=== PATIENT | female | born 1945 | race African-American/Black ===

== ENCOUNTER 2017-10-03 04:46 | Inpatient (IN) | payer MEDICARE, OTHER ==
[2017-10-03] VITALS (32 sets, daily range): BP systolic 51–126; BP diastolic 19–89
[~2017-10-03] VITALS: Ht 165.1 cm; Wt 64.0 kg
[2017-10-03] MEDS ORDERED: Dextrose 10%/0.9% SOD CHL 1,000 ML IV SCH (05:00)
--- NOTE | 2017-10-03 05:02 | Emergency Room Report ---
History of Present Illness General Chief Complaint: Abnormal Labs Source: Medical Record Present Illness HPI 72-year-old female brought in by EMS for low blood sugar and hypertension History of present illness otherwise limited because patient is altered from hypoglycemia Was giving glucagon and d10 by EMS without improvement and low blood sugar Chest x-ray from September 28 shows cardiomegaly, a diffuse pulmonary edema, possible left lower lung and foot trait versus pleural effusion Patient only on insulin, I do not see any other long-acting diabetes medications or sulfonylureas list of medication from shelter Allergies: Coded Allergies: ASPIRIN (Unverified Allergy, Unknown, 10/03/17) PENICILLINS (Unverified Allergy, Unknown, 10/03/17) Patient History Past Medical History: DM, HTN, renal disease, dialysis, other - anemia, hyperparathyroidism Past Surgical History: unable to obtain Pertinent Family History: unable to obtain Social History: Denies: smoking, alcohol use, drug use Now: No Immunizations: UTD Reviewed Nursing Documentation: PMH: Agreed, PSxH: Agreed Nursing Documentation-PMH Past Medical History: No History, Except For Hx Cardiac Problems: Yes - Cardiogenic shock, Anemia, Hyperparathyroidism Hx Hypertension: Yes - Nonrheumatic Mitral valve insufficiency Hx Asthma: No - Acute pulmanory edema Hx Diabetes: Yes - Type 2 Hx Gastrointestinal Problems: No - Generalized muscle weakness Hx Dialysis: Yes - ESRD Review of Systems All Other Systems: limited - AMS Physical Exam Vital Signs Date Time Temp Pulse Resp B/P (MAP) Pulse Ox O2 Delivery O2 Flow Rate FiO2 10/03/17 04:41 97.5 90 16 106/70 50 Room Air Sp02 EP Interpretation: reviewed, abnormal General Appearance: normal inspection, well appearing, no apparent distress, alert, lethargic Head: atraumatic Eyes: bilateral eye PERRL, bilateral eye EOMI ENT: normal ENT inspection, hearing grossly normal, normal voice Neck: normal inspection, full range of motion, supple, no bony tend Respiratory: normal inspection, no respiratory distress, no retraction, no accessory muscle use, no wheezing, rales, other - Palpable midsternal mass Cardiovascular #1: regular rate, rhythm, no edema Gastrointestinal: normal inspection, normal bowel sounds, non tender, soft, no guarding, no hernia Genitourinary: no CVA tenderness Musculoskeletal: normal inspection, back normal, normal range of motion, Arnol' s Sign negative Neurologic: normal inspection, alert, responsive, finish repairer III-XII nml as tested, speech normal Psychiatric: normal inspection, judgement/insight normal, mood/affect normal Skin: normal inspection, normal color, no rash Procedures Critical Care Time Critical Care Time CC time 35min Critical care time endorsed for this patient for sepsis, hypoglycemia, hypothermia Critical care time includes review of laboratory tests, imaging, review of EMR, review of paperwork from SNF (if available), discussion with patient and family (if available), review of code status/POLS (if available). Critical care time also likely includes assessment of fluid status, stabilization of vital signs, selection and dosing of appropriate antibiotics, selection and dosing of Aspirin/Plavix/Heparin/Lovenox, discussion with PMD/ attending hospitalist/postal transportation clerk. Critical care time does not include any procedures which are documented elsewhere in this EMR. Medical Decision Making Diagnostic Impression: Primary Impression: Hypoglycemia Additional Impressions: Altered mental status Qualified Codes: R41.82 - Altered mental status, unspecified Hypothermia Qualified Codes: T68.XXXA - Hypothermia, initial encounter Sepsis Qualified Codes: A41.9 - Sepsis, unspecified organism CHF (congestive heart failure) Qualified Codes: I50.9 - Heart failure, unspecified Hypokalemia CKD (chronic kidney disease) requiring chronic dialysis ER Course 72-year-old female initially for her hypoglycemia Is only on insulin - glucose improved with D50 amps Continue low pulse oximetry reading likely due to hypothermia, rectal temperature 94F Started on bear hugger Her portable RT pulse oximetry, reading was 94% X-ray shows combination of bilateral pulmonary congestion and possible right- sided pneumonia Cultures pending Is given empiric antibiotics, Lasix for acute on chronic CHF labs also significant for hypokalemia, which was repleted intravenously Patient likely with sepsis given hypothermia, hypotension, and right-sided pneumonia Will not give sepsis fluid bolus given pulmonary edema Endorse to Dr. Campa for ICU admission at 6 AM As PMD EKG Diagnostic Results Rate: normal Rhythm: NSR ST Segments: other - ST downsloping in V1-4 Other Impression Prolonged Qtc 550 ASA given to the pt in ED: No Rhythm Strip Diag. Results EP Interpretation: yes Rate: 88 Rhythm: other - +PVCs Chest X-Ray Diagnostic Results Chest X-Ray Diagnostic Results : Chest X-Ray Ordered: Yes Indication: Shortness of Breath EP Interpretation: Yes Interpretation: other - Cardiomegaly, bilateral pulm congestion, ?right sided PNA Electronically Signed by: Dr Fatmata Julian MD Last Vital Signs Date Time Temp Pulse Resp B/P (MAP) Pulse Ox O2 Delivery O2 Flow Rate FiO2 10/03/17 04:41 97.5 90 16 106/70 50 Room Air Status: improved Disposition: ADMITTED INPATIENT Condition: Critical FATMATA JULIAN M.D. Oct 03, 2017 05:02
[2017-10-03 05:12] LABS: MEAN CORPUSCULAR HEMOGLOBIN 30.3 PG (27.0-31.0); MEAN CORPUSCULAR HGB CONC 31.6 G/DL (32.0-36.0); MEAN CORPUSCULAR VOLUME 96 FL (80-99); MEAN PLATELET VOLUME 9.2 FL (6.5-10.1); PLATELET COUNT 214 K/UL (150-450); RED BLOOD COUNT 3.44 M/UL (4.20-5.40); RED CELL DISTRIBUTION WIDTH 16.1 % (11.6-14.8); WHITE BLOOD COUNT 12.7 K/UL (4.8-10.8)
[2017-10-03] MEDS ORDERED: Dextrose 10% 1,000 ML IV SCH (05:15)
[2017-10-03 05:22] LABS: ANION GAP 11 mmol/L (5-15); CARBON DIOXIDE 29 MMOL/L (21-32); CHLORIDE 97 MMOL/L (98-107); CREATININE 2.6 MG/DL (0.55-1.30); POTASSIUM 3.1 MMOL/L (3.5-5.1); SODIUM 137 MMOL/L (136-145)
[2017-10-03 05:27] LABS: ALANINE AMINOTRANSFERASE 23 U/L (12-78); ALBUMIN/GLOBULIN RATIO 0.6 (1.0-2.7); ASPARTATE AMINO TRANSFERASE 37 U/L (15-37); MAGNESIUM 1.8 MG/DL (1.8-2.4); TOTAL PROTEIN 6.8 G/DL (6.4-8.2)
[2017-10-03 05:43] LABS: BAND NEUTROPHILS % (MANUAL) 0 % (0-8); BASOPHILS % (MANUAL) 0 % (0-2); EOSINOPHILS % (MANUAL) 0 % (0-3); LYMPHOCYTES % (MANUAL) 4 % (20-45); NEUTROPHILS % (MANUAL) 91 % (45-75); PLATELET ESTIMATE ADEQUATE; PLATELET MORPHOLOGY NORMAL; TOTAL CELLS COUNTED 100
[2017-10-03] MEDS ORDERED: NS 250 ML IVPB ONE (07:15)
[2017-10-03] MEDS ORDERED: Lidocaine 1% Plain 30 ml INJ ONE (07:45)
--- NOTE | 2017-10-03 08:21 | Emergency Room Report ---
Physical Exam Patient signed out to me. Sepsis, hypothermia, ESRD on dialysis. Hypotensive in ED. NS 250 bolus given. Last 24 Hour Vital Signs Date Time Temp Pulse Resp B/P (MAP) Pulse Ox O2 Delivery O2 Flow Rate FiO2 10/03/17 07:42 96.9 87 16 91/55 100 Bi-pap 10/03/17 07:18 96.9 89 20 88/55 100 Bi-pap 10/03/17 07:04 82 14 100 Facial 50 10/03/17 06:41 50 10/03/17 05:43 91 21 Bi-pap 50 10/03/17 05:42 91 21 94 Facial 50 10/03/17 05:00 94.3 88 21 99/58 75 Simple Mask 6.0 10/03/17 04:41 96.4 90 16 106/70 92 Simple Mask Sp02 EP Interpretation: reviewed, normal - but previously abnormal General Appearance: well appearing, no apparent distress, GCS 15 Head: normocephalic, atraumatic Eyes: bilateral eye normal inspection, bilateral eye PERRL ENT: moist mucus membranes Neck: supple Respiratory: no respiratory distress, crackles Cardiovascular #1: regular rate, rhythm Cardiovascular #2: 2+ radial (R), 2+ femoral (R), 3+ femoral (L) - fistula Gastrointestinal: normal inspection, normal bowel sounds, non tender, no mass, non-distended, decreased bowel sounds, scaphoid Genitourinary: normal inspection Musculoskeletal: back normal, normal range of motion Neurologic: alert, other - eyes closed, vocalizes, moving all 4 Psychiatric: depressed affect Skin: normal inspection, warm/dry Central Line Central Line : Consent: Emergent Central Line Lumen: triple Maximal Sterile Barrier Tech: yes cap, yes mask, yes sterile gown, yes sterile gloves, yes large sterile sheet, yes hand hygiene, yes chlorhexidine prep Central Line Postion: femoral (R) Anesthesia: Lidocaine cc's of anesthesia: 4 Complications: u/s required to locate vein as on lateral side of artery Attempts: Other - 2 Patient Tolerated: Well Complications: None Progress EBL - 4 ml blood. Vein not medial to artery. Located with u/s and cannulated with ease. Medical Decision Making Diagnostic Impression: Primary Impression: Hypoglycemia Additional Impressions: CHF (congestive heart failure) Qualified Codes: I50.9 - Heart failure, unspecified Hypothermia Qualified Codes: T68.XXXA - Hypothermia, initial encounter Sepsis Qualified Codes: A41.9 - Sepsis, unspecified organism Altered mental status Qualified Codes: R41.82 - Altered mental status, unspecified CKD (chronic kidney disease) requiring chronic dialysis Hypokalemia Septic shock ER Course Please see full note from Dr. Arias. Patient with ESRD, sepsis, hypotension and pulm edema on CXR. Need for CVP and possible pressors. Small fluid bolus given and CVP started. U/S needed as vein in atypical place. BP better after bolus - pressors not needed at this time. Dialysis indicated. Patient critical. Sepsis Re-examination Time: 7:42 VS: see last VS documented below - improved CVS: RRR Respiratory: Lungs crackles bilaterally Peripheral pulses: 1+ radial, femoral Capillary refill: <2 seconds Skin exam: minimally cool - on Mary hugger, dry, no rash, not mottled Laboratory Tests Test 10/03/17 04:50 10/03/17 05:50 10/03/17 14:55 White Blood Count 12.7 K/UL (4.8-10.8) H Red Blood Count 3.44 M/UL (4.20-5.40) L Hemoglobin 10.4 G/DL (12.0-16.0) L Hematocrit 33.0 % (37.0-47.0) L Mean Corpuscular Volume 96 FL (80-99) Mean Corpuscular Hemoglobin 30.3 PG (27.0-31.0) Mean Corpuscular Hemoglobin Concent 31.6 G/DL (32.0-36.0) L Red Cell Distribution Width 16.1 % (11.6-14.8) H Platelet Count 214 K/UL (150-450) Mean Platelet Volume 9.2 FL (6.5-10.1) Neutrophils (%) (Auto) % (45.0-75.0) Lymphocytes (%) (Auto) % (20.0-45.0) Monocytes (%) (Auto) % (1.0-10.0) Eosinophils (%) (Auto) % (0.0-3.0) Basophils (%) (Auto) % (0.0-2.0) Differential Total Cells Counted 100 Neutrophils % (Manual) 91 % (45-75) H Lymphocytes % (Manual) 4 % (20-45) L Monocytes % (Manual) 5 % (1-10) Eosinophils % (Manual) 0 % (0-3) Basophils % (Manual) 0 % (0-2) Band Neutrophils 0 % (0-8) Platelet Estimate Adequate Platelet Morphology Normal Sodium Level 137 MMOL/L (136-145) 139 MMOL/L (136-145) Potassium Level 3.1 MMOL/L (3.5-5.1) L 3.4 MMOL/L (3.5-5.1) L Chloride Level 97 MMOL/L (98-107) L 98 MMOL/L (98-107) Carbon Dioxide Level 29 MMOL/L (21-32) 30 MMOL/L (21-32) Anion Gap 11 mmol/L (5-15) 11 mmol/L (5-15) Blood Urea Nitrogen 18 mg/dL (7-18) 21 mg/dL (7-18) H Creatinine 2.6 MG/DL (0.55-1.30) H 2.8 MG/DL (0.55-1.30) H Estimate Glomerular Filtration Rate mL/min (>60) mL/min (>60) Glucose Level 266 MG/DL (74-106) H 146 MG/DL (74-106) #H Calcium Level 7.0 MG/DL (8.5-10.1) L 7.2 MG/DL (8.5-10.1) L Magnesium Level 1.8 MG/DL (1.8-2.4) Total Bilirubin 1.0 MG/DL (0.2-1.0) Aspartate Amino Transferase (AST) 37 U/L (15-37) Alanine Aminotransferase (ALT) 23 U/L (12-78) Alkaline Phosphatase 148 U/L (46-116) H Total Protein 6.8 G/DL (6.4-8.2) Albumin 2.6 G/DL (3.4-5.0) L Globulin 4.2 g/dL Albumin/Globulin Ratio 0.6 (1.0-2.7) L Troponin I 0.017 ng/mL (0.000-0.056) Rhythm Strip Diag. Results EP Interpretation: yes Rhythm: NSR, no PVC's, no ectopy Chest X-Ray Diagnostic Results Chest X-Ray Diagnostic Results : Chest X-Ray Ordered: Yes # of Views/Limited/Complete: 1 View Indication: Other EP Interpretation: Yes Interpretation: no pneumothorax, other - inc cor, bilat infiltrates/chf, effusions Last Vital Signs Date Time Temp Pulse Resp B/P (MAP) Pulse Ox O2 Delivery O2 Flow Rate FiO2 10/03/17 07:42 96.9 87 16 91/55 100 Bi-pap 10/03/17 07:04 50 10/03/17 05:00 6.0 Status: unchanged Disposition: ADMITTED INPATIENT Condition: Critical Referrals: ELAINE CHAKRABORTY (PCP) Steve Gerardo M.D. Oct 03, 2017 08:20
--- NOTE | 2017-10-03 09:18 | Diagnostic Imaging Report ---
Indication: Shortness of breath Technique: XRAY CHEST 1 V Comparison: None Findings: Cardiac silhouette is prominent. Interstitial opacities are seen. Small bilateral pleural effusions are suggested. There is prominence of the bilateral pulmonary arteries. Degenerative changes of the spine are noted. Impression: Cardiomegaly with interstitial edema versus infiltrates. Small bilateral pleural effusions. Prominence of the pulmonary arteries. Clinical correlation recommended.
[2017-10-03] MEDS ORDERED: ZOFRAN4 M3 ORAL (10:59)
[2017-10-03] MEDS ORDERED: PRO-STAT LIQUID30 ML ORAL (10:59)
[2017-10-03] MEDS ORDERED: PRO-AMATINE5 M1 GT (10:59)
[2017-10-03] MEDS ORDERED: PLAVIX75 MG ORAL (10:59)
[2017-10-03] MEDS ORDERED: SENSIPAR30 MG ORAL (10:59)
[2017-10-03] MEDS: Heparin 5000 units/ml inj SUBQ SCH ×2 (11:42→20:36)
--- NOTE | 2017-10-03 13:39 | Infectious Diseases Prog Note ---
Assessment/Plan Problems: (1) HCAP (healthcare-associated pneumonia) Assessment & Plan: will start vancomycin and levaquin empiric coverage pending culture (2) Sepsis Assessment & Plan: due to the above, will send blood culture, start vancomycin and levaquin empirically (3) Hypoglycemia Assessment & Plan: continue blood glucose monitor , avoid insulin (4) Altered mental status Assessment & Plan: due to the above, continue neuro check , check ammonia (5) CHF (congestive heart failure) Assessment & Plan: on HD, renal is following Subjective Allergies: Coded Allergies: ASPIRIN (Unverified Allergy, Unknown, 10/03/17) PENICILLINS (Unverified Allergy, Unknown, 10/03/17) Objective Vital Signs Last 24 Hour Vital Signs Date Time Temp Pulse Resp B/P (MAP) Pulse Ox O2 Delivery O2 Flow Rate FiO2 10/03/17 12:00 88 18 86/49 100 Nasal Cannula 3.0 10/03/17 11:52 89 10/03/17 11:00 89 20 87/47 96 Nasal Cannula 3.0 10/03/17 10:00 88 18 92/51 92 Nasal Cannula 3.0 10/03/17 09:52 88 10/03/17 09:05 97.7 99 24 94/55 91 Non-Rebreather 100.0 10/03/17 09:05 3.0 10/03/17 08:57 96.9 89 18 97/56 100 Bi-pap 6.0 50 10/03/17 08:45 86 14 100 Facial 50 10/03/17 08:39 89 18 97/56 100 Bi-pap 10/03/17 07:42 96.9 87 16 91/55 100 Bi-pap 10/03/17 07:18 96.9 89 20 88/55 100 Bi-pap 10/03/17 07:04 82 14 100 Facial 50 10/03/17 06:41 50 10/03/17 05:43 91 21 Bi-pap 50 10/03/17 05:42 91 21 94 Facial 50 10/03/17 05:00 94.3 88 21 99/58 75 Simple Mask 6.0 10/03/17 04:41 96.4 90 16 106/70 92 Simple Mask Height (Feet): 5 Height (Inches): 5.00 Weight (Pounds): 1185 Laboratory Tests Test 10/03/17 04:50 10/03/17 05:50 White Blood Count 12.7 K/UL (4.8-10.8) H Red Blood Count 3.44 M/UL (4.20-5.40) L Hemoglobin 10.4 G/DL (12.0-16.0) L Hematocrit 33.0 % (37.0-47.0) L Mean Corpuscular Volume 96 FL (80-99) Mean Corpuscular Hemoglobin 30.3 PG (27.0-31.0) Mean Corpuscular Hemoglobin Concent 31.6 G/DL (32.0-36.0) L Red Cell Distribution Width 16.1 % (11.6-14.8) H Platelet Count 214 K/UL (150-450) Mean Platelet Volume 9.2 FL (6.5-10.1) Neutrophils (%) (Auto) % (45.0-75.0) Lymphocytes (%) (Auto) % (20.0-45.0) Monocytes (%) (Auto) % (1.0-10.0) Eosinophils (%) (Auto) % (0.0-3.0) Basophils (%) (Auto) % (0.0-2.0) Differential Total Cells Counted 100 Neutrophils % (Manual) 91 % (45-75) H Lymphocytes % (Manual) 4 % (20-45) L Monocytes % (Manual) 5 % (1-10) Eosinophils % (Manual) 0 % (0-3) Basophils % (Manual) 0 % (0-2) Band Neutrophils 0 % (0-8) Platelet Estimate Adequate Platelet Morphology Normal Sodium Level 137 MMOL/L (136-145) Potassium Level 3.1 MMOL/L (3.5-5.1) L Chloride Level 97 MMOL/L (98-107) L Carbon Dioxide Level 29 MMOL/L (21-32) Anion Gap 11 mmol/L (5-15) Blood Urea Nitrogen 18 mg/dL (7-18) Creatinine 2.6 MG/DL (0.55-1.30) H Estimat Glomerular Filtration Rate mL/min (>60) Glucose Level 266 MG/DL (74-106) H Calcium Level 7.0 MG/DL (8.5-10.1) L Magnesium Level 1.8 MG/DL (1.8-2.4) Total Bilirubin 1.0 MG/DL (0.2-1.0) Aspartate Amino Transf (AST/SGOT) 37 U/L (15-37) Alanine Aminotransferase (ALT/SGPT) 23 U/L (12-78) Alkaline Phosphatase 148 U/L (46-116) H Total Protein 6.8 G/DL (6.4-8.2) Albumin 2.6 G/DL (3.4-5.0) L Globulin 4.2 g/dL Albumin/Globulin Ratio 0.6 (1.0-2.7) L Troponin I 0.017 ng/mL (0.000-0.056) Current Medications Medications (Trade) Dose Ordered Sig/Tamanna Route PRN Reason Start Time Stop Time Status Last Admin Dose Admin Heparin Sodium (Porcine) (Heparin 5000 units/ml) 5,000 units EVERY 12 HOURS SUBQ 10/03/17 09:00 11/02/17 08:59 10/03/17 11:42 Dina Bazan M.D. Oct 03, 2017 13:39
[2017-10-03] MEDS ORDERED: Vancomycin 1gm/D5W 275ml IVPB ONE ×2 (14:30)
[2017-10-03] MEDS ORDERED: Midodrine 10mg tab ORAL SCH ×2 (15:30→18:00)
[2017-10-03 15:37] LABS: ANION GAP 11 mmol/L (5-15); CALCIUM 7.2 MG/DL (8.5-10.1); CARBON DIOXIDE 30 MMOL/L (21-32); CHLORIDE 98 MMOL/L (98-107); CREATININE 2.8 MG/DL (0.55-1.30); POTASSIUM 3.4 MMOL/L (3.5-5.1); SODIUM 139 MMOL/L (136-145)
--- NOTE | 2017-10-03 16:21 | Cardiac Electrophysiology PN ---
Subjective Subjective Cardiology consult [id number] Objective Last 24 Hour Vital Signs Date Time Temp Pulse Resp B/P (MAP) Pulse Ox O2 Delivery O2 Flow Rate FiO2 10/03/17 16:00 3.0 10/03/17 15:00 90 19 90/53 100 Nasal Cannula 3.0 10/03/17 14:00 89 22 85/48 100 Nasal Cannula 3.0 10/03/17 13:00 89 19 84/49 100 Nasal Cannula 3.0 10/03/17 12:00 3.0 10/03/17 12:00 88 18 86/49 100 Nasal Cannula 3.0 10/03/17 11:52 89 10/03/17 11:00 89 20 87/47 96 Nasal Cannula 3.0 10/03/17 10:00 88 18 92/51 92 Nasal Cannula 3.0 10/03/17 09:52 88 10/03/17 09:05 97.7 99 24 94/55 91 Non-Rebreather 100.0 10/03/17 09:05 3.0 10/03/17 08:57 96.9 89 18 97/56 100 Bi-pap 6.0 50 10/03/17 08:45 86 14 100 Facial 50 10/03/17 08:39 89 18 97/56 100 Bi-pap 10/03/17 07:42 96.9 87 16 91/55 100 Bi-pap 10/03/17 07:18 96.9 89 20 88/55 100 Bi-pap 10/03/17 07:04 82 14 100 Facial 50 10/03/17 06:41 50 10/03/17 05:43 91 21 Bi-pap 50 10/03/17 05:42 91 21 94 Facial 50 10/03/17 05:00 94.3 88 21 99/58 75 Simple Mask 6.0 10/03/17 04:41 96.4 90 16 106/70 92 Simple Mask Intake and Output 10/03/17 10/04/17 19:00 07:00 Intake Total 253.708 ml Output Total 0 ml Balance 253.708 ml IV Total 243.708 ml Other 10 ml Output Urine Total 0 ml Laboratory Tests Test 10/03/17 04:50 10/03/17 05:50 10/03/17 14:55 White Blood Count 12.7 K/UL (4.8-10.8) H Red Blood Count 3.44 M/UL (4.20-5.40) L Hemoglobin 10.4 G/DL (12.0-16.0) L Hematocrit 33.0 % (37.0-47.0) L Mean Corpuscular Volume 96 FL (80-99) Mean Corpuscular Hemoglobin 30.3 PG (27.0-31.0) Mean Corpuscular Hemoglobin Concent 31.6 G/DL (32.0-36.0) L Red Cell Distribution Width 16.1 % (11.6-14.8) H Platelet Count 214 K/UL (150-450) Mean Platelet Volume 9.2 FL (6.5-10.1) Neutrophils (%) (Auto) % (45.0-75.0) Lymphocytes (%) (Auto) % (20.0-45.0) Monocytes (%) (Auto) % (1.0-10.0) Eosinophils (%) (Auto) % (0.0-3.0) Basophils (%) (Auto) % (0.0-2.0) Differential Total Cells Counted 100 Neutrophils % (Manual) 91 % (45-75) H Lymphocytes % (Manual) 4 % (20-45) L Monocytes % (Manual) 5 % (1-10) Eosinophils % (Manual) 0 % (0-3) Basophils % (Manual) 0 % (0-2) Band Neutrophils 0 % (0-8) Platelet Estimate Adequate Platelet Morphology Normal Sodium Level 137 MMOL/L (136-145) 139 MMOL/L (136-145) Potassium Level 3.1 MMOL/L (3.5-5.1) L 3.4 MMOL/L (3.5-5.1) L Chloride Level 97 MMOL/L (98-107) L 98 MMOL/L (98-107) Carbon Dioxide Level 29 MMOL/L (21-32) 30 MMOL/L (21-32) Anion Gap 11 mmol/L (5-15) 11 mmol/L (5-15) Blood Urea Nitrogen 18 mg/dL (7-18) 21 mg/dL (7-18) H Creatinine 2.6 MG/DL (0.55-1.30) H 2.8 MG/DL (0.55-1.30) H Estimat Glomerular Filtration Rate mL/min (>60) mL/min (>60) Glucose Level 266 MG/DL (74-106) H 146 MG/DL (74-106) #H Calcium Level 7.0 MG/DL (8.5-10.1) L 7.2 MG/DL (8.5-10.1) L Magnesium Level 1.8 MG/DL (1.8-2.4) Total Bilirubin 1.0 MG/DL (0.2-1.0) Aspartate Amino Transf (AST/SGOT) 37 U/L (15-37) Alanine Aminotransferase (ALT/SGPT) 23 U/L (12-78) Alkaline Phosphatase 148 U/L (46-116) H Total Protein 6.8 G/DL (6.4-8.2) Albumin 2.6 G/DL (3.4-5.0) L Globulin 4.2 g/dL Albumin/Globulin Ratio 0.6 (1.0-2.7) L Troponin I 0.017 ng/mL (0.000-0.056) MATIAS SORIA Oct 03, 2017 16:21
[2017-10-03] MEDS: NovoLOG Insulin Flexpen SUBQ SCH ×2 (17:34→20:36)
[2017-10-03] MEDS: Midodrine 10mg tab ORAL SCH (17:35)
[2017-10-03] MEDS: Dyna-Hex 2% Top Sol 2oz TOPIC SCH (20:34)
--- NOTE | 2017-10-03 22:15 | Consultation ---
DATE OF CONSULTATION: 10/03/2017 CARDIOLOGY CONSULTATION CONSULTING PHYSICIAN: Heriberto Pederson M.D. REFERRING PHYSICIAN: David Fay M.D. REASON FOR CONSULTATION: Hypotension. HISTORY OF PRESENT ILLNESS: The patient is a 72-year-old lady with history of hypertension and end-stage renal disease, on hemodialysis, was brought to the emergency room for hypotension and low blood sugar. The patient received glucagon and D10 by EMS without improvement. The patient was then admitted and was brought to the intensive care unit. Cardiology consultation was obtained for further evaluation. PAST MEDICAL HISTORY: 1. Hypertension. 2. End-stage renal disease, on hemodialysis. 3. Diabetes. 4. Anemia. 5. Hyperparathyroidism. SOCIAL HISTORY: Denies smoking or drinking alcohol. FAMILY HISTORY: Noncontributory. REVIEW OF SYSTEMS: Performed and was negative other than what was mentioned in the history of present illness. PHYSICAL EXAMINATION: VITAL SIGNS: Blood pressure is as low as 84/49, currently 90/53; pulse 89; respirations 18; and she is afebrile. HEAD AND NECK: No JVD. LUNGS: Decreased breath sounds. CARDIOVASCULAR: Regular S1 and S2 with no gallop or murmur. ABDOMEN: Soft. EXTREMITIES: No pitting edema. Her dialysis shunt is in the right arm. LABORATORY AND DIAGNOSTIC DATA: Her EKG shows sinus rhythm with low-voltage QRS, and ST-T wave abnormalities suggestive of anterior ischemia. Labs, white count 12.7, hemoglobin of 10.5, hematocrit of 33, and platelet count of 214,000. Sodium 139, potassium 3.4, BUN of 21, creatinine of 2.8, and glucose of 146. Troponin is 0.17. ASSESSMENT AND PLAN: 1. Hypotension, could be due to septic shock. The patient will be on broad-spectrum IV antibiotics. I will start the patient on midodrine 10 mg three times daily. The patient already has ordered for Levophed in case midodrine did not work. We will get an echocardiogram to evaluate for ejection fraction and wall motion abnormality. 2. Anterior ischemia on 12-lead EKG. The patient denies any chest pain. I will get an echocardiogram for further evaluation and management. 3. End-stage renal disease, on hemodialysis. 4. Anemia. 5. Hyperparathyroidism. Thank you very much, Dr. Fay for allowing me to participate in the care of this patient. Please do not hesitate to contact me if you have any questions regarding my evaluation. Heriberto Pederson M.D. DR: Isael JOB#: [id number] CC:
--- NOTE | 2017-10-03 23:59 | History and Physical ---
History of Present Illness General Date patient seen: Oct 03, 2017 Reason for Hospitalization: Abnormal Labs Present Illness Allergies: Coded Allergies: ASPIRIN (Unverified Allergy, Unknown, 10/03/17) PENICILLINS (Unverified Allergy, Unknown, 10/03/17) Medication History Scheduled Amino Acids/Protein Hydrolys (Pro-Stat Liquid), 30 ML ORAL TWICE A DAY, ( Reported) Cinacalcet* (Sensipar*), 30 MG ORAL DAILY, (Reported) Clopidogrel Bisulfate* (Plavix*), 75 MG ORAL DAILY, (Reported) Scheduled PRN Ondansetron* (Zofran*), 4 MG ORAL Q4HR PRN for Nausea & Vomiting, (Reported) Miscellaneous Medications Midodrine (Midodrine HCl), 5 MG GT, (Reported) Patient History Healthcare decision maker Andrea/ Daughter Resuscitation status Full Code Advanced Directive on File No Physical Exam Last 24 Hour Vital Signs Date Time Temp Pulse Resp B/P (MAP) Pulse Ox O2 Delivery O2 Flow Rate FiO2 10/03/17 23:29 Nasal Cannula 3.0 32 10/03/17 21:21 70/40 10/03/17 20:15 93 22 86/50 98 Nasal Cannula 3.0 10/03/17 20:00 97.8 95 20 77/37 98 Nasal Cannula 3.0 10/03/17 20:00 94 10/03/17 19:45 94 19 79/46 98 Nasal Cannula 3.0 10/03/17 19:00 93 18 88/52 100 Nasal Cannula 3.0 10/03/17 18:00 91 20 91/49 100 Nasal Cannula 3.0 10/03/17 17:00 90 20 90/53 100 Nasal Cannula 3.0 10/03/17 16:00 98.7 90 20 87/47 100 Nasal Cannula 3.0 10/03/17 16:00 3.0 10/03/17 16:00 91/49 10/03/17 15:55 90 10/03/17 15:00 90 19 90/53 100 Nasal Cannula 3.0 10/03/17 14:00 89 22 85/48 100 Nasal Cannula 3.0 10/03/17 13:00 89 19 84/49 100 Nasal Cannula 3.0 10/03/17 12:00 3.0 10/03/17 12:00 88 18 86/49 100 Nasal Cannula 3.0 10/03/17 11:52 89 10/03/17 11:00 89 20 87/47 96 Nasal Cannula 3.0 10/03/17 10:00 88 18 92/51 92 Nasal Cannula 3.0 10/03/17 09:52 88 10/03/17 09:05 97.7 99 24 94/55 91 Non-Rebreather 100.0 10/03/17 09:05 3.0 10/03/17 08:57 96.9 89 18 97/56 100 Bi-pap 6.0 50 10/03/17 08:45 86 14 100 Facial 50 10/03/17 08:39 89 18 97/56 100 Bi-pap 10/03/17 07:42 96.9 87 16 91/55 100 Bi-pap 10/03/17 07:18 96.9 89 20 88/55 100 Bi-pap 10/03/17 07:04 82 14 100 Facial 50 10/03/17 06:41 50 10/03/17 05:43 91 21 Bi-pap 50 10/03/17 05:42 91 21 94 Facial 50 10/03/17 05:00 94.3 88 21 99/58 75 Simple Mask 6.0 10/03/17 04:41 96.4 90 16 106/70 92 Simple Mask Intake and Output 10/03/17 10/04/17 19:00 07:00 Intake Total 465.000 ml Output Total 0 ml 0 ml Balance 465.000 ml 0 ml IV Total 455.000 ml Other 10 ml Output Urine Total 0 ml 0 ml Laboratory Tests Test 10/03/17 04:50 10/03/17 05:50 10/03/17 14:55 White Blood Count 12.7 K/UL (4.8-10.8) H Red Blood Count 3.44 M/UL (4.20-5.40) L Hemoglobin 10.4 G/DL (12.0-16.0) L Hematocrit 33.0 % (37.0-47.0) L Mean Corpuscular Volume 96 FL (80-99) Mean Corpuscular Hemoglobin 30.3 PG (27.0-31.0) Mean Corpuscular Hemoglobin Concent 31.6 G/DL (32.0-36.0) L Red Cell Distribution Width 16.1 % (11.6-14.8) H Platelet Count 214 K/UL (150-450) Mean Platelet Volume 9.2 FL (6.5-10.1) Neutrophils (%) (Auto) % (45.0-75.0) Lymphocytes (%) (Auto) % (20.0-45.0) Monocytes (%) (Auto) % (1.0-10.0) Eosinophils (%) (Auto) % (0.0-3.0) Basophils (%) (Auto) % (0.0-2.0) Differential Total Cells Counted 100 Neutrophils % (Manual) 91 % (45-75) H Lymphocytes % (Manual) 4 % (20-45) L Monocytes % (Manual) 5 % (1-10) Eosinophils % (Manual) 0 % (0-3) Basophils % (Manual) 0 % (0-2) Band Neutrophils 0 % (0-8) Platelet Estimate Adequate Platelet Morphology Normal Sodium Level 137 MMOL/L (136-145) 139 MMOL/L (136-145) Potassium Level 3.1 MMOL/L (3.5-5.1) L 3.4 MMOL/L (3.5-5.1) L Chloride Level 97 MMOL/L (98-107) L 98 MMOL/L (98-107) Carbon Dioxide Level 29 MMOL/L (21-32) 30 MMOL/L (21-32) Anion Gap 11 mmol/L (5-15) 11 mmol/L (5-15) Blood Urea Nitrogen 18 mg/dL (7-18) 21 mg/dL (7-18) H Creatinine 2.6 MG/DL (0.55-1.30) H 2.8 MG/DL (0.55-1.30) H Estimat Glomerular Filtration Rate mL/min (>60) mL/min (>60) Glucose Level 266 MG/DL (74-106) H 146 MG/DL (74-106) #H Calcium Level 7.0 MG/DL (8.5-10.1) L 7.2 MG/DL (8.5-10.1) L Magnesium Level 1.8 MG/DL (1.8-2.4) Total Bilirubin 1.0 MG/DL (0.2-1.0) Aspartate Amino Transf (AST/SGOT) 37 U/L (15-37) Alanine Aminotransferase (ALT/SGPT) 23 U/L (12-78) Alkaline Phosphatase 148 U/L (46-116) H Total Protein 6.8 G/DL (6.4-8.2) Albumin 2.6 G/DL (3.4-5.0) L Globulin 4.2 g/dL Albumin/Globulin Ratio 0.6 (1.0-2.7) L Troponin I 0.017 ng/mL (0.000-0.056) Height (Feet): 5 Height (Inches): 5.00 Weight (Pounds): 119 Medications Current Medications Medications (Trade) Dose Ordered Sig/Tamanna Route PRN Reason Start Time Stop Time Status Last Admin Dose Admin Chlorhexidine Gluconate (Rhianna-Hex 2%) 1 applic Q24H TOPIC 10/03/17 20:00 11/02/17 19:59 10/03/17 20:34 Dextrose (Dextrose 50%) STAT PRN IV Hypoglycemia 10/03/17 13:45 11/02/17 13:44 Heparin Sodium (Porcine) (Heparin 5000 units/ml) 5,000 units EVERY 12 HOURS SUBQ 10/03/17 09:00 11/02/17 08:59 10/03/17 20:36 Insulin Aspart (NovoLOG) Q4HR SUBQ 10/03/17 17:00 11/02/17 16:59 10/03/17 17:34 Levofloxacin 100 ml @ 100 mls/hr Q48H IVPB 10/05/17 06:00 10/12/17 05:59 Midodrine (Pro-Amatine) 10 mg THREE TIMES A DAY ORAL 10/03/17 18:00 11/02/17 17:59 10/03/17 17:35 Norepinephrine Bitartrate 4 mg/ Dextrose 250 ml @ 0 mls/hr Q24H IV 10/03/17 16:00 11/02/17 15:59 10/03/17 21:21 Sodium Chloride 1,000 ml @ 60 mls/hr [id number] IV 10/03/17 14:30 11/02/17 14:29 10/03/17 15:08 Vancomycin HCl (Vanco rx to dose) 1 ea DAILY PRN MISC Per rx protocol 10/03/17 13:45 11/02/17 13:44 ASHISH ARTEAGA 9, 2017 23:59
[2017-10-04] VITALS (94 sets, daily range): BP systolic 80–114; BP diastolic 28–77
[2017-10-04] MEDS: NovoLOG Insulin Flexpen SUBQ SCH ×6 (01:04→20:31)
--- NOTE | 2017-10-04 02:00 | Consultation ---
DATE OF CONSULTATION: 10/03/2017 INFECTIOUS DISEASE CONSULTATION CONSULTING PHYSICIAN: Dina Bazan M.D. REQUESTING PHYSICIAN: David Fay M.D. REASON FOR CONSULTATION: Healthcare acquired pneumonia and sepsis, recommendation for antibiotics treatment and the patient was allergic to penicillin. HISTORY OF PRESENT ILLNESS: The patient is a 72-year-old female with past medical history of diabetes, hypertension, end-stage renal disease, on hemodialysis, anemia was brought into [facility] via paramedics for low blood sugar and altered mental status. The patient received D10 by the paramedics before arrival with no significant improvement in her blood pressure, so she was brought into the hospital for further evaluation. Chest x-ray showed diffuse pulmonary infiltration suspicious for pneumonia. The patient's white count was found to be elevated, so infectious disease consultation was requested for antibiotics treatment and further management for pneumonia and sepsis since she is allergic to penicillin. As of note, the patient is poor historian, could not provide good history. History was mainly obtained from the medical record and nursing staff. REVIEW OF SYSTEMS: Unable to obtain, the patient is a poor historian. PAST MEDICAL HISTORY: Significant for diabetes, hypertension, end-stage renal disease, on hemodialysis, anemia, and hyperparathyroidism. PAST SURGICAL HISTORY: Negative. MEDICATIONS: The patient received levofloxacin in the emergency room. For the rest of her medications, please refer to [facility]. ALLERGIES: She is allergic to aspirin and penicillin, unknown reaction. SOCIAL HISTORY: Unable to obtain. FAMILY HISTORY: Unable to obtain. Family history not on record. LABORATORY DATA: Labs showed white count of 4047, hemoglobin of 10.4, platelet count of 214,000. BUN of 18, creatinine of 2.6. IMAGING: Chest x-ray showed cardiomegaly with interstitial edema versus infiltrate, small bilateral pleural effusion. PHYSICAL EXAMINATION: VITAL SIGNS: Temperature 96.9, pulse 89, respirations 18, blood pressure 97/56, saturation 100% on BiPAP with FiO2 of 50%. GENERAL: Elderly female, lying in bed, on BiPAP machine, barely responsive, not in distress. HEENT: Normocephalic, atraumatic. Pupils are reactive to light. Unable to assess oral mucosa. The patient on BiPAP. NECK: Supple. No lymphadenopathy. CARDIOVASCULAR: Tachycardic. S1 and S2 normal, no murmur. LUNGS: She had diminished breathing sounds at the bases with crackles. ABDOMEN: Soft, nontender, nondistended. Positive bowel sounds. No hepatosplenomegaly. No ascites. EXTREMITIES: No edema or cyanosis. SKIN: No rash or hives. ASSESSMENT AND RECOMMENDATION: 1. Healthcare-acquired pneumonia. We will start vancomycin and Levaquin empiric coverage pending blood culture and sputum culture. 2. Sepsis, due to the above. We will send blood culture. Start vancomycin and Levaquin empiric coverage, pending culture. 3. Acute respiratory failure due to the above on BiPAP. Monitor oxygen ABG, titrate as needed. 4. Hypoglycemia. Continue blood glucose monitor in the intensive care unit as needed. Avoid insulin for now. 5. Altered mental status due to the above. Continue neuro check. Check ammonia. Dina Bazan M.D. DR: GEOFFREY JOB#: [id number] CC:
[2017-10-04] MEDS: Midodrine 10mg tab ORAL SCH ×3 (09:58→17:21)
[2017-10-04] MEDS: Heparin 5000 units/ml inj SUBQ SCH ×2 (09:59→20:33)
[2017-10-04 12:44] LABS: MEAN CORPUSCULAR HEMOGLOBIN 30.4 PG (27.0-31.0); MEAN CORPUSCULAR HGB CONC 31.7 G/DL (32.0-36.0); MEAN CORPUSCULAR VOLUME 96 FL (80-99); MEAN PLATELET VOLUME 9.7 FL (6.5-10.1); PLATELET COUNT 195 K/UL (150-450); RED BLOOD COUNT 3.45 M/UL (4.20-5.40); RED CELL DISTRIBUTION WIDTH 15.9 % (11.6-14.8); WHITE BLOOD COUNT 9.8 K/UL (4.8-10.8)
[2017-10-04 12:47] LABS: ANION GAP 13 mmol/L (5-15); CALCIUM 6.8 MG/DL (8.5-10.1); CARBON DIOXIDE 27 MMOL/L (21-32); CHLORIDE 101 MMOL/L (98-107); CREATININE 3.3 MG/DL (0.55-1.30); POTASSIUM 3.6 MMOL/L (3.5-5.1); SODIUM 140 MMOL/L (136-145)
[2017-10-04 13:15] LABS: BAND NEUTROPHILS % (MANUAL) 0 % (0-8); BASOPHILS % (MANUAL) 0 % (0-2); EOSINOPHILS % (MANUAL) 0 % (0-3); HYPOCHROMASIA 1+; LYMPHOCYTES % (MANUAL) 3 % (20-45); NEUTROPHILS % (MANUAL) 92 % (45-75); PLATELET ESTIMATE ADEQUATE; TOTAL CELLS COUNTED 100
[2017-10-04 13:16] LABS: ANISOCYTOSIS 1+; PLATELET MORPHOLOGY NORMAL
--- NOTE | 2017-10-04 13:56 | Infectious Diseases Prog Note ---
Assessment/Plan Problems: (1) HCAP (healthcare-associated pneumonia) Assessment & Plan: continue vancomycin and levaquin empiric coverage pending sputum culture (2) Sepsis Assessment & Plan: due to the above, await blood culture, continue vancomycin and levaquin empirically (3) Hypoglycemia Assessment & Plan: improved, continue blood glucose monitor , avoid insulin for now since her blood sugar is still low (4) Altered mental status Assessment & Plan: improved , due to the above, continue neuro check , monitor in ICU (5) CHF (congestive heart failure) Assessment & Plan: on HD, renal is following Subjective Constitutional: Reports: no symptoms HEENT: Reports: no symptoms Respiratory: Reports: productive cough Breasts: Reports: no symptoms Cardiovascular: Reports: no symptoms Gastrointestinal/Abdominal: Reports: nausea, bloating Genitourinary: Reports: no symptoms Neurologic: Reports: no symptoms Psychiatric: Reports: no symptoms Skin: Reports: no symptoms Endocrine: Reports: no symptoms Hematologic: Reports: no symptoms Musculoskeletal: Reports: no symptoms Allergies: Coded Allergies: ASPIRIN (Unverified Allergy, Unknown, 10/03/17) PENICILLINS (Unverified Allergy, Unknown, 10/03/17) Subjective she was more awake and alert, complained of abdominal discomfort, still on pressor Objective Vital Signs Last 24 Hour Vital Signs Date Time Temp Pulse Resp B/P (MAP) Pulse Ox O2 Delivery O2 Flow Rate FiO2 10/04/17 13:30 88 20 85/49 97 Nasal Cannula 3.0 10/04/17 13:15 89 18 83/41 97 Nasal Cannula 3.0 10/04/17 13:00 88 24 83/41 95 Nasal Cannula 3.0 10/04/17 13:00 83/41 10/04/17 12:45 89 22 109/72 97 Nasal Cannula 3.0 10/04/17 12:30 90 23 92/49 98 Nasal Cannula 3.0 10/04/17 12:15 89 15 86/47 99 Nasal Cannula 3.0 10/04/17 12:00 86/47 10/04/17 12:00 97.8 88 17 90/49 96 Nasal Cannula 3.0 10/04/17 12:00 87 10/04/17 11:45 90 21 90/48 96 Nasal Cannula 3.0 10/04/17 11:30 90 17 84/45 97 Nasal Cannula 3.0 10/04/17 11:15 90 17 90/46 97 Nasal Cannula 3.0 10/04/17 11:00 90/46 10/04/17 11:00 90 17 88/47 97 Nasal Cannula 3.0 10/04/17 10:45 90 17 84/44 96 Nasal Cannula 3.0 10/04/17 10:30 90 15 90/49 97 Nasal Cannula 3.0 10/04/17 10:15 91 16 92/47 97 Nasal Cannula 3.0 10/04/17 10:00 89 21 86/47 98 Nasal Cannula 3.0 10/04/17 10:00 92/47 10/04/17 09:45 88 21 86/47 96 Nasal Cannula 3.0 10/04/17 09:30 88 16 89/49 96 Nasal Cannula 3.0 10/04/17 09:15 89 19 83/53 97 Nasal Cannula 3.0 10/04/17 09:00 83/53 10/04/17 09:00 89 18 89/50 97 Nasal Cannula 3.0 10/04/17 08:45 90 19 93/50 100 Nasal Cannula 3.0 10/04/17 08:30 91 17 93/52 100 Nasal Cannula 3.0 10/04/17 08:15 90 18 88/49 100 Nasal Cannula 3.0 10/04/17 08:00 97.6 89 19 90/51 100 Nasal Cannula 3.0 10/04/17 08:00 88/49 10/04/17 08:00 88 10/04/17 07:45 90 19 89/51 100 Nasal Cannula 3.0 10/04/17 07:30 90 18 90/48 100 Nasal Cannula 3.0 10/04/17 07:15 90 13 83/45 100 Nasal Cannula 3.0 10/04/17 07:00 90 17 83/46 96 Nasal Cannula 3.0 10/04/17 07:00 83/46 10/04/17 07:00 Nasal Cannula 3.0 32 10/04/17 06:45 91 16 84/45 96 Nasal Cannula 3.0 10/04/17 06:30 95 15 80/61 100 Nasal Cannula 3.0 10/04/17 06:15 95 16 89/49 100 Nasal Cannula 3.0 10/04/17 06:00 97 17 108/59 100 Nasal Cannula 3.0 10/04/17 05:45 106 13 108/59 100 Nasal Cannula 3.0 10/04/17 05:30 94 20 86/53 100 Nasal Cannula 3.0 10/04/17 05:15 95 22 92/51 95 Nasal Cannula 3.0 10/04/17 05:00 100 20 92/51 96 Nasal Cannula 3.0 10/04/17 05:00 92/51 10/04/17 04:45 97 21 114/62 97 Nasal Cannula 3.0 10/04/17 04:30 98 23 94/55 99 Nasal Cannula 3.0 10/04/17 04:15 97 23 89/53 99 Nasal Cannula 3.0 10/04/17 04:00 97.1 98 20 94/55 99 Nasal Cannula 3.0 10/04/17 04:00 98 10/04/17 04:00 94/55 10/04/17 03:45 98 19 100/57 99 Nasal Cannula 3.0 10/04/17 03:30 99 19 98/56 99 Nasal Cannula 3.0 10/04/17 03:15 99 19 102/58 99 Nasal Cannula 3.0 10/04/17 03:00 98 18 100/57 100 Nasal Cannula 3.0 10/04/17 03:00 100/57 10/04/17 02:57 101/57 10/04/17 02:45 99 22 98/57 100 Nasal Cannula 3.0 10/04/17 02:30 100 22 102/49 99 Nasal Cannula 3.0 10/04/17 02:15 101 20 102/49 99 Nasal Cannula 3.0 10/04/17 02:00 102 20 101/59 99 Nasal Cannula 3.0 10/04/17 02:00 101/59 10/04/17 01:45 102 21 102/55 100 Nasal Cannula 3.0 10/04/17 01:30 103 20 96/74 100 Nasal Cannula 3.0 10/04/17 01:15 103 21 107/62 100 Nasal Cannula 3.0 10/04/17 01:00 103 21 105/60 100 Nasal Cannula 3.0 10/04/17 01:00 105/60 10/04/17 00:45 104 21 104/61 98 Nasal Cannula 3.0 10/04/17 00:30 105 20 107/62 98 Nasal Cannula 3.0 10/04/17 00:15 105 20 100/59 98 Nasal Cannula 3.0 10/04/17 00:00 89/70 10/04/17 00:00 95 10/04/17 00:00 97.4 105 20 89/70 98 Nasal Cannula 3.0 10/03/17 23:45 105 21 89/70 99 Nasal Cannula 3.0 10/03/17 23:30 101 23 67/36 96 Nasal Cannula 3.0 10/03/17 23:29 Nasal Cannula 3.0 32 10/03/17 23:15 106 22 76/19 95 Nasal Cannula 3.0 10/03/17 23:00 106 20 79/54 94 Nasal Cannula 3.0 10/03/17 23:00 79/54 10/03/17 22:45 105 20 54/40 97 Nasal Cannula 3.0 10/03/17 22:30 104 20 126/89 97 Nasal Cannula 3.0 10/03/17 22:15 104 20 126/89 97 Nasal Cannula 3.0 10/03/17 22:00 102 21 84/64 97 Nasal Cannula 3.0 10/03/17 22:00 84/64 10/03/17 21:45 101 21 93/31 100 Nasal Cannula 3.0 10/03/17 21:30 99 21 51/38 100 Nasal Cannula 3.0 10/03/17 21:21 70/40 10/03/17 21:15 91 21 52/43 100 Nasal Cannula 3.0 10/03/17 21:00 91 21 53/45 100 Nasal Cannula 3.0 10/03/17 20:45 91 22 70/49 98 Nasal Cannula 3.0 10/03/17 20:30 92 22 86/50 98 Nasal Cannula 3.0 10/03/17 20:15 93 22 86/50 98 Nasal Cannula 3.0 10/03/17 20:00 97.8 95 20 77/37 98 Nasal Cannula 3.0 10/03/17 20:00 94 10/03/17 19:45 94 19 79/46 98 Nasal Cannula 3.0 10/03/17 19:00 93 18 88/52 100 Nasal Cannula 3.0 10/03/17 18:00 91 20 91/49 100 Nasal Cannula 3.0 10/03/17 17:00 90 20 90/53 100 Nasal Cannula 3.0 10/03/17 16:00 98.7 90 20 87/47 100 Nasal Cannula 3.0 10/03/17 16:00 3.0 10/03/17 16:00 91/49 10/03/17 15:55 90 10/03/17 15:00 90 19 90/53 100 Nasal Cannula 3.0 10/03/17 14:00 89 22 85/48 100 Nasal Cannula 3.0 Height (Feet): 5 Height (Inches): 5.00 Weight (Pounds): 113 General Appearance: WD/WN, no acute distress HEENT: normocephalic, atraumatic, anicteric, mucous membranes moist, PERRL, EOMI, pharynx normal, supple Respiratory/Chest: chest wall non-tender, no respiratory distress, no accessory muscle use, decreased breath sounds, crackles/rales Cardiovascular: normal peripheral pulses, normal rate, regular rhythm, no gallop/murmur, no JVD Abdomen: normal bowel sounds, soft, non tender, no organomegaly, non distended , no mass Extremities: no cyanosis, no clubbing Skin: no rash, no lesions Neurologic/Psychiatric: alert, oriented x 3, responsive Lymphatic: no neck adenopathy, no groin adenopathy Laboratory Tests Test 10/03/17 14:55 10/04/17 05:15 10/04/17 05:50 10/04/17 11:45 Sodium Level 139 MMOL/L (136-145) 140 MMOL/L (136-145) Potassium Level 3.4 MMOL/L (3.5-5.1) L 3.6 MMOL/L (3.5-5.1) Chloride Level 98 MMOL/L (98-107) 101 MMOL/L (98-107) Carbon Dioxide Level 30 MMOL/L (21-32) 27 MMOL/L (21-32) Anion Gap 11 mmol/L (5-15) 13 mmol/L (5-15) Blood Urea Nitrogen 21 mg/dL (7-18) H 24 mg/dL (7-18) H Creatinine 2.8 MG/DL (0.55-1.30) H 3.3 MG/DL (0.55-1.30) H Estimat Glomerular Filtration Rate mL/min (>60) mL/min (>60) Glucose Level 146 MG/DL (74-106) #H 61 MG/DL (74-106) L Calcium Level 7.2 MG/DL (8.5-10.1) L 6.8 MG/DL (8.5-10.1) L Troponin I 0.039 ng/mL (0.000-0.056) White Blood Count 9.8 K/UL (4.8-10.8) Red Blood Count 3.45 M/UL (4.20-5.40) L Hemoglobin 10.5 G/DL (12.0-16.0) L Hematocrit 33.1 % (37.0-47.0) L Mean Corpuscular Volume 96 FL (80-99) Mean Corpuscular Hemoglobin 30.4 PG (27.0-31.0) Mean Corpuscular Hemoglobin Concent 31.7 G/DL (32.0-36.0) L Red Cell Distribution Width 15.9 % (11.6-14.8) H Platelet Count 195 K/UL (150-450) Mean Platelet Volume 9.7 FL (6.5-10.1) Neutrophils (%) (Auto) % (45.0-75.0) Lymphocytes (%) (Auto) % (20.0-45.0) Monocytes (%) (Auto) % (1.0-10.0) Eosinophils (%) (Auto) % (0.0-3.0) Basophils (%) (Auto) % (0.0-2.0) Differential Total Cells Counted 100 Neutrophils % (Manual) 92 % (45-75) H Lymphocytes % (Manual) 3 % (20-45) L Monocytes % (Manual) 5 % (1-10) Eosinophils % (Manual) 0 % (0-3) Basophils % (Manual) 0 % (0-2) Band Neutrophils 0 % (0-8) Platelet Estimate Adequate Platelet Morphology Normal Hypochromasia 1+ Anisocytosis 1+ Current Medications Medications (Trade) Dose Ordered Sig/Tamanna Route PRN Reason Start Time Stop Time Status Last Admin Dose Admin Chlorhexidine Gluconate (Rhianna-Hex 2%) 1 applic Q24H TOPIC 10/03/17 20:00 11/02/17 19:59 10/03/17 20:34 Dextrose (Dextrose 50%) STAT PRN IV Hypoglycemia 10/03/17 13:45 11/02/17 13:44 Heparin Sodium (Porcine) (Heparin 5000 units/ml) 5,000 units EVERY 12 HOURS SUBQ 10/03/17 09:00 11/02/17 08:59 10/04/17 09:59 Insulin Aspart (NovoLOG) Q4HR SUBQ 10/03/17 17:00 11/02/17 16:59 10/04/17 01:04 Levofloxacin 100 ml @ 100 mls/hr Q48H IVPB 10/05/17 06:00 10/12/17 05:59 Midodrine (Pro-Amatine) 10 mg THREE TIMES A DAY ORAL 10/03/17 18:00 11/02/17 17:59 10/04/17 09:58 Norepinephrine Bitartrate 4 mg/ Dextrose 250 ml @ 0 mls/hr Q24H IV 10/03/17 16:00 11/02/17 15:59 10/04/17 02:57 Sodium Chloride 1,000 ml @ 60 mls/hr [id number] IV 10/03/17 14:30 11/02/17 14:29 10/04/17 07:55 Vancomycin HCl (Vanco rx to dose) 1 ea DAILY PRN MISC Per rx protocol 10/03/17 13:45 11/02/17 13:44 Dina Bazan M.D. Oct 04, 2017 13:56
[2017-10-04] MEDS ORDERED: D5NS 1000ml IV ONE (16:26)
[2017-10-04] MEDS ORDERED: Midazolam/D5W 100ml 100 ML IVPB PRN (18:15)
[2017-10-04] MEDS: Dyna-Hex 2% Top Sol 2oz TOPIC SCH (19:59)
[2017-10-04] MEDS ORDERED: Vancomycin 750mg/NS 250ml IVPB ONE (20:00)
[2017-10-05] VITALS (87 sets, daily range): BP systolic 78–110; BP diastolic 35–72
[2017-10-05] MEDS: NovoLOG Insulin Flexpen SUBQ SCH ×6 (00:46→20:42)
[2017-10-05] MEDS: Midodrine 10mg tab ORAL SCH ×3 (10:05→17:38)
[2017-10-05] MEDS: Heparin 5000 units/ml inj SUBQ SCH ×2 (10:07→20:43)
--- NOTE | 2017-10-05 10:12 | Cardiology Report ---
APPROVED REPORT EXAM: Two-dimensional and M-mode echocardiogram with Doppler and color Doppler. INDICATION Other M-Mode DIMENSIONS IVSd1.4 (0.7-1.1cm)Left Atrium (MM)5.9 (1.6-4.0cm) LVDd6.0 (3.5-5.6cm)Aortic Root2.4 (2.0-3.7cm) PWd0.7 (0.7-1.1cm)Aortic Cusp Exc.0.9 (1.5-2.0cm) LVDs4.4 (2.5-4.0cm) PWs1.1 cm Mild left ventricular enlargement. Global left ventricular hypokinesis. Left ventricular ejection fraction estimated to be 20-25 %. Mild left ventricular hypertrophy. Large pleural effusion. Mild left atrial enlargement. Mild right ventricular enlargement. Right atrial chamber size is within normal limits. Aortic valve calcification with decreased cusp excursion c/w aortic stenosis. Heavy thickened mitral valve leaflets with minimal excursion. Moderate mitral annulus and aortic root calcification. Normal pulmonic valve structure. Normal tricuspid valve structure. IVC dilated at 2.0 cm without physiologic collapse, estimated RAP is 15 mmHg. A color flow and spectral Doppler study was performed and revealed: Mild aortic regurgitation. Peak aortic valve gradient of 26 mmHg and a mean of 10 mmHg. Aortic valve area 1.1 cm2 calculated by continuity equation. Severe mitral regurgitation. Mitral P1/2 time of 10 cm/s is compatible with a mitral valve area of 1.2 cm2 Peak mitral valve diastolic gradient of 19mmHg and a mean gradient of 5mmHg Mitral inflow indicates restrictive pattern, implying severely elevated left atrial pressure (Grade III ). Moderate tricuspid regurgitation. Tricuspid systolic velocities suggests peak right ventricular systolic pressure of 136 mmHg, consistent with severe pulmonary hypertension. Mild pulmonic regurgitation present.
--- NOTE | 2017-10-05 11:37 | Cardiac Electrophysiology PN ---
Assessment/Plan Status Narrative Mild left ventricular enlargement. Global left ventricular hypokinesis. Left ventricular ejection fraction estimated to be 20-25 %. Mild left ventricular hypertrophy. Large pleural effusion. Mild left atrial enlargement. Mild right ventricular enlargement. Right atrial chamber size is within normal limits. Aortic valve calcification with decreased cusp excursion c/w aortic stenosis. Heavy thickened mitral valve leaflets with minimal excursion. Moderate mitral annulus and aortic root calcification. Normal pulmonic valve structure. Normal tricuspid valve structure. IVC dilated at 2.0 cm without physiologic collapse, estimated RAP is 15 mmHg. Assessment/Plan 1. Septic shock. On broad-spectrum IV antibiotics, Levophed and midodrine 10 mg three times daily. 2. Anterior ischemia on 12-lead EKG. The patient denies any chest pain.EF 20-25 % 3. Severe cardiomyopathy with EF 20-25%. Off ACEI and Coreg for hypotension. On HD. Ischemia eval when stable. 4. End-stage renal disease, on hemodialysis. 5. Anemia. 6. Hyperparathyroidism. DW RN Subjective Subjective In ICU still on Levophed. Alert and comfortable. RN at bedside.Scheduled for HD today. Objective Last 24 Hour Vital Signs Date Time Temp Pulse Resp B/P (MAP) Pulse Ox O2 Delivery O2 Flow Rate FiO2 10/05/17 11:00 84 22 95/62 100 Room Air 10/05/17 10:30 86 22 96/46 96 Room Air 10/05/17 10:00 85 22 100/53 97 Room Air 10/05/17 09:30 88 22 94/44 99 Room Air 10/05/17 09:00 86 22 93/42 95 Room Air 10/05/17 08:30 86 20 90/48 86 Room Air 10/05/17 08:00 96 10/05/17 08:00 97.6 96 22 92/52 98 Room Air 10/05/17 07:30 95 22 97/54 100 Room Air 10/05/17 07:06 83/45 10/05/17 07:00 87 22 83/45 96 Room Air 10/05/17 06:45 100 Room Air 21 10/05/17 06:45 Room Air 10/05/17 06:15 91 22 94/48 100 Room Air 10/05/17 06:00 86 21 93/49 100 Room Air 10/05/17 06:00 93/49 10/05/17 05:45 87 21 95/48 100 Room Air 10/05/17 05:30 87 20 93/56 100 Room Air 10/05/17 05:15 87 19 89/63 96 Room Air 10/05/17 05:00 89/63 10/05/17 05:00 93 22 96/57 99 Room Air 10/05/17 04:45 87 20 96/57 99 Room Air 10/05/17 04:30 86 21 101/48 99 Room Air 10/05/17 04:15 84 22 95/50 99 Room Air 10/05/17 04:00 97.9 88 24 87/46 98 Room Air 10/05/17 04:00 87/46 10/05/17 04:00 88 10/05/17 03:45 88 22 83/56 99 Room Air 10/05/17 03:30 87 20 80/35 99 Room Air 10/05/17 03:15 87 20 91/53 99 Room Air 10/05/17 03:00 88/51 10/05/17 03:00 86 25 88/51 98 Room Air 10/05/17 02:45 86 21 85/57 99 Room Air 10/05/17 02:30 89 20 95/45 95 Room Air 10/05/17 02:15 89 20 95/45 95 Room Air 10/05/17 02:00 94 22 99/42 99 Room Air 10/05/17 02:00 99/42 10/05/17 01:45 95 20 92/53 94 Room Air 10/05/17 01:30 95 20 92/53 94 Room Air 10/05/17 01:15 94 21 93/50 98 Room Air 10/05/17 01:00 96 21 85/52 100 Room Air 10/05/17 01:00 88/48 10/05/17 00:45 96 23 85/52 100 Room Air 10/05/17 00:45 82/65 10/05/17 00:30 94 23 82/65 100 Room Air 10/05/17 00:15 94 19 90/50 100 Room Air 10/05/17 00:00 95 10/05/17 00:00 90/50 10/05/17 00:00 97.8 94 21 90/50 100 Room Air 10/04/17 23:45 95 19 90/47 98 Room Air 10/04/17 23:30 95 19 90/47 98 Room Air 10/04/17 23:15 96 16 90/51 100 Room Air 10/04/17 23:00 92/45 10/04/17 23:00 95 21 92/45 96 Room Air 10/04/17 22:45 96 19 93/51 98 Room Air 10/04/17 22:30 96 12 93/51 100 Room Air 10/04/17 22:15 96 18 93/51 100 Room Air 10/04/17 22:00 96 22 93/51 99 Room Air 10/04/17 22:00 93/51 10/04/17 21:51 83 18 100 21 10/04/17 21:45 96 20 93/51 99 Room Air 10/04/17 21:30 96 14 93/53 99 Room Air 10/04/17 21:15 96 21 87/55 99 Room Air 10/04/17 21:00 91/50 10/04/17 21:00 97 18 91/50 94 Room Air 10/04/17 20:45 96 20 94/50 98 Room Air 10/04/17 20:30 95 19 84/57 98 Room Air 10/04/17 20:15 94 20 92/50 99 Room Air 10/04/17 20:00 94 10/04/17 20:00 92/50 10/04/17 20:00 93 20 84/46 99 Room Air 10/04/17 19:30 93 22 85/48 99 Room Air 10/04/17 19:21 100 Room Air 10/04/17 19:21 Room Air 10/04/17 19:15 94 20 93/52 99 Room Air 10/04/17 19:00 93 20 88/47 99 Nasal Cannula 3.0 10/04/17 19:00 90/50 10/04/17 18:45 94 19 89/46 99 Nasal Cannula 3.0 10/04/17 18:30 93 22 94/51 99 Nasal Cannula 3.0 10/04/17 18:27 87/52 10/04/17 18:15 91 19 88/56 99 Nasal Cannula 3.0 10/04/17 18:00 87/45 10/04/17 18:00 90 18 87/45 99 Nasal Cannula 3.0 10/04/17 17:45 91 14 90/49 99 Nasal Cannula 3.0 10/04/17 17:30 88 16 90/48 98 Nasal Cannula 3.0 10/04/17 17:15 88 11 83/47 97 Nasal Cannula 3.0 10/04/17 17:00 88/46 10/04/17 17:00 88 14 82/45 97 Nasal Cannula 3.0 10/04/17 16:45 88 21 82/45 98 Nasal Cannula 3.0 10/04/17 16:30 88 21 84/47 98 Nasal Cannula 3.0 10/04/17 16:15 88 22 85/43 98 Nasal Cannula 3.0 10/04/17 16:00 97.9 89 16 107/77 99 Nasal Cannula 3.0 10/04/17 16:00 85 10/04/17 16:00 86/46 10/04/17 15:45 86 18 87/45 99 Nasal Cannula 3.0 10/04/17 15:30 86 14 80/28 99 Nasal Cannula 3.0 10/04/17 15:15 87 16 84/45 99 Nasal Cannula 3.0 10/04/17 15:00 84/45 10/04/17 15:00 85 18 95/45 98 Nasal Cannula 3.0 10/04/17 14:45 85 19 86/42 99 Nasal Cannula 3.0 10/04/17 14:30 85 18 87/42 98 Nasal Cannula 3.0 10/04/17 14:15 85 19 89/45 98 Nasal Cannula 3.0 10/04/17 14:00 89/45 10/04/17 14:00 87 20 80/43 98 Nasal Cannula 3.0 10/04/17 13:30 88 20 85/49 97 Nasal Cannula 3.0 10/04/17 13:15 89 18 83/41 97 Nasal Cannula 3.0 10/04/17 13:00 88 24 83/41 95 Nasal Cannula 3.0 10/04/17 13:00 83/41 10/04/17 12:45 89 22 109/72 97 Nasal Cannula 3.0 10/04/17 12:30 90 23 92/49 98 Nasal Cannula 3.0 10/04/17 12:15 89 15 86/47 99 Nasal Cannula 3.0 10/04/17 12:00 86/47 10/04/17 12:00 97.8 88 17 90/49 96 Nasal Cannula 3.0 10/04/17 12:00 87 10/04/17 11:45 90 21 90/48 96 Nasal Cannula 3.0 Intake and Output 10/05/17 10/06/17 19:00 07:00 Intake Total 500 ml Output Total 0 ml Balance 500 ml Intake Oral 50 ml IV Total 420 ml Other 30 ml Output Urine Total 0 ml Laboratory Tests Test 10/04/17 11:45 10/04/17 16:00 White Blood Count 9.8 K/UL (4.8-10.8) Red Blood Count 3.45 M/UL (4.20-5.40) L Hemoglobin 10.5 G/DL (12.0-16.0) L Hematocrit 33.1 % (37.0-47.0) L Mean Corpuscular Volume 96 FL (80-99) Mean Corpuscular Hemoglobin 30.4 PG (27.0-31.0) Mean Corpuscular Hemoglobin Concent 31.7 G/DL (32.0-36.0) L Red Cell Distribution Width 15.9 % (11.6-14.8) H Platelet Count 195 K/UL (150-450) Mean Platelet Volume 9.7 FL (6.5-10.1) Neutrophils (%) (Auto) % (45.0-75.0) Lymphocytes (%) (Auto) % (20.0-45.0) Monocytes (%) (Auto) % (1.0-10.0) Eosinophils (%) (Auto) % (0.0-3.0) Basophils (%) (Auto) % (0.0-2.0) Differential Total Cells Counted 100 Neutrophils % (Manual) 92 % (45-75) H Lymphocytes % (Manual) 3 % (20-45) L Monocytes % (Manual) 5 % (1-10) Eosinophils % (Manual) 0 % (0-3) Basophils % (Manual) 0 % (0-2) Band Neutrophils 0 % (0-8) Platelet Estimate Adequate Platelet Morphology Normal Hypochromasia 1+ Anisocytosis 1+ Random Vancomycin Level 11.6 ug/mL Microbiology Date/Time Source Procedure Growth Status 10/03/17 04:55 Blood Blood Culture - Preliminary NO GROWTH AFTER 24 HOURS Resulted 10/03/17 04:50 Blood Blood Culture - Preliminary NO GROWTH AFTER 24 HOURS Resulted 10/03/17 06:00 Rectum VRE Culture - Final NO VANCOMYCIN RESISTANT ENTEROCOCCUS ... Complete Objective HEAD AND NECK: No JVD. LUNGS: Coarse rhonchi CARDIOVASCULAR: Regular S1 and S2 with no gallop or murmur. ABDOMEN: Soft. EXTREMITIES: No pitting edema. Her old dialysis shunt in the right arm and left arm not functioning. Active dialysis access is Left femoral. MATIAS SORIA Oct 05, 2017 11:37
--- NOTE | 2017-10-05 12:21 | Nephrology Progress Note ---
Assessment/Plan Problem List: (1) HCAP (healthcare-associated pneumonia) (2) Septic shock (3) CHF (congestive heart failure) (4) Altered mental status (5) CKD (chronic kidney disease) requiring chronic dialysis Plan Continue HD per scheduled Monitor lytes, correct with HD Monitor BP, cardio following Monitor BS Monitor neuro status Abx per ID Continue current IVF AM labs Subjective Constitutional: Denies: no symptoms, chills, diaphoresis, fever, malaise, weakness, other HEENT: Denies: no symptoms, eye pain, blurred vision, tearing, double vision, ear pain, ear discharge, nose pain, nose congestion, throat pain, throat swelling, mouth pain, mouth swelling, other Genitourinary: Denies: no symptoms, burning, discharge, frequency, flank pain, hematuria, incontinence, pain, urgency, other Neurologic/Psychiatric: Denies: no symptoms, anxiety, depressed, emotional problems, headache, numbness, paresthesia, pre-existing deficit, seizure, tingling, tremors, weakness, other Subjective In bed, in the ICU, in no apparent distress, denies discomfort at this time. Objective Objective Last 24 Hour Vital Signs Date Time Temp Pulse Resp B/P (MAP) Pulse Ox O2 Delivery O2 Flow Rate FiO2 10/05/17 11:00 84 22 95/62 100 Room Air 10/05/17 10:30 86 22 96/46 96 Room Air 10/05/17 10:00 85 22 100/53 97 Room Air 10/05/17 09:30 88 22 94/44 99 Room Air 10/05/17 09:00 86 22 93/42 95 Room Air 10/05/17 08:30 86 20 90/48 86 Room Air 10/05/17 08:00 96 10/05/17 08:00 97.6 96 22 92/52 98 Room Air 10/05/17 07:30 95 22 97/54 100 Room Air 10/05/17 07:06 83/45 10/05/17 07:00 87 22 83/45 96 Room Air 10/05/17 06:45 100 Room Air 10/05/17 06:45 Room Air 10/05/17 06:15 91 22 94/48 100 Room Air 10/05/17 06:00 86 21 93/49 100 Room Air 10/05/17 06:00 93/49 10/05/17 05:45 87 21 95/48 100 Room Air 10/05/17 05:30 87 20 93/56 100 Room Air 10/05/17 05:15 87 19 89/63 96 Room Air 10/05/17 05:00 89/63 10/05/17 05:00 93 22 96/57 99 Room Air 10/05/17 04:45 87 20 96/57 99 Room Air 10/05/17 04:30 86 21 101/48 99 Room Air 10/05/17 04:15 84 22 95/50 99 Room Air 10/05/17 04:00 97.9 88 24 87/46 98 Room Air 10/05/17 04:00 87/46 10/05/17 04:00 88 10/05/17 03:45 88 22 83/56 99 Room Air 10/05/17 03:30 87 20 80/35 99 Room Air 10/05/17 03:15 87 20 91/53 99 Room Air 10/05/17 03:00 88/51 10/05/17 03:00 86 25 88/51 98 Room Air 10/05/17 02:45 86 21 85/57 99 Room Air 10/05/17 02:30 89 20 95/45 95 Room Air 10/05/17 02:15 89 20 95/45 95 Room Air 10/05/17 02:00 94 22 99/42 99 Room Air 10/05/17 02:00 99/42 10/05/17 01:45 95 20 92/53 94 Room Air 10/05/17 01:30 95 20 92/53 94 Room Air 10/05/17 01:15 94 21 93/50 98 Room Air 10/05/17 01:00 96 21 85/52 100 Room Air 10/05/17 01:00 88/48 10/05/17 00:45 96 23 85/52 100 Room Air 10/05/17 00:45 82/65 10/05/17 00:30 94 23 82/65 100 Room Air 10/05/17 00:15 94 19 90/50 100 Room Air 10/05/17 00:00 95 10/05/17 00:00 90/50 10/05/17 00:00 97.8 94 21 90/50 100 Room Air 10/04/17 23:45 95 19 90/47 98 Room Air 10/04/17 23:30 95 19 90/47 98 Room Air 10/04/17 23:15 96 16 90/51 100 Room Air 10/04/17 23:00 92/45 10/04/17 23:00 95 21 92/45 96 Room Air 10/04/17 22:45 96 19 93/51 98 Room Air 10/04/17 22:30 96 12 93/51 100 Room Air 10/04/17 22:15 96 18 93/51 100 Room Air 10/04/17 22:00 96 22 93/51 99 Room Air 10/04/17 22:00 93/51 10/04/17 21:51 83 18 100 21 10/04/17 21:45 96 20 93/51 99 Room Air 10/04/17 21:30 96 14 93/53 99 Room Air 10/04/17 21:15 96 21 87/55 99 Room Air 10/04/17 21:00 91/50 10/04/17 21:00 97 18 91/50 94 Room Air 10/04/17 20:45 96 20 94/50 98 Room Air 10/04/17 20:30 95 19 84/57 98 Room Air 10/04/17 20:15 94 20 92/50 99 Room Air 10/04/17 20:00 94 10/04/17 20:00 92/50 10/04/17 20:00 93 20 84/46 99 Room Air 10/04/17 19:30 93 22 85/48 99 Room Air 10/04/17 19:21 100 Room Air 10/04/17 19:21 Room Air 10/04/17 19:15 94 20 93/52 99 Room Air 10/04/17 19:00 93 20 88/47 99 Nasal Cannula 3.0 10/04/17 19:00 90/50 10/04/17 18:45 94 19 89/46 99 Nasal Cannula 3.0 10/04/17 18:30 93 22 94/51 99 Nasal Cannula 3.0 10/04/17 18:27 87/52 10/04/17 18:15 91 19 88/56 99 Nasal Cannula 3.0 10/04/17 18:00 87/45 10/04/17 18:00 90 18 87/45 99 Nasal Cannula 3.0 10/04/17 17:45 91 14 90/49 99 Nasal Cannula 3.0 10/04/17 17:30 88 16 90/48 98 Nasal Cannula 3.0 10/04/17 17:15 88 11 83/47 97 Nasal Cannula 3.0 10/04/17 17:00 88/46 10/04/17 17:00 88 14 82/45 97 Nasal Cannula 3.0 10/04/17 16:45 88 21 82/45 98 Nasal Cannula 3.0 10/04/17 16:30 88 21 84/47 98 Nasal Cannula 3.0 10/04/17 16:15 88 22 85/43 98 Nasal Cannula 3.0 10/04/17 16:00 97.9 89 16 107/77 99 Nasal Cannula 3.0 10/04/17 16:00 85 10/04/17 16:00 86/46 10/04/17 15:45 86 18 87/45 99 Nasal Cannula 3.0 10/04/17 15:30 86 14 80/28 99 Nasal Cannula 3.0 10/04/17 15:15 87 16 84/45 99 Nasal Cannula 3.0 10/04/17 15:00 84/45 10/04/17 15:00 85 18 95/45 98 Nasal Cannula 3.0 10/04/17 14:45 85 19 86/42 99 Nasal Cannula 3.0 10/04/17 14:30 85 18 87/42 98 Nasal Cannula 3.0 10/04/17 14:15 85 19 89/45 98 Nasal Cannula 3.0 10/04/17 14:00 89/45 10/04/17 14:00 87 20 80/43 98 Nasal Cannula 3.0 10/04/17 13:30 88 20 85/49 97 Nasal Cannula 3.0 10/04/17 13:15 89 18 83/41 97 Nasal Cannula 3.0 10/04/17 13:00 88 24 83/41 95 Nasal Cannula 3.0 10/04/17 13:00 83/41 10/04/17 12:45 89 22 109/72 97 Nasal Cannula 3.0 10/04/17 12:30 90 23 92/49 98 Nasal Cannula 3.0 Intake and Output 10/05/17 10/06/17 19:00 07:00 Intake Total 500 ml Output Total 0 ml Balance 500 ml Intake Oral 50 ml IV Total 420 ml Other 30 ml Output Urine Total 0 ml Laboratory Tests 10/04/17 16:00: Random Vancomycin Level 11.6 Height (Feet): 5 Height (Inches): 5.00 Weight (Pounds): 118 General Appearance: no apparent distress, alert EENT: normal ENT inspection Neck: non-tender, normal alignment, supple Cardiovascular: normal rate, regular rhythm Respiratory/Chest: normal breath sounds Abdomen: non tender, soft, no organomegaly Extremities: non-tender, normal inspection Neurologic: alert, oriented x 3, responsive, normal mood/affect Celine Conley N.P. Oct 05, 2017 12:21
--- NOTE | 2017-10-05 13:48 | Infectious Diseases Prog Note ---
Assessment/Plan Problems: (1) HCAP (healthcare-associated pneumonia) Assessment & Plan: continue vancomycin and levaquin empiric coverage pending sputum culture (2) Sepsis Assessment & Plan: due to the above, blood culture so far is negative , continue vancomycin and levaquin empirically (3) Hypoglycemia Assessment & Plan: improved, continue blood glucose monitor , avoid insulin for now since her blood sugar is still low (4) Altered mental status Assessment & Plan: improved , due to the above, continue neuro check , monitor in ICU (5) CHF (congestive heart failure) Assessment & Plan: with exacerbation , on HD, renal is following , monitor CXR (6) Abdominal pain Assessment & Plan: she is getting US of the abdomen , primary team is following Subjective Constitutional: Reports: no symptoms HEENT: Reports: no symptoms Respiratory: Reports: productive cough Breasts: Reports: no symptoms Cardiovascular: Reports: no symptoms Gastrointestinal/Abdominal: Reports: other - abdominal pain Genitourinary: Reports: no symptoms Neurologic: Reports: no symptoms Psychiatric: Reports: no symptoms Skin: Reports: no symptoms Endocrine: Reports: no symptoms Hematologic: Reports: no symptoms Allergies: Coded Allergies: ASPIRIN (Unverified Allergy, Unknown, 10/03/17) PENICILLINS (Unverified Allergy, Unknown, 10/03/17) Subjective she was more awake and alert, complained of abdominal discomfort, still on pressor Objective Vital Signs Last 24 Hour Vital Signs Date Time Temp Pulse Resp B/P (MAP) Pulse Ox O2 Delivery O2 Flow Rate FiO2 10/05/17 12:00 83 10/05/17 12:00 97.9 86 21 97/50 97 Room Air 10/05/17 11:00 84 22 95/62 100 Room Air 10/05/17 10:30 86 22 96/46 96 Room Air 10/05/17 10:00 85 22 100/53 97 Room Air 10/05/17 09:30 88 22 94/44 99 Room Air 10/05/17 09:00 86 22 93/42 95 Room Air 10/05/17 08:30 86 20 90/48 86 Room Air 10/05/17 08:00 96 10/05/17 08:00 97.6 96 22 92/52 98 Room Air 10/05/17 07:30 95 22 97/54 100 Room Air 10/05/17 07:06 83/45 10/05/17 07:00 87 22 83/45 96 Room Air 10/05/17 06:45 100 Room Air 21 10/05/17 06:45 Room Air 21 10/05/17 06:15 91 22 94/48 100 Room Air 10/05/17 06:00 86 21 93/49 100 Room Air 10/05/17 06:00 93/49 10/05/17 05:45 87 21 95/48 100 Room Air 10/05/17 05:30 87 20 93/56 100 Room Air 10/05/17 05:15 87 19 89/63 96 Room Air 10/05/17 05:00 89/63 10/05/17 05:00 93 22 96/57 99 Room Air 10/05/17 04:45 87 20 96/57 99 Room Air 10/05/17 04:30 86 21 101/48 99 Room Air 10/05/17 04:15 84 22 95/50 99 Room Air 10/05/17 04:00 97.9 88 24 87/46 98 Room Air 10/05/17 04:00 87/46 10/05/17 04:00 88 10/05/17 03:45 88 22 83/56 99 Room Air 10/05/17 03:30 87 20 80/35 99 Room Air 10/05/17 03:15 87 20 91/53 99 Room Air 10/05/17 03:00 88/51 10/05/17 03:00 86 25 88/51 98 Room Air 10/05/17 02:45 86 21 85/57 99 Room Air 10/05/17 02:30 89 20 95/45 95 Room Air 10/05/17 02:15 89 20 95/45 95 Room Air 10/05/17 02:00 94 22 99/42 99 Room Air 10/05/17 02:00 99/42 10/05/17 01:45 95 20 92/53 94 Room Air 10/05/17 01:30 95 20 92/53 94 Room Air 10/05/17 01:15 94 21 93/50 98 Room Air 10/05/17 01:00 96 21 85/52 100 Room Air 10/05/17 01:00 88/48 10/05/17 00:45 96 23 85/52 100 Room Air 10/05/17 00:45 82/65 10/05/17 00:30 94 23 82/65 100 Room Air 10/05/17 00:15 94 19 90/50 100 Room Air 10/05/17 00:00 95 10/05/17 00:00 90/50 10/05/17 00:00 97.8 94 21 90/50 100 Room Air 10/04/17 23:45 95 19 90/47 98 Room Air 10/04/17 23:30 95 19 90/47 98 Room Air 10/04/17 23:15 96 16 90/51 100 Room Air 10/04/17 23:00 92/45 10/04/17 23:00 95 21 92/45 96 Room Air 10/04/17 22:45 96 19 93/51 98 Room Air 10/04/17 22:30 96 12 93/51 100 Room Air 10/04/17 22:15 96 18 93/51 100 Room Air 10/04/17 22:00 96 22 93/51 99 Room Air 10/04/17 22:00 93/51 10/04/17 21:51 83 18 100 21 10/04/17 21:45 96 20 93/51 99 Room Air 10/04/17 21:30 96 14 93/53 99 Room Air 10/04/17 21:15 96 21 87/55 99 Room Air 10/04/17 21:00 91/50 10/04/17 21:00 97 18 91/50 94 Room Air 10/04/17 20:45 96 20 94/50 98 Room Air 10/04/17 20:30 95 19 84/57 98 Room Air 10/04/17 20:15 94 20 92/50 99 Room Air 10/04/17 20:00 94 10/04/17 20:00 92/50 10/04/17 20:00 93 20 84/46 99 Room Air 10/04/17 19:30 93 22 85/48 99 Room Air 10/04/17 19:21 100 Room Air 10/04/17 19:21 Room Air 10/04/17 19:15 94 20 93/52 99 Room Air 10/04/17 19:00 93 20 88/47 99 Nasal Cannula 3.0 10/04/17 19:00 90/50 10/04/17 18:45 94 19 89/46 99 Nasal Cannula 3.0 10/04/17 18:30 93 22 94/51 99 Nasal Cannula 3.0 10/04/17 18:27 87/52 10/04/17 18:15 91 19 88/56 99 Nasal Cannula 3.0 10/04/17 18:00 87/45 10/04/17 18:00 90 18 87/45 99 Nasal Cannula 3.0 10/04/17 17:45 91 14 90/49 99 Nasal Cannula 3.0 10/04/17 17:30 88 16 90/48 98 Nasal Cannula 3.0 10/04/17 17:15 88 11 83/47 97 Nasal Cannula 3.0 10/04/17 17:00 88/46 10/04/17 17:00 88 14 82/45 97 Nasal Cannula 3.0 10/04/17 16:45 88 21 82/45 98 Nasal Cannula 3.0 10/04/17 16:30 88 21 84/47 98 Nasal Cannula 3.0 10/04/17 16:15 88 22 85/43 98 Nasal Cannula 3.0 10/04/17 16:00 97.9 89 16 107/77 99 Nasal Cannula 3.0 10/04/17 16:00 85 10/04/17 16:00 86/46 10/04/17 15:45 86 18 87/45 99 Nasal Cannula 3.0 10/04/17 15:30 86 14 80/28 99 Nasal Cannula 3.0 10/04/17 15:15 87 16 84/45 99 Nasal Cannula 3.0 10/04/17 15:00 84/45 10/04/17 15:00 85 18 95/45 98 Nasal Cannula 3.0 10/04/17 14:45 85 19 86/42 99 Nasal Cannula 3.0 10/04/17 14:30 85 18 87/42 98 Nasal Cannula 3.0 10/04/17 14:15 85 19 89/45 98 Nasal Cannula 3.0 10/04/17 14:00 89/45 10/04/17 14:00 87 20 80/43 98 Nasal Cannula 3.0 Height (Feet): 5 Height (Inches): 5.00 Weight (Pounds): 118 General Appearance: WD/WN, no acute distress HEENT: normocephalic, atraumatic, anicteric, mucous membranes moist, PERRL, EOMI, pharynx normal, supple Respiratory/Chest: chest wall non-tender, no respiratory distress, no accessory muscle use, decreased breath sounds, crackles/rales Cardiovascular: normal peripheral pulses, normal rate, regular rhythm, no gallop/murmur, no JVD Abdomen: normal bowel sounds, soft, non tender, no organomegaly, non distended , no mass, no scars Extremities: no cyanosis, no clubbing Skin: no rash, no lesions Neurologic/Psychiatric: alert, responsive Lymphatic: no neck adenopathy, no groin adenopathy Microbiology Date/Time Source Procedure Growth Status 10/03/17 04:55 Blood Blood Culture - Preliminary NO GROWTH AFTER 24 HOURS Resulted 10/03/17 04:50 Blood Blood Culture - Preliminary NO GROWTH AFTER 24 HOURS Resulted 10/04/17 21:20 Sputum Expectorated Gram Stain - Final Resulted 10/04/17 21:20 Sputum Expectorated Sputum Culture Pending Resulted 10/03/17 06:00 Rectum VRE Culture - Final NO VANCOMYCIN RESISTANT ENTEROCOCCUS ... Complete Laboratory Tests Test 10/04/17 16:00 Random Vancomycin Level 11.6 ug/mL Current Medications Medications (Trade) Dose Ordered Sig/Tamanna Route PRN Reason Start Time Stop Time Status Last Admin Dose Admin Chlorhexidine Gluconate (Rhinana-Hex 2%) 1 applic Q24H TOPIC 10/03/17 20:00 11/02/17 19:59 10/04/17 19:59 Dextrose (Dextrose 50%) STAT PRN IV Hypoglycemia 10/03/17 13:45 11/02/17 13:44 Heparin Sodium (Porcine) (Heparin 5000 units/ml) 5,000 units EVERY 12 HOURS SUBQ 10/03/17 09:00 11/02/17 08:59 10/05/17 10:07 Insulin Aspart (NovoLOG) Q4HR SUBQ 10/03/17 17:00 11/02/17 16:59 10/05/17 00:46 Levofloxacin 100 ml @ 100 mls/hr Q48H IVPB 10/05/17 06:00 10/12/17 05:59 10/05/17 05:54 Midodrine (Pro-Amatine) 10 mg THREE TIMES A DAY ORAL 10/03/17 18:00 11/02/17 17:59 10/05/17 12:57 Norepinephrine Bitartrate 4 mg/ Dextrose 250 ml @ 0 mls/hr Q24H IV 10/03/17 16:00 11/02/17 15:59 10/05/17 07:06 Pantoprazole (Protonix) 40 mg DAILY IVP 10/06/17 09:00 11/05/17 08:59 Sodium Chloride 1,000 ml @ 60 mls/hr [id number] IV 10/03/17 14:30 11/02/17 14:29 10/05/17 00:45 Vancomycin HCl (Vanco rx to dose) 1 ea DAILY PRN MISC Per rx protocol 10/03/17 13:45 11/02/17 13:44 Dina Bazan M.D. Oct 05, 2017 13:48
--- NOTE | 2017-10-05 15:46 | Diagnostic Imaging Report ---
Indication: Abdominal tenderness, abnormal renal function test Technique: Gonzalez-scale and duplex images of the upper abdomen were obtained Comparison: None Findings: Gallbladder demonstrates gallstones. Gallbladder wall is borderline thickened, measuring 3 mm in thickness. The Common bile duct measures 5 mm in diameter. No intrahepatic biliary ductal dilatation. Liver demonstrates normal echogenicity, no focal abnormality. Portal vein and hepatic veins are patent. Pancreas is unremarkable. Spleen is unremarkable. Left kidney measures 9.1 cm in length. Right kidney measures 7.1 cm length. Both kidneys demonstrate increased echogenicity. There is no hydronephrosis. Both kidneys demonstrate cysts and calyceal calcifications . Abdominal aorta is partially obscured by bowel gas, visualized portions are non-aneurysmal . There are bilateral pleural effusions. There is trace ascites Impression: Bilateral pleural effusions Trace ascites Negative for gallstones. Borderline gallbladder wall thickening, likely edema related to abnormalities causing the ascites and pleural fluid. Negative for dilated ducts Bilateral echogenic kidneys, consistent with medical renal disease. The right kidney is atrophic Bilateral nonobstructive intrarenal calculi. Bilateral small renal cysts Incomplete visualization of the abdominal aorta
[2017-10-05] MEDS: Dyna-Hex 2% Top Sol 2oz TOPIC SCH (21:38)
[2017-10-06] VITALS (82 sets, daily range): BP systolic 55–112; BP diastolic 11–77
[2017-10-06] MEDS: NovoLOG Insulin Flexpen SUBQ SCH ×6 (01:08→20:33)
[2017-10-06] MEDS: Pantoprazole Inj IVP SCH (09:23)
[2017-10-06] MEDS: Midodrine 10mg tab ORAL SCH ×3 (09:23→17:37)
[2017-10-06] MEDS: Heparin 5000 units/ml inj SUBQ SCH ×2 (09:29→20:34)
[2017-10-06 11:00] LABS: MEAN CORPUSCULAR HEMOGLOBIN 31.6 PG (27.0-31.0); MEAN CORPUSCULAR HGB CONC 33.3 G/DL (32.0-36.0); MEAN CORPUSCULAR VOLUME 95 FL (80-99); MEAN PLATELET VOLUME 9.3 FL (6.5-10.1); PLATELET COUNT 146 K/UL (150-450); RED CELL DISTRIBUTION WIDTH 15.8 % (11.6-14.8); WHITE BLOOD COUNT 10.2 K/UL (4.8-10.8)
[2017-10-06 11:02] LABS: ANION GAP 19 mmol/L (5-15); CARBON DIOXIDE 23 MMOL/L (21-32); CHLORIDE 101 MMOL/L (98-107); CREATININE 3.5 MG/DL (0.55-1.30); POTASSIUM 4.1 MMOL/L (3.5-5.1); SODIUM 143 MMOL/L (136-145)
[2017-10-06 11:29] LABS: ANISOCYTOSIS 1+; BAND NEUTROPHILS % (MANUAL) 0 % (0-8); BASOPHILS % (MANUAL) 0 % (0-2); EOSINOPHILS % (MANUAL) 0 % (0-3); HYPOCHROMASIA 1+; LYMPHOCYTES % (MANUAL) 4 % (20-45); NEUTROPHILS % (MANUAL) 92 % (45-75); NUCLEATED RED BLOOD CELLS 3 /100 WBC; PLATELET ESTIMATE DECREASED; PLATELET MORPHOLOGY NORMAL; TOTAL CELLS COUNTED 100
[2017-10-06] MEDS ORDERED: Vancomycin 750mg/NS 250ml IVPB ONE (13:00)
--- NOTE | 2017-10-06 14:16 | Infectious Diseases Prog Note ---
Assessment/Plan Problems: (1) HCAP (healthcare-associated pneumonia) Assessment & Plan: continue vancomycin and levaquin empiric coverage pending sputum culture (2) Sepsis Assessment & Plan: due to the above, blood culture so far is negative , continue vancomycin and levaquin empirically (3) Hypoglycemia Assessment & Plan: improved, continue blood glucose monitor , avoid insulin for now since her blood sugar is still low (4) Altered mental status Assessment & Plan: improved , due to the above, continue neuro check , monitor in ICU (5) CHF (congestive heart failure) Assessment & Plan: with exacerbation , on HD, renal is following , monitor CXR (6) Abdominal pain Assessment & Plan: US of the abdomen didn't show any acute pathology but nonobstructing stones , primary team is following Subjective Constitutional: Reports: no symptoms HEENT: Reports: no symptoms Respiratory: Reports: no symptoms Breasts: Reports: no symptoms Cardiovascular: Reports: no symptoms Gastrointestinal/Abdominal: Reports: no symptoms Genitourinary: Reports: no symptoms Neurologic: Reports: no symptoms Psychiatric: Reports: no symptoms Skin: Reports: no symptoms Endocrine: Reports: no symptoms Hematologic: Reports: no symptoms Musculoskeletal: Reports: no symptoms Allergies: Coded Allergies: ASPIRIN (Unverified Allergy, Unknown, 10/03/17) PENICILLINS (Unverified Allergy, Unknown, 10/03/17) Subjective she was more awake and alert, complained of abdominal discomfort, still on pressor Objective Vital Signs Last 24 Hour Vital Signs Date Time Temp Pulse Resp B/P (MAP) Pulse Ox O2 Delivery O2 Flow Rate FiO2 10/06/17 12:00 92 10/06/17 12:00 88/47 10/06/17 12:00 97.7 91 18 88/47 96 Room Air 10/06/17 11:30 93 18 96/55 98 Room Air 10/06/17 11:00 92 19 94/57 96 Room Air 10/06/17 11:00 94/57 10/06/17 10:30 91 19 92/52 98 Room Air 10/06/17 10:00 90 19 93/54 100 Room Air 10/06/17 10:00 93/54 10/06/17 09:30 92 20 93/56 99 Room Air 10/06/17 09:00 94/57 10/06/17 09:00 93 18 94/57 97 Room Air 10/06/17 08:30 93 18 95/57 100 Room Air 10/06/17 08:00 97.8 92 18 98/59 97 Room Air 10/06/17 08:00 98/59 10/06/17 08:00 93 10/06/17 07:37 Room Air 21 10/06/17 07:36 98 Room Air 21 10/06/17 07:30 94 20 96/57 100 Room Air 10/06/17 07:00 90 19 98/51 93 Room Air 10/06/17 07:00 94/51 10/06/17 06:45 92 20 94/51 97 Room Air 10/06/17 06:30 91 18 90/50 96 Room Air 10/06/17 06:15 91 19 98/51 93 Room Air 10/06/17 06:00 90 19 98/51 93 Room Air 10/06/17 05:45 89 20 94/50 96 Room Air 10/06/17 05:30 88 21 94/50 95 Room Air 10/06/17 05:15 86 21 83/49 97 Room Air 10/06/17 05:00 86 22 91/49 97 Room Air 10/06/17 04:45 87 22 89/51 97 Room Air 10/06/17 04:30 90 22 87/51 98 Room Air 10/06/17 04:15 87 21 79/50 97 Room Air 10/06/17 04:00 97.9 88 19 68/55 98 Room Air 10/06/17 04:00 88 10/06/17 03:45 88 19 87/50 98 Room Air 10/06/17 03:30 89 20 84/48 97 Room Air 10/06/17 03:15 90 19 85/52 98 Room Air 10/06/17 03:00 90 19 85/51 98 Room Air 10/06/17 02:45 90 19 91/53 97 Room Air 10/06/17 02:30 91 18 92/52 99 Room Air 10/06/17 02:15 91 20 96/51 97 Room Air 10/06/17 02:00 91 19 95/56 97 Room Air 10/06/17 01:45 91 20 90/53 97 Room Air 10/06/17 01:30 90 21 89/54 96 Room Air 10/06/17 01:15 89 21 89/54 95 Room Air 10/06/17 01:00 88 20 111/74 97 Room Air 10/06/17 01:00 111/74 10/06/17 00:45 88 19 95/55 98 Room Air 10/06/17 00:30 89 20 91/53 97 Room Air 10/06/17 00:15 90 21 88/48 96 Room Air 10/06/17 00:00 97.8 90 19 88/52 95 Room Air 10/06/17 00:00 88/52 10/06/17 00:00 91 10/05/17 23:45 91 19 95/53 96 Room Air 10/05/17 23:30 92 19 97/53 95 Room Air 10/05/17 23:15 92 19 97/56 95 Room Air 10/05/17 23:00 94 20 90/53 95 Room Air 10/05/17 23:00 95/53 10/05/17 23:00 89 16 97 21 10/05/17 22:59 95/51 10/05/17 22:45 94 20 94/54 95 Room Air 10/05/17 22:30 94 20 95/51 95 Room Air 10/05/17 22:15 96 20 95/51 97 Room Air 10/05/17 22:00 96 20 78/43 98 Room Air 10/05/17 22:00 78/43 10/05/17 21:45 96 22 87/53 97 Room Air 10/05/17 21:30 95 22 89/48 97 Room Air 10/05/17 21:15 95 21 85/47 94 Room Air 10/05/17 21:00 87 21 90/48 93 Room Air 10/05/17 21:00 90/48 10/05/17 20:45 87 22 91/47 93 Room Air 10/05/17 20:30 89 24 85/44 90 Room Air 10/05/17 20:15 89 21 96/72 97 Room Air 10/05/17 20:00 89 10/05/17 20:00 91/49 10/05/17 20:00 97.7 88 21 91/49 97 Room Air 10/05/17 19:45 87 21 88/47 95 Room Air 10/05/17 19:30 98 Room Air 21 10/05/17 19:30 Room Air 21 10/05/17 19:30 87 20 89/50 99 Room Air 10/05/17 19:02 86 22 97/51 96 Room Air 10/05/17 19:00 97/52 10/05/17 18:45 86 21 96/55 98 Room Air 10/05/17 18:30 87 23 102/63 92 Room Air 10/05/17 18:30 Room Air 10/05/17 18:30 97.8 86 24 102/63 Room Air 10/05/17 18:15 80 17 101/63 96 Room Air 10/05/17 18:00 85/51 10/05/17 18:00 86 23 85/51 95 Room Air 10/05/17 17:45 88 21 90/51 94 Room Air 10/05/17 17:30 87 21 81/48 93 Room Air 10/05/17 17:15 90 21 87/47 95 Room Air 10/05/17 17:00 90 21 88/49 97 Room Air 10/05/17 17:00 88/49 10/05/17 16:45 85 19 89/47 95 Room Air 10/05/17 16:30 84 22 88/50 95 Room Air 10/05/17 16:15 86 20 95/57 94 Room Air 10/05/17 16:09 90 10/05/17 16:00 85/51 10/05/17 16:00 97.4 91 22 95/57 94 Room Air 10/05/17 15:45 90 21 94/69 94 Room Air 10/05/17 15:30 90 20 93/57 99 Room Air 10/05/17 15:15 91 21 96/57 95 Room Air 10/05/17 15:00 83 21 98/51 100 Room Air 10/05/17 15:00 97/54 10/05/17 14:45 90 22 110/57 97 Room Air 10/05/17 14:37 85/41 10/05/17 14:30 90 22 83/47 97 Room Air 10/05/17 14:15 83 22 98/55 97 Room Air Height (Feet): 5 Height (Inches): 5.00 Weight (Pounds): 119 General Appearance: WD/WN, no acute distress HEENT: normocephalic, atraumatic, anicteric, mucous membranes moist Respiratory/Chest: chest wall non-tender, normal breath sounds, no respiratory distress, no accessory muscle use, decreased breath sounds, crackles/rales Cardiovascular: normal peripheral pulses, normal rate, regular rhythm, no gallop/murmur, no JVD Abdomen: normal bowel sounds, soft, non tender, no organomegaly, non distended , no mass Extremities: no cyanosis, no clubbing Skin: no rash, no lesions, no ulcers Neurologic/Psychiatric: alert, oriented x 3, responsive Lymphatic: no neck adenopathy, no groin adenopathy Musculoskeletal: normal muscle bulk, no effusion Microbiology Date/Time Source Procedure Growth Status 10/04/17 21:20 Sputum Expectorated Gram Stain - Final Resulted 10/04/17 21:20 Sputum Expectorated Sputum Culture Pending Resulted Laboratory Tests Test 10/06/17 05:15 White Blood Count 10.2 K/UL (4.8-10.8) Red Blood Count 3.30 M/UL (4.20-5.40) L Hemoglobin 10.4 G/DL (12.0-16.0) L Hematocrit 31.3 % (37.0-47.0) L Mean Corpuscular Volume 95 FL (80-99) Mean Corpuscular Hemoglobin 31.6 PG (27.0-31.0) H Mean Corpuscular Hemoglobin Concent 33.3 G/DL (32.0-36.0) Red Cell Distribution Width 15.8 % (11.6-14.8) H Platelet Count 146 K/UL (150-450) L Mean Platelet Volume 9.3 FL (6.5-10.1) Neutrophils (%) (Auto) % (45.0-75.0) Lymphocytes (%) (Auto) % (20.0-45.0) Monocytes (%) (Auto) % (1.0-10.0) Eosinophils (%) (Auto) % (0.0-3.0) Basophils (%) (Auto) % (0.0-2.0) Differential Total Cells Counted 100 Neutrophils % (Manual) 92 % (45-75) H Lymphocytes % (Manual) 4 % (20-45) L Monocytes % (Manual) 4 % (1-10) Eosinophils % (Manual) 0 % (0-3) Basophils % (Manual) 0 % (0-2) Band Neutrophils 0 % (0-8) Nucleated Red Blood Cells 3 /100 WBC Platelet Estimate Decreased L Platelet Morphology Normal Hypochromasia 1+ Anisocytosis 1+ Spherocytes Sodium Level 143 MMOL/L (136-145) Potassium Level 4.1 MMOL/L (3.5-5.1) Chloride Level 101 MMOL/L (98-107) Carbon Dioxide Level 23 MMOL/L (21-32) Anion Gap 19 mmol/L (5-15) H Blood Urea Nitrogen 34 mg/dL (7-18) H Creatinine 3.5 MG/DL (0.55-1.30) H Estimat Glomerular Filtration Rate mL/min (>60) Glucose Level 141 MG/DL (74-106) H Calcium Level 7.0 MG/DL (8.5-10.1) L Random Vancomycin Level 15.7 ug/mL Current Medications Medications (Trade) Dose Ordered Sig/Tamanna Route PRN Reason Start Time Stop Time Status Last Admin Dose Admin Chlorhexidine Gluconate (Rhianna-Hex 2%) 1 applic Q24H TOPIC 10/03/17 20:00 11/02/17 19:59 10/05/17 21:38 Dextrose (Dextrose 50%) STAT PRN IV Hypoglycemia 10/03/17 13:45 11/02/17 13:44 Heparin Sodium (Porcine) (Heparin 5000 units/ml) 5,000 units EVERY 12 HOURS SUBQ 10/03/17 09:00 11/02/17 08:59 10/06/17 09:29 Insulin Aspart (NovoLOG) Q4HR SUBQ 10/03/17 17:00 11/02/17 16:59 10/06/17 05:21 Levofloxacin 100 ml @ 100 mls/hr Q48H IVPB 10/05/17 06:00 10/12/17 05:59 10/05/17 05:54 Midodrine (Pro-Amatine) 10 mg THREE TIMES A DAY ORAL 10/03/17 18:00 11/02/17 17:59 10/06/17 13:29 Norepinephrine Bitartrate 4 mg/ Dextrose 250 ml @ 0 mls/hr Q24H IV 10/03/17 16:00 11/02/17 15:59 10/06/17 10:41 Pantoprazole (Protonix) 40 mg DAILY IVP 10/06/17 09:00 11/05/17 08:59 10/06/17 09:23 Sodium Chloride 1,000 ml @ 60 mls/hr [id number] IV 10/03/17 14:30 11/02/17 14:29 10/06/17 09:31 Vancomycin HCl (Vanco rx to dose) 1 ea DAILY PRN MISC Per rx protocol 10/03/17 13:45 11/02/17 13:44 Vancomycin/Sodium Chloride 250 ml @ 166.667 mls/hr ONCE ONCE IVPB 10/06/17 13:00 10/06/17 14:29 10/06/17 13:29 Dina Bazan M.D. Oct 06, 2017 14:16
--- NOTE | 2017-10-06 16:12 | Cardiac Electrophysiology PN ---
Assessment/Plan Status Narrative Mild left ventricular enlargement. Global left ventricular hypokinesis. Left ventricular ejection fraction estimated to be 20-25 %. Mild left ventricular hypertrophy. Large pleural effusion. Mild left atrial enlargement. Mild right ventricular enlargement. Right atrial chamber size is within normal limits. Aortic valve calcification with decreased cusp excursion c/w aortic stenosis. Heavy thickened mitral valve leaflets with minimal excursion. Moderate mitral annulus and aortic root calcification. Normal pulmonic valve structure. Normal tricuspid valve structure. IVC dilated at 2.0 cm without physiologic collapse, estimated RAP is 15 mmHg. Assessment/Plan 1. Septic shock. On broad-spectrum IV antibiotics, Levophed and midodrine 10 mg three times daily. 2. Anterior ischemia on 12-lead EKG. The patient denies any chest pain.EF 20-25 % 3. Severe cardiomyopathy with EF 20-25%. Off ACEI and Coreg for hypotension. On HD. Ischemia eval when off pressors. 4. End-stage renal disease, on hemodialysis. 5. Anemia. 6. Hyperparathyroidism. STEPHANIE RN Subjective Subjective In ICU still on Levophed 18 mcg. Alert. RN at bedside. Had HD yesterday 2 liter out. No Arrhythmias. Objective Last 24 Hour Vital Signs Date Time Temp Pulse Resp B/P (MAP) Pulse Ox O2 Delivery O2 Flow Rate FiO2 10/06/17 15:15 85 21 82/49 94 Room Air 10/06/17 15:00 85 19 71/60 93 Room Air 10/06/17 15:00 83/49 10/06/17 14:45 87 20 76/48 93 Room Air 10/06/17 14:30 89 19 80/44 98 Room Air 10/06/17 14:15 90 18 88/50 98 Room Air 10/06/17 14:00 90 18 88/44 99 Room Air 10/06/17 14:00 88/44 10/06/17 13:45 90 21 85/49 99 Room Air 10/06/17 13:30 91 20 93/52 97 Room Air 10/06/17 13:15 91 21 59/11 97 Room Air 10/06/17 13:00 93/51 10/06/17 13:00 90 21 78/48 98 Room Air 10/06/17 12:30 91 19 91/39 98 Room Air 10/06/17 12:00 92 10/06/17 12:00 88/47 10/06/17 12:00 97.7 91 18 88/47 96 Room Air 10/06/17 11:30 93 18 96/55 98 Room Air 10/06/17 11:00 92 19 94/57 96 Room Air 10/06/17 11:00 94/57 10/06/17 10:30 91 19 92/52 98 Room Air 10/06/17 10:00 90 19 93/54 100 Room Air 10/06/17 10:00 93/54 10/06/17 09:30 92 20 93/56 99 Room Air 10/06/17 09:00 94/57 10/06/17 09:00 93 18 94/57 97 Room Air 10/06/17 08:30 93 18 95/57 100 Room Air 10/06/17 08:00 97.8 92 18 98/59 97 Room Air 10/06/17 08:00 98/59 10/06/17 08:00 93 10/06/17 07:37 Room Air 10/06/17 07:36 98 Room Air 21 10/06/17 07:30 94 20 96/57 100 Room Air 10/06/17 07:00 90 19 98/51 93 Room Air 10/06/17 07:00 94/51 10/06/17 06:45 92 20 94/51 97 Room Air 10/06/17 06:30 91 18 90/50 96 Room Air 10/06/17 06:15 91 19 98/51 93 Room Air 10/06/17 06:00 90 19 98/51 93 Room Air 10/06/17 05:45 89 20 94/50 96 Room Air 10/06/17 05:30 88 21 94/50 95 Room Air 10/06/17 05:15 86 21 83/49 97 Room Air 10/06/17 05:00 86 22 91/49 97 Room Air 10/06/17 04:45 87 22 89/51 97 Room Air 10/06/17 04:30 90 22 87/51 98 Room Air 10/06/17 04:15 87 21 79/50 97 Room Air 10/06/17 04:00 97.9 88 19 68/55 98 Room Air 10/06/17 04:00 88 10/06/17 03:45 88 19 87/50 98 Room Air 10/06/17 03:30 89 20 84/48 97 Room Air 10/06/17 03:15 90 19 85/52 98 Room Air 10/06/17 03:00 90 19 85/51 98 Room Air 10/06/17 02:45 90 19 91/53 97 Room Air 10/06/17 02:30 91 18 92/52 99 Room Air 10/06/17 02:15 91 20 96/51 97 Room Air 10/06/17 02:00 91 19 95/56 97 Room Air 10/06/17 01:45 91 20 90/53 97 Room Air 10/06/17 01:30 90 21 89/54 96 Room Air 10/06/17 01:15 89 21 89/54 95 Room Air 10/06/17 01:00 88 20 111/74 97 Room Air 10/06/17 01:00 111/74 10/06/17 00:45 88 19 95/55 98 Room Air 10/06/17 00:30 89 20 91/53 97 Room Air 10/06/17 00:15 90 21 88/48 96 Room Air 10/06/17 00:00 97.8 90 19 88/52 95 Room Air 10/06/17 00:00 88/52 10/06/17 00:00 91 10/05/17 23:45 91 19 95/53 96 Room Air 10/05/17 23:30 92 19 97/53 95 Room Air 10/05/17 23:15 92 19 97/56 95 Room Air 10/05/17 23:00 94 20 90/53 95 Room Air 10/05/17 23:00 95/53 10/05/17 23:00 89 16 97 21 10/05/17 22:59 95/51 10/05/17 22:45 94 20 94/54 95 Room Air 10/05/17 22:30 94 20 95/51 95 Room Air 10/05/17 22:15 96 20 95/51 97 Room Air 10/05/17 22:00 96 20 78/43 98 Room Air 10/05/17 22:00 78/43 10/05/17 21:45 96 22 87/53 97 Room Air 10/05/17 21:30 95 22 89/48 97 Room Air 10/05/17 21:15 95 21 85/47 94 Room Air 10/05/17 21:00 87 21 90/48 93 Room Air 10/05/17 21:00 90/48 10/05/17 20:45 87 22 91/47 93 Room Air 10/05/17 20:30 89 24 85/44 90 Room Air 10/05/17 20:15 89 21 96/72 97 Room Air 10/05/17 20:00 89 10/05/17 20:00 91/49 10/05/17 20:00 97.7 88 21 91/49 97 Room Air 10/05/17 19:45 87 21 88/47 95 Room Air 10/05/17 19:30 98 Room Air 21 10/05/17 19:30 Room Air 21 10/05/17 19:30 87 20 89/50 99 Room Air 10/05/17 19:02 86 22 97/51 96 Room Air 10/05/17 19:00 97/52 10/05/17 18:45 86 21 96/55 98 Room Air 10/05/17 18:30 87 23 102/63 92 Room Air 10/05/17 18:30 Room Air 10/05/17 18:30 97.8 86 24 102/63 Room Air 10/05/17 18:15 80 17 101/63 96 Room Air 10/05/17 18:00 85/51 10/05/17 18:00 86 23 85/51 95 Room Air 10/05/17 17:45 88 21 90/51 94 Room Air 10/05/17 17:30 87 21 81/48 93 Room Air 10/05/17 17:15 90 21 87/47 95 Room Air 10/05/17 17:00 90 21 88/49 97 Room Air 10/05/17 17:00 88/49 10/05/17 16:45 85 19 89/47 95 Room Air 10/05/17 16:30 84 22 88/50 95 Room Air 10/05/17 16:15 86 20 95/57 94 Room Air Intake and Output 10/06/17 10/07/17 19:00 07:00 Intake Total 1042.167 ml Output Total 0 ml Balance 1042.167 ml Intake Oral 50 ml IV Total 962.167 ml Other 30 ml Output Urine Total 0 ml Laboratory Tests Test 10/06/17 05:15 White Blood Count 10.2 K/UL (4.8-10.8) Red Blood Count 3.30 M/UL (4.20-5.40) L Hemoglobin 10.4 G/DL (12.0-16.0) L Hematocrit 31.3 % (37.0-47.0) L Mean Corpuscular Volume 95 FL (80-99) Mean Corpuscular Hemoglobin 31.6 PG (27.0-31.0) H Mean Corpuscular Hemoglobin Concent 33.3 G/DL (32.0-36.0) Red Cell Distribution Width 15.8 % (11.6-14.8) H Platelet Count 146 K/UL (150-450) L Mean Platelet Volume 9.3 FL (6.5-10.1) Neutrophils (%) (Auto) % (45.0-75.0) Lymphocytes (%) (Auto) % (20.0-45.0) Monocytes (%) (Auto) % (1.0-10.0) Eosinophils (%) (Auto) % (0.0-3.0) Basophils (%) (Auto) % (0.0-2.0) Differential Total Cells Counted 100 Neutrophils % (Manual) 92 % (45-75) H Lymphocytes % (Manual) 4 % (20-45) L Monocytes % (Manual) 4 % (1-10) Eosinophils % (Manual) 0 % (0-3) Basophils % (Manual) 0 % (0-2) Band Neutrophils 0 % (0-8) Nucleated Red Blood Cells 3 /100 WBC Platelet Estimate Decreased L Platelet Morphology Normal Hypochromasia 1+ Anisocytosis 1+ Spherocytes Sodium Level 143 MMOL/L (136-145) Potassium Level 4.1 MMOL/L (3.5-5.1) Chloride Level 101 MMOL/L (98-107) Carbon Dioxide Level 23 MMOL/L (21-32) Anion Gap 19 mmol/L (5-15) H Blood Urea Nitrogen 34 mg/dL (7-18) H Creatinine 3.5 MG/DL (0.55-1.30) H Estimat Glomerular Filtration Rate mL/min (>60) Glucose Level 141 MG/DL (74-106) H Calcium Level 7.0 MG/DL (8.5-10.1) L Random Vancomycin Level 15.7 ug/mL Microbiology Date/Time Source Procedure Growth Status 10/04/17 21:20 Sputum Expectorated Gram Stain - Final Resulted 10/04/17 21:20 Sputum Expectorated Sputum Culture Pending Resulted Objective HEAD AND NECK: No JVD. LUNGS: Coarse rhonchi CARDIOVASCULAR: Regular S1 and S2 with no gallop or murmur. ABDOMEN: Soft. EXTREMITIES: No pitting edema. Her old dialysis shunt in the right arm and left arm not functioning. Active dialysis access is Left femoral. MATIAS SORIA Oct 06, 2017 16:12
[2017-10-06] MEDS ORDERED: 1/2 NS 1000ml IV ONE (16:38)
[2017-10-06] MEDS: Dyna-Hex 2% Top Sol 2oz TOPIC SCH (19:59)
[2017-10-07] VITALS (50 sets, daily range): BP systolic 84–106; BP diastolic 47–83
[2017-10-07] MEDS: NovoLOG Insulin Flexpen SUBQ SCH ×6 (00:54→21:00)
[2017-10-07 05:32] LABS: MEAN CORPUSCULAR HEMOGLOBIN 30.5 PG (27.0-31.0); MEAN CORPUSCULAR HGB CONC 31.6 G/DL (32.0-36.0); MEAN CORPUSCULAR VOLUME 96 FL (80-99); MEAN PLATELET VOLUME 9.5 FL (6.5-10.1); PLATELET COUNT 115 K/UL (150-450); RED BLOOD COUNT 3.82 M/UL (4.20-5.40); RED CELL DISTRIBUTION WIDTH 17.3 % (11.6-14.8); WHITE BLOOD COUNT 10.3 K/UL (4.8-10.8)
[2017-10-07 06:21] LABS: ALANINE AMINOTRANSFERASE 19 U/L (12-78); ALBUMIN/GLOBULIN RATIO 0.7 (1.0-2.7); ANION GAP 15 mmol/L (5-15); ASPARTATE AMINO TRANSFERASE 32 U/L (15-37); CALCIUM 7.4 MG/DL (8.5-10.1); CARBON DIOXIDE 23 MMOL/L (21-32); CHLORIDE 101 MMOL/L (98-107); CREATININE 3.9 MG/DL (0.55-1.30); SODIUM 139 MMOL/L (136-145); TOTAL PROTEIN 5.7 G/DL (6.4-8.2)
[2017-10-07 07:30] LABS: BILIRUBIN,DIRECT 0.7 MG/DL (0.0-0.3)
[2017-10-07] MEDS: Midodrine 10mg tab ORAL SCH ×3 (08:15→17:18)
[2017-10-07] MEDS: Pantoprazole Inj IVP SCH (08:15)
[2017-10-07] MEDS: Heparin 5000 units/ml inj SUBQ SCH ×2 (08:22→21:03)
--- NOTE | 2017-10-07 11:46 | Cardiac Electrophysiology PN ---
Assessment/Plan Status Narrative Mild left ventricular enlargement. Global left ventricular hypokinesis. Left ventricular ejection fraction estimated to be 20-25 %. Mild left ventricular hypertrophy. Large pleural effusion. Mild left atrial enlargement. Mild right ventricular enlargement. Right atrial chamber size is within normal limits. Aortic valve calcification with decreased cusp excursion c/w aortic stenosis. Heavy thickened mitral valve leaflets with minimal excursion. Moderate mitral annulus and aortic root calcification. Normal pulmonic valve structure. Normal tricuspid valve structure. IVC dilated at 2.0 cm without physiologic collapse, estimated RAP is 15 mmHg. Assessment/Plan 1. Septic shock. On broad-spectrum IV antibiotics, Levophed and midodrine 10 mg three times daily. 2. Anterior ischemia on 12-lead EKG. The patient denies any chest pain.EF 20-25 % 3. Severe cardiomyopathy with EF 20-25%. Off ACEI and Coreg for hypotension. On HD. Ischemia eval when off pressors. 4. End-stage renal disease, on hemodialysis. 5. Anemia. 6. Hyperparathyroidism. 7. Not eating. No appetite? DW RN Subjective Subjective In ICU still on Levophed 2 mcg. Alert. RN at bedside. Getting ready for HD. Not eating much.No Arrhythmias. Objective Last 24 Hour Vital Signs Date Time Temp Pulse Resp B/P (MAP) Pulse Ox O2 Delivery O2 Flow Rate FiO2 10/07/17 11:00 93/52 10/07/17 11:00 90 21 93/52 96 Room Air 10/07/17 10:00 91/54 10/07/17 10:00 90 20 93/54 98 Room Air 10/07/17 09:00 96/56 10/07/17 09:00 89 20 94/55 100 Room Air 10/07/17 08:00 91 10/07/17 08:00 100/56 10/07/17 08:00 97.5 89 22 98/56 100 Nasal Cannula 2.0 10/07/17 07:22 Room Air 10/07/17 07:21 97 Room Air 10/07/17 07:00 91 19 96/54 98 Room Air 10/07/17 07:00 96/54 10/07/17 06:00 90 19 89/56 96 Room Air 10/07/17 06:00 89/56 10/07/17 05:45 89 19 98/59 96 Room Air 10/07/17 05:44 96/54 10/07/17 05:30 89 19 97/59 95 Room Air 10/07/17 05:15 89 21 96/54 97 Room Air 10/07/17 05:00 89 23 92/55 97 Room Air 10/07/17 05:00 92/55 10/07/17 04:45 87 20 91/78 97 Room Air 10/07/17 04:30 86 19 93/50 96 Room Air 10/07/17 04:15 87 20 91/50 97 Room Air 10/07/17 04:00 97.5 87 18 84/70 96 Room Air 10/07/17 04:00 87/40 10/07/17 04:00 87 10/07/17 03:45 88 18 95/49 96 Room Air 10/07/17 03:30 88 18 95/51 96 Room Air 10/07/17 03:15 87 17 98/47 97 Room Air 10/07/17 03:00 87 17 97/49 96 Room Air 10/07/17 03:00 97/49 10/07/17 02:45 88 21 94/53 95 Room Air 10/07/17 02:30 89 19 87/49 96 Room Air 10/07/17 02:15 89 19 96/48 95 Room Air 10/07/17 02:00 90 19 96/50 96 Room Air 10/07/17 02:00 96/50 10/07/17 01:45 90 18 94/49 95 Nasal Cannula 3.0 10/07/17 01:30 91 18 92/53 100 Nasal Cannula 3.0 10/07/17 01:15 90 18 103/59 100 Nasal Cannula 3.0 10/07/17 01:00 92 18 101/57 100 Nasal Cannula 3.0 10/07/17 01:00 106/83 10/07/17 00:45 91 18 106/83 100 Nasal Cannula 3.0 10/07/17 00:30 91 20 102/56 100 Nasal Cannula 3.0 10/07/17 00:15 92 22 97/54 95 Nasal Cannula 3.0 10/07/17 00:00 92 10/07/17 00:00 97/60 10/07/17 00:00 97.3 92 20 96/61 100 Nasal Cannula 3.0 10/06/17 23:45 92 21 97/60 100 Nasal Cannula 3.0 10/06/17 23:30 92 21 98/64 97 Nasal Cannula 3.0 10/06/17 23:15 91 21 100/55 97 Nasal Cannula 3.0 10/06/17 23:00 98/55 10/06/17 23:00 91 23 98/55 96 Nasal Cannula 3.0 10/06/17 22:45 92 21 100/62 96 Nasal Cannula 3.0 10/06/17 22:30 92 21 112/61 96 Nasal Cannula 3.0 10/06/17 22:15 93 23 99/61 96 Nasal Cannula 3.0 10/06/17 22:00 93 23 103/58 98 Nasal Cannula 3.0 10/06/17 22:00 103/58 10/06/17 21:45 92 21 101/77 99 Nasal Cannula 3.0 10/06/17 21:30 92 19 101/59 100 Nasal Cannula 3.0 10/06/17 21:15 92 19 101/56 100 Nasal Cannula 3.0 10/06/17 21:00 91 18 101/62 97 Nasal Cannula 3.0 10/06/17 21:00 101/62 10/06/17 20:45 91 19 92/50 98 Nasal Cannula 3.0 10/06/17 20:30 90 20 99/55 100 Nasal Cannula 3.0 10/06/17 20:17 100/57 10/06/17 20:15 89 22 78/49 100 Nasal Cannula 3.0 10/06/17 20:00 91 10/06/17 20:00 98/60 10/06/17 20:00 97.7 90 20 103/60 100 Nasal Cannula 3.0 10/06/17 19:40 81 16 98 21 10/06/17 19:15 93 17 103/60 100 Room Air 10/06/17 19:05 93 21 100 Facial 50 10/06/17 19:04 100 Bi-pap 50 10/06/17 19:04 Bi-pap 50 10/06/17 19:00 93 18 98/62 100 Room Air 10/06/17 19:00 98/62 10/06/17 18:45 92 19 96/55 94 Room Air 10/06/17 18:30 92 20 99/57 100 Room Air 10/06/17 18:15 93 19 96/55 99 Room Air 10/06/17 18:00 96 21 103/55 100 Room Air 10/06/17 18:00 103/55 10/06/17 17:45 94 22 93/56 98 Room Air 10/06/17 17:30 89/73 10/06/17 17:30 94 20 89/73 98 Room Air 10/06/17 17:15 95 18 112/63 100 Room Air 10/06/17 17:15 112/63 10/06/17 17:00 112/63 10/06/17 17:00 95 18 112/63 98 Room Air 10/06/17 16:45 108/72 10/06/17 16:45 95 18 108/72 94 Room Air 10/06/17 16:30 108/67 10/06/17 16:30 93 17 108/67 94 Room Air 10/06/17 16:15 111/64 10/06/17 16:15 90 21 111/64 95 Room Air 10/06/17 16:00 97.6 86 21 84/57 96 Room Air 10/06/17 16:00 84/57 10/06/17 16:00 85 10/06/17 15:45 85 21 84/50 97 Room Air 10/06/17 15:30 85 21 79/50 96 Room Air 10/06/17 15:15 85 21 82/49 94 Room Air 10/06/17 15:00 85 19 71/60 93 Room Air 10/06/17 15:00 83/49 10/06/17 14:45 87 20 76/48 93 Room Air 10/06/17 14:30 89 19 80/44 98 Room Air 10/06/17 14:15 90 18 88/50 98 Room Air 10/06/17 14:00 90 18 88/44 99 Room Air 10/06/17 14:00 88/44 10/06/17 13:45 90 21 85/49 99 Room Air 10/06/17 13:30 91 20 93/52 97 Room Air 10/06/17 13:15 91 21 59/11 97 Room Air 10/06/17 13:00 93/51 10/06/17 13:00 90 21 78/48 98 Room Air 10/06/17 12:30 91 19 91/39 98 Room Air 10/06/17 12:00 92 10/06/17 12:00 88/47 10/06/17 12:00 97.7 91 18 88/47 96 Room Air Intake and Output 10/07/17 10/08/17 19:00 07:00 Intake Total 270.0 ml Output Total 0 ml Balance 270.0 ml IV Total 270.0 ml Output Urine Total 0 ml Laboratory Tests Test 10/07/17 04:25 White Blood Count 10.3 K/UL (4.8-10.8) Red Blood Count 3.82 M/UL (4.20-5.40) L Hemoglobin 11.7 G/DL (12.0-16.0) L Hematocrit 36.9 % (37.0-47.0) L Mean Corpuscular Volume 96 FL (80-99) Mean Corpuscular Hemoglobin 30.5 PG (27.0-31.0) Mean Corpuscular Hemoglobin Concent 31.6 G/DL (32.0-36.0) L Red Cell Distribution Width 17.3 % (11.6-14.8) H Platelet Count 115 K/UL (150-450) L Mean Platelet Volume 9.5 FL (6.5-10.1) Neutrophils (%) (Auto) % (45.0-75.0) Lymphocytes (%) (Auto) % (20.0-45.0) Monocytes (%) (Auto) % (1.0-10.0) Eosinophils (%) (Auto) % (0.0-3.0) Basophils (%) (Auto) % (0.0-2.0) Sodium Level 139 MMOL/L (136-145) Potassium Level 4.0 MMOL/L (3.5-5.1) Chloride Level 101 MMOL/L (98-107) Carbon Dioxide Level 23 MMOL/L (21-32) Anion Gap 15 mmol/L (5-15) Blood Urea Nitrogen 41 mg/dL (7-18) H Creatinine 3.9 MG/DL (0.55-1.30) H Estimat Glomerular Filtration Rate mL/min (>60) Glucose Level 148 MG/DL (74-106) H Calcium Level 7.4 MG/DL (8.5-10.1) L Total Bilirubin 1.7 MG/DL (0.2-1.0) H Direct Bilirubin 0.7 MG/DL (0.0-0.3) H Aspartate Amino Transf (AST/SGOT) 32 U/L (15-37) Alanine Aminotransferase (ALT/SGPT) 19 U/L (12-78) Alkaline Phosphatase 116 U/L (46-116) Total Protein 5.7 G/DL (6.4-8.2) L Albumin 2.4 G/DL (3.4-5.0) L Globulin 3.3 g/dL Albumin/Globulin Ratio 0.7 (1.0-2.7) L Microbiology Date/Time Source Procedure Growth Status 10/04/17 21:20 Sputum Expectorated Gram Stain - Final Complete 10/04/17 21:20 Sputum Culture - Final Maya Albicans Usual Upper Respiratory Isabela Complete Objective HEAD AND NECK: No JVD. LUNGS: Coarse rhonchi CARDIOVASCULAR: Regular S1 and S2 with no gallop or murmur. ABDOMEN: Soft. EXTREMITIES: No pitting edema. Her old dialysis shunt in the right arm and left arm not functioning. Active dialysis access is Left femoral. MATIAS SORIA Oct 07, 2017 11:46
--- NOTE | 2017-10-07 14:43 | Infectious Diseases Prog Note ---
Assessment/Plan Problems: (1) HCAP (healthcare-associated pneumonia) Assessment & Plan: continue vancomycin and levaquin empiric coverage for 7-10 days , sputum culture grew tejas albicans which is most likely colonization and not real infection. (2) Sepsis Assessment & Plan: due to the above, blood culture so far is negative , continue vancomycin and levaquin empirically (3) Hypoglycemia Assessment & Plan: improved, continue blood glucose monitor , avoid insulin for now since her blood sugar is still low (4) Altered mental status Assessment & Plan: improved , due to the above, continue neuro check , monitor in ICU (5) CHF (congestive heart failure) Assessment & Plan: with exacerbation , on HD, renal is following , monitor CXR (6) Abdominal pain Assessment & Plan: no clear etiology , US of the abdomen didn't show any acute pathology but nonobstructing stones, continue pain management as per primary team . (7) Hypotension Assessment & Plan: not responding to pressors , rule out adrenal insufficiency , will order serum cortisol level , cardiology is following Subjective Constitutional: Reports: no symptoms HEENT: Reports: no symptoms Respiratory: Reports: no symptoms Breasts: Reports: no symptoms Cardiovascular: Reports: no symptoms Gastrointestinal/Abdominal: Reports: no symptoms Genitourinary: Reports: no symptoms Neurologic: Reports: no symptoms Psychiatric: Reports: no symptoms Skin: Reports: no symptoms Endocrine: Reports: no symptoms Hematologic: Reports: no symptoms Musculoskeletal: Reports: no symptoms Allergies: Coded Allergies: ASPIRIN (Unverified Allergy, Unknown, 10/03/17) PENICILLINS (Unverified Allergy, Unknown, 10/03/17) Subjective she was more awake and alert, complained of abdominal discomfort, still on pressor Objective Vital Signs Last 24 Hour Vital Signs Date Time Temp Pulse Resp B/P (MAP) Pulse Ox O2 Delivery O2 Flow Rate FiO2 10/07/17 14:00 90 17 95/52 99 Room Air 10/07/17 14:00 99/50 10/07/17 13:00 86/47 10/07/17 13:00 90 19 90/52 94 Room Air 10/07/17 12:00 97.5 92 21 86/51 100 Room Air 10/07/17 12:00 90 10/07/17 12:00 86/51 10/07/17 11:00 93/52 10/07/17 11:00 90 21 93/52 96 Room Air 10/07/17 10:00 91/54 10/07/17 10:00 90 20 93/54 98 Room Air 10/07/17 09:00 96/56 10/07/17 09:00 89 20 94/55 100 Room Air 10/07/17 08:00 91 10/07/17 08:00 100/56 10/07/17 08:00 97.5 89 22 98/56 100 Nasal Cannula 2.0 10/07/17 07:22 Room Air 21 10/07/17 07:21 97 Room Air 21 10/07/17 07:00 91 19 96/54 98 Room Air 10/07/17 07:00 96/54 10/07/17 06:00 90 19 89/56 96 Room Air 10/07/17 06:00 89/56 10/07/17 05:45 89 19 98/59 96 Room Air 10/07/17 05:44 96/54 10/07/17 05:30 89 19 97/59 95 Room Air 10/07/17 05:15 89 21 96/54 97 Room Air 10/07/17 05:00 89 23 92/55 97 Room Air 10/07/17 05:00 92/55 10/07/17 04:45 87 20 91/78 97 Room Air 10/07/17 04:30 86 19 93/50 96 Room Air 10/07/17 04:15 87 20 91/50 97 Room Air 10/07/17 04:00 97.5 87 18 84/70 96 Room Air 10/07/17 04:00 87/40 10/07/17 04:00 87 10/07/17 03:45 88 18 95/49 96 Room Air 10/07/17 03:30 88 18 95/51 96 Room Air 10/07/17 03:15 87 17 98/47 97 Room Air 10/07/17 03:00 87 17 97/49 96 Room Air 10/07/17 03:00 97/49 10/07/17 02:45 88 21 94/53 95 Room Air 10/07/17 02:30 89 19 87/49 96 Room Air 10/07/17 02:15 89 19 96/48 95 Room Air 10/07/17 02:00 90 19 96/50 96 Room Air 10/07/17 02:00 96/50 10/07/17 01:45 90 18 94/49 95 Nasal Cannula 3.0 10/07/17 01:30 91 18 92/53 100 Nasal Cannula 3.0 10/07/17 01:15 90 18 103/59 100 Nasal Cannula 3.0 10/07/17 01:00 92 18 101/57 100 Nasal Cannula 3.0 10/07/17 01:00 106/83 10/07/17 00:45 91 18 106/83 100 Nasal Cannula 3.0 10/07/17 00:30 91 20 102/56 100 Nasal Cannula 3.0 10/07/17 00:15 92 22 97/54 95 Nasal Cannula 3.0 10/07/17 00:00 92 10/07/17 00:00 97/60 10/07/17 00:00 97.3 92 20 96/61 100 Nasal Cannula 3.0 10/06/17 23:45 92 21 97/60 100 Nasal Cannula 3.0 10/06/17 23:30 92 21 98/64 97 Nasal Cannula 3.0 10/06/17 23:15 91 21 100/55 97 Nasal Cannula 3.0 10/06/17 23:00 98/55 10/06/17 23:00 91 23 98/55 96 Nasal Cannula 3.0 10/06/17 22:45 92 21 100/62 96 Nasal Cannula 3.0 10/06/17 22:30 92 21 112/61 96 Nasal Cannula 3.0 10/06/17 22:15 93 23 99/61 96 Nasal Cannula 3.0 10/06/17 22:00 93 23 103/58 98 Nasal Cannula 3.0 10/06/17 22:00 103/58 10/06/17 21:45 92 21 101/77 99 Nasal Cannula 3.0 10/06/17 21:30 92 19 101/59 100 Nasal Cannula 3.0 10/06/17 21:15 92 19 101/56 100 Nasal Cannula 3.0 10/06/17 21:00 91 18 101/62 97 Nasal Cannula 3.0 10/06/17 21:00 101/62 10/06/17 20:45 91 19 92/50 98 Nasal Cannula 3.0 10/06/17 20:30 90 20 99/55 100 Nasal Cannula 3.0 10/06/17 20:17 100/57 10/06/17 20:15 89 22 78/49 100 Nasal Cannula 3.0 10/06/17 20:00 91 10/06/17 20:00 98/60 10/06/17 20:00 97.7 90 20 103/60 100 Nasal Cannula 3.0 10/06/17 19:40 81 16 98 21 10/06/17 19:15 93 17 103/60 100 Room Air 10/06/17 19:05 93 21 100 Facial 50 10/06/17 19:04 100 Bi-pap 50 10/06/17 19:04 Bi-pap 50 10/06/17 19:00 93 18 98/62 100 Room Air 10/06/17 19:00 98/62 10/06/17 18:45 92 19 96/55 94 Room Air 10/06/17 18:30 92 20 99/57 100 Room Air 10/06/17 18:15 93 19 96/55 99 Room Air 10/06/17 18:00 96 21 103/55 100 Room Air 10/06/17 18:00 103/55 10/06/17 17:45 94 22 93/56 98 Room Air 10/06/17 17:30 89/73 10/06/17 17:30 94 20 89/73 98 Room Air 10/06/17 17:15 95 18 112/63 100 Room Air 10/06/17 17:15 112/63 10/06/17 17:00 112/63 10/06/17 17:00 95 18 112/63 98 Room Air 10/06/17 16:45 108/72 10/06/17 16:45 95 18 108/72 94 Room Air 10/06/17 16:30 108/67 10/06/17 16:30 93 17 108/67 94 Room Air 10/06/17 16:15 111/64 10/06/17 16:15 90 21 111/64 95 Room Air 10/06/17 16:00 97.6 86 21 84/57 96 Room Air 10/06/17 16:00 84/57 10/06/17 16:00 85 10/06/17 15:45 85 21 84/50 97 Room Air 10/06/17 15:30 85 21 79/50 96 Room Air 10/06/17 15:15 85 21 82/49 94 Room Air 10/06/17 15:00 85 19 71/60 93 Room Air 10/06/17 15:00 83/49 10/06/17 14:45 87 20 76/48 93 Room Air Height (Feet): 5 Height (Inches): 5.00 Weight (Pounds): 121 General Appearance: WD/WN, no acute distress HEENT: normocephalic, atraumatic, anicteric, mucous membranes moist, PERRL, EOMI, pharynx normal, supple, no JVD Respiratory/Chest: chest wall non-tender, lungs clear, normal breath sounds, no respiratory distress, no accessory muscle use Cardiovascular: normal peripheral pulses, normal rate, regular rhythm, no gallop/murmur, no JVD Abdomen: normal bowel sounds, soft, non tender, no organomegaly, non distended , no mass, no scars Extremities: no cyanosis, no clubbing Skin: no rash, no lesions, no ulcers Neurologic/Psychiatric: alert, responsive Lymphatic: no neck adenopathy, no groin adenopathy Musculoskeletal: normal muscle bulk, no effusion Microbiology Date/Time Source Procedure Growth Status 10/04/17 21:20 Sputum Expectorated Gram Stain - Final Complete 10/04/17 21:20 Sputum Culture - Final Tejas Albicans Usual Upper Respiratory Isabela Complete Laboratory Tests Test 10/07/17 04:25 White Blood Count 10.3 K/UL (4.8-10.8) Red Blood Count 3.82 M/UL (4.20-5.40) L Hemoglobin 11.7 G/DL (12.0-16.0) L Hematocrit 36.9 % (37.0-47.0) L Mean Corpuscular Volume 96 FL (80-99) Mean Corpuscular Hemoglobin 30.5 PG (27.0-31.0) Mean Corpuscular Hemoglobin Concent 31.6 G/DL (32.0-36.0) L Red Cell Distribution Width 17.3 % (11.6-14.8) H Platelet Count 115 K/UL (150-450) L Mean Platelet Volume 9.5 FL (6.5-10.1) Neutrophils (%) (Auto) % (45.0-75.0) Lymphocytes (%) (Auto) % (20.0-45.0) Monocytes (%) (Auto) % (1.0-10.0) Eosinophils (%) (Auto) % (0.0-3.0) Basophils (%) (Auto) % (0.0-2.0) Sodium Level 139 MMOL/L (136-145) Potassium Level 4.0 MMOL/L (3.5-5.1) Chloride Level 101 MMOL/L (98-107) Carbon Dioxide Level 23 MMOL/L (21-32) Anion Gap 15 mmol/L (5-15) Blood Urea Nitrogen 41 mg/dL (7-18) H Creatinine 3.9 MG/DL (0.55-1.30) H Estimat Glomerular Filtration Rate mL/min (>60) Glucose Level 148 MG/DL (74-106) H Calcium Level 7.4 MG/DL (8.5-10.1) L Total Bilirubin 1.7 MG/DL (0.2-1.0) H Direct Bilirubin 0.7 MG/DL (0.0-0.3) H Aspartate Amino Transf (AST/SGOT) 32 U/L (15-37) Alanine Aminotransferase (ALT/SGPT) 19 U/L (12-78) Alkaline Phosphatase 116 U/L (46-116) Total Protein 5.7 G/DL (6.4-8.2) L Albumin 2.4 G/DL (3.4-5.0) L Globulin 3.3 g/dL Albumin/Globulin Ratio 0.7 (1.0-2.7) L Current Medications Medications (Trade) Dose Ordered Sig/Tamanna Route PRN Reason Start Time Stop Time Status Last Admin Dose Admin Chlorhexidine Gluconate (Rhianna-Hex 2%) 1 applic Q24H TOPIC 10/03/17 20:00 11/02/17 19:59 10/06/17 19:59 Dextrose (Dextrose 50%) STAT PRN IV Hypoglycemia 10/03/17 13:45 11/02/17 13:44 Heparin Sodium (Porcine) (Heparin 5000 units/ml) 5,000 units EVERY 12 HOURS SUBQ 10/03/17 09:00 11/02/17 08:59 10/07/17 08:22 Insulin Aspart (NovoLOG) Q4HR SUBQ 10/03/17 17:00 11/02/17 16:59 10/07/17 12:11 Levofloxacin 100 ml @ 100 mls/hr Q48H IVPB 10/05/17 06:00 10/12/17 05:59 10/07/17 05:44 Midodrine (Pro-Amatine) 10 mg THREE TIMES A DAY ORAL 10/03/17 18:00 11/02/17 17:59 10/07/17 12:09 Norepinephrine Bitartrate 4 mg/ Dextrose 250 ml @ 0 mls/hr Q24H IV 10/03/17 16:00 11/02/17 15:59 10/07/17 05:44 Pantoprazole (Protonix) 40 mg DAILY IVP 10/06/17 09:00 11/05/17 08:59 10/07/17 08:15 Sodium Chloride 1,000 ml @ 60 mls/hr [id number] IV 10/03/17 14:30 11/02/17 14:29 10/06/17 23:12 Vancomycin HCl (Vanco rx to dose) 1 ea DAILY PRN MISC Per rx protocol 10/03/17 13:45 11/02/17 13:44 Dina Bazan M.D. Oct 07, 2017 14:43
[2017-10-07] MEDS: Dyna-Hex 2% Top Sol 2oz TOPIC SCH (19:46)
--- NOTE | 2017-10-07 21:16 | Nephrology Progress Note ---
Objective Objective Last 24 Hour Vital Signs Date Time Temp Pulse Resp B/P (MAP) Pulse Ox O2 Delivery O2 Flow Rate FiO2 10/07/17 20:30 92 19 99/51 100 Nasal Cannula 2.0 10/07/17 20:00 97.6 90 17 94/51 97 Nasal Cannula 2.0 10/07/17 19:30 88 19 89/50 97 Nasal Cannula 2.0 10/07/17 19:00 88 16 94/50 100 Room Air 10/07/17 19:00 94/50 10/07/17 18:00 89 15 97/52 100 Room Air 10/07/17 18:00 97/52 10/07/17 17:00 89 17 92/47 97 Room Air 2.0 10/07/17 17:00 92/47 10/07/17 16:00 97.6 90 20 90/49 Nasal Cannula 3.0 10/07/17 16:00 93 10/07/17 16:00 97.3 90 19 94/53 100 Nasal Cannula 2.0 10/07/17 16:00 94/53 10/07/17 16:00 Nasal Cannula 3.0 10/07/17 15:06 97.5 90 17 99/50 99 Room Air 3.0 10/07/17 15:05 97.5 90 17 99/50 99 Room Air 3.0 10/07/17 15:00 86/50 10/07/17 15:00 92 16 86/50 97 Room Air 10/07/17 14:00 90 17 95/52 99 Room Air 10/07/17 14:00 99/50 10/07/17 13:00 86/47 10/07/17 13:00 90 19 90/52 94 Room Air 10/07/17 12:00 97.5 92 21 86/51 100 Room Air 10/07/17 12:00 90 10/07/17 12:00 86/51 10/07/17 11:45 97.4 90 20 89/53 Nasal Cannula 3.0 10/07/17 11:45 Nasal Cannula 3.0 10/07/17 11:00 93/52 10/07/17 11:00 90 21 93/52 96 Room Air 10/07/17 10:00 91/54 10/07/17 10:00 90 20 93/54 98 Room Air 10/07/17 09:00 96/56 10/07/17 09:00 89 20 94/55 100 Room Air 10/07/17 08:00 91 10/07/17 08:00 100/56 10/07/17 08:00 97.5 89 22 98/56 100 Nasal Cannula 2.0 10/07/17 07:22 Room Air 21 10/07/17 07:21 97 Room Air 21 10/07/17 07:00 91 19 96/54 98 Room Air 10/07/17 07:00 96/54 10/07/17 06:00 90 19 89/56 96 Room Air 10/07/17 06:00 89/56 10/07/17 05:45 89 19 98/59 96 Room Air 10/07/17 05:44 96/54 10/07/17 05:30 89 19 97/59 95 Room Air 10/07/17 05:15 89 21 96/54 97 Room Air 10/07/17 05:00 89 23 92/55 97 Room Air 10/07/17 05:00 92/55 10/07/17 04:45 87 20 91/78 97 Room Air 10/07/17 04:30 86 19 93/50 96 Room Air 10/07/17 04:15 87 20 91/50 97 Room Air 10/07/17 04:00 97.5 87 18 84/70 96 Room Air 10/07/17 04:00 87/40 10/07/17 04:00 87 10/07/17 03:45 88 18 95/49 96 Room Air 10/07/17 03:30 88 18 95/51 96 Room Air 10/07/17 03:15 87 17 98/47 97 Room Air 10/07/17 03:00 87 17 97/49 96 Room Air 10/07/17 03:00 97/49 10/07/17 02:45 88 21 94/53 95 Room Air 10/07/17 02:30 89 19 87/49 96 Room Air 10/07/17 02:15 89 19 96/48 95 Room Air 10/07/17 02:00 90 19 96/50 96 Room Air 10/07/17 02:00 96/50 10/07/17 01:45 90 18 94/49 95 Nasal Cannula 3.0 10/07/17 01:30 91 18 92/53 100 Nasal Cannula 3.0 10/07/17 01:15 90 18 103/59 100 Nasal Cannula 3.0 10/07/17 01:00 92 18 101/57 100 Nasal Cannula 3.0 10/07/17 01:00 106/83 10/07/17 00:45 91 18 106/83 100 Nasal Cannula 3.0 10/07/17 00:30 91 20 102/56 100 Nasal Cannula 3.0 10/07/17 00:15 92 22 97/54 95 Nasal Cannula 3.0 10/07/17 00:00 92 10/07/17 00:00 97/60 10/07/17 00:00 97.3 92 20 96/61 100 Nasal Cannula 3.0 10/06/17 23:45 92 21 97/60 100 Nasal Cannula 3.0 10/06/17 23:30 92 21 98/64 97 Nasal Cannula 3.0 10/06/17 23:15 91 21 100/55 97 Nasal Cannula 3.0 10/06/17 23:00 98/55 10/06/17 23:00 91 23 98/55 96 Nasal Cannula 3.0 10/06/17 22:45 92 21 100/62 96 Nasal Cannula 3.0 10/06/17 22:30 92 21 112/61 96 Nasal Cannula 3.0 10/06/17 22:15 93 23 99/61 96 Nasal Cannula 3.0 10/06/17 22:00 93 23 103/58 98 Nasal Cannula 3.0 10/06/17 22:00 103/58 10/06/17 21:45 92 21 101/77 99 Nasal Cannula 3.0 10/06/17 21:30 92 19 101/59 100 Nasal Cannula 3.0 Intake and Output 10/07/17 10/08/17 19:00 07:00 Intake Total 830.0 ml 30 ml Output Total 2050 ml 0 ml Balance -1220.0 ml 30 ml Intake Oral 20 ml 30 ml IV Total 810.0 ml Output Urine Total 0 ml 0 ml Hemodialysis UF 2050 ml Laboratory Tests 10/07/17 04:25: White Blood Count 10.3, Red Blood Count 3.82L, Hemoglobin 11.7L, Hematocrit 36.9L, Mean Corpuscular Volume 96, Mean Corpuscular Hemoglobin 30.5, Mean Corpuscular Hemoglobin Concent 31.6L, Red Cell Distribution Width 17.3H, Platelet Count 115L, Mean Platelet Volume 9.5, Neutrophils (%) (Auto) , Lymphocytes (%) (Auto) , Monocytes (%) (Auto) , Eosinophils (%) (Auto) , Basophils (%) (Auto) , Sodium Level 139, Potassium Level 4.0, Chloride Level 101 , Carbon Dioxide Level 23, Anion Gap 15, Blood Urea Nitrogen 41H, Creatinine 3.9H, Estimat Glomerular Filtration Rate , Glucose Level 148H, Calcium Level 7.4L, Total Bilirubin 1.7H, Direct Bilirubin 0.7H, Aspartate Amino Transf (AST/ SGOT) 32, Alanine Aminotransferase (ALT/SGPT) 19, Alkaline Phosphatase 116, Total Protein 5.7L, Albumin 2.4L, Globulin 3.3, Albumin/Globulin Ratio 0.7L Height (Feet): 5 Height (Inches): 5.00 Weight (Pounds): 121 ASHISH ARTEAGA Oct 07, 2017 21:16
[2017-10-08] VITALS (36 sets, daily range): BP systolic 72–99; BP diastolic 35–52
[2017-10-08] MEDS: NovoLOG Insulin Flexpen SUBQ SCH ×6 (00:31→21:00)
[2017-10-08] MEDS: Midodrine 10mg tab ORAL SCH ×3 (09:20→17:17)
[2017-10-08] MEDS: Pantoprazole Inj IVP SCH (09:20)
[2017-10-08] MEDS: Heparin 5000 units/ml inj SUBQ SCH ×2 (09:24→21:00)
--- NOTE | 2017-10-08 10:54 | Cardiac Electrophysiology PN ---
Assessment/Plan Status Narrative Mild left ventricular enlargement. Global left ventricular hypokinesis. Left ventricular ejection fraction estimated to be 20-25 %. Mild left ventricular hypertrophy. Large pleural effusion. Mild left atrial enlargement. Mild right ventricular enlargement. Right atrial chamber size is within normal limits. Aortic valve calcification with decreased cusp excursion c/w aortic stenosis. Heavy thickened mitral valve leaflets with minimal excursion. Moderate mitral annulus and aortic root calcification. Normal pulmonic valve structure. Normal tricuspid valve structure. IVC dilated at 2.0 cm without physiologic collapse, estimated RAP is 15 mmHg. Assessment/Plan 1. Septic shock. On broad-spectrum IV antibiotics. Levophed resumed. Continue midodrine 10 mg three times daily. 2. Anterior ischemia on 12-lead EKG. The patient denies any chest pain.EF 20-25 % 3. Severe cardiomyopathy with EF 20-25%. Off ACEI and Coreg for hypotension. On HD. Ischemia eval when off pressors. 4. End-stage renal disease, on hemodialysis. 5. Anemia. 6. Hyperparathyroidism. 7. Not eating. STEPHANIE RN Subjective Subjective In ICU still on Levophed 2 mcg. Was tapered off but BP dropped to 70s again last night. Alert. RN at bedside. Not eating much.No Arrhythmias. Objective Last 24 Hour Vital Signs Date Time Temp Pulse Resp B/P (MAP) Pulse Ox O2 Delivery O2 Flow Rate FiO2 10/08/17 10:00 79 18 80/44 100 Nasal Cannula 2.0 10/08/17 10:00 80/44 10/08/17 09:20 78/44 10/08/17 09:00 79 18 78/44 100 Nasal Cannula 2.0 10/08/17 08:00 97.8 79 15 73/38 99 Nasal Cannula 2.0 10/08/17 08:00 81 10/08/17 07:00 79 16 76/40 97 Nasal Cannula 2.0 10/08/17 06:54 Nasal Cannula 2.0 28 10/08/17 06:53 99 Nasal Cannula 28 10/08/17 06:00 81 12 80/37 99 Nasal Cannula 2.0 10/08/17 05:00 82 15 80/38 100 Nasal Cannula 2.0 10/08/17 04:00 97.6 88 18 97/50 99 Nasal Cannula 2.0 10/08/17 04:00 88 10/08/17 03:30 91 17 99/51 99 Nasal Cannula 2.0 10/08/17 03:00 90 19 92/52 100 Nasal Cannula 2.0 10/08/17 02:30 88 17 92/48 98 Nasal Cannula 2.0 10/08/17 02:00 87 20 88/48 96 Nasal Cannula 2.0 10/08/17 01:30 88 18 91/44 97 Nasal Cannula 2.0 10/08/17 01:00 89 17 84/51 97 Nasal Cannula 2.0 10/08/17 00:30 88 16 91/47 97 Nasal Cannula 2.0 10/08/17 00:00 97.8 88 16 95/48 99 Nasal Cannula 2.0 10/08/17 00:00 88 10/07/17 23:30 90 16 88/47 100 Nasal Cannula 2.0 10/07/17 23:28 100 17 10/07/17 23:27 88 17 Room Air 21 10/07/17 23:00 92 17 95/50 99 Nasal Cannula 2.0 10/07/17 22:30 91 18 97/51 100 Nasal Cannula 2.0 10/07/17 22:00 91 19 88/53 97 Nasal Cannula 2.0 10/07/17 21:30 92 17 95/61 100 Nasal Cannula 2.0 10/07/17 21:25 Room Air 10/07/17 21:25 95 Room Air 21 10/07/17 21:00 91 17 100/55 96 Nasal Cannula 2.0 10/07/17 20:30 92 19 99/51 100 Nasal Cannula 2.0 10/07/17 20:00 97.6 90 17 94/51 97 Nasal Cannula 2.0 10/07/17 20:00 90 10/07/17 19:30 88 19 89/50 97 Nasal Cannula 2.0 10/07/17 19:00 88 16 94/50 100 Room Air 10/07/17 19:00 94/50 10/07/17 18:00 89 15 97/52 100 Room Air 10/07/17 18:00 97/52 10/07/17 17:00 89 17 92/47 97 Room Air 2.0 10/07/17 17:00 92/47 10/07/17 16:00 97.6 90 20 90/49 Nasal Cannula 3.0 12/13/17 16:00 93 10/07/17 16:00 97.3 90 19 94/53 100 Nasal Cannula 2.0 10/07/17 16:00 94/53 10/07/17 16:00 Nasal Cannula 3.0 10/07/17 15:06 97.5 90 17 99/50 99 Room Air 3.0 21 10/07/17 15:05 97.5 90 17 99/50 99 Room Air 3.0 21 10/07/17 15:00 86/50 10/07/17 15:00 92 16 86/50 97 Room Air 10/07/17 14:00 90 17 95/52 99 Room Air 10/07/17 14:00 99/50 10/07/17 13:00 86/47 10/07/17 13:00 90 19 90/52 94 Room Air 10/07/17 12:00 97.5 92 21 86/51 100 Room Air 10/07/17 12:00 90 10/07/17 12:00 86/51 10/07/17 11:45 97.4 90 20 89/53 Nasal Cannula 3.0 10/07/17 11:45 Nasal Cannula 3.0 10/07/17 11:00 93/52 10/07/17 11:00 90 21 93/52 96 Room Air Intake and Output 10/08/17 10/09/17 19:00 07:00 Intake Total 185 ml Output Total 0 ml Balance 185 ml Intake Oral 0 ml IV Total 185 ml Output Urine Total 0 ml Laboratory Tests Test 10/08/17 05:00 Random Vancomycin Level 19.1 ug/mL Objective HEAD AND NECK: No JVD. LUNGS: Coarse rhonchi CARDIOVASCULAR: Regular S1 and S2 with no gallop or murmur. ABDOMEN: Soft. EXTREMITIES: No pitting edema. Old dialysis shunt in the right arm and left arm not functioning. Active dialysis access is Left femoral. MATIAS SORIA Oct 08, 2017 10:54
--- NOTE | 2017-10-08 11:04 | Cardiology Report ---
APPROVED REPORT EKG Measurement Heart [id number] AR [id number] Normal sinus rhythm Low voltage QRS Septal infarct, age undetermined Prolonged QT Abnormal ECG
--- NOTE | 2017-10-08 12:20 | GI Initial Consult Note ---
Lucia Thomas NHebertPHebert 10/08/17 1220: History of Present Illness General Date patient seen: Oct 08, 2017 Time patient seen: 12:18 Reason for Hospitalization: Abnormal Labs Referring physician: ASHISH GRANADOS Reason for Consultation: POOR PO INTAKE Present Illness HPI 72-year-old female brought in by EMS for low blood sugar and hypertension History of present illness otherwise limited because patient is altered from hypoglycemia Was giving glucagon and d10 by EMS without improvement and low blood sugar Chest x-ray from September 28 shows cardiomegaly, a diffuse pulmonary edema, possible left lower lung and foot trait versus pleural effusion Patient only on insulin, I do not see any other long-acting diabetes medications or sulfonylureas [facility] of medication [facility]. GI consulted for poor PO intake. HPI as noted above. Patient seen in ICU, awake A&Ox3 NAD with no active s/sx of N/V/D. Does not want to eat. States she is not hungry. Per RN report, patient has had poor PO intake x 2 days. No swallowing deficit noted. She presents today with mild anemia and hyperbilirubinemia. Abdominal US shows bilateral pleural effusions and trace ascites. Unknown history of endoscopies or colonoscopies. Home Meds Reported Medications Ondansetron* (ZOFRAN*) 4 Mg Tablet, 4 MG ORAL Q4HR Y for Nausea & Vomiting, TAB 10/03/17 Cinacalcet* (SENSIPAR*) 30 Mg Tablet, 30 MG ORAL DAILY, TAB 10/03/17 Amino Acids/Protein Hydrolys (PRO-STAT LIQUID) 30 Ml Liquid.pkt, 30 ML ORAL TWICE A DAY, ML 10/03/17 Clopidogrel Bisulfate* (PLAVIX*) 75 Mg Tablet, 75 MG ORAL DAILY, TAB 10/03/17 Midodrine (Midodrine HCl) 5 Mg Tablet, 5 MG GT, TAB 10/03/17 Med list reviewed/reconciled: Yes Allergies: Coded Allergies: ASPIRIN (Unverified Allergy, Unknown, 10/03/17) PENICILLINS (Unverified Allergy, Unknown, 10/03/17) Patient History History Provided By: Patient, Medical Record PMH Narrative Past Medical History: DM, HTN, renal disease, dialysis, other - anemia, hyperparathyroidism Past Surgical History: unable to obtain Pertinent Family History: unable to obtain Social History: Denies: smoking, alcohol use, drug use Now: No Immunizations: UTD Reviewed Nursing Documentation: PMH: Agreed, PSxH: Agreed Nursing Documentation-PMH Past Medical History: No History, Except For Hx Cardiac Problems: Yes - Cardiogenic shock, Anemia, Hyperparathyroidism Hx Hypertension: Yes - Nonrheumatic Mitral valve insufficiency Hx Asthma: No - Acute pulmanory edema Hx Diabetes: Yes - Type 2 Hx Gastrointestinal Problems: No - Generalized muscle weakness Hx Dialysis: Yes - ESRD Review of Systems All Other Systems: negative except mentioned in HPI Physical Exam Vital Signs Date Time Temp Pulse Resp B/P (MAP) Pulse Ox O2 Delivery O2 Flow Rate FiO2 10/04/17 07:00 Nasal Cannula 3.0 32 10/04/17 07:00 83/46 10/04/17 07:00 90 17 96 10/04/17 08:00 97.6 Sp02 EP Interpretation: reviewed, normal Labs Laboratory Tests Test 10/08/17 05:00 Random Vancomycin Level 19.1 ug/mL General Appearance: well appearing, no apparent distress, alert Head: normocephalic EENT: PERRL/EOMI, normal ENT inspection Neck: supple Respiratory: normal breath sounds, no respiratory distress Cardiovascular: normal rate Gastrointestinal: normal inspection, non tender, soft, normal bowel sounds, non -distended Rectal: deferred Genitourinary: no CVA tenderness Musculoskeletal: normal inspection, back normal Neurologic: normal inspection, alert, oriented x3, responsive Psychiatric: normal inspection, judgement/insight normal, memory normal Skin: normal inspection, normal color, no rash, warm/dry, palpation normal, well hydrated Lymphatic: normal inspection, no adenopathy Current Medications Current Medications Medications (Trade) Dose Ordered Sig/Tamanna Route PRN Reason Start Time Stop Time Status Last Admin Dose Admin Chlorhexidine Gluconate (Rhianna-Hex 2%) 1 applic Q24H TOPIC 10/03/17 20:00 11/02/17 19:59 10/07/17 19:46 Dextrose (Dextrose 50%) STAT PRN IV Hypoglycemia 10/03/17 13:45 11/02/17 13:44 Heparin Sodium (Porcine) (Heparin 5000 units/ml) 5,000 units EVERY 12 HOURS SUBQ 10/03/17 09:00 11/02/17 08:59 10/08/17 09:24 Insulin Aspart (NovoLOG) Q4HR SUBQ 10/03/17 17:00 11/02/17 16:59 10/07/17 12:11 Levofloxacin 100 ml @ 100 mls/hr Q48H IVPB 10/05/17 06:00 10/12/17 05:59 10/07/17 05:44 Midodrine (Pro-Amatine) 10 mg THREE TIMES A DAY ORAL 10/03/17 18:00 11/02/17 17:59 10/08/17 09:20 Norepinephrine Bitartrate 4 mg/ Dextrose 250 ml @ 0 mls/hr Q24H IV 10/03/17 16:00 11/02/17 15:59 10/08/17 09:20 Pantoprazole (Protonix) 40 mg DAILY IVP 10/06/17 09:00 11/05/17 08:59 10/08/17 09:20 Sodium Chloride 1,000 ml @ 60 mls/hr [id number] IV 10/03/17 14:30 11/02/17 14:29 10/08/17 04:52 Vancomycin HCl (Vanco rx to dose) 1 ea DAILY PRN MISC Per rx protocol 10/03/17 13:45 11/02/17 13:44 GI: Plan Problems: (1) Poor appetite (2) Abdominal pain (3) Altered mental status (4) CKD (chronic kidney disease) requiring chronic dialysis Plan abdominal US noted. will consider NGT if patient continues not to eat renal diet >> push PO anemia work up OB stool r/o GI bleed monitor H&H, prn transfusions bowel regime ppi DM mgmt fu labs Discussed with Dr. Albright. Thank you for this patient referral, we will follow. @1500 Report from [facility] [facility] regarding recent KUB with dilated SB loops suspicious for possible SBO. bowel decompression >> place NGT to LIS ordered CT AP PO contrast only. AMANDA ALBRIGHT 10/09/17 0858: History of Present Illness General Reason for Hospitalization: Abnormal Labs Present Illness Home Meds Reported Medications Ondansetron* (ZOFRAN*) 4 Mg Tablet, 4 MG ORAL Q4HR Y for Nausea & Vomiting, TAB 10/03/17 Cinacalcet* (SENSIPAR*) 30 Mg Tablet, 30 MG ORAL DAILY, TAB 10/03/17 Amino Acids/Protein Hydrolys (PRO-STAT LIQUID) 30 Ml Liquid.pkt, 30 ML ORAL TWICE A DAY, ML 10/03/17 Clopidogrel Bisulfate* (PLAVIX*) 75 Mg Tablet, 75 MG ORAL DAILY, TAB 10/03/17 Midodrine (Midodrine HCl) 5 Mg Tablet, 5 MG GT, TAB 10/03/17 Allergies: Coded Allergies: ASPIRIN (Unverified Allergy, Unknown, 10/03/17) PENICILLINS (Unverified Allergy, Unknown, 10/03/17) GI: Plan Plan The patient was seen and examined at bedside and all new and available data was reviewed in the patients chart. I agree with the above findings, impression and plan. (Patient seen earlier today. Signature stamp does not reflect patient encounter time.). - MD Martha Romano Anh Aj Caba Oct 08, 2017 12:20 AMANDA ALBRIGHT Oct 09, 2017 08:58
--- NOTE | 2017-10-08 13:49 | Infectious Diseases Prog Note ---
Assessment/Plan Problems: (1) HCAP (healthcare-associated pneumonia) Assessment & Plan: continue vancomycin and levaquin empiric coverage for 7-10 days , sputum culture grew tejas albicans which is most likely colonization and not real infection. (2) Sepsis Assessment & Plan: due to the above, blood culture so far is negative , continue vancomycin and levaquin empirically for now to cover for pneumonia (3) Hypoglycemia Assessment & Plan: improved, continue blood glucose monitor , avoid insulin for now since her blood sugar is still low (4) Altered mental status Assessment & Plan: improved , due to the above, continue neuro check , monitor in ICU (5) CHF (congestive heart failure) Assessment & Plan: with exacerbation , on HD, renal is following , monitor CXR (6) Abdominal pain Assessment & Plan: no clear etiology , possible constipation , US of the abdomen didn't show any acute pathology but nonobstructing stones, recommend KUB to rule out ileus (7) Hypotension Assessment & Plan: not responding to pressors , rule out adrenal insufficiency , will order serum cortisol level , cardiology is following Subjective Constitutional: Reports: no symptoms HEENT: Reports: no symptoms Respiratory: Reports: no symptoms Breasts: Reports: no symptoms Cardiovascular: Reports: no symptoms Gastrointestinal/Abdominal: Reports: no symptoms Genitourinary: Reports: no symptoms Neurologic: Reports: no symptoms Psychiatric: Reports: no symptoms Skin: Reports: no symptoms Endocrine: Reports: no symptoms Hematologic: Reports: no symptoms Musculoskeletal: Reports: no symptoms Allergies: Coded Allergies: ASPIRIN (Unverified Allergy, Unknown, 10/03/17) PENICILLINS (Unverified Allergy, Unknown, 10/03/17) Subjective she was more awake and alert, complained of abdominal discomfort, still on pressor Objective Vital Signs Last 24 Hour Vital Signs Date Time Temp Pulse Resp B/P (MAP) Pulse Ox O2 Delivery O2 Flow Rate FiO2 10/08/17 13:00 83 17 94/48 98 Nasal Cannula 2.0 10/08/17 13:00 94/48 10/08/17 12:00 80/49 10/08/17 12:00 98.0 82 18 72/35 99 Nasal Cannula 2.0 10/08/17 12:00 79 10/08/17 11:00 82 15 91/50 100 Nasal Cannula 2.0 10/08/17 11:00 91/50 10/08/17 10:00 79 18 80/44 100 Nasal Cannula 2.0 10/08/17 10:00 80/44 10/08/17 09:20 78/44 10/08/17 09:00 79 18 78/44 100 Nasal Cannula 2.0 10/08/17 08:00 97.8 79 15 73/38 99 Nasal Cannula 2.0 10/08/17 08:00 81 10/08/17 07:00 79 16 76/40 97 Nasal Cannula 2.0 10/08/17 06:54 Nasal Cannula 2.0 28 10/08/17 06:53 99 Nasal Cannula 28 10/08/17 06:00 81 12 80/37 99 Nasal Cannula 2.0 10/08/17 05:00 82 15 80/38 100 Nasal Cannula 2.0 10/08/17 04:00 97.6 88 18 97/50 99 Nasal Cannula 2.0 10/08/17 04:00 88 10/08/17 03:30 91 17 99/51 99 Nasal Cannula 2.0 10/08/17 03:00 90 19 92/52 100 Nasal Cannula 2.0 10/08/17 02:30 88 17 92/48 98 Nasal Cannula 2.0 10/08/17 02:00 87 20 88/48 96 Nasal Cannula 2.0 10/08/17 01:30 88 18 91/44 97 Nasal Cannula 2.0 10/08/17 01:00 89 17 84/51 97 Nasal Cannula 2.0 10/08/17 00:30 88 16 91/47 97 Nasal Cannula 2.0 10/08/17 00:00 97.8 88 16 95/48 99 Nasal Cannula 2.0 10/08/17 00:00 88 10/07/17 23:30 90 16 88/47 100 Nasal Cannula 2.0 10/07/17 23:28 100 17 10/07/17 23:27 88 17 Room Air 21 10/07/17 23:00 92 17 95/50 99 Nasal Cannula 2.0 10/07/17 22:30 91 18 97/51 100 Nasal Cannula 2.0 10/07/17 22:00 91 19 88/53 97 Nasal Cannula 2.0 10/07/17 21:30 92 17 95/61 100 Nasal Cannula 2.0 10/07/17 21:25 Room Air 12/13/17 21:25 95 Room Air 21 10/07/17 21:00 91 17 100/55 96 Nasal Cannula 2.0 10/07/17 20:30 92 19 99/51 100 Nasal Cannula 2.0 10/07/17 20:00 97.6 90 17 94/51 97 Nasal Cannula 2.0 10/07/17 20:00 90 10/07/17 19:30 88 19 89/50 97 Nasal Cannula 2.0 10/07/17 19:00 88 16 94/50 100 Room Air 10/07/17 19:00 94/50 10/07/17 18:00 89 15 97/52 100 Room Air 10/07/17 18:00 97/52 10/07/17 17:00 89 17 92/47 97 Room Air 2.0 10/07/17 17:00 92/47 10/07/17 16:00 97.6 90 20 90/49 Nasal Cannula 3.0 10/07/17 16:00 93 10/07/17 16:00 97.3 90 19 94/53 100 Nasal Cannula 2.0 10/07/17 16:00 94/53 10/07/17 16:00 Nasal Cannula 3.0 10/07/17 15:06 97.5 90 17 99/50 99 Room Air 3.0 21 10/07/17 15:05 97.5 90 17 99/50 99 Room Air 3.0 21 10/07/17 15:00 86/50 10/07/17 15:00 92 16 86/50 97 Room Air 10/07/17 14:00 90 17 95/52 99 Room Air 10/07/17 14:00 99/50 Height (Feet): 5 Height (Inches): 5.00 Weight (Pounds): 117 General Appearance: WD/WN, no acute distress HEENT: normocephalic, atraumatic, anicteric, mucous membranes moist, PERRL, EOMI, pharynx normal, supple Respiratory/Chest: chest wall non-tender, lungs clear, normal breath sounds, no respiratory distress, no accessory muscle use Cardiovascular: normal peripheral pulses, normal rate, regular rhythm, no gallop/murmur, no JVD Abdomen: normal bowel sounds, soft, non tender, no organomegaly, non distended , no mass, no scars Extremities: no cyanosis, no clubbing Skin: no rash, no lesions Neurologic/Psychiatric: alert, oriented x 3, responsive Laboratory Tests Test 10/08/17 05:00 Random Vancomycin Level 19.1 ug/mL Current Medications Medications (Trade) Dose Ordered Sig/Tamanna Route PRN Reason Start Time Stop Time Status Last Admin Dose Admin Chlorhexidine Gluconate (Rhianna-Hex 2%) 1 applic Q24H TOPIC 10/03/17 20:00 11/02/17 19:59 10/07/17 19:46 Dextrose (Dextrose 50%) STAT PRN IV Hypoglycemia 10/03/17 13:45 11/02/17 13:44 Heparin Sodium (Porcine) (Heparin 5000 units/ml) 5,000 units EVERY 12 HOURS SUBQ 10/03/17 09:00 11/02/17 08:59 10/08/17 09:24 Insulin Aspart (NovoLOG) Q4HR SUBQ 10/03/17 17:00 11/02/17 16:59 10/07/17 12:11 Levofloxacin 100 ml @ 100 mls/hr Q48H IVPB 10/05/17 06:00 10/12/17 05:59 10/07/17 05:44 Midodrine (Pro-Amatine) 10 mg THREE TIMES A DAY ORAL 10/03/17 18:00 11/02/17 17:59 10/08/17 13:36 Norepinephrine Bitartrate 4 mg/ Dextrose 250 ml @ 0 mls/hr Q24H IV 10/03/17 16:00 11/02/17 15:59 10/08/17 09:20 Pantoprazole (Protonix) 40 mg DAILY IVP 10/06/17 09:00 11/05/17 08:59 10/08/17 09:20 Sodium Chloride 1,000 ml @ 60 mls/hr [id number] IV 10/03/17 14:30 11/02/17 14:29 10/08/17 04:52 Vancomycin HCl (Vanco rx to dose) 1 ea DAILY PRN MISC Per rx protocol 10/03/17 13:45 11/02/17 13:44 Dina Bazan M.D. Oct 08, 2017 13:49
--- NOTE | 2017-10-08 14:57 | Diagnostic Imaging Report ---
Indication: Constipation Technique: XRAY Abdomen 1v Comparison: None Findings: There is abnormal dilatation of multiple small bowel loops in the central abdomen with loops measuring up to 5.4 cm in diameter. These findings are concerning for small bowel obstruction. There is no evidence to suggest free intraperitoneal air however evaluation is limited given lack of direct review. Multiple surgical clips noted in the lower abdomen and pelvis. A right femoral vein central line is noted. Atherosclerotic vascular calcifications seen. No acute osseous abnormality appreciated. There is opacification of the left lung base consistent with pleural effusion seen on prior chest x-ray Impression: Abnormal distention of multiple small bowel loops concerning for small bowel obstruction. CT of the abdomen and pelvis with oral and intravenous contrast is recommended for further evaluation. Findings were discussed with treating ICU nurse at approximately 2:55 PM on 10/08/2017
--- NOTE | 2017-10-08 17:37 | Diagnostic Imaging Report ---
Indication: Constipation Technique: XRAY Abdomen 1v Comparison: Earlier the same day Findings: Interval placement of NG tube. Tip coiled within the stomach. Again noted is abnormal dilatation of multiple small bowel loops in the central abdomen concerning for small bowel obstruction. There is no evidence to suggest free intraperitoneal air however evaluation is limited given lack of erect review. Multiple surgical clips noted in the lower abdomen and pelvis. Atherosclerotic vascular calcifications seen. No acute osseous abnormality appreciated. There is opacification of the left lung base consistent with pleural effusion seen on prior chest x-ray Impression: Interval placement of NG tube, tip coiled in the stomach. Persistent abnormal dilatation of multiple small bowel loops concerning for small bowel obstruction.
[2017-10-08] MEDS ORDERED: NS 500ML ONE (17:39)
[2017-10-08] MEDS ORDERED: Tubing IV Secondary IV ONE (17:39)
[2017-10-08] MEDS: Dyna-Hex 2% Top Sol 2oz TOPIC SCH (20:30)
--- NOTE | 2017-10-08 23:16 | Nephrology Progress Note ---
Assessment/Plan Problem List: (1) HCAP (healthcare-associated pneumonia) (2) Septic shock (3) CKD (chronic kidney disease) requiring chronic dialysis (4) Altered mental status (5) Sepsis (6) Abdominal pain (7) Hypotension (8) Hypoglycemia (9) Poor appetite Plan abx per ID. cardio following. cont pressor prn. monitor closely. Subjective Subjective remains in ICU. on pressors. Objective Objective Last 24 Hour Vital Signs Date Time Temp Pulse Resp B/P (MAP) Pulse Ox O2 Delivery O2 Flow Rate FiO2 10/08/17 22:30 89 18 81/44 100 Nasal Cannula 2.0 10/08/17 22:00 89 19 81/46 100 Nasal Cannula 2.0 10/08/17 21:30 89 19 85/46 100 Nasal Cannula 2.0 10/08/17 21:01 89 15 100 Facial 28 10/08/17 21:00 88 21 78/43 100 Nasal Cannula 2.0 10/08/17 20:30 88 19 80/43 100 Nasal Cannula 2.0 10/08/17 20:00 97.8 88 18 83/45 100 Nasal Cannula 2.0 10/08/17 19:30 87 23 88/46 100 Nasal Cannula 2.0 10/08/17 19:04 Nasal Cannula 2.0 28 10/08/17 19:04 100 Nasal Cannula 2.0 28 10/08/17 19:04 84 18 Nasal Cannula 2.0 28 10/08/17 19:00 87/50 10/08/17 19:00 87 23 87/50 100 Nasal Cannula 2.0 10/08/17 18:00 90/47 10/08/17 18:00 84 21 90/47 100 Nasal Cannula 2.0 10/08/17 17:00 83/43 10/08/17 17:00 84 20 83/43 99 Nasal Cannula 2.0 10/08/17 16:00 85 10/08/17 16:00 97.8 83 19 76/40 99 Nasal Cannula 2.0 10/08/17 16:00 76/40 10/08/17 15:00 84/50 10/08/17 15:00 86 17 84/50 100 Nasal Cannula 2.0 10/08/17 14:00 87/47 10/08/17 14:00 84 15 87/47 100 Nasal Cannula 2.0 10/08/17 13:00 83 17 94/48 98 Nasal Cannula 2.0 10/08/17 13:00 94/48 10/08/17 12:00 80/49 10/08/17 12:00 98.0 82 18 72/35 99 Nasal Cannula 2.0 10/08/17 12:00 79 10/08/17 11:00 82 15 91/50 100 Nasal Cannula 2.0 10/08/17 11:00 91/50 10/08/17 10:00 79 18 80/44 100 Nasal Cannula 2.0 10/08/17 10:00 80/44 10/08/17 09:20 78/44 10/08/17 09:00 79 18 78/44 100 Nasal Cannula 2.0 10/08/17 08:00 97.8 79 15 73/38 99 Nasal Cannula 2.0 10/08/17 08:00 81 10/08/17 07:00 79 16 76/40 97 Nasal Cannula 2.0 10/08/17 06:54 Nasal Cannula 2.0 28 10/08/17 06:53 99 Nasal Cannula 28 10/08/17 06:00 81 12 80/37 99 Nasal Cannula 2.0 10/08/17 05:00 82 15 80/38 100 Nasal Cannula 2.0 10/08/17 04:00 97.6 88 18 97/50 99 Nasal Cannula 2.0 10/08/17 04:00 88 10/08/17 03:30 91 17 99/51 99 Nasal Cannula 2.0 10/08/17 03:00 90 19 92/52 100 Nasal Cannula 2.0 10/08/17 02:30 88 17 92/48 98 Nasal Cannula 2.0 10/08/17 02:00 87 20 88/48 96 Nasal Cannula 2.0 10/08/17 01:30 88 18 91/44 97 Nasal Cannula 2.0 10/08/17 01:00 89 17 84/51 97 Nasal Cannula 2.0 10/08/17 00:30 88 16 91/47 97 Nasal Cannula 2.0 10/08/17 00:00 97.8 88 16 95/48 99 Nasal Cannula 2.0 10/08/17 00:00 88 10/07/17 23:30 90 16 88/47 100 Nasal Cannula 2.0 10/07/17 23:28 100 17 10/07/17 23:27 88 17 Room Air 21 Intake and Output 10/08/17 10/09/17 19:00 07:00 Intake Total 1242.5 ml 0 ml Output Total 0 ml 0 ml Balance 1242.5 ml 0 ml Intake Oral 0 ml 0 ml IV Total 792.5 ml Other 450 ml Output Urine Total 0 ml 0 ml Laboratory Tests 10/08/17 05:00: Random Vancomycin Level 19.1 Height (Feet): 5 Height (Inches): 5.00 Weight (Pounds): 117 General Appearance: no apparent distress Cardiovascular: normal rate, regular rhythm Respiratory/Chest: rhonchi - bilaterally Abdomen: non tender, soft ASHISH ARTEAGA Oct 08, 2017 23:16
[2017-10-09] VITALS (69 sets, daily range): BP systolic 77–104; BP diastolic 39–66
[2017-10-09] MEDS: NovoLOG Insulin Flexpen SUBQ SCH ×6 (01:06→21:00)
[2017-10-09 06:18] LABS: MEAN CORPUSCULAR HEMOGLOBIN 31.4 PG (27.0-31.0); MEAN CORPUSCULAR HGB CONC 32.1 G/DL (32.0-36.0); MEAN CORPUSCULAR VOLUME 98 FL (80-99); MEAN PLATELET VOLUME 13.9 FL (6.5-10.1); PLATELET COUNT 69 K/UL (150-450); RED BLOOD COUNT 3.35 M/UL (4.20-5.40); RED CELL DISTRIBUTION WIDTH 19.1 % (11.6-14.8); WHITE BLOOD COUNT 8.8 K/UL (4.8-10.8)
[2017-10-09 06:23] LABS: INR 1.3 (0.9-1.1); PROTHROMBIN TIME 14.1 SEC (9.30-11.50)
[2017-10-09 07:03] LABS: ALANINE AMINOTRANSFERASE 24 U/L (12-78); ALBUMIN/GLOBULIN RATIO 0.7 (1.0-2.7); ANION GAP 12 mmol/L (5-15); ASPARTATE AMINO TRANSFERASE 22 U/L (15-37); CALCIUM 7.5 MG/DL (8.5-10.1); CARBON DIOXIDE 27 MMOL/L (21-32); CHLORIDE 103 MMOL/L (98-107); CREATININE 3.8 MG/DL (0.55-1.30); FERRITIN 519 NG/ML (8-388); POTASSIUM 3.8 MMOL/L (3.5-5.1); SODIUM 142 MMOL/L (136-145); THYROID STIMULATING HORMONE 10.416 uiU/mL (0.358-3.740); TOTAL PROTEIN 5.5 G/DL (6.4-8.2)
[2017-10-09 07:07] LABS: BILIRUBIN,DIRECT 0.9 MG/DL (0.0-0.3)
[2017-10-09 07:30] LABS: FOLIC ACID 23.5 NG/ML (8.6-58.9); IRON 39 ug/dL (50-175); TOTAL IRON BINDING CAPACITY 85 ug/dL (250-450)
[2017-10-09 07:33] LABS: ANISOCYTOSIS 2+; BAND NEUTROPHILS % (MANUAL) 0 % (0-8); BASOPHILS % (MANUAL) 0 % (0-2); EOSINOPHILS % (MANUAL) 0 % (0-3); HYPOCHROMASIA 1+; LYMPHOCYTES % (MANUAL) 11 % (20-45); NEUTROPHILS % (MANUAL) 87 % (45-75); NUCLEATED RED BLOOD CELLS 1 /100 WBC; PLATELET MORPHOLOGY NORMAL; TOTAL CELLS COUNTED 100
[2017-10-09 07:34] LABS: PLATELET ESTIMATE DECREASED
[2017-10-09 08:29] LABS: RETICULOCYTE COUNT 2.7 % (0.0-2.0)
[2017-10-09] MEDS: Pantoprazole Inj IVP SCH (08:58)
[2017-10-09] MEDS: Midodrine 10mg tab ORAL SCH ×3 (08:58→17:04)
[2017-10-09] MEDS: Heparin 5000 units/ml inj SUBQ SCH (09:00)
--- NOTE | 2017-10-09 10:08 | Diagnostic Imaging Report ---
Indication: Abdominal distention, abdominal pain Technique: Spiral acquisitions obtained through the abdomen and pelvis. Agent given enteric contrast. No IV contrast utilized, reason not stated. Multiplanar reconstructions were generated. Total dose length product 803.29 mGycm. CTDIvol(s) 16.14 mGy. Dose reduction achieved using automated exposure control Comparison: None Findings: Exam is limited. Soft tissue contrast is poor due to lack of IV contrast and generalized anasarca. The appendix is not definitely visualized, but there are no findings to suggest acute appendicitis. There is colonic diverticulosis. There is a nasogastric tube in place. The stomach and proximal small bowel are distended. Transition to collapsed distal small bowel is seen in the right lower quadrant anteriorly, axial images 85 through 90. There is a moderate amount of free intraperitoneal fluid. No free intraperitoneal air. The distal esophagus contains contrast, which may been refluxed from the stomach. Lack of IV contrast limits assessment of the solid organs. The liver, gallbladder, bile ducts, pancreas, spleen, are grossly unremarkable. The adrenals are not well-visualized. The kidneys are atrophic, with several cysts. No definite retroperitoneal or mesenteric mass or adenopathy, although edema limits visualization of such. No pelvic mass or adenopathy. The uterus is not definitely visualized, presumed surgically absent As mentioned previously, there is anasarca, with diffuse severe edema of the subcutaneous fat, mesenteric and retroperitoneal fat. There are also moderate to large bilateral pleural effusions. There is resultant compressive atelectasis of much of both lower lobes. The heart is enlarged. There are coronary artery calcifications and mitral annular calcifications. The bones demonstrate severe degenerative spondylosis changes and mild scoliotic deformity. Impression: Very limited exam, as described Findings consistent with small bowel obstruction, with dilated proximal small bowel, collapsed distal small bowel, and transition point in the anterior right lower quadrant Anasarca, with diffuse soft tissue edema, bilateral pleural effusions, ascites Cardiomegaly Diverticulosis. No evidence of diverticulitis Nasogastric tube Atrophic kidneys, consistent with medical renal disease. 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 The CT scanner at [facility] is accredited by the [employer] and the scans are performed using protocols designed to limit radiation exposure to as low as reasonably achievable to attain images of sufficient resolution adequate for diagnostic evaluation.
--- NOTE | 2017-10-09 11:23 | GI Progress Note ---
Assessment/Plan Problems: (1) Small bowel obstruction ICD Codes: K56.609 - Unspecified intestinal obstruction, unspecified as to partial versus complete obstruction SNOMED: 307674350 (2) Abdominal pain ICD Codes: R10.9 - Unspecified abdominal pain SNOMED: 09657689 (3) Poor appetite ICD Codes: R63.0 - Anorexia SNOMED: 37223160 (4) Altered mental status ICD Codes: R41.82 - Altered mental status, unspecified SNOMED: 476447179 Qualifiers: Qualified Codes: R41.82 - Altered mental status, unspecified Status: unchanged Status Narrative Discussed with Dr. Renteria. Assessment/Plan CT AP reviewed >> Findings consistent with small bowel obstruction, with dilated proximal small bowel,collapsed distal small bowel, and transition point in the anterior right lower quad anterior. abdominal US noted. anemia work up reviewed >> low FT4, high TSH suggestive of hypothyroidism, refer to PCP for tx recommend for surgical consultation strict NPO + IVFs, okay for meds bowel decompression >> NGT to LIS OB stool r/o GI bleed monitor H&H, prn transfusions bowel regime ppi DM mgmt fu labs The patient was seen and examined at bedside and all new and available data was reviewed in the patients chart. I agree with the above findings, impression and plan. (Patient seen earlier today. Signature stamp does not reflect patient encounter time.). - Nakul Renteria MD Subjective Subjective limited Objective Last 24 Hour Vital Signs Date Time Temp Pulse Resp B/P (MAP) Pulse Ox O2 Delivery O2 Flow Rate FiO2 10/09/17 10:30 89 18 85/42 95 Nasal Cannula 2.0 10/09/17 10:14 85/44 10/09/17 10:00 85/44 10/09/17 10:00 85 17 85/44 94 Nasal Cannula 2.0 10/09/17 09:30 89 17 92/49 100 Nasal Cannula 2.0 10/09/17 09:00 90 18 97/52 100 Nasal Cannula 2.0 10/09/17 09:00 97/52 10/09/17 08:30 90 21 81/46 100 Nasal Cannula 2.0 10/09/17 08:00 97.8 89 18 81/44 98 Nasal Cannula 2.0 10/09/17 08:00 81/44 10/09/17 08:00 90 12/15/17 07:30 89 18 84/47 100 Nasal Cannula 2.0 10/09/17 07:00 89 17 89/52 100 Nasal Cannula 2.0 10/09/17 06:30 91 17 93/48 100 Nasal Cannula 2.0 10/09/17 06:15 91 18 93/50 100 Nasal Cannula 2.0 10/09/17 06:00 91 18 92/51 100 Nasal Cannula 2.0 10/09/17 05:45 90 17 88/46 100 Nasal Cannula 2.0 10/09/17 05:30 91 17 92/50 100 Nasal Cannula 2.0 10/09/17 05:15 91 17 93/50 100 Nasal Cannula 2.0 10/09/17 05:00 90 17 93/51 100 Nasal Cannula 2.0 10/09/17 04:45 89 17 90/52 100 Nasal Cannula 2.0 10/09/17 04:30 91 17 88/46 100 Nasal Cannula 2.0 10/09/17 04:15 92 17 79/63 100 Nasal Cannula 2.0 10/09/17 04:00 97.9 92 17 80/41 100 Nasal Cannula 2.0 10/09/17 04:00 92 10/09/17 03:45 92 17 80/41 100 Nasal Cannula 2.0 10/09/17 03:30 91 17 77/56 100 Nasal Cannula 2.0 10/09/17 03:15 91 17 83/44 100 Nasal Cannula 2.0 10/09/17 03:00 90 17 77/39 100 Nasal Cannula 2.0 10/09/17 02:45 89 18 81/47 100 Nasal Cannula 2.0 10/09/17 02:30 89 18 82/47 100 Nasal Cannula 2.0 10/09/17 02:15 89 18 82/47 100 Nasal Cannula 2.0 10/09/17 02:00 88 18 84/45 100 Nasal Cannula 2.0 10/09/17 01:45 89 18 84/45 100 Nasal Cannula 2.0 10/09/17 01:30 88 18 86/46 100 Nasal Cannula 2.0 10/09/17 01:15 87 18 83/43 100 Nasal Cannula 2.0 10/09/17 01:00 78 18 79/39 100 Nasal Cannula 2.0 10/09/17 00:45 87 18 88/43 100 Nasal Cannula 2.0 10/09/17 00:30 87 18 84/43 100 Nasal Cannula 2.0 10/09/17 00:15 87 18 84/48 100 Nasal Cannula 2.0 10/09/17 00:00 90 10/09/17 00:00 97.7 88 18 83/45 100 Nasal Cannula 2.0 10/08/17 23:45 88 18 84/45 100 Nasal Cannula 2.0 10/08/17 23:30 88 18 92/45 100 Nasal Cannula 2.0 10/08/17 23:15 89 18 88/46 100 Nasal Cannula 2.0 10/08/17 23:00 89 18 85/44 100 Nasal Cannula 2.0 10/08/17 22:45 90 18 88/46 100 Nasal Cannula 2.0 10/08/17 22:30 89 18 81/44 100 Nasal Cannula 2.0 10/08/17 22:00 89 19 81/46 100 Nasal Cannula 2.0 10/08/17 21:30 89 19 85/46 100 Nasal Cannula 2.0 10/08/17 21:01 89 15 100 Facial 28 10/08/17 21:00 88 21 78/43 100 Nasal Cannula 2.0 10/08/17 20:30 88 19 80/43 100 Nasal Cannula 2.0 10/08/17 20:00 97.8 88 18 83/45 100 Nasal Cannula 2.0 10/08/17 20:00 86 10/08/17 19:30 87 23 88/46 100 Nasal Cannula 2.0 10/08/17 19:04 Nasal Cannula 2.0 28 10/08/17 19:04 100 Nasal Cannula 2.0 28 10/08/17 19:04 84 18 Nasal Cannula 2.0 28 10/08/17 19:00 87/50 10/08/17 19:00 87 23 87/50 100 Nasal Cannula 2.0 10/08/17 18:00 90/47 10/08/17 18:00 84 21 90/47 100 Nasal Cannula 2.0 10/08/17 17:00 83/43 10/08/17 17:00 84 20 83/43 99 Nasal Cannula 2.0 10/08/17 16:00 85 10/08/17 16:00 97.8 83 19 76/40 99 Nasal Cannula 2.0 10/08/17 16:00 76/40 10/08/17 15:00 84/50 10/08/17 15:00 86 17 84/50 100 Nasal Cannula 2.0 10/08/17 14:00 87/47 10/08/17 14:00 84 15 87/47 100 Nasal Cannula 2.0 10/08/17 13:00 83 17 94/48 98 Nasal Cannula 2.0 10/08/17 13:00 94/48 10/08/17 12:00 80/49 10/08/17 12:00 98.0 82 18 72/35 99 Nasal Cannula 2.0 10/08/17 12:00 79 Intake and Output 10/09/17 10/10/17 19:00 07:00 Intake Total 247.5 ml Output Total 0 ml Balance 247.5 ml Intake Oral 0 ml IV Total 247.5 ml Output Urine Total 0 ml Laboratory Tests Test 10/09/17 04:45 White Blood Count 8.8 K/UL (4.8-10.8) Red Blood Count 3.35 M/UL (4.20-5.40) L Hemoglobin 10.5 G/DL (12.0-16.0) L Hematocrit 32.8 % (37.0-47.0) L Mean Corpuscular Volume 98 FL (80-99) Mean Corpuscular Hemoglobin 31.4 PG (27.0-31.0) H Mean Corpuscular Hemoglobin Concent 32.1 G/DL (32.0-36.0) Red Cell Distribution Width 19.1 % (11.6-14.8) H Platelet Count 69 K/UL (150-450) L Mean Platelet Volume 13.9 FL (6.5-10.1) H Neutrophils (%) (Auto) % (45.0-75.0) Lymphocytes (%) (Auto) % (20.0-45.0) Monocytes (%) (Auto) % (1.0-10.0) Eosinophils (%) (Auto) % (0.0-3.0) Basophils (%) (Auto) % (0.0-2.0) Differential Total Cells Counted 100 Neutrophils % (Manual) 87 % (45-75) H Lymphocytes % (Manual) 11 % (20-45) L Monocytes % (Manual) 2 % (1-10) Eosinophils % (Manual) 0 % (0-3) Basophils % (Manual) 0 % (0-2) Band Neutrophils 0 % (0-8) Nucleated Red Blood Cells 1 /100 WBC Platelet Estimate Decreased L Platelet Morphology Normal Hypochromasia 1+ Anisocytosis 2+ Reticulocyte Count 2.7 % (0.0-2.0) H Prothrombin Time 14.1 SEC (9.30-11.50) H Prothromb Time International Ratio 1.3 (0.9-1.1) H Activated Partial Thromboplast Time 35 SEC (23-33) H Sodium Level 142 MMOL/L (136-145) Potassium Level 3.8 MMOL/L (3.5-5.1) Chloride Level 103 MMOL/L (98-107) Carbon Dioxide Level 27 MMOL/L (21-32) Anion Gap 12 mmol/L (5-15) Blood Urea Nitrogen 34 mg/dL (7-18) H Creatinine 3.8 MG/DL (0.55-1.30) H Estimat Glomerular Filtration Rate mL/min (>60) Glucose Level 140 MG/DL (74-106) H Calcium Level 7.5 MG/DL (8.5-10.1) L Iron Level 39 ug/dL (50-175) L Total Iron Binding Capacity 85 ug/dL (250-450) L Percent Iron Saturation 46 % (15-50) Unsaturated Iron Binding 46 ug/dL (112-346) L Ferritin 519 NG/ML (8-388) H Total Bilirubin 1.9 MG/DL (0.2-1.0) H Direct Bilirubin 0.9 MG/DL (0.0-0.3) H Aspartate Amino Transf (AST/SGOT) 22 U/L (15-37) Alanine Aminotransferase (ALT/SGPT) 24 U/L (12-78) Alkaline Phosphatase 97 U/L (46-116) Total Protein 5.5 G/DL (6.4-8.2) L Albumin 2.3 G/DL (3.4-5.0) L Globulin 3.2 g/dL Albumin/Globulin Ratio 0.7 (1.0-2.7) L Vitamin B12 Level 1846 PG/ML (193-986) H Folate 23.5 NG/ML (8.6-58.9) Thyroid Stimulating Hormone (TSH) 10.416 uiU/mL (0.358-3.740) Free Thyroxine 0.61 NG/DL (0.76-1.46) L Height (Feet): 5 Height (Inches): 5.00 Weight (Pounds): 131 General Appearance: no apparent distress, alert Cardiovascular: normal rate Respiratory/Chest: no respiratory distress Abdominal Exam: soft Lucia Thomas N.P. Oct 09, 2017 11:23 AMANDA RENTERIA Oct 12, 2017 08:55
[2017-10-09] MEDS ORDERED: Vancomycin 1gm/D5W 275ml IVPB ONE ×2 (12:00)
--- NOTE | 2017-10-09 12:43 | Cardiac Electrophysiology PN ---
Assessment/Plan Status Narrative Mild left ventricular enlargement. Global left ventricular hypokinesis. Left ventricular ejection fraction estimated to be 20-25 %. Mild left ventricular hypertrophy. Large pleural effusion. Mild left atrial enlargement. Mild right ventricular enlargement. Right atrial chamber size is within normal limits. Aortic valve calcification with decreased cusp excursion c/w aortic stenosis. Heavy thickened mitral valve leaflets with minimal excursion. Moderate mitral annulus and aortic root calcification. Normal pulmonic valve structure. Normal tricuspid valve structure. IVC dilated at 2.0 cm without physiologic collapse, estimated RAP is 15 mmHg. Assessment/Plan 1. Septic shock. On broad-spectrum IV antibiotics and Levophed. Continue midodrine 10 mg three times daily. 2. Anterior ischemia on 12-lead EKG. The patient denies any chest pain.EF 20-25 % 3. Severe cardiomyopathy with EF 20-25%. Off ACEI and Coreg for hypotension. On HD. Ischemia eval when off pressors. 4. End-stage renal disease, on hemodialysis. 5. Anemia. 6. Hyperparathyroidism. 7. Not eating. STEPHANIE RN Subjective Subjective In ICU still on Levophed 8 mcg. Alert. RN at bedside. Not eating much.No Arrhythmias. Objective Last 24 Hour Vital Signs Date Time Temp Pulse Resp B/P (MAP) Pulse Ox O2 Delivery O2 Flow Rate FiO2 10/09/17 12:00 106 10/09/17 12:00 86/44 10/09/17 11:00 84/43 10/09/17 10:30 89 18 85/42 95 Nasal Cannula 2.0 10/09/17 10:14 85/44 10/09/17 10:00 85/44 10/09/17 10:00 85 17 85/44 94 Nasal Cannula 2.0 10/09/17 09:30 89 17 92/49 100 Nasal Cannula 2.0 10/09/17 09:00 90 18 97/52 100 Nasal Cannula 2.0 10/09/17 09:00 97/52 10/09/17 08:30 90 21 81/46 100 Nasal Cannula 2.0 10/09/17 08:00 97.8 89 18 81/44 98 Nasal Cannula 2.0 10/09/17 08:00 81/44 10/09/17 08:00 90 10/09/17 07:30 89 18 84/47 100 Nasal Cannula 2.0 10/09/17 07:00 89 17 89/52 100 Nasal Cannula 2.0 10/09/17 06:30 91 17 93/48 100 Nasal Cannula 2.0 10/09/17 06:15 91 18 93/50 100 Nasal Cannula 2.0 10/09/17 06:00 91 18 92/51 100 Nasal Cannula 2.0 10/09/17 05:45 90 17 88/46 100 Nasal Cannula 2.0 10/09/17 05:30 91 17 92/50 100 Nasal Cannula 2.0 10/09/17 05:15 91 17 93/50 100 Nasal Cannula 2.0 10/09/17 05:00 90 17 93/51 100 Nasal Cannula 2.0 10/09/17 04:45 89 17 90/52 100 Nasal Cannula 2.0 10/09/17 04:30 91 17 88/46 100 Nasal Cannula 2.0 10/09/17 04:15 92 17 79/63 100 Nasal Cannula 2.0 10/09/17 04:00 97.9 92 17 80/41 100 Nasal Cannula 2.0 10/09/17 04:00 92 10/09/17 03:45 92 17 80/41 100 Nasal Cannula 2.0 10/09/17 03:30 91 17 77/56 100 Nasal Cannula 2.0 10/09/17 03:15 91 17 83/44 100 Nasal Cannula 2.0 10/09/17 03:00 90 17 77/39 100 Nasal Cannula 2.0 10/09/17 02:45 89 18 81/47 100 Nasal Cannula 2.0 10/09/17 02:30 89 18 82/47 100 Nasal Cannula 2.0 10/09/17 02:15 89 18 82/47 100 Nasal Cannula 2.0 10/09/17 02:00 88 18 84/45 100 Nasal Cannula 2.0 10/09/17 01:45 89 18 84/45 100 Nasal Cannula 2.0 10/09/17 01:30 88 18 86/46 100 Nasal Cannula 2.0 10/09/17 01:15 87 18 83/43 100 Nasal Cannula 2.0 10/09/17 01:00 78 18 79/39 100 Nasal Cannula 2.0 10/09/17 00:45 87 18 88/43 100 Nasal Cannula 2.0 10/09/17 00:30 87 18 84/43 100 Nasal Cannula 2.0 10/09/17 00:15 87 18 84/48 100 Nasal Cannula 2.0 10/09/17 00:00 90 10/09/17 00:00 97.7 88 18 83/45 100 Nasal Cannula 2.0 10/08/17 23:45 88 18 84/45 100 Nasal Cannula 2.0 10/08/17 23:30 88 18 92/45 100 Nasal Cannula 2.0 10/08/17 23:15 89 18 88/46 100 Nasal Cannula 2.0 10/08/17 23:00 89 18 85/44 100 Nasal Cannula 2.0 10/08/17 22:45 90 18 88/46 100 Nasal Cannula 2.0 10/08/17 22:30 89 18 81/44 100 Nasal Cannula 2.0 10/08/17 22:00 89 19 81/46 100 Nasal Cannula 2.0 10/08/17 21:30 89 19 85/46 100 Nasal Cannula 2.0 10/08/17 21:01 89 15 100 Facial 28 10/08/17 21:00 88 21 78/43 100 Nasal Cannula 2.0 10/08/17 20:30 88 19 80/43 100 Nasal Cannula 2.0 10/08/17 20:00 97.8 88 18 83/45 100 Nasal Cannula 2.0 10/08/17 20:00 86 10/08/17 19:30 87 23 88/46 100 Nasal Cannula 2.0 10/08/17 19:04 Nasal Cannula 2.0 28 10/08/17 19:04 100 Nasal Cannula 2.0 28 10/08/17 19:04 84 18 Nasal Cannula 2.0 28 10/08/17 19:00 87/50 10/08/17 19:00 87 23 87/50 100 Nasal Cannula 2.0 10/08/17 18:00 90/47 10/08/17 18:00 84 21 90/47 100 Nasal Cannula 2.0 10/08/17 17:00 83/43 10/08/17 17:00 84 20 83/43 99 Nasal Cannula 2.0 10/08/17 16:00 85 10/08/17 16:00 97.8 83 19 76/40 99 Nasal Cannula 2.0 10/08/17 16:00 76/40 10/08/17 15:00 84/50 12/14/17 15:00 86 17 84/50 100 Nasal Cannula 2.0 10/08/17 14:00 87/47 10/08/17 14:00 84 15 87/47 100 Nasal Cannula 2.0 10/08/17 13:00 83 17 94/48 98 Nasal Cannula 2.0 10/08/17 13:00 94/48 Intake and Output 10/09/17 10/10/17 19:00 07:00 Intake Total 520.0 ml Output Total 0 ml Balance 520.0 ml Intake Oral 0 ml IV Total 520.0 ml Output Urine Total 0 ml Laboratory Tests Test 10/09/17 04:45 White Blood Count 8.8 K/UL (4.8-10.8) Red Blood Count 3.35 M/UL (4.20-5.40) L Hemoglobin 10.5 G/DL (12.0-16.0) L Hematocrit 32.8 % (37.0-47.0) L Mean Corpuscular Volume 98 FL (80-99) Mean Corpuscular Hemoglobin 31.4 PG (27.0-31.0) H Mean Corpuscular Hemoglobin Concent 32.1 G/DL (32.0-36.0) Red Cell Distribution Width 19.1 % (11.6-14.8) H Platelet Count 69 K/UL (150-450) L Mean Platelet Volume 13.9 FL (6.5-10.1) H Neutrophils (%) (Auto) % (45.0-75.0) Lymphocytes (%) (Auto) % (20.0-45.0) Monocytes (%) (Auto) % (1.0-10.0) Eosinophils (%) (Auto) % (0.0-3.0) Basophils (%) (Auto) % (0.0-2.0) Differential Total Cells Counted 100 Neutrophils % (Manual) 87 % (45-75) H Lymphocytes % (Manual) 11 % (20-45) L Monocytes % (Manual) 2 % (1-10) Eosinophils % (Manual) 0 % (0-3) Basophils % (Manual) 0 % (0-2) Band Neutrophils 0 % (0-8) Nucleated Red Blood Cells 1 /100 WBC Platelet Estimate Decreased L Platelet Morphology Normal Hypochromasia 1+ Anisocytosis 2+ Reticulocyte Count 2.7 % (0.0-2.0) H Prothrombin Time 14.1 SEC (9.30-11.50) H Prothromb Time International Ratio 1.3 (0.9-1.1) H Activated Partial Thromboplast Time 35 SEC (23-33) H Sodium Level 142 MMOL/L (136-145) Potassium Level 3.8 MMOL/L (3.5-5.1) Chloride Level 103 MMOL/L (98-107) Carbon Dioxide Level 27 MMOL/L (21-32) Anion Gap 12 mmol/L (5-15) Blood Urea Nitrogen 34 mg/dL (7-18) H Creatinine 3.8 MG/DL (0.55-1.30) H Estimat Glomerular Filtration Rate mL/min (>60) Glucose Level 140 MG/DL (74-106) H Calcium Level 7.5 MG/DL (8.5-10.1) L Iron Level 39 ug/dL (50-175) L Total Iron Binding Capacity 85 ug/dL (250-450) L Percent Iron Saturation 46 % (15-50) Unsaturated Iron Binding 46 ug/dL (112-346) L Ferritin 519 NG/ML (8-388) H Total Bilirubin 1.9 MG/DL (0.2-1.0) H Direct Bilirubin 0.9 MG/DL (0.0-0.3) H Aspartate Amino Transf (AST/SGOT) 22 U/L (15-37) Alanine Aminotransferase (ALT/SGPT) 24 U/L (12-78) Alkaline Phosphatase 97 U/L (46-116) Total Protein 5.5 G/DL (6.4-8.2) L Albumin 2.3 G/DL (3.4-5.0) L Globulin 3.2 g/dL Albumin/Globulin Ratio 0.7 (1.0-2.7) L Vitamin B12 Level 1846 PG/ML (193-986) H Folate 23.5 NG/ML (8.6-58.9) Thyroid Stimulating Hormone (TSH) 10.416 uiU/mL (0.358-3.740) Free Thyroxine 0.61 NG/DL (0.76-1.46) L Objective HEAD AND NECK: No JVD. LUNGS: Coarse rhonchi CARDIOVASCULAR: Regular S1 and S2 with no gallop or murmur. ABDOMEN: Soft. EXTREMITIES: No pitting edema. Old dialysis shunt in the right arm and left arm not functioning. Active dialysis access is Left femoral. MATIAS SORIA Oct 09, 2017 12:43
--- NOTE | 2017-10-09 14:34 | Infectious Diseases Prog Note ---
Assessment/Plan Problems: (1) HCAP (healthcare-associated pneumonia) Assessment & Plan: will continue vancomycin and levaquin empiric coverage for 7 -10 days , sputum culture grew tejas albicans which is most likely colonization and not real infection. (2) Sepsis Assessment & Plan: less likely , blood culture so far is negative, continue vancomycin and levaquin empirically for now to cover for pneumonia for 7-10 days (3) Altered mental status Assessment & Plan: improved , due to the above, continue neuro check , monitor in ICU (4) CHF (congestive heart failure) Assessment & Plan: with exacerbation , on HD, renal is following , monitor CXR (5) Abdominal pain Assessment & Plan: due to bowel obstruction , had NGT by GI , US of the abdomen didn't show any acute pathology but nonobstructing stones, may need surgical eval (6) Hypotension Assessment & Plan: not responding to pressors , rule out adrenal insufficiency , will order serum cortisol level , cardiology is following Subjective Constitutional: Reports: no symptoms HEENT: Reports: no symptoms Breasts: Reports: no symptoms Cardiovascular: Reports: no symptoms Gastrointestinal/Abdominal: Reports: nausea, bloating, other - abdominal pain Genitourinary: Reports: no symptoms Neurologic: Reports: no symptoms Psychiatric: Reports: no symptoms Skin: Reports: no symptoms Endocrine: Reports: no symptoms Hematologic: Reports: no symptoms Musculoskeletal: Reports: no symptoms Allergies: Coded Allergies: ASPIRIN (Unverified Allergy, Unknown, 10/03/17) PENICILLINS (Unverified Allergy, Unknown, 10/03/17) Subjective she was more awake and alert, complained of abdominal discomfort, still on pressor Objective Vital Signs Last 24 Hour Vital Signs Date Time Temp Pulse Resp B/P (MAP) Pulse Ox O2 Delivery O2 Flow Rate FiO2 10/09/17 14:00 88 18 88/40 95 Nasal Cannula 2.0 10/09/17 13:30 87 18 86/44 95 Nasal Cannula 2.0 10/09/17 13:00 87 18 88/43 95 Nasal Cannula 2.0 10/09/17 12:30 87 18 94/44 95 Nasal Cannula 2.0 10/09/17 12:00 106 10/09/17 12:00 86/44 10/09/17 12:00 97.8 84 18 94/44 95 Nasal Cannula 2.0 10/09/17 11:30 84 18 86/44 95 Nasal Cannula 2.0 10/09/17 11:00 84/43 10/09/17 11:00 84 18 83/45 95 Nasal Cannula 2.0 10/09/17 10:30 89 18 85/42 95 Nasal Cannula 2.0 10/09/17 10:14 85/44 10/09/17 10:00 85/44 10/09/17 10:00 85 17 85/44 94 Nasal Cannula 2.0 10/09/17 09:30 89 17 92/49 100 Nasal Cannula 2.0 10/09/17 09:00 90 18 97/52 100 Nasal Cannula 2.0 10/09/17 09:00 97/52 10/09/17 08:30 90 21 81/46 100 Nasal Cannula 2.0 10/09/17 08:00 97.8 89 18 81/44 98 Nasal Cannula 2.0 10/09/17 08:00 81/44 10/09/17 08:00 90 10/09/17 07:30 89 18 84/47 100 Nasal Cannula 2.0 10/09/17 07:00 89 17 89/52 100 Nasal Cannula 2.0 10/09/17 06:30 91 17 93/48 100 Nasal Cannula 2.0 10/09/17 06:15 91 18 93/50 100 Nasal Cannula 2.0 10/09/17 06:00 91 18 92/51 100 Nasal Cannula 2.0 10/09/17 05:45 90 17 88/46 100 Nasal Cannula 2.0 10/09/17 05:30 91 17 92/50 100 Nasal Cannula 2.0 10/09/17 05:15 91 17 93/50 100 Nasal Cannula 2.0 10/09/17 05:00 90 17 93/51 100 Nasal Cannula 2.0 10/09/17 04:45 89 17 90/52 100 Nasal Cannula 2.0 10/09/17 04:30 91 17 88/46 100 Nasal Cannula 2.0 10/09/17 04:15 92 17 79/63 100 Nasal Cannula 2.0 10/09/17 04:00 97.9 92 17 80/41 100 Nasal Cannula 2.0 10/09/17 04:00 92 10/09/17 03:45 92 17 80/41 100 Nasal Cannula 2.0 10/09/17 03:30 91 17 77/56 100 Nasal Cannula 2.0 10/09/17 03:15 91 17 83/44 100 Nasal Cannula 2.0 10/09/17 03:00 90 17 77/39 100 Nasal Cannula 2.0 10/09/17 02:45 89 18 81/47 100 Nasal Cannula 2.0 10/09/17 02:30 89 18 82/47 100 Nasal Cannula 2.0 10/09/17 02:15 89 18 82/47 100 Nasal Cannula 2.0 10/09/17 02:00 88 18 84/45 100 Nasal Cannula 2.0 10/09/17 01:45 89 18 84/45 100 Nasal Cannula 2.0 10/09/17 01:30 88 18 86/46 100 Nasal Cannula 2.0 10/09/17 01:15 87 18 83/43 100 Nasal Cannula 2.0 10/09/17 01:00 78 18 79/39 100 Nasal Cannula 2.0 10/09/17 00:45 87 18 88/43 100 Nasal Cannula 2.0 10/09/17 00:30 87 18 84/43 100 Nasal Cannula 2.0 10/09/17 00:15 87 18 84/48 100 Nasal Cannula 2.0 10/09/17 00:00 90 10/09/17 00:00 97.7 88 18 83/45 100 Nasal Cannula 2.0 10/08/17 23:45 88 18 84/45 100 Nasal Cannula 2.0 10/08/17 23:30 88 18 92/45 100 Nasal Cannula 2.0 10/08/17 23:15 89 18 88/46 100 Nasal Cannula 2.0 10/08/17 23:00 89 18 85/44 100 Nasal Cannula 2.0 10/08/17 22:45 90 18 88/46 100 Nasal Cannula 2.0 10/08/17 22:30 89 18 81/44 100 Nasal Cannula 2.0 10/08/17 22:00 89 19 81/46 100 Nasal Cannula 2.0 10/08/17 21:30 89 19 85/46 100 Nasal Cannula 2.0 10/08/17 21:01 89 15 100 Facial 28 10/08/17 21:00 88 21 78/43 100 Nasal Cannula 2.0 10/08/17 20:30 88 19 80/43 100 Nasal Cannula 2.0 10/08/17 20:00 97.8 88 18 83/45 100 Nasal Cannula 2.0 10/08/17 20:00 86 10/08/17 19:30 87 23 88/46 100 Nasal Cannula 2.0 10/08/17 19:04 Nasal Cannula 2.0 28 10/08/17 19:04 100 Nasal Cannula 2.0 28 10/08/17 19:04 84 18 Nasal Cannula 2.0 28 10/08/17 19:00 87/50 10/08/17 19:00 87 23 87/50 100 Nasal Cannula 2.0 10/08/17 18:00 90/47 10/08/17 18:00 84 21 /47 100 Nasal Cannula 2.0 10/08/17 17:00 83/43 10/08/17 17:00 84 20 83/43 99 Nasal Cannula 2.0 10/08/17 16:00 85 10/08/17 16:00 97.8 83 19 76/40 99 Nasal Cannula 2.0 10/08/17 16:00 76/40 10/08/17 15:00 84/50 10/08/17 15:00 86 17 84/50 100 Nasal Cannula 2.0 Height (Feet): 5 Height (Inches): 5.00 Weight (Pounds): 131 General Appearance: WD/WN, no acute distress HEENT: normocephalic, atraumatic, anicteric, mucous membranes moist, PERRL, EOMI, pharynx normal, supple, no JVD Respiratory/Chest: chest wall non-tender, lungs clear, normal breath sounds, no respiratory distress, no accessory muscle use Cardiovascular: normal peripheral pulses, normal rate, regular rhythm, no gallop/murmur, no JVD Abdomen: normal bowel sounds, soft, non tender, no organomegaly, non distended , no mass, no scars Extremities: no cyanosis, no clubbing Skin: no rash, no lesions, no ulcers Neurologic/Psychiatric: alert, oriented x 3, responsive Lymphatic: no neck adenopathy, no groin adenopathy Laboratory Tests Test 10/09/17 04:45 White Blood Count 8.8 K/UL (4.8-10.8) Red Blood Count 3.35 M/UL (4.20-5.40) L Hemoglobin 10.5 G/DL (12.0-16.0) L Hematocrit 32.8 % (37.0-47.0) L Mean Corpuscular Volume 98 FL (80-99) Mean Corpuscular Hemoglobin 31.4 PG (27.0-31.0) H Mean Corpuscular Hemoglobin Concent 32.1 G/DL (32.0-36.0) Red Cell Distribution Width 19.1 % (11.6-14.8) H Platelet Count 69 K/UL (150-450) L Mean Platelet Volume 13.9 FL (6.5-10.1) H Neutrophils (%) (Auto) % (45.0-75.0) Lymphocytes (%) (Auto) % (20.0-45.0) Monocytes (%) (Auto) % (1.0-10.0) Eosinophils (%) (Auto) % (0.0-3.0) Basophils (%) (Auto) % (0.0-2.0) Differential Total Cells Counted 100 Neutrophils % (Manual) 87 % (45-75) H Lymphocytes % (Manual) 11 % (20-45) L Monocytes % (Manual) 2 % (1-10) Eosinophils % (Manual) 0 % (0-3) Basophils % (Manual) 0 % (0-2) Band Neutrophils 0 % (0-8) Nucleated Red Blood Cells 1 /100 WBC Platelet Estimate Decreased L Platelet Morphology Normal Hypochromasia 1+ Anisocytosis 2+ Reticulocyte Count 2.7 % (0.0-2.0) H Prothrombin Time 14.1 SEC (9.30-11.50) H Prothromb Time International Ratio 1.3 (0.9-1.1) H Activated Partial Thromboplast Time 35 SEC (23-33) H Sodium Level 142 MMOL/L (136-145) Potassium Level 3.8 MMOL/L (3.5-5.1) Chloride Level 103 MMOL/L (98-107) Carbon Dioxide Level 27 MMOL/L (21-32) Anion Gap 12 mmol/L (5-15) Blood Urea Nitrogen 34 mg/dL (7-18) H Creatinine 3.8 MG/DL (0.55-1.30) H Estimat Glomerular Filtration Rate mL/min (>60) Glucose Level 140 MG/DL (74-106) H Calcium Level 7.5 MG/DL (8.5-10.1) L Iron Level 39 ug/dL (50-175) L Total Iron Binding Capacity 85 ug/dL (250-450) L Percent Iron Saturation 46 % (15-50) Unsaturated Iron Binding 46 ug/dL (112-346) L Ferritin 519 NG/ML (8-388) H Total Bilirubin 1.9 MG/DL (0.2-1.0) H Direct Bilirubin 0.9 MG/DL (0.0-0.3) H Aspartate Amino Transf (AST/SGOT) 22 U/L (15-37) Alanine Aminotransferase (ALT/SGPT) 24 U/L (12-78) Alkaline Phosphatase 97 U/L (46-116) Total Protein 5.5 G/DL (6.4-8.2) L Albumin 2.3 G/DL (3.4-5.0) L Globulin 3.2 g/dL Albumin/Globulin Ratio 0.7 (1.0-2.7) L Vitamin B12 Level 1846 PG/ML (193-986) H Folate 23.5 NG/ML (8.6-58.9) Thyroid Stimulating Hormone (TSH) 10.416 uiU/mL (0.358-3.740) Free Thyroxine 0.61 NG/DL (0.76-1.46) L Current Medications Medications (Trade) Dose Ordered Sig/Tamanna Route PRN Reason Start Time Stop Time Status Last Admin Dose Admin Chlorhexidine Gluconate (Rhianna-Hex 2%) 1 applic Q24H TOPIC 10/03/17 20:00 11/02/17 19:59 10/08/17 20:30 Dextrose (Dextrose 50%) STAT PRN IV Hypoglycemia 10/03/17 13:45 11/02/17 13:44 Heparin Sodium (Porcine) (Heparin 5000 units/ml) 5,000 units EVERY 12 HOURS SUBQ 10/03/17 09:00 11/02/17 08:59 10/08/17 09:24 Insulin Aspart (NovoLOG) Q4HR SUBQ 10/03/17 17:00 11/02/17 16:59 10/09/17 04:48 Levofloxacin 100 ml @ 100 mls/hr Q48H IVPB 10/05/17 06:00 10/12/17 05:59 10/09/17 06:17 Midodrine (Pro-Amatine) 10 mg THREE TIMES A DAY ORAL 10/03/17 18:00 11/02/17 17:59 10/09/17 13:05 Norepinephrine Bitartrate 4 mg/ Dextrose 250 ml @ 0 mls/hr Q24H IV 10/03/17 16:00 11/02/17 15:59 10/09/17 10:14 Pantoprazole (Protonix) 40 mg DAILY IVP 10/06/17 09:00 11/05/17 08:59 10/09/17 08:58 Sodium Chloride 1,000 ml @ 60 mls/hr [id number] IV 10/03/17 14:30 11/02/17 14:29 10/08/17 21:54 Vancomycin HCl (Vanco rx to dose) 1 ea DAILY PRN MISC Per rx protocol 10/03/17 13:45 11/02/17 13:44 Dina Bazan M.D. Oct 09, 2017 14:34
[2017-10-09] MEDS ORDERED: HYDROmorphone 1mg/ml Carpuject IVP PRN (15:30)
--- NOTE | 2017-10-09 15:58 | Consultation ---
History of Present Illness General Date patient seen: Oct 09, 2017 Chief Complaint: Abnormal Labs Referring physician: ASHISH GRANADOS Reason for Consultation: SBO Present Illness HPI 72 year old female with multiple medical comorbidities presented to [facility] [place] with hypertension and altered mental status. Currently in ICU under medical care and management. During hospitalization noted to have abdominal pain and distention. KUB demonstrated dilated bowel consistent with possible SBO. CT ordered and noted SBO with transition point in the right mid abdomen. surgery called to evaluate. when seen at bedside patient states she feels okay but has mild abdominal discomfort. no nausea or emesis. NG tube in place. Denies prior surgery but poor historian. spoke with family for remainder of history and they were not sure about full history but were able to give some insight. patient cannot remember last time she has BM or flatus. Allergies: Coded Allergies: ASPIRIN (Unverified Allergy, Unknown, 10/03/17) PENICILLINS (Unverified Allergy, Unknown, 10/03/17) Medication History Scheduled Amino Acids/Protein Hydrolys (Pro-Stat Liquid), 30 ML ORAL TWICE A DAY, ( Reported) Cinacalcet* (Sensipar*), 30 MG ORAL DAILY, (Reported) Clopidogrel Bisulfate* (Plavix*), 75 MG ORAL DAILY, (Reported) Scheduled PRN Ondansetron* (Zofran*), 4 MG ORAL Q4HR PRN for Nausea & Vomiting, (Reported) Miscellaneous Medications Midodrine (Midodrine HCl), 5 MG GT, (Reported) Patient History Limited by: medical condition History Provided By: Patient, Medical Record Healthcare decision maker Andrea/ Daughter Resuscitation status Full Code Advanced Directive on File No Past Medical/Surgical History Past Medical/Surgical History: (1) HCAP (healthcare-associated pneumonia) (2) Septic shock (3) Hypokalemia (4) CHF (congestive heart failure) (5) Hypoglycemia (6) Hypothermia (7) Sepsis (8) Altered mental status (9) CKD (chronic kidney disease) requiring chronic dialysis (10) Abdominal pain (11) Hypotension (12) Poor appetite (13) Small bowel obstruction Review of Systems Constitutional: Denies: no symptoms, see HPI, chills, sweats, fever, malaise, weakness, other Eye: Denies: no symptoms, see HPI, eye pain, blurred vision, tearing, double vision, nose pain, nose congestion, acuity changes, discharge, other ENT: Denies: no symptoms, see HPI, ear pain, ear discharge, nose pain, nose congestion, throat pain, throat swelling, mouth pain, hearing loss, nasal discharge, other Respiratory: Denies: no symptoms, see HPI, cough, orthopnea, shortness of breath, stridor, wheezing, VALDEZ, sputum, other Cardiovascular: Denies: no symptoms, see HPI, chest pain, edema, palpitations, syncope, PND, other Gastrointestinal: Reports: abdominal pain, constipation Genitourinary: Denies: no symptoms, see HPI, discharge, dysuria, frequency, hematuria, pain, retention, incontinence, urgency, vag bleed/dc, other Musculoskeletal: Denies: no symptoms, see HPI, back pain, gout, joint pain, joint swelling, muscle pain, muscle stiffness, other Skin: Denies: no symptoms, see HPI, rash, change in color, change in hair/nails , dryness, lesions, other Psychiatric: Denies: no symptoms, see HPI, prior hx, anxiety, depressed feelings, emotional problems, SI, HI, hallucinations, other Neurological: Denies: no symptoms, see HPI, headache, numbness, paresthesia, seizure, tingling, tremors, focal weakness, syncope, dizziness, other Endocrine: Denies: no symptoms, see HPI, excessive sweating, flushing, intolerance to temperature, increased thirst, increased urine, unexplained weight loss, other Hematologic/Lymphatic: Denies: no symptoms, see HPI, anemia, blood clots, easy bleeding, easy bruising, swollen glands, diathesis, other Physical Exam General Appearance: no apparent distress, alert HEENT: atraumatic, mucous membranes moist Neck: limited range of motion Respiratory/Chest: normal breath sounds, no respiratory distress, no accessory muscle use Cardiovascular/Chest: normal peripheral pulses, normal rate Abdomen: soft, distended, guarding, tender, other - soft, distended, tympanic, voluntary guarding, tender on deep palpation, no peritonitis or acute abdomen Extremities: no calf tenderness Skin Exam: normal pigmentation Neurologic: alert, responsive Last 24 Hour Vital Signs Date Time Temp Pulse Resp B/P (MAP) Pulse Ox O2 Delivery O2 Flow Rate FiO2 10/09/17 15:00 99 21 94/46 95 Nasal Cannula 2.0 10/09/17 14:30 89 19 94/48 95 Nasal Cannula 2.0 10/09/17 14:00 88 18 88/40 95 Nasal Cannula 2.0 10/09/17 13:30 87 18 86/44 95 Nasal Cannula 2.0 10/09/17 13:00 87 18 88/43 95 Nasal Cannula 2.0 10/09/17 12:30 87 18 94/44 95 Nasal Cannula 2.0 10/09/17 12:00 106 10/09/17 12:00 86/44 10/09/17 12:00 97.8 84 18 94/44 95 Nasal Cannula 2.0 10/09/17 11:30 84 18 86/44 95 Nasal Cannula 2.0 10/09/17 11:00 84/43 10/09/17 11:00 84 18 83/45 95 Nasal Cannula 2.0 10/09/17 10:30 89 18 85/42 95 Nasal Cannula 2.0 10/09/17 10:14 85/44 10/09/17 10:00 85/44 10/09/17 10:00 85 17 85/44 94 Nasal Cannula 2.0 10/09/17 09:30 89 17 92/49 100 Nasal Cannula 2.0 10/09/17 09:00 90 18 97/52 100 Nasal Cannula 2.0 10/09/17 09:00 97/52 10/09/17 08:30 90 21 81/46 100 Nasal Cannula 2.0 10/09/17 08:00 97.8 89 18 81/44 98 Nasal Cannula 2.0 10/09/17 08:00 81/44 10/09/17 08:00 90 10/09/17 07:30 89 18 84/47 100 Nasal Cannula 2.0 10/09/17 07:00 89 17 89/52 100 Nasal Cannula 2.0 10/09/17 06:30 91 17 93/48 100 Nasal Cannula 2.0 10/09/17 06:15 91 18 93/50 100 Nasal Cannula 2.0 10/09/17 06:00 91 18 92/51 100 Nasal Cannula 2.0 10/09/17 05:45 90 17 88/46 100 Nasal Cannula 2.0 10/09/17 05:30 91 17 92/50 100 Nasal Cannula 2.0 10/09/17 05:15 91 17 93/50 100 Nasal Cannula 2.0 10/09/17 05:00 90 17 93/51 100 Nasal Cannula 2.0 10/09/17 04:45 89 17 90/52 100 Nasal Cannula 2.0 10/09/17 04:30 91 17 88/46 100 Nasal Cannula 2.0 10/09/17 04:15 92 17 79/63 100 Nasal Cannula 2.0 10/09/17 04:00 97.9 92 17 80/41 100 Nasal Cannula 2.0 10/09/17 04:00 92 10/09/17 03:45 92 17 80/41 100 Nasal Cannula 2.0 10/09/17 03:30 91 17 77/56 100 Nasal Cannula 2.0 10/09/17 03:15 91 17 83/44 100 Nasal Cannula 2.0 10/09/17 03:00 90 17 77/39 100 Nasal Cannula 2.0 10/09/17 02:45 89 18 81/47 100 Nasal Cannula 2.0 10/09/17 02:30 89 18 82/47 100 Nasal Cannula 2.0 10/09/17 02:15 89 18 82/47 100 Nasal Cannula 2.0 10/09/17 02:00 88 18 84/45 100 Nasal Cannula 2.0 10/09/17 01:45 89 18 84/45 100 Nasal Cannula 2.0 10/09/17 01:30 88 18 86/46 100 Nasal Cannula 2.0 10/09/17 01:15 87 18 83/43 100 Nasal Cannula 2.0 10/09/17 01:00 78 18 79/39 100 Nasal Cannula 2.0 10/09/17 00:45 87 18 88/43 100 Nasal Cannula 2.0 10/09/17 00:30 87 18 84/43 100 Nasal Cannula 2.0 10/09/17 00:15 87 18 84/48 100 Nasal Cannula 2.0 10/09/17 00:00 90 10/09/17 00:00 97.7 88 18 83/45 100 Nasal Cannula 2.0 10/08/17 23:45 88 18 84/45 100 Nasal Cannula 2.0 10/08/17 23:30 88 18 92/45 100 Nasal Cannula 2.0 10/08/17 23:15 89 18 88/46 100 Nasal Cannula 2.0 10/08/17 23:00 89 18 85/44 100 Nasal Cannula 2.0 10/08/17 22:45 90 18 88/46 100 Nasal Cannula 2.0 10/08/17 22:30 89 18 81/44 100 Nasal Cannula 2.0 10/08/17 22:00 89 19 81/46 100 Nasal Cannula 2.0 10/08/17 21:30 89 19 85/46 100 Nasal Cannula 2.0 10/08/17 21:01 89 15 100 Facial 28 10/08/17 21:00 88 21 78/43 100 Nasal Cannula 2.0 10/08/17 20:30 88 19 80/43 100 Nasal Cannula 2.0 10/08/17 20:00 97.8 88 18 83/45 100 Nasal Cannula 2.0 10/08/17 20:00 86 10/08/17 19:30 87 23 88/46 100 Nasal Cannula 2.0 10/08/17 19:04 Nasal Cannula 2.0 28 10/08/17 19:04 100 Nasal Cannula 2.0 28 10/08/17 19:04 84 18 Nasal Cannula 2.0 10/08/17 19:00 87/50 10/08/17 19:00 87 23 87/50 100 Nasal Cannula 2.0 10/08/17 18:00 90/47 10/08/17 18:00 84 21 90/47 100 Nasal Cannula 2.0 10/08/17 17:00 83/43 10/08/17 17:00 84 20 83/43 99 Nasal Cannula 2.0 10/08/17 16:00 85 10/08/17 16:00 97.8 83 19 76/40 99 Nasal Cannula 2.0 10/08/17 16:00 76/40 Intake and Output 10/09/17 10/10/17 19:00 07:00 Intake Total 520.0 ml Output Total 0 ml Balance 520.0 ml Intake Oral 0 ml IV Total 520.0 ml Output Urine Total 0 ml Laboratory Tests Test 10/09/17 04:45 White Blood Count 8.8 K/UL (4.8-10.8) Red Blood Count 3.35 M/UL (4.20-5.40) L Hemoglobin 10.5 G/DL (12.0-16.0) L Hematocrit 32.8 % (37.0-47.0) L Mean Corpuscular Volume 98 FL (80-99) Mean Corpuscular Hemoglobin 31.4 PG (27.0-31.0) H Mean Corpuscular Hemoglobin Concent 32.1 G/DL (32.0-36.0) Red Cell Distribution Width 19.1 % (11.6-14.8) H Platelet Count 69 K/UL (150-450) L Mean Platelet Volume 13.9 FL (6.5-10.1) H Neutrophils (%) (Auto) % (45.0-75.0) Lymphocytes (%) (Auto) % (20.0-45.0) Monocytes (%) (Auto) % (1.0-10.0) Eosinophils (%) (Auto) % (0.0-3.0) Basophils (%) (Auto) % (0.0-2.0) Differential Total Cells Counted 100 Neutrophils % (Manual) 87 % (45-75) H Lymphocytes % (Manual) 11 % (20-45) L Monocytes % (Manual) 2 % (1-10) Eosinophils % (Manual) 0 % (0-3) Basophils % (Manual) 0 % (0-2) Band Neutrophils 0 % (0-8) Nucleated Red Blood Cells 1 /100 WBC Platelet Estimate Decreased L Platelet Morphology Normal Hypochromasia 1+ Anisocytosis 2+ Reticulocyte Count 2.7 % (0.0-2.0) H Prothrombin Time 14.1 SEC (9.30-11.50) H Prothromb Time International Ratio 1.3 (0.9-1.1) H Activated Partial Thromboplast Time 35 SEC (23-33) H Sodium Level 142 MMOL/L (136-145) Potassium Level 3.8 MMOL/L (3.5-5.1) Chloride Level 103 MMOL/L (98-107) Carbon Dioxide Level 27 MMOL/L (21-32) Anion Gap 12 mmol/L (5-15) Blood Urea Nitrogen 34 mg/dL (7-18) H Creatinine 3.8 MG/DL (0.55-1.30) H Estimat Glomerular Filtration Rate mL/min (>60) Glucose Level 140 MG/DL (74-106) H Calcium Level 7.5 MG/DL (8.5-10.1) L Iron Level 39 ug/dL (50-175) L Total Iron Binding Capacity 85 ug/dL (250-450) L Percent Iron Saturation 46 % (15-50) Unsaturated Iron Binding 46 ug/dL (112-346) L Ferritin 519 NG/ML (8-388) H Total Bilirubin 1.9 MG/DL (0.2-1.0) H Direct Bilirubin 0.9 MG/DL (0.0-0.3) H Aspartate Amino Transf (AST/SGOT) 22 U/L (15-37) Alanine Aminotransferase (ALT/SGPT) 24 U/L (12-78) Alkaline Phosphatase 97 U/L (46-116) Total Protein 5.5 G/DL (6.4-8.2) L Albumin 2.3 G/DL (3.4-5.0) L Globulin 3.2 g/dL Albumin/Globulin Ratio 0.7 (1.0-2.7) L Vitamin B12 Level 1846 PG/ML (193-986) H Folate 23.5 NG/ML (8.6-58.9) Thyroid Stimulating Hormone (TSH) 10.416 uiU/mL (0.358-3.740) Free Thyroxine 0.61 NG/DL (0.76-1.46) L Height (Feet): 5 Height (Inches): 5.00 Weight (Pounds): 131 Medications Current Medications Medications (Trade) Dose Ordered Sig/Tamanna Route PRN Reason Start Time Stop Time Status Last Admin Dose Admin Chlorhexidine Gluconate (Rhianna-Hex 2%) 1 applic Q24H TOPIC 10/03/17 20:00 11/02/17 19:59 10/08/17 20:30 Dextrose (Dextrose 50%) STAT PRN IV Hypoglycemia 10/03/17 13:45 11/02/17 13:44 Heparin Sodium (Porcine) (Heparin 5000 units/ml) 5,000 units EVERY 12 HOURS SUBQ 10/03/17 09:00 11/02/17 08:59 10/08/17 09:24 Hydromorphone HCl (Dilaudid) 1 mg Q4H PRN IVP PAIN 4-10 10/09/17 15:30 10/16/17 15:29 Insulin Aspart (NovoLOG) Q4HR SUBQ 10/03/17 17:00 11/02/17 16:59 10/09/17 04:48 Levofloxacin 100 ml @ 100 mls/hr Q48H IVPB 10/05/17 06:00 10/12/17 05:59 10/09/17 06:17 Midodrine (Pro-Amatine) 10 mg THREE TIMES A DAY ORAL 10/03/17 18:00 11/02/17 17:59 10/09/17 13:05 Norepinephrine Bitartrate 4 mg/ Dextrose 250 ml @ 0 mls/hr Q24H IV 10/03/17 16:00 11/02/17 15:59 10/09/17 10:14 Ondansetron HCl (Zofran) 4 mg Q4H PRN IVP Nausea & Vomiting 10/09/17 15:30 11/08/17 15:29 Pantoprazole (Protonix) 40 mg DAILY IVP 10/06/17 09:00 11/05/17 08:59 10/09/17 08:58 Sodium Chloride 1,000 ml @ 60 mls/hr [id number] IV 10/03/17 14:30 11/02/17 14:29 10/08/17 21:54 Vancomycin HCl (Vanco rx to dose) 1 ea DAILY PRN MISC Per rx protocol 10/03/17 13:45 11/02/17 13:44 Assessment/Plan Problem List: (1) Small bowel obstruction Assessment & Plan: 72 year old female with small bowel obstruction. CT reviewed and very limited given lack of contrast and image quality. can identify dilated bowel loops and transition point. etiology unclear at this time. patient and family deny prior abdominal surgery. no prior scars noted. no masses noted on CT. Will have to monitor her closely. Will attempt non surgical management given that she is stable. Will hopefully resolve but if does not have return of bowel function will need surgical intervention. Strict NPO IV fluids NG Tube to suction. Please ensure tube functional throughout day flush NG tube q4hrs and prn will follow with serial abdominal exams. if does not improve will discuss surgery with family and patient. thank you for this consultation. ICD Codes: K56.609 - Unspecified intestinal obstruction, unspecified as to partial versus complete obstruction SNOMED: [id number] Status: stable Vimal Montague Oct 09, 2017 15:58
[2017-10-09] MEDS: D5NS 1,000 ML IV SCH (18:53)
[2017-10-09] MEDS: Dyna-Hex 2% Top Sol 2oz TOPIC SCH (20:00)
--- NOTE | 2017-10-09 23:26 | Nephrology Progress Note ---
Assessment/Plan Problem List: (1) HCAP (healthcare-associated pneumonia) (2) Septic shock (3) CKD (chronic kidney disease) requiring chronic dialysis (4) Altered mental status (5) Sepsis (6) Abdominal pain (7) Hypotension (8) Hypoglycemia (9) Poor appetite Plan abx per ID. cardio following. cont pressor prn. monitor closely. Subjective Subjective remains in ICU. on pressors. Objective Objective Last 24 Hour Vital Signs Date Time Temp Pulse Resp B/P (MAP) Pulse Ox O2 Delivery O2 Flow Rate FiO2 10/09/17 22:30 104 21 100/54 100 Nasal Cannula 2.0 10/09/17 22:15 99 21 103/54 100 Nasal Cannula 2.0 10/09/17 22:00 102 21 103/54 100 Nasal Cannula 2.0 10/09/17 21:45 103 21 103/54 100 Nasal Cannula 2.0 10/09/17 21:30 103 21 101/56 100 Nasal Cannula 2.0 10/09/17 21:15 105 21 101/57 100 Nasal Cannula 2.0 10/09/17 21:00 105 21 101/57 100 Nasal Cannula 2.0 10/09/17 20:45 104 21 104/59 100 Nasal Cannula 2.0 10/09/17 20:30 103 21 101/60 100 Nasal Cannula 2.0 10/09/17 20:15 90 21 83/45 100 Nasal Cannula 2.0 10/09/17 20:00 97.4 86 20 89/50 Nasal Cannula 3.0 10/09/17 20:00 Nasal Cannula 3.0 10/09/17 19:12 99 Nasal Cannula 2.0 28 10/09/17 19:12 Nasal Cannula 2.0 28 10/09/17 19:00 97.4 89 18 78/44 100 Nasal Cannula 2.0 10/09/17 19:00 86 18 81/44 100 Nasal Cannula 2.0 10/09/17 18:53 81/44 10/09/17 18:37 81/45 10/09/17 18:30 88 18 81/45 98 Nasal Cannula 2.0 10/09/17 18:00 88 17 92/48 100 Nasal Cannula 2.0 10/09/17 18:00 92/48 10/09/17 17:30 89 17 97/52 100 Nasal Cannula 2.0 10/09/17 17:00 88 19 94/49 100 Nasal Cannula 2.0 10/09/17 17:00 94/49 10/09/17 16:30 88 20 93/49 99 Nasal Cannula 2.0 10/09/17 16:00 97.6 88 19 94/48 99 Nasal Cannula 2.0 10/09/17 16:00 86 10/09/17 15:59 91/48 10/09/17 15:30 88 19 91/46 99 Nasal Cannula 2.0 10/09/17 15:00 99 21 94/46 95 Nasal Cannula 2.0 10/09/17 15:00 94/46 10/09/17 14:30 89 19 94/48 95 Nasal Cannula 2.0 10/09/17 14:00 88 18 88/40 95 Nasal Cannula 2.0 10/09/17 14:00 88/44 10/09/17 13:30 87 18 86/44 95 Nasal Cannula 2.0 10/09/17 13:03 88/55 10/09/17 13:00 87 18 88/43 95 Nasal Cannula 2.0 10/09/17 12:30 87 18 94/44 95 Nasal Cannula 2.0 10/09/17 12:00 106 10/09/17 12:00 86/44 10/09/17 12:00 97.8 84 18 94/44 95 Nasal Cannula 2.0 10/09/17 11:30 84 18 86/44 95 Nasal Cannula 2.0 10/09/17 11:00 84/43 10/09/17 11:00 84 18 83/45 95 Nasal Cannula 2.0 10/09/17 10:30 89 18 85/42 95 Nasal Cannula 2.0 10/09/17 10:14 85/44 10/09/17 10:00 85/44 10/09/17 10:00 85 17 85/44 94 Nasal Cannula 2.0 10/09/17 09:30 89 17 92/49 100 Nasal Cannula 2.0 10/09/17 09:00 90 18 97/52 100 Nasal Cannula 2.0 10/09/17 09:00 97/52 10/09/17 08:30 90 21 81/46 100 Nasal Cannula 2.0 10/09/17 08:00 97.8 89 18 81/44 98 Nasal Cannula 2.0 10/09/17 08:00 81/44 10/09/17 08:00 90 10/09/17 07:30 89 18 84/47 100 Nasal Cannula 2.0 10/09/17 07:00 89 17 89/52 100 Nasal Cannula 2.0 10/09/17 06:30 91 17 93/48 100 Nasal Cannula 2.0 10/09/17 06:15 91 18 93/50 100 Nasal Cannula 2.0 10/09/17 06:00 91 18 92/51 100 Nasal Cannula 2.0 10/09/17 05:45 90 17 88/46 100 Nasal Cannula 2.0 10/09/17 05:30 91 17 92/50 100 Nasal Cannula 2.0 10/09/17 05:15 91 17 93/50 100 Nasal Cannula 2.0 10/09/17 05:00 90 17 93/51 100 Nasal Cannula 2.0 10/09/17 04:45 89 17 90/52 100 Nasal Cannula 2.0 10/09/17 04:30 91 17 88/46 100 Nasal Cannula 2.0 10/09/17 04:15 92 17 79/63 100 Nasal Cannula 2.0 10/09/17 04:00 97.9 92 17 80/41 100 Nasal Cannula 2.0 10/09/17 04:00 92 10/09/17 03:45 92 17 80/41 100 Nasal Cannula 2.0 10/09/17 03:30 91 17 77/56 100 Nasal Cannula 2.0 10/09/17 03:15 91 17 83/44 100 Nasal Cannula 2.0 10/09/17 03:00 90 17 77/39 100 Nasal Cannula 2.0 10/09/17 02:45 89 18 81/47 100 Nasal Cannula 2.0 10/09/17 02:30 89 18 82/47 100 Nasal Cannula 2.0 10/09/17 02:15 89 18 82/47 100 Nasal Cannula 2.0 10/09/17 02:00 88 18 84/45 100 Nasal Cannula 2.0 10/09/17 01:45 89 18 84/45 100 Nasal Cannula 2.0 10/09/17 01:30 88 18 86/46 100 Nasal Cannula 2.0 10/09/17 01:15 87 18 83/43 100 Nasal Cannula 2.0 10/09/17 01:00 78 18 79/39 100 Nasal Cannula 2.0 10/09/17 00:45 87 18 88/43 100 Nasal Cannula 2.0 10/09/17 00:30 87 18 84/43 100 Nasal Cannula 2.0 10/09/17 00:15 87 18 84/48 100 Nasal Cannula 2.0 10/09/17 00:00 90 10/09/17 00:00 97.7 88 18 83/45 100 Nasal Cannula 2.0 10/08/17 23:45 88 18 84/45 100 Nasal Cannula 2.0 10/08/17 23:30 88 18 92/45 100 Nasal Cannula 2.0 Intake and Output 10/09/17 10/10/17 19:00 07:00 Intake Total 1397.416 ml Output Total 0 ml Balance 1397.416 ml Intake Oral 0 ml IV Total 1397.416 ml Output Urine Total 0 ml Laboratory Tests 10/09/17 04:45: White Blood Count 8.8, Red Blood Count 3.35L, Hemoglobin 10.5L, Hematocrit 32.8L , Mean Corpuscular Volume 98, Mean Corpuscular Hemoglobin 31.4H, Mean Corpuscular Hemoglobin Concent 32.1, Red Cell Distribution Width 19.1H, Platelet Count 69L, Mean Platelet Volume 13.9H, Neutrophils (%) (Auto) , Lymphocytes (%) (Auto) , Monocytes (%) (Auto) , Eosinophils (%) (Auto) , Basophils (%) (Auto) , Differential Total Cells Counted 100, Neutrophils % ( Manual) 87H, Lymphocytes % (Manual) 11L, Monocytes % (Manual) 2, Eosinophils % ( Manual) 0, Basophils % (Manual) 0, Band Neutrophils 0, Nucleated Red Blood Cells 1, Platelet Estimate DecreasedL, Platelet Morphology Normal, Hypochromasia 1+, Anisocytosis 2+, Reticulocyte Count 2.7H, Prothrombin Time 14.1H, Prothromb Time International Ratio 1.3H, Activated Partial Thromboplast Time 35H, Sodium Level 142, Potassium Level 3.8, Chloride Level 103, Carbon Dioxide Level 27, Anion Gap 12, Blood Urea Nitrogen 34H, Creatinine 3.8H, Estimat Glomerular Filtration Rate , Glucose Level 140H, Calcium Level 7.5L, Iron Level 39L, Total Iron Binding Capacity 85L, Percent Iron Saturation 46, Unsaturated Iron Binding 46L, Ferritin 519H, Total Bilirubin 1.9H, Direct Bilirubin 0.9H, Aspartate Amino Transf (AST/SGOT) 22, Alanine Aminotransferase ( ALT/SGPT) 24, Alkaline Phosphatase 97, Total Protein 5.5L, Albumin 2.3L, Globulin 3.2, Albumin/Globulin Ratio 0.7L, Vitamin B12 Level 1846H, Folate 23.5 , Thyroid Stimulating Hormone (TSH) 10.416H, Free Thyroxine 0.61L, Heparin-PF4 Antibody Screen [Pending], Hepatitis A IgM Antibody [Pending], Hepatitis B Surface Antigen [Pending], Hepatitis B Core IgM Antibody [Pending], Hepatitis C Antibody [Pending], HIV (1&2) Antibody Rapid Negative Height (Feet): 5 Height (Inches): 5.00 Weight (Pounds): 131 ASHISH ARTEAGA Oct 09, 2017 23:26
[2017-10-10] VITALS (60 sets, daily range): BP systolic 62–100; BP diastolic 24–58
[2017-10-10] MEDS ORDERED: Levophed 4mg/4mL Inj IV ONE ×3 (00:59→21:21)
[2017-10-10] MEDS: NovoLOG Insulin Flexpen SUBQ SCH ×6 (01:08→20:47)
[2017-10-10 06:36] LABS: MEAN CORPUSCULAR HEMOGLOBIN 32.4 PG (27.0-31.0); MEAN CORPUSCULAR HGB CONC 32.6 G/DL (32.0-36.0); MEAN CORPUSCULAR VOLUME 99 FL (80-99); MEAN PLATELET VOLUME 9.8 FL (6.5-10.1); PLATELET COUNT 54 K/UL (150-450); RED BLOOD COUNT 3.29 M/UL (4.20-5.40); RED CELL DISTRIBUTION WIDTH 18.8 % (11.6-14.8); WHITE BLOOD COUNT 10.5 K/UL (4.8-10.8)
[2017-10-10 07:00] LABS: REFLEX LACTIC ACID YES OR NO YES
[2017-10-10 07:04] LABS: ALANINE AMINOTRANSFERASE 17 U/L (12-78); ALBUMIN/GLOBULIN RATIO 0.6 (1.0-2.7); ANION GAP 6 mmol/L (5-15); ASPARTATE AMINO TRANSFERASE 19 U/L (15-37); CALCIUM 7.5 MG/DL (8.5-10.1); CARBON DIOXIDE 34 MMOL/L (21-32); CHLORIDE 104 MMOL/L (98-107); CREATININE 2.8 MG/DL (0.55-1.30); POTASSIUM 3.3 MMOL/L (3.5-5.1); SODIUM 144 MMOL/L (136-145); TOTAL PROTEIN 5.6 G/DL (6.4-8.2)
[2017-10-10 07:33] LABS: BILIRUBIN,DIRECT 0.8 MG/DL (0.0-0.3)
[2017-10-10] MEDS: Midodrine 10mg tab ORAL SCH ×3 (09:17→17:01)
[2017-10-10] MEDS: Pantoprazole Inj IVP SCH (09:17)
[2017-10-10 10:06] LABS: ANISOCYTOSIS 1+; BAND NEUTROPHILS % (MANUAL) 1 % (0-8); BASOPHILS % (MANUAL) 0 % (0-2); EOSINOPHILS % (MANUAL) 0 % (0-3); HYPOCHROMASIA 1+; LYMPHOCYTES % (MANUAL) 6 % (20-45); MACROCYTES 1+; NEUTROPHILS % (MANUAL) 91 % (45-75); NUCLEATED RED BLOOD CELLS 1 /100 WBC; PLATELET ESTIMATE DECREASED; PLATELET MORPHOLOGY NORMAL; TOTAL CELLS COUNTED 100
[2017-10-10 10:37] LABS: INR 1.3 (0.9-1.1); PROTHROMBIN TIME 14.1 SEC (9.30-11.50)
[2017-10-10] MEDS ORDERED: Phytonadione 10 MG in D5W 55 ML IVPB ONE (11:00)
[2017-10-10] MEDS: D5NS 1,000 ML IV SCH (11:23)
--- NOTE | 2017-10-10 12:28 | Diagnostic Imaging Report ---
Indication: Abdominal distention Technique: XRAY Abdomen 1v Comparison: 10/08/2017 Findings: NG-tube within the stomach. Again noted is abnormal dilatation of multiple small bowel loops in the central abdomen concerning for small bowel obstruction. Degree and number of distended small bowel loops is grossly stable. There is no evidence to suggest free intraperitoneal air however evaluation is limited given lack of erect review. Multiple surgical clips noted in the lower abdomen and pelvis. Atherosclerotic vascular calcifications seen. No acute osseous abnormality appreciated. There is opacification of the left lung base consistent with pleural effusion seen on prior chest x-ray dated Impression: Persistent abnormal dilatation of multiple small bowel loops concerning for small bowel obstruction. Number and degree of dilated small bowel loops appears similar to exam 2 days prior.
--- NOTE | 2017-10-10 12:38 | General Surgery Progress Note ---
General Surgery-Progress Note Subjective Symptoms: improved Additional Comments states she feels better today. no longer complains of nausea. now that NG tube functional have decompressed and evacuated fair amount of bilious gastric contents. pain improved. on exam abdomen softer today but still distended. Objective Last 24 Hour Vital Signs Date Time Temp Pulse Resp B/P (MAP) Pulse Ox O2 Delivery O2 Flow Rate FiO2 10/10/17 12:26 84/44 10/10/17 12:00 97.8 100 19 83/46 100 Nasal Cannula 3.0 10/10/17 11:30 99 23 85/44 97 Nasal Cannula 3.0 10/10/17 11:00 101 19 83/48 98 Nasal Cannula 3.0 10/10/17 10:30 101 16 85/44 98 Nasal Cannula 3.0 10/10/17 10:00 98 20 80/42 98 Nasal Cannula 3.0 10/10/17 10:00 80/42 10/10/17 09:30 100 19 84/44 100 Nasal Cannula 3.0 10/10/17 09:00 99 17 89/48 100 Nasal Cannula 3.0 10/10/17 09:00 88/48 10/10/17 08:30 100 21 90/50 100 Nasal Cannula 3.0 10/10/17 08:11 74/44 10/10/17 08:00 97 10/10/17 08:00 91/51 10/10/17 08:00 97.7 89 22 74/44 100 Nasal Cannula 3.0 10/10/17 07:00 90 19 88/48 100 Nasal Cannula 3.0 10/10/17 06:45 97 19 89/45 100 Nasal Cannula 3.0 10/10/17 06:36 100 Nasal Cannula 2.0 28 10/10/17 06:36 Nasal Cannula 2.0 28 10/10/17 06:30 97 21 93/50 100 Nasal Cannula 3.0 10/10/17 06:15 102 21 94/50 100 Nasal Cannula 3.0 10/10/17 06:00 102 21 93/55 100 Nasal Cannula 3.0 10/10/17 05:45 100 21 93/55 100 Nasal Cannula 3.0 10/10/17 05:30 102 21 93/52 100 Nasal Cannula 3.0 10/10/17 05:15 101 21 96/58 100 Nasal Cannula 3.0 10/10/17 05:00 102 21 96/57 100 Nasal Cannula 3.0 10/10/17 04:45 101 21 97/56 100 Nasal Cannula 3.0 10/10/17 04:30 101 21 97/56 100 Nasal Cannula 3.0 10/10/17 04:15 101 18 66/24 98 Nasal Cannula 3.0 10/10/17 04:09 98/72 10/10/17 04:00 105 10/10/17 04:00 104 18 91/54 98 Nasal Cannula 3.0 10/10/17 03:45 104 18 88/49 98 Nasal Cannula 3.0 10/10/17 03:30 104 18 91/54 98 Nasal Cannula 3.0 10/10/17 03:15 104 18 91/54 98 Nasal Cannula 3.0 10/10/17 03:00 104 18 91/53 98 Nasal Cannula 3.0 10/10/17 02:45 104 18 91/52 98 Nasal Cannula 3.0 10/10/17 02:30 104 18 93/52 98 Nasal Cannula 3.0 10/10/17 02:15 105 17 84/50 100 Nasal Cannula 3.0 10/10/17 02:00 105 17 94/52 100 Nasal Cannula 3.0 10/10/17 01:45 107 19 89/53 100 Nasal Cannula 3.0 10/10/17 01:30 107 19 86/48 100 Nasal Cannula 3.0 10/10/17 01:15 108 18 68/40 100 Nasal Cannula 3.0 10/10/17 01:03 86/53 10/10/17 01:00 105 18 68/40 100 Nasal Cannula 3.0 10/10/17 00:45 108 18 68/40 100 Nasal Cannula 3.0 10/10/17 00:30 111 18 86/53 100 Nasal Cannula 3.0 10/10/17 00:15 111 18 95/56 100 Nasal Cannula 3.0 10/10/17 00:00 110 20 100/56 100 Nasal Cannula 3.0 10/10/17 00:00 108 10/09/17 23:45 109 20 97/55 100 Nasal Cannula 3.0 10/09/17 23:30 Nasal Cannula 3.0 10/09/17 23:30 97.8 99 20 104/56 100 Nasal Cannula 3.0 10/09/17 23:20 97.8 99 20 104/56 Nasal Cannula 3.0 10/09/17 23:15 105 20 104/66 100 Nasal Cannula 2.0 10/09/17 23:00 106 18 101/56 100 Nasal Cannula 2.0 10/09/17 22:45 106 21 100/54 100 Nasal Cannula 2.0 10/09/17 22:30 104 21 100/54 100 Nasal Cannula 2.0 10/09/17 22:15 99 21 103/54 100 Nasal Cannula 2.0 10/09/17 22:00 102 21 103/54 100 Nasal Cannula 2.0 10/09/17 21:45 103 21 103/54 100 Nasal Cannula 2.0 10/09/17 21:30 103 21 101/56 100 Nasal Cannula 2.0 10/09/17 21:15 105 21 101/57 100 Nasal Cannula 2.0 10/09/17 21:00 105 21 101/57 100 Nasal Cannula 2.0 10/09/17 20:45 104 21 104/59 100 Nasal Cannula 2.0 10/09/17 20:30 103 21 101/60 100 Nasal Cannula 2.0 10/09/17 20:15 90 21 83/45 100 Nasal Cannula 2.0 10/09/17 20:00 90 10/09/17 20:00 97.4 86 20 89/50 Nasal Cannula 3.0 10/09/17 20:00 Nasal Cannula 3.0 10/09/17 19:12 99 Nasal Cannula 2.0 28 10/09/17 19:12 Nasal Cannula 2.0 28 10/09/17 19:00 97.4 89 18 78/44 100 Nasal Cannula 2.0 10/09/17 19:00 86 18 81/44 100 Nasal Cannula 2.0 10/09/17 18:53 81/44 10/09/17 18:37 81/45 10/09/17 18:30 88 18 81/45 98 Nasal Cannula 2.0 10/09/17 18:00 88 17 92/48 100 Nasal Cannula 2.0 10/09/17 18:00 92/48 10/09/17 17:30 89 17 97/52 100 Nasal Cannula 2.0 10/09/17 17:00 88 19 94/49 100 Nasal Cannula 2.0 10/09/17 17:00 94/49 10/09/17 16:30 88 20 93/49 99 Nasal Cannula 2.0 10/09/17 16:00 97.6 88 19 94/48 99 Nasal Cannula 2.0 10/09/17 16:00 86 10/09/17 15:59 91/48 10/09/17 15:30 88 19 91/46 99 Nasal Cannula 2.0 10/09/17 15:00 99 21 94/46 95 Nasal Cannula 2.0 10/09/17 15:00 94/46 10/09/17 14:30 89 19 94/48 95 Nasal Cannula 2.0 10/09/17 14:00 88 18 88/40 95 Nasal Cannula 2.0 10/09/17 14:00 88/44 10/09/17 13:30 87 18 86/44 95 Nasal Cannula 2.0 10/09/17 13:03 88/55 10/09/17 13:00 87 18 88/43 95 Nasal Cannula 2.0 I&O Intake and Output 10/10/17 10/11/17 19:00 07:00 Intake Total 420 ml Output Total 1000 ml Balance -580 ml IV Total 420 ml Other 1000 ml Cardiovascular: RSR Respiratory: clear Abdomen: soft, distended, other - soft, distended, mild tenderness on deep palpation, no peritonitis, lower midline prior surgical scar noted today. Extremities: no tenderness Laboratory Tests Test 10/10/17 05:45 10/10/17 09:45 White Blood Count 10.5 K/UL (4.8-10.8) Red Blood Count 3.29 M/UL (4.20-5.40) L Hemoglobin 10.7 G/DL (12.0-16.0) L Hematocrit 32.7 % (37.0-47.0) L Mean Corpuscular Volume 99 FL (80-99) Mean Corpuscular Hemoglobin 32.4 PG (27.0-31.0) H Mean Corpuscular Hemoglobin Concent 32.6 G/DL (32.0-36.0) Red Cell Distribution Width 18.8 % (11.6-14.8) H Platelet Count 54 K/UL (150-450) L Mean Platelet Volume 9.8 FL (6.5-10.1) Neutrophils (%) (Auto) % (45.0-75.0) Lymphocytes (%) (Auto) % (20.0-45.0) Monocytes (%) (Auto) % (1.0-10.0) Eosinophils (%) (Auto) % (0.0-3.0) Basophils (%) (Auto) % (0.0-2.0) Differential Total Cells Counted 100 Neutrophils % (Manual) 91 % (45-75) H Lymphocytes % (Manual) 6 % (20-45) L Monocytes % (Manual) 2 % (1-10) Eosinophils % (Manual) 0 % (0-3) Basophils % (Manual) 0 % (0-2) Band Neutrophils 1 % (0-8) Nucleated Red Blood Cells 1 /100 WBC Platelet Estimate Decreased L Platelet Morphology Normal Hypochromasia 1+ Anisocytosis 1+ Macrocytosis 1+ Sodium Level 144 MMOL/L (136-145) Potassium Level 3.3 MMOL/L (3.5-5.1) L Chloride Level 104 MMOL/L (98-107) Carbon Dioxide Level 34 MMOL/L (21-32) H Anion Gap 6 mmol/L (5-15) Blood Urea Nitrogen 22 mg/dL (7-18) H Creatinine 2.8 MG/DL (0.55-1.30) H Estimat Glomerular Filtration Rate mL/min (>60) Glucose Level 126 MG/DL (74-106) H Lactic Acid Level 2.40 mmol/L (0.66-2.22) H 1.90 mmol/L (0.66-2.22) Calcium Level 7.5 MG/DL (8.5-10.1) L Total Bilirubin 1.7 MG/DL (0.2-1.0) H Direct Bilirubin 0.8 MG/DL (0.0-0.3) H Aspartate Amino Transf (AST/SGOT) 19 U/L (15-37) Alanine Aminotransferase (ALT/SGPT) 17 U/L (12-78) Alkaline Phosphatase 88 U/L (46-116) Total Protein 5.6 G/DL (6.4-8.2) L Albumin 2.2 G/DL (3.4-5.0) L Globulin 3.4 g/dL Albumin/Globulin Ratio 0.6 (1.0-2.7) L Prothrombin Time 14.1 SEC (9.30-11.50) H Prothromb Time International Ratio 1.3 (0.9-1.1) H Plan Problems: (1) Small bowel obstruction Assessment & Plan: 72 year old female with small bowel obstruction. CT reviewed and very limited given lack of contrast and image quality. can identify dilated bowel loops and transition point. etiology unclear at this time. patient and family deny prior abdominal surgery. On exam can see a faint prior lower midline scare that is well healed. mildly improved today. KUMoses same Will have to monitor her closely. Will attempt non surgical management given that she is stable. Will hopefully resolve but if does not have return of bowel function will need surgical intervention. Strict NPO IV fluids NG Tube to suction (intermittent or continuous okay). Please ensure tube functional throughout day flush NG tube q4hrs and prn will follow with serial abdominal exams. if does not improve will discuss surgery with family and patient. MARIA GAUTHIER thank you for this consultation. Vimal Montague Oct 10, 2017 12:38
[2017-10-10] MEDS ORDERED: NS 500ML ONE (16:17)
[2017-10-10] MEDS ORDERED: 1/2 NS 1000ml IV ONE (16:17)
--- NOTE | 2017-10-10 17:55 | Nephrology Progress Note ---
Assessment/Plan Problem List: (1) HCAP (healthcare-associated pneumonia) (2) Septic shock (3) CHF (congestive heart failure) (4) Altered mental status (5) CKD (chronic kidney disease) requiring chronic dialysis Plan Continue HD per scheduled Monitor lytes, correct with HD Monitor BP, cardio following Monitor BS Monitor neuro status Abx per ID Continue current IVF AM labs Subjective Constitutional: Denies: no symptoms, chills, diaphoresis, fever, malaise, weakness, other HEENT: Denies: no symptoms, eye pain, blurred vision, tearing, double vision, ear pain, ear discharge, nose pain, nose congestion, throat pain, throat swelling, mouth pain, mouth swelling, other Genitourinary: Denies: no symptoms, burning, discharge, frequency, flank pain, hematuria, incontinence, pain, urgency, other Neurologic/Psychiatric: Denies: no symptoms, anxiety, depressed, emotional problems, headache, numbness, paresthesia, pre-existing deficit, seizure, tingling, tremors, weakness, other Subjective In bed, in the ICU, in no apparent distress, denies discomfort at this time. Objective Objective Last 24 Hour Vital Signs Date Time Temp Pulse Resp B/P (MAP) Pulse Ox O2 Delivery O2 Flow Rate FiO2 10/10/17 17:00 99 21 77/43 99 Nasal Cannula 3.0 10/10/17 15:30 104 18 86/45 97 Nasal Cannula 3.0 10/10/17 15:00 108 20 92/48 96 Nasal Cannula 3.0 10/10/17 15:00 92/48 10/10/17 14:30 103 22 81/49 99 Nasal Cannula 3.0 10/10/17 14:00 89/45 17 14:00 102 18 89/46 98 Nasal Cannula 3.0 10/10/17 13:30 100 17 90/48 100 Nasal Cannula 3.0 10/10/17 13:00 89/47 10/10/17 13:00 101 20 81/48 100 Nasal Cannula 3.0 10/10/17 12:30 100 23 81/44 98 Nasal Cannula 3.0 10/10/17 12:26 84/44 10/10/17 12:00 97.8 100 19 83/46 100 Nasal Cannula 3.0 10/10/17 12:00 84/45 10/10/17 12:00 116 12/16/17 11:30 99 23 85/44 97 Nasal Cannula 3.0 10/10/17 11:00 87/44 10/10/17 11:00 101 19 83/48 98 Nasal Cannula 3.0 10/10/17 10:30 101 16 85/44 98 Nasal Cannula 3.0 10/10/17 10:00 98 20 80/42 98 Nasal Cannula 3.0 10/10/17 10:00 80/42 10/10/17 09:30 100 19 84/44 100 Nasal Cannula 3.0 10/10/17 09:00 99 17 89/48 100 Nasal Cannula 3.0 10/10/17 09:00 88/48 10/10/17 08:30 100 21 90/50 100 Nasal Cannula 3.0 10/10/17 08:11 74/44 10/10/17 08:00 97 10/10/17 08:00 91/51 10/10/17 08:00 97.7 89 22 74/44 100 Nasal Cannula 3.0 10/10/17 07:00 90 19 88/48 100 Nasal Cannula 3.0 10/10/17 06:45 97 19 89/45 100 Nasal Cannula 3.0 10/10/17 06:36 100 Nasal Cannula 2.0 28 10/10/17 06:36 Nasal Cannula 2.0 28 10/10/17 06:30 97 21 93/50 100 Nasal Cannula 3.0 10/10/17 06:15 102 21 94/50 100 Nasal Cannula 3.0 10/10/17 06:00 102 21 93/55 100 Nasal Cannula 3.0 10/10/17 05:45 100 21 93/55 100 Nasal Cannula 3.0 10/10/17 05:30 102 21 93/52 100 Nasal Cannula 3.0 10/10/17 05:15 101 21 96/58 100 Nasal Cannula 3.0 10/10/17 05:00 102 21 96/57 100 Nasal Cannula 3.0 10/10/17 04:45 101 21 97/56 100 Nasal Cannula 3.0 10/10/17 04:30 101 21 97/56 100 Nasal Cannula 3.0 10/10/17 04:15 101 18 66/24 98 Nasal Cannula 3.0 10/10/17 04:09 98/72 12/16/17 04:00 105 10/10/17 04:00 104 18 91/54 98 Nasal Cannula 3.0 10/10/17 03:45 104 18 88/49 98 Nasal Cannula 3.0 10/10/17 03:30 104 18 91/54 98 Nasal Cannula 3.0 10/10/17 03:15 104 18 91/54 98 Nasal Cannula 3.0 10/10/17 03:00 104 18 91/53 98 Nasal Cannula 3.0 10/10/17 02:45 104 18 91/52 98 Nasal Cannula 3.0 10/10/17 02:30 104 18 93/52 98 Nasal Cannula 3.0 10/10/17 02:15 105 17 84/50 100 Nasal Cannula 3.0 10/10/17 02:00 105 17 94/52 100 Nasal Cannula 3.0 10/10/17 01:45 107 19 89/53 100 Nasal Cannula 3.0 10/10/17 01:30 107 19 86/48 100 Nasal Cannula 3.0 10/10/17 01:15 108 18 68/40 100 Nasal Cannula 3.0 10/10/17 01:03 86/53 10/10/17 01:00 105 18 68/40 100 Nasal Cannula 3.0 10/10/17 00:45 108 18 68/40 100 Nasal Cannula 3.0 10/10/17 00:30 111 18 86/53 100 Nasal Cannula 3.0 10/10/17 00:15 111 18 95/56 100 Nasal Cannula 3.0 10/10/17 00:00 110 20 100/56 100 Nasal Cannula 3.0 10/10/17 00:00 108 10/09/17 23:45 109 20 97/55 100 Nasal Cannula 3.0 10/09/17 23:30 Nasal Cannula 3.0 10/09/17 23:30 97.8 99 20 104/56 100 Nasal Cannula 3.0 10/09/17 23:20 97.8 99 20 104/56 Nasal Cannula 3.0 10/09/17 23:15 105 20 104/66 100 Nasal Cannula 2.0 10/09/17 23:00 106 18 101/56 100 Nasal Cannula 2.0 10/09/17 22:45 106 21 100/54 100 Nasal Cannula 2.0 10/09/17 22:30 104 21 100/54 100 Nasal Cannula 2.0 10/09/17 22:15 99 21 103/54 100 Nasal Cannula 2.0 10/09/17 22:00 102 21 103/54 100 Nasal Cannula 2.0 10/09/17 21:45 103 21 103/54 100 Nasal Cannula 2.0 10/09/17 21:30 103 21 101/56 100 Nasal Cannula 2.0 10/09/17 21:15 105 21 101/57 100 Nasal Cannula 2.0 10/09/17 21:00 105 21 101/57 100 Nasal Cannula 2.0 10/09/17 20:45 104 21 104/59 100 Nasal Cannula 2.0 10/09/17 20:30 103 21 101/60 100 Nasal Cannula 2.0 10/09/17 20:15 90 21 83/45 100 Nasal Cannula 2.0 10/09/17 20:00 90 10/09/17 20:00 97.4 86 20 89/50 Nasal Cannula 3.0 10/09/17 20:00 Nasal Cannula 3.0 10/09/17 19:12 99 Nasal Cannula 2.0 10/09/17 19:12 Nasal Cannula 2.0 10/09/17 19:00 97.4 89 18 78/44 100 Nasal Cannula 2.0 10/09/17 19:00 86 18 81/44 100 Nasal Cannula 2.0 10/09/17 18:53 81/44 10/09/17 18:37 81/45 10/09/17 18:30 88 18 81/45 98 Nasal Cannula 2.0 10/09/17 18:00 88 17 92/48 100 Nasal Cannula 2.0 10/09/17 18:00 92/48 Intake and Output 10/10/17 10/11/17 19:00 07:00 Intake Total 990 ml Output Total 1800 ml Balance -810 ml IV Total 990 ml Other 1800 ml Laboratory Tests 10/10/17 05:45: White Blood Count 10.5, Red Blood Count 3.29L, Hemoglobin 10.7L, Hematocrit 32.7L, Mean Corpuscular Volume 99, Mean Corpuscular Hemoglobin 32.4H, Mean Corpuscular Hemoglobin Concent 32.6, Red Cell Distribution Width 18.8H, Platelet Count 54L, Mean Platelet Volume 9.8, Neutrophils (%) (Auto) , Lymphocytes (%) (Auto) , Monocytes (%) (Auto) , Eosinophils (%) (Auto) , Basophils (%) (Auto) , Differential Total Cells Counted 100, Neutrophils % ( Manual) 91H, Lymphocytes % (Manual) 6L, Monocytes % (Manual) 2, Eosinophils % ( Manual) 0, Basophils % (Manual) 0, Band Neutrophils 1, Nucleated Red Blood Cells 1, Platelet Estimate DecreasedL, Platelet Morphology Normal, Hypochromasia 1+, Anisocytosis 1+, Macrocytosis 1+, Sodium Level 144, Potassium Level 3.3L, Chloride Level 104, Carbon Dioxide Level 34H, Anion Gap 6, Blood Urea Nitrogen 22H, Creatinine 2.8H, Estimat Glomerular Filtration Rate , Glucose Level 126H, Lactic Acid Level 2.40H, Calcium Level 7.5L, Total Bilirubin 1.7H, Direct Bilirubin 0.8H, Aspartate Amino Transf (AST/SGOT) 19, Alanine Aminotransferase (ALT/SGPT) 17, Alkaline Phosphatase 88, Total Protein 5.6L, Albumin 2.2L, Globulin 3.4, Albumin/Globulin Ratio 0.6L 10/10/17 09:45: Lactic Acid Level 1.90, Prothrombin Time 14.1H, Prothromb Time International Ratio 1.3H Height (Feet): 5 Height (Inches): 5.00 Weight (Pounds): 127 General Appearance: no apparent distress, alert EENT: normal ENT inspection Neck: non-tender, normal alignment Cardiovascular: normal rate Respiratory/Chest: decreased breath sounds Abdomen: non tender, soft Extremities: non-tender Neurologic: alert, oriented x 3, responsive Celine Conley N.P. Oct 10, 2017 17:55
[2017-10-10] MEDS: Dyna-Hex 2% Top Sol 2oz TOPIC SCH (20:23)
--- NOTE | 2017-10-10 22:51 | Infectious Diseases Prog Note ---
Assessment/Plan Problems: (1) HCAP (healthcare-associated pneumonia) Assessment & Plan: will continue vancomycin and levaquin empiric coverage for 7 -10 days , sputum culture grew tejas albicans which is most likely colonization and not real infection. (2) Sepsis Assessment & Plan: less likely , blood culture so far is negative, continue vancomycin and levaquin empirically for now to cover for pneumonia for 7-10 days (3) Altered mental status Assessment & Plan: improved , due to the above, continue neuro check , monitor in ICU (4) CHF (congestive heart failure) Assessment & Plan: with exacerbation , on HD, renal is following , monitor CXR (5) Abdominal pain Assessment & Plan: due to bowel obstruction , had NGT by GI , US of the abdomen didn't show any acute pathology but nonobstructing stones, surgery is following (6) Hypotension Assessment & Plan: not responding to pressors , rule out adrenal insufficiency , will order serum cortisol level , cardiology is following Subjective Constitutional: Reports: no symptoms HEENT: Reports: no symptoms Respiratory: Reports: no symptoms Breasts: Reports: no symptoms Cardiovascular: Reports: no symptoms Gastrointestinal/Abdominal: Reports: bloating Genitourinary: Reports: no symptoms Neurologic: Reports: no symptoms Psychiatric: Reports: no symptoms Skin: Reports: no symptoms Endocrine: Reports: no symptoms Hematologic: Reports: no symptoms Musculoskeletal: Reports: no symptoms Allergies: Coded Allergies: ASPIRIN (Unverified Allergy, Unknown, 10/03/17) PENICILLINS (Unverified Allergy, Unknown, 10/03/17) Subjective she was more awake and alert, complained of abdominal discomfort, still on pressor Objective Vital Signs Last 24 Hour Vital Signs Date Time Temp Pulse Resp B/P (MAP) Pulse Ox O2 Delivery O2 Flow Rate FiO2 10/10/17 22:00 100 21 86/46 98 Nasal Cannula 3.0 10/10/17 21:30 100 20 89/54 98 Nasal Cannula 3.0 10/10/17 21:26 62/36 10/10/17 21:00 100 21 36 97 Nasal Cannula 3.0 10/10/17 21:00 6210/10/17 20:30 102 22 90/46 94 Nasal Cannula 3.0 10/10/17 20:00 102 10/10/17 20:00 88/48 10/10/17 20:00 97.6 102 23 88/48 97 Nasal Cannula 3.0 10/10/17 19:36 96.7 17 19:35 96.7 17 19:00 101 20 85/47 99 Nasal Cannula 3.0 17 18:40 85/46 17 18:30 98 21 87/46 99 Nasal Cannula 3.0 10/10/17 18:00 101 21 90/50 95 Nasal Cannula 3.0 17 18:00 85/46 17 17:30 102 20 89/49 95 Nasal Cannula 3.0 10/10/17 17:00 99 21 77/43 99 Nasal Cannula 3.0 10/10/17 17:00 77/43 10/10/17 16:30 102 23 86/49 96 Nasal Cannula 3.0 10/10/17 16:00 87/43 10/10/17 16:00 97.6 103 22 87/48 100 Nasal Cannula 3.0 10/10/17 16:00 107 10/10/17 15:30 104 18 86/45 97 Nasal Cannula 3.0 10/10/17 15:00 108 20 92/48 96 Nasal Cannula 3.0 10/10/17 15:00 92/48 10/10/17 14:30 103 22 81/49 99 Nasal Cannula 3.0 10/10/17 14:00 89/45 10/10/17 14:00 102 18 89/46 98 Nasal Cannula 3.0 10/10/17 13:30 100 17 90/48 100 Nasal Cannula 3.0 10/10/17 13:00 89/47 10/10/17 13:00 101 20 81/48 100 Nasal Cannula 3.0 10/10/17 12:30 100 23 81/44 98 Nasal Cannula 3.0 10/10/17 12:26 84/44 17 12:00 97.8 100 19 83/46 100 Nasal Cannula 3.0 10/10/17 12:00 84/45 17 12:00 116 17 11:30 99 23 85/44 97 Nasal Cannula 3.0 10/10/17 11:00 87/44 17 11:00 101 19 83/48 98 Nasal Cannula 3.0 10/10/17 10:30 101 16 85/44 98 Nasal Cannula 3.0 10/10/17 10:00 98 20 80/42 98 Nasal Cannula 3.0 10/10/17 10:00 80/42 10/10/17 09:30 100 19 84/44 100 Nasal Cannula 3.0 10/10/17 09:00 99 17 89/48 100 Nasal Cannula 3.0 10/10/17 09:00 88/48 10/10/17 08:30 100 21 90/50 100 Nasal Cannula 3.0 10/10/17 08:11 74/44 10/10/17 08:00 97 10/10/17 08:00 91/51 10/10/17 08:00 97.7 89 22 74/44 100 Nasal Cannula 3.0 10/10/17 07:00 90 19 88/48 100 Nasal Cannula 3.0 10/10/17 06:45 97 19 89/45 100 Nasal Cannula 3.0 10/10/17 06:36 100 Nasal Cannula 2.0 28 10/10/17 06:36 Nasal Cannula 2.0 28 10/10/17 06:30 97 21 93/50 100 Nasal Cannula 3.0 10/10/17 06:15 102 21 94/50 100 Nasal Cannula 3.0 10/10/17 06:00 102 21 93/55 100 Nasal Cannula 3.0 10/10/17 05:45 100 21 93/55 100 Nasal Cannula 3.0 10/10/17 05:30 102 21 93/52 100 Nasal Cannula 3.0 10/10/17 05:15 101 21 96/58 100 Nasal Cannula 3.0 10/10/17 05:00 102 21 96/57 100 Nasal Cannula 3.0 10/10/17 04:45 101 21 97/56 100 Nasal Cannula 3.0 10/10/17 04:30 101 21 97/56 100 Nasal Cannula 3.0 10/10/17 04:15 101 18 66/24 98 Nasal Cannula 3.0 10/10/17 04:09 98/72 10/10/17 04:00 105 10/10/17 04:00 104 18 91/54 98 Nasal Cannula 3.0 10/10/17 03:45 104 18 88/49 98 Nasal Cannula 3.0 10/10/17 03:30 104 18 91/54 98 Nasal Cannula 3.0 10/10/17 03:15 104 18 91/54 98 Nasal Cannula 3.0 10/10/17 03:00 104 18 91/53 98 Nasal Cannula 3.0 10/10/17 02:45 104 18 91/52 98 Nasal Cannula 3.0 10/10/17 02:30 104 18 93/52 98 Nasal Cannula 3.0 10/10/17 02:15 105 17 84/50 100 Nasal Cannula 3.0 10/10/17 02:00 105 17 94/52 100 Nasal Cannula 3.0 10/10/17 01:45 107 19 89/53 100 Nasal Cannula 3.0 10/10/17 01:30 107 19 86/48 100 Nasal Cannula 3.0 10/10/17 01:15 108 18 68/40 100 Nasal Cannula 3.0 10/10/17 01:03 86/53 10/10/17 01:00 105 18 68/40 100 Nasal Cannula 3.0 10/10/17 00:45 108 18 68/40 100 Nasal Cannula 3.0 10/10/17 00:30 111 18 86/53 100 Nasal Cannula 3.0 10/10/17 00:15 111 18 95/56 100 Nasal Cannula 3.0 10/10/17 00:00 110 20 100/56 100 Nasal Cannula 3.0 10/10/17 00:00 108 10/09/17 23:45 109 20 97/55 100 Nasal Cannula 3.0 10/09/17 23:30 Nasal Cannula 3.0 10/09/17 23:30 97.8 99 20 104/56 100 Nasal Cannula 3.0 10/09/17 23:20 97.8 99 20 104/56 Nasal Cannula 3.0 10/09/17 23:15 105 20 104/66 100 Nasal Cannula 2.0 10/09/17 23:00 106 18 101/56 100 Nasal Cannula 2.0 Height (Feet): 5 Height (Inches): 5.00 Weight (Pounds): 127 General Appearance: WD/WN, no acute distress HEENT: normocephalic, atraumatic, anicteric, mucous membranes moist, PERRL Respiratory/Chest: chest wall non-tender, lungs clear, normal breath sounds, no respiratory distress, no accessory muscle use Cardiovascular: normal peripheral pulses, normal rate, regular rhythm, no gallop/murmur, no JVD Abdomen: no organomegaly, no mass, no scars, absent bowel sounds, distended, tender Extremities: no cyanosis, no clubbing Skin: no rash, no lesions, no ulcers Neurologic/Psychiatric: alert, responsive Lymphatic: no neck adenopathy, no groin adenopathy Musculoskeletal: normal muscle bulk, no effusion Laboratory Tests Test 10/10/17 05:45 10/10/17 09:45 White Blood Count 10.5 K/UL (4.8-10.8) Red Blood Count 3.29 M/UL (4.20-5.40) L Hemoglobin 10.7 G/DL (12.0-16.0) L Hematocrit 32.7 % (37.0-47.0) L Mean Corpuscular Volume 99 FL (80-99) Mean Corpuscular Hemoglobin 32.4 PG (27.0-31.0) H Mean Corpuscular Hemoglobin Concent 32.6 G/DL (32.0-36.0) Red Cell Distribution Width 18.8 % (11.6-14.8) H Platelet Count 54 K/UL (150-450) L Mean Platelet Volume 9.8 FL (6.5-10.1) Neutrophils (%) (Auto) % (45.0-75.0) Lymphocytes (%) (Auto) % (20.0-45.0) Monocytes (%) (Auto) % (1.0-10.0) Eosinophils (%) (Auto) % (0.0-3.0) Basophils (%) (Auto) % (0.0-2.0) Differential Total Cells Counted 100 Neutrophils % (Manual) 91 % (45-75) H Lymphocytes % (Manual) 6 % (20-45) L Monocytes % (Manual) 2 % (1-10) Eosinophils % (Manual) 0 % (0-3) Basophils % (Manual) 0 % (0-2) Band Neutrophils 1 % (0-8) Nucleated Red Blood Cells 1 /100 WBC Platelet Estimate Decreased L Platelet Morphology Normal Hypochromasia 1+ Anisocytosis 1+ Macrocytosis 1+ Sodium Level 144 MMOL/L (136-145) Potassium Level 3.3 MMOL/L (3.5-5.1) L Chloride Level 104 MMOL/L (98-107) Carbon Dioxide Level 34 MMOL/L (21-32) H Anion Gap 6 mmol/L (5-15) Blood Urea Nitrogen 22 mg/dL (7-18) H Creatinine 2.8 MG/DL (0.55-1.30) H Estimat Glomerular Filtration Rate mL/min (>60) Glucose Level 126 MG/DL (74-106) H Lactic Acid Level 2.40 mmol/L (0.66-2.22) H 1.90 mmol/L (0.66-2.22) Calcium Level 7.5 MG/DL (8.5-10.1) L Total Bilirubin 1.7 MG/DL (0.2-1.0) H Direct Bilirubin 0.8 MG/DL (0.0-0.3) H Aspartate Amino Transf (AST/SGOT) 19 U/L (15-37) Alanine Aminotransferase (ALT/SGPT) 17 U/L (12-78) Alkaline Phosphatase 88 U/L (46-116) Total Protein 5.6 G/DL (6.4-8.2) L Albumin 2.2 G/DL (3.4-5.0) L Globulin 3.4 g/dL Albumin/Globulin Ratio 0.6 (1.0-2.7) L Prothrombin Time 14.1 SEC (9.30-11.50) H Prothromb Time International Ratio 1.3 (0.9-1.1) H Current Medications Medications (Trade) Dose Ordered Sig/Tamanna Route PRN Reason Start Time Stop Time Status Last Admin Dose Admin Chlorhexidine Gluconate (Rhianna-Hex 2%) 1 applic Q24H TOPIC 10/03/17 20:00 11/02/17 19:59 10/10/17 20:23 Dextrose (Dextrose 50%) STAT PRN IV Hypoglycemia 10/03/17 13:45 11/02/17 13:44 Dextrose/Sodium Chloride 1,000 ml @ 60 mls/hr [id number] IV 10/09/17 18:15 11/08/17 18:14 10/10/17 11:23 Hydromorphone HCl (Dilaudid) 1 mg Q4H PRN IVP PAIN 4-10 10/09/17 15:30 10/16/17 15:29 Insulin Aspart (NovoLOG) Q4HR SUBQ 10/03/17 17:00 11/02/17 16:59 10/10/17 17:03 Levofloxacin 100 ml @ 100 mls/hr Q48H IVPB 10/05/17 06:00 10/12/17 05:59 10/09/17 06:17 Midodrine (Pro-Amatine) 10 mg THREE TIMES A DAY ORAL 10/03/17 18:00 11/02/17 17:59 10/10/17 17:01 Norepinephrine Bitartrate 4 mg/ Dextrose 250 ml @ 0 mls/hr Q24H IV 10/03/17 16:00 11/02/17 15:59 10/10/17 21:26 Ondansetron HCl (Zofran) 4 mg Q4H PRN IVP Nausea & Vomiting 10/09/17 15:30 11/08/17 15:29 Pantoprazole (Protonix) 40 mg DAILY IVP 10/06/17 09:00 11/05/17 08:59 10/10/17 09:17 Vancomycin HCl (Vanco rx to dose) 1 ea DAILY PRN MISC Per rx protocol 10/03/17 13:45 11/02/17 13:44 Dina Bazan M.D. Oct 10, 2017 22:51
[2017-10-11] VITALS (48 sets, daily range): BP systolic 64–104; BP diastolic 41–74
--- NOTE | 2017-10-11 00:19 | Cardiology Progress Note ---
Assessment/Plan Assessment/Plan LATE ENTRY PROGRESS NOTE DATE OF SERVICE: 10/10/17 PATIENT SEEN: 20:14 1. Septic shock, continue Levophed gtt, continue midodrine. 2. Anterior ischemia on 12-lead EKG. The patient denies any chest pain. 3. Severe cardiomyopathy with EF 20-25%. Ischemia evaluation once off pressors. 4. End-stage renal disease, on hemodialysis. Subjective Subjective Sinus tachycardia at 100. N[address]. On levophed gtt. Objective Last 24 Hour Vital Signs Date Time Temp Pulse Resp B/P (MAP) Pulse Ox O2 Delivery O2 Flow Rate FiO2 10/10/17 22:00 100 21 86/46 98 Nasal Cannula 3.0 10/10/17 21:30 100 20 89/54 98 Nasal Cannula 3.0 10/10/17 21:26 62/36 10/10/17 21:00 100 21 62/36 97 Nasal Cannula 3.0 10/10/17 21:00 62/36 10/10/17 20:30 102 22 90/46 94 Nasal Cannula 3.0 10/10/17 20:00 102 10/10/17 20:00 88/48 10/10/17 20:00 97.6 102 23 88/48 97 Nasal Cannula 3.0 10/10/17 19:36 96.7 10/10/17 19:35 96.7 10/10/17 19:30 Nasal Cannula 2.0 28 10/10/17 19:30 100 Nasal Cannula 2.0 28 10/10/17 19:00 101 20 85/47 99 Nasal Cannula 3.0 10/10/17 18:40 85/46 10/10/17 18:30 98 21 87/46 99 Nasal Cannula 3.0 10/10/17 18:00 101 21 90/50 95 Nasal Cannula 3.0 10/10/17 18:00 85/46 10/10/17 17:30 102 20 89/49 95 Nasal Cannula 3.0 10/10/17 17:00 99 21 77/43 99 Nasal Cannula 3.0 10/10/17 17:00 77/43 10/10/17 16:30 102 23 86/49 96 Nasal Cannula 3.0 10/10/17 16:00 87/43 10/10/17 16:00 97.6 103 22 87/48 100 Nasal Cannula 3.0 10/10/17 16:00 107 10/10/17 15:30 104 18 86/45 97 Nasal Cannula 3.0 10/10/17 15:00 108 20 92/48 96 Nasal Cannula 3.0 10/10/17 15:00 92/48 10/10/17 14:30 103 22 81/49 99 Nasal Cannula 3.0 10/10/17 14:00 89/45 10/10/17 14:00 102 18 89/46 98 Nasal Cannula 3.0 10/10/17 13:30 100 17 90/48 100 Nasal Cannula 3.0 10/10/17 13:00 89/47 10/10/17 13:00 101 20 81/48 100 Nasal Cannula 3.0 10/10/17 12:30 100 23 81/44 98 Nasal Cannula 3.0 10/10/17 12:26 84/44 10/10/17 12:00 97.8 100 19 83/46 100 Nasal Cannula 3.0 10/10/17 12:00 84/45 10/10/17 12:00 116 10/10/17 11:30 99 23 85/44 97 Nasal Cannula 3.0 10/10/17 11:00 87/44 10/10/17 11:00 101 19 83/48 98 Nasal Cannula 3.0 10/10/17 10:30 101 16 85/44 98 Nasal Cannula 3.0 10/10/17 10:00 98 20 80/42 98 Nasal Cannula 3.0 10/10/17 10:00 80/42 10/10/17 09:30 100 19 84/44 100 Nasal Cannula 3.0 10/10/17 09:00 99 17 89/48 100 Nasal Cannula 3.0 10/10/17 09:00 88/48 10/10/17 08:30 100 21 90/50 100 Nasal Cannula 3.0 10/10/17 08:11 74/44 10/10/17 08:00 97 10/10/17 08:00 91/51 10/10/17 08:00 97.7 89 22 74/44 100 Nasal Cannula 3.0 10/10/17 07:00 90 19 88/48 100 Nasal Cannula 3.0 10/10/17 06:45 97 19 89/45 100 Nasal Cannula 3.0 10/10/17 06:36 100 Nasal Cannula 2.0 28 10/10/17 06:36 Nasal Cannula 2.0 28 10/10/17 06:30 97 21 93/50 100 Nasal Cannula 3.0 10/10/17 06:15 102 21 94/50 100 Nasal Cannula 3.0 10/10/17 06:00 102 21 93/55 100 Nasal Cannula 3.0 10/10/17 05:45 100 21 93/55 100 Nasal Cannula 3.0 10/10/17 05:30 102 21 93/52 100 Nasal Cannula 3.0 10/10/17 05:15 101 21 96/58 100 Nasal Cannula 3.0 10/10/17 05:00 102 21 96/57 100 Nasal Cannula 3.0 10/10/17 04:45 101 21 97/56 100 Nasal Cannula 3.0 10/10/17 04:30 101 21 97/56 100 Nasal Cannula 3.0 10/10/17 04:15 101 18 66/24 98 Nasal Cannula 3.0 10/10/17 04:09 98/72 10/10/17 04:00 105 10/10/17 04:00 104 18 91/54 98 Nasal Cannula 3.0 10/10/17 03:45 104 18 88/49 98 Nasal Cannula 3.0 10/10/17 03:30 104 18 91/54 98 Nasal Cannula 3.0 10/10/17 03:15 104 18 91/54 98 Nasal Cannula 3.0 10/10/17 03:00 104 18 91/53 98 Nasal Cannula 3.0 10/10/17 02:45 104 18 91/52 98 Nasal Cannula 3.0 10/10/17 02:30 104 18 93/52 98 Nasal Cannula 3.0 10/10/17 02:15 105 17 84/50 100 Nasal Cannula 3.0 10/10/17 02:00 105 17 94/52 100 Nasal Cannula 3.0 10/10/17 01:45 107 19 89/53 100 Nasal Cannula 3.0 10/10/17 01:30 107 19 86/48 100 Nasal Cannula 3.0 10/10/17 01:15 108 18 68/40 100 Nasal Cannula 3.0 10/10/17 01:03 86/53 10/10/17 01:00 105 18 68/40 100 Nasal Cannula 3.0 10/10/17 00:45 108 18 68/40 100 Nasal Cannula 3.0 10/10/17 00:30 111 18 86/53 100 Nasal Cannula 3.0 10/10/17 00:15 111 18 95/56 100 Nasal Cannula 3.0 2D Echo: LVEF 15%, Grade III LVDD, Sev MR, RVSP 136 mmHg Laboratory Tests Test 10/10/17 05:45 10/10/17 09:45 White Blood Count 10.5 K/UL (4.8-10.8) Red Blood Count 3.29 M/UL (4.20-5.40) L Hemoglobin 10.7 G/DL (12.0-16.0) L Hematocrit 32.7 % (37.0-47.0) L Mean Corpuscular Volume 99 FL (80-99) Mean Corpuscular Hemoglobin 32.4 PG (27.0-31.0) H Mean Corpuscular Hemoglobin Concent 32.6 G/DL (32.0-36.0) Red Cell Distribution Width 18.8 % (11.6-14.8) H Platelet Count 54 K/UL (150-450) L Mean Platelet Volume 9.8 FL (6.5-10.1) Neutrophils (%) (Auto) % (45.0-75.0) Lymphocytes (%) (Auto) % (20.0-45.0) Monocytes (%) (Auto) % (1.0-10.0) Eosinophils (%) (Auto) % (0.0-3.0) Basophils (%) (Auto) % (0.0-2.0) Differential Total Cells Counted 100 Neutrophils % (Manual) 91 % (45-75) H Lymphocytes % (Manual) 6 % (20-45) L Monocytes % (Manual) 2 % (1-10) Eosinophils % (Manual) 0 % (0-3) Basophils % (Manual) 0 % (0-2) Band Neutrophils 1 % (0-8) Nucleated Red Blood Cells 1 /100 WBC Platelet Estimate Decreased L Platelet Morphology Normal Hypochromasia 1+ Anisocytosis 1+ Macrocytosis 1+ Sodium Level 144 MMOL/L (136-145) Potassium Level 3.3 MMOL/L (3.5-5.1) L Chloride Level 104 MMOL/L (98-107) Carbon Dioxide Level 34 MMOL/L (21-32) H Anion Gap 6 mmol/L (5-15) Blood Urea Nitrogen 22 mg/dL (7-18) H Creatinine 2.8 MG/DL (0.55-1.30) H Estimat Glomerular Filtration Rate mL/min (>60) Glucose Level 126 MG/DL (74-106) H Lactic Acid Level 2.40 mmol/L (0.66-2.22) H 1.90 mmol/L (0.66-2.22) Calcium Level 7.5 MG/DL (8.5-10.1) L Total Bilirubin 1.7 MG/DL (0.2-1.0) H Direct Bilirubin 0.8 MG/DL (0.0-0.3) H Aspartate Amino Transf (AST/SGOT) 19 U/L (15-37) Alanine Aminotransferase (ALT/SGPT) 17 U/L (12-78) Alkaline Phosphatase 88 U/L (46-116) Total Protein 5.6 G/DL (6.4-8.2) L Albumin 2.2 G/DL (3.4-5.0) L Globulin 3.4 g/dL Albumin/Globulin Ratio 0.6 (1.0-2.7) L Prothrombin Time 14.1 SEC (9.30-11.50) H Prothromb Time International Ratio 1.3 (0.9-1.1) H Objective HEAD AND NECK: No JVD. LUNGS: Decreased breath sounds. CARDIOVASCULAR: Regular S1 and S2 with no gallop or murmur. ABDOMEN: Soft. EXTREMITIES: No pitting edema. Her dialysis shunt is in the right arm. MATIAS MCGUIRE Oct 11, 2017 00:19
[2017-10-11] MEDS: NovoLOG Insulin Flexpen SUBQ SCH ×6 (01:17→20:58)
[2017-10-11] MEDS: D5NS 1,000 ML IV SCH ×2 (04:47→20:05)
[2017-10-11 06:42] LABS: ANION GAP 8 mmol/L (5-15); CALCIUM 7.5 MG/DL (8.5-10.1); CARBON DIOXIDE 31 MMOL/L (21-32); CHLORIDE 101 MMOL/L (98-107); CREATININE 3.3 MG/DL (0.55-1.30); POTASSIUM 3.3 MMOL/L (3.5-5.1); SODIUM 140 MMOL/L (136-145)
[2017-10-11 06:46] LABS: MEAN CORPUSCULAR HEMOGLOBIN 31.4 PG (27.0-31.0); MEAN CORPUSCULAR HGB CONC 32.1 G/DL (32.0-36.0); MEAN CORPUSCULAR VOLUME 98 FL (80-99); MEAN PLATELET VOLUME 10.9 FL (6.5-10.1); PLATELET COUNT 39 K/UL (150-450); RED BLOOD COUNT 3.16 M/UL (4.20-5.40); RED CELL DISTRIBUTION WIDTH 18.4 % (11.6-14.8); WHITE BLOOD COUNT 9.4 K/UL (4.8-10.8)
[2017-10-11 07:20] LABS: BAND NEUTROPHILS % (MANUAL) 0 % (0-8); BASOPHILS % (MANUAL) 0 % (0-2); EOSINOPHILS % (MANUAL) 1 % (0-3); LYMPHOCYTES % (MANUAL) 7 % (20-45); NEUTROPHILS % (MANUAL) 89 % (45-75); PLATELET ESTIMATE DECREASED; TOTAL CELLS COUNTED 100
[2017-10-11 07:21] LABS: ANISOCYTOSIS 1+; HYPOCHROMASIA 1+
[2017-10-11] MEDS: Pantoprazole Inj IVP SCH (10:11)
[2017-10-11] MEDS: Midodrine 10mg tab ORAL SCH ×3 (10:11→17:06)
--- NOTE | 2017-10-11 13:24 | Diagnostic Imaging Report ---
Indication: Abdominal distention Technique: XRAY Abdomen 1v Comparison: 10/10/2017 Findings: NG-tube coiled within the stomach. Again noted is abnormal dilatation of multiple small bowel loops in the central abdomen concerning for small bowel obstruction. Degree and number of distended small bowel loops is unchanged. There is no evidence to suggest free intraperitoneal air however evaluation is limited given lack of erect review. Multiple surgical clips noted in the lower abdomen and pelvis. Atherosclerotic vascular calcifications seen. No acute osseous abnormality appreciated. There is opacification of the left lung base. Right femoral vein approach central line noted. Impression: Persistent abnormal dilatation of multiple small bowel loops concerning for small bowel obstruction without significant interval change compared to exam one day prior.
[2017-10-11] MEDS: NOREPINEPHRINE BITARTRATE IV SCH ×2 (16:51→23:50)
[2017-10-11] MEDS: D5W IV SCH ×2 (16:51→23:50)
--- NOTE | 2017-10-11 16:52 | General Surgery Progress Note ---
General Surgery-Progress Note Subjective Symptoms: pain same Additional Comments no acute events. still with abdominal discomfort. no n/v/f/c. ng tube with bilious output. KUB unchanged. Objective Last 24 Hour Vital Signs Date Time Temp Pulse Resp B/P (MAP) Pulse Ox O2 Delivery O2 Flow Rate FiO2 10/11/17 16:00 109 23 84/52 89 Nasal Cannula 3.0 10/11/17 16:00 97 10/11/17 16:00 84/46 10/11/17 15:30 110 21 86/48 95 Nasal Cannula 3.0 10/11/17 15:00 83/45 10/11/17 15:00 106 21 83/45 98 Nasal Cannula 3.0 10/11/17 14:30 110 21 83/45 98 Nasal Cannula 3.0 10/11/17 14:00 86/50 10/11/17 14:00 110 21 87/49 98 Nasal Cannula 3.0 10/11/17 13:32 88/46 10/11/17 13:30 109 21 86/50 98 Nasal Cannula 3.0 10/11/17 13:00 109 21 88/46 98 Nasal Cannula 3.0 10/11/17 13:00 88/46 10/11/17 12:30 111 21 86/41 98 Nasal Cannula 3.0 10/11/17 12:00 106 10/11/17 12:00 89/51 10/11/17 12:00 97.7 111 21 84/52 98 Nasal Cannula 3.0 10/11/17 11:30 110 19 89/51 98 Nasal Cannula 3.0 10/11/17 11:00 89/54 10/11/17 11:00 110 18 95/62 98 Nasal Cannula 3.0 10/11/17 10:30 110 19 90/55 98 Nasal Cannula 3.0 10/11/17 10:00 95/62 10/11/17 10:00 110 19 90/55 100 Nasal Cannula 3.0 10/11/17 09:30 108 21 83/42 100 Nasal Cannula 3.0 10/11/17 09:00 83/42 10/11/17 09:00 108 21 83/42 100 Nasal Cannula 3.0 10/11/17 08:30 105 20 70/42 100 Nasal Cannula 3.0 10/11/17 08:00 97.9 104 19 64/41 100 Nasal Cannula 3.0 10/11/17 08:00 116 10/11/17 08:00 67/41 10/11/17 07:30 106 21 84/49 99 Nasal Cannula 3.0 10/11/17 07:00 106 21 87/57 100 Nasal Cannula 3.0 10/11/17 07:00 Nasal Cannula 2.0 28 10/11/17 07:00 87/57 10/11/17 07:00 100 Nasal Cannula 2.0 28 10/11/17 06:30 100 20 94/50 100 Nasal Cannula 3.0 10/11/17 06:07 94/49 10/11/17 06:00 102 20 92/49 100 Nasal Cannula 3.0 10/11/17 06:00 94/49 10/11/17 05:30 105 21 94/49 100 Nasal Cannula 3.0 10/11/17 05:00 86/51 10/11/17 05:00 103 20 86/51 100 Nasal Cannula 3.0 10/11/17 04:30 102 21 87/47 100 Nasal Cannula 3.0 10/11/17 04:00 100 10/11/17 04:00 97.6 102 18 87/47 100 Nasal Cannula 3.0 10/11/17 04:00 87/47 10/11/17 03:30 102 21 84/45 100 Nasal Cannula 3.0 10/11/17 03:00 87/49 10/11/17 03:00 101 21 87/49 100 Nasal Cannula 3.0 10/11/17 02:30 100 20 84/46 100 Nasal Cannula 3.0 10/11/17 02:00 86/50 10/11/17 02:00 100 18 85/46 100 Nasal Cannula 3.0 10/11/17 01:30 101 18 83/46 100 Nasal Cannula 3.0 10/11/17 01:19 86/55 10/11/17 01:00 87/52 10/11/17 01:00 100 18 87/52 100 Nasal Cannula 3.0 10/11/17 00:30 100 21 85/50 100 Nasal Cannula 3.0 10/11/17 00:00 85/52 10/11/17 00:00 97.8 99 17 88/55 100 Nasal Cannula 3.0 10/10/17 23:30 99 16 87/55 100 Nasal Cannula 3.0 10/10/17 23:00 87/50 10/10/17 23:00 101 15 87/50 99 Nasal Cannula 3.0 10/10/17 22:30 101 19 89/50 98 Nasal Cannula 3.0 10/10/17 22:00 100 21 86/46 98 Nasal Cannula 3.0 10/10/17 21:30 100 20 89/54 98 Nasal Cannula 3.0 10/10/17 21:26 62/36 10/10/17 21:00 100 21 62/36 97 Nasal Cannula 3.0 10/10/17 21:00 62/36 10/10/17 20:30 102 22 90/46 94 Nasal Cannula 3.0 10/10/17 20:00 102 10/10/17 20:00 88/48 10/10/17 20:00 97.6 102 23 88/48 97 Nasal Cannula 3.0 10/10/17 19:36 96.7 10/10/17 19:35 96.7 10/10/17 19:30 Nasal Cannula 2.0 28 10/10/17 19:30 100 Nasal Cannula 2.0 28 10/10/17 19:00 101 20 85/47 99 Nasal Cannula 3.0 10/10/17 18:40 85/46 10/10/17 18:30 98 21 87/46 99 Nasal Cannula 3.0 10/10/17 18:00 101 21 90/50 95 Nasal Cannula 3.0 10/10/17 18:00 85/46 17 17:30 102 20 89/49 95 Nasal Cannula 3.0 10/10/17 17:00 99 21 77/43 99 Nasal Cannula 3.0 10/10/17 17:00 77/43 I&O Intake and Output 10/11/17 10/12/17 19:00 07:00 Intake Total 1158.75 ml Output Total 280 ml Balance 878.75 ml IV Total 1158.75 ml Other 280 ml Cardiovascular: RSR Respiratory: clear Abdomen: soft, distended, tenderness, absent bowel sounds, other - distended, tympanic, mild discomfort but no peritonitis. Extremities: no tenderness Laboratory Tests Test 10/11/17 04:00 White Blood Count 9.4 K/UL (4.8-10.8) Red Blood Count 3.16 M/UL (4.20-5.40) L Hemoglobin 9.9 G/DL (12.0-16.0) L Hematocrit 30.9 % (37.0-47.0) L Mean Corpuscular Volume 98 FL (80-99) Mean Corpuscular Hemoglobin 31.4 PG (27.0-31.0) H Mean Corpuscular Hemoglobin Concent 32.1 G/DL (32.0-36.0) Red Cell Distribution Width 18.4 % (11.6-14.8) H Platelet Count 39 K/UL (150-450) L Mean Platelet Volume 10.9 FL (6.5-10.1) H Neutrophils (%) (Auto) % (45.0-75.0) Lymphocytes (%) (Auto) % (20.0-45.0) Monocytes (%) (Auto) % (1.0-10.0) Eosinophils (%) (Auto) % (0.0-3.0) Basophils (%) (Auto) % (0.0-2.0) Differential Total Cells Counted 100 Neutrophils % (Manual) 89 % (45-75) H Lymphocytes % (Manual) 7 % (20-45) L Monocytes % (Manual) 3 % (1-10) Eosinophils % (Manual) 1 % (0-3) Basophils % (Manual) 0 % (0-2) Band Neutrophils 0 % (0-8) Platelet Estimate Decreased L Platelet Morphology Giant Platelets Occasional Hypochromasia 1+ Anisocytosis 1+ Sodium Level 140 MMOL/L (136-145) Potassium Level 3.3 MMOL/L (3.5-5.1) L Chloride Level 101 MMOL/L (98-107) Carbon Dioxide Level 31 MMOL/L (21-32) Anion Gap 8 mmol/L (5-15) Blood Urea Nitrogen 26 mg/dL (7-18) H Creatinine 3.3 MG/DL (0.55-1.30) H Estimat Glomerular Filtration Rate mL/min (>60) Glucose Level 182 MG/DL (74-106) H Lactic Acid Level 1.70 mmol/L (0.66-2.22) Calcium Level 7.5 MG/DL (8.5-10.1) L Plan Problems: (1) Small bowel obstruction Assessment & Plan: 72 year old female with small bowel obstruction. CT reviewed and very limited given lack of contrast and image quality. can identify dilated bowel loops and transition point. etiology unclear at this time. patient and family deny prior abdominal surgery. On exam can see a faint prior lower midline scare that is well healed. mildly improved today. KUB same No improvement. stable but likely SBO and will need surgery since not resolving with non operative management KUB unchanged and still very distended. labs okay. At this point i would recommend surgery and exploratory laparotomy to evaluate etiology of obstruction. when discussing this with patient she states that she currently does not desire surgery. i explained to her that if does not improve or even worsens this would not be compatible with life. she expresses understanding and states that at this time she would rather pass than have surgery. Patient has a POA Lesley Hammond and Daughter Brittny Magallanes. I have attempted to call them multiple times to discuss care and plans but no response. I have left multiple voice messages including one at 16:45 today. I will continue to call them and wait for them to return my call to discuss care. Strict NPO IV fluids NG Tube to suction (intermittent or continuous okay). Please ensure tube functional throughout day flush NG tube q4hrs and prn will follow with serial abdominal exams. if does not improve will discuss surgery with family and patient. AM ABRAHAN thank you for this consultation. Vimal Montague Oct 11, 2017 16:52
[2017-10-11] MEDS ORDERED: D5NS 1000ml IV ONE (17:45)
[2017-10-11] MEDS ORDERED: D5W 275ml ONE (17:45)
--- NOTE | 2017-10-11 17:51 | Nephrology Progress Note ---
Assessment/Plan Problem List: (1) HCAP (healthcare-associated pneumonia) (2) Septic shock (3) CHF (congestive heart failure) (4) Altered mental status (5) CKD (chronic kidney disease) requiring chronic dialysis Plan Continue HD per scheduled Monitor lytes, correct with HD Monitor BP, continue pressors, cardio following Monitor BS Monitor neuro status Abx per ID Continue current IVF AM labs Subjective Subjective In bed, in the ICU, in no apparent distress, denies discomfort at this time. Objective Objective Last 24 Hour Vital Signs Date Time Temp Pulse Resp B/P (MAP) Pulse Ox O2 Delivery O2 Flow Rate FiO2 10/11/17 17:00 109 22 85/49 97 Nasal Cannula 3.0 10/11/17 16:51 84/46 10/11/17 16:30 97.8 111 23 84/46 89 Nasal Cannula 3.0 10/11/17 16:00 109 23 84/52 89 Nasal Cannula 3.0 10/11/17 16:00 97 10/11/17 16:00 84/46 10/11/17 15:30 110 21 86/48 95 Nasal Cannula 3.0 10/11/17 15:00 83/45 10/11/17 15:00 106 21 83/45 98 Nasal Cannula 3.0 10/11/17 14:30 110 21 83/45 98 Nasal Cannula 3.0 10/11/17 14:00 86/50 10/11/17 14:00 110 21 87/49 98 Nasal Cannula 3.0 10/11/17 13:32 88/46 10/11/17 13:30 109 21 86/50 98 Nasal Cannula 3.0 10/11/17 13:00 109 21 88/46 98 Nasal Cannula 3.0 10/11/17 13:00 88/46 10/11/17 12:30 111 21 86/41 98 Nasal Cannula 3.0 10/11/17 12:00 106 10/11/17 12:00 89/51 10/11/17 12:00 97.7 111 21 84/52 98 Nasal Cannula 3.0 10/11/17 11:30 110 19 89/51 98 Nasal Cannula 3.0 10/11/17 11:00 89/54 10/11/17 11:00 110 18 95/62 98 Nasal Cannula 3.0 10/11/17 10:30 110 19 90/55 98 Nasal Cannula 3.0 10/11/17 10:00 95/62 10/11/17 10:00 110 19 90/55 100 Nasal Cannula 3.0 10/11/17 09:30 108 21 83/42 100 Nasal Cannula 3.0 10/11/17 09:00 83/42 10/11/17 09:00 108 21 83/42 100 Nasal Cannula 3.0 10/11/17 08:30 105 20 70/42 100 Nasal Cannula 3.0 10/11/17 08:00 97.9 104 19 64/41 100 Nasal Cannula 3.0 10/11/17 08:00 116 10/11/17 08:00 67/41 10/11/17 07:30 106 21 84/49 99 Nasal Cannula 3.0 10/11/17 07:00 106 21 87/57 100 Nasal Cannula 3.0 10/11/17 07:00 Nasal Cannula 2.0 28 10/11/17 07:00 87/57 10/11/17 07:00 100 Nasal Cannula 2.0 28 10/11/17 06:30 100 20 94/50 100 Nasal Cannula 3.0 10/11/17 06:07 94/49 10/11/17 06:00 102 20 92/49 100 Nasal Cannula 3.0 10/11/17 06:00 94/49 10/11/17 05:30 105 21 94/49 100 Nasal Cannula 3.0 10/11/17 05:00 86/51 10/11/17 05:00 103 20 86/51 100 Nasal Cannula 3.0 10/11/17 04:30 102 21 87/47 100 Nasal Cannula 3.0 10/11/17 04:00 100 10/11/17 04:00 97.6 102 18 87/47 100 Nasal Cannula 3.0 10/11/17 04:00 87/47 10/11/17 03:30 102 21 84/45 100 Nasal Cannula 3.0 10/11/17 03:00 87/49 10/11/17 03:00 101 21 87/49 100 Nasal Cannula 3.0 10/11/17 02:30 100 20 84/46 100 Nasal Cannula 3.0 10/11/17 02:00 86/50 10/11/17 02:00 100 18 85/46 100 Nasal Cannula 3.0 10/11/17 01:30 101 18 83/46 100 Nasal Cannula 3.0 10/11/17 01:19 86/55 10/11/17 01:00 87/52 10/11/17 01:00 100 18 87/52 100 Nasal Cannula 3.0 10/11/17 00:30 100 21 85/50 100 Nasal Cannula 3.0 10/11/17 00:00 85/52 10/11/17 00:00 97.8 99 17 88/55 100 Nasal Cannula 3.0 10/10/17 23:30 99 16 87/55 100 Nasal Cannula 3.0 10/10/17 23:00 87/50 10/10/17 23:00 101 15 87/50 99 Nasal Cannula 3.0 10/10/17 22:30 101 19 89/50 98 Nasal Cannula 3.0 10/10/17 22:00 100 21 86/46 98 Nasal Cannula 3.0 10/10/17 21:30 100 20 89/54 98 Nasal Cannula 3.0 10/10/17 21:26 62/36 10/10/17 21:00 100 21 62/36 97 Nasal Cannula 3.0 10/10/17 21:00 62/36 10/10/17 20:30 102 22 90/46 94 Nasal Cannula 3.0 10/10/17 20:00 102 10/10/17 20:00 88/48 10/10/17 20:00 97.6 102 23 88/48 97 Nasal Cannula 3.0 10/10/17 19:36 96.7 10/10/17 19:35 96.7 10/10/17 19:30 Nasal Cannula 2.0 28 10/10/17 19:30 100 Nasal Cannula 2.0 28 10/10/17 19:00 101 20 85/47 99 Nasal Cannula 3.0 10/10/17 18:40 85/46 10/10/17 18:30 98 21 87/46 99 Nasal Cannula 3.0 10/10/17 18:00 101 21 90/50 95 Nasal Cannula 3.0 10/10/17 18:00 85/46 Intake and Output 10/11/17 10/12/17 19:00 07:00 Intake Total 1218.75 ml Output Total 280 ml Balance 938.75 ml IV Total 1218.75 ml Other 280 ml Laboratory Tests 10/11/17 04:00: White Blood Count 9.4, Red Blood Count 3.16L, Hemoglobin 9.9L, Hematocrit 30.9L , Mean Corpuscular Volume 98, Mean Corpuscular Hemoglobin 31.4H, Mean Corpuscular Hemoglobin Concent 32.1, Red Cell Distribution Width 18.4H, Platelet Count 39L, Mean Platelet Volume 10.9H, Neutrophils (%) (Auto) , Lymphocytes (%) (Auto) , Monocytes (%) (Auto) , Eosinophils (%) (Auto) , Basophils (%) (Auto) , Differential Total Cells Counted 100, Neutrophils % ( Manual) 89H, Lymphocytes % (Manual) 7L, Monocytes % (Manual) 3, Eosinophils % ( Manual) 1, Basophils % (Manual) 0, Band Neutrophils 0, Platelet Estimate DecreasedL, Platelet Morphology , Giant Platelets Occasional, Hypochromasia 1+, Anisocytosis 1+, Sodium Level 140, Potassium Level 3.3L, Chloride Level 101, Carbon Dioxide Level 31, Anion Gap 8, Blood Urea Nitrogen 26H, Creatinine 3.3H, Estimat Glomerular Filtration Rate , Glucose Level 182H, Lactic Acid Level 1.70 , Calcium Level 7.5L Height (Feet): 5 Height (Inches): 5.00 Weight (Pounds): 130 General Appearance: no apparent distress, alert EENT: normal ENT inspection Neck: normal alignment, supple Cardiovascular: normal rate Respiratory/Chest: decreased breath sounds Abdomen: non tender Extremities: non-tender Neurologic: alert, oriented x 3, responsive Celine Conley N.P. Oct 11, 2017 17:51
[2017-10-11] MEDS: Dyna-Hex 2% Top Sol 2oz TOPIC SCH (20:04)
[2017-10-11] MEDS ORDERED: Amiodarone 150mg/ml 3ml Amp ONE (22:47)
[2017-10-11] MEDS ORDERED: Amiodarone 900 MG in D5W 500ml 482 ML IV SCH (23:00)
--- NOTE | 2017-10-11 23:27 | Infectious Diseases Prog Note ---
Assessment/Plan Problems: (1) HCAP (healthcare-associated pneumonia) Assessment & Plan: on vancomycin and levaquin empiric coverage for 7-10 days , sputum culture grew tejas albicans which is most likely colonization and not real infection. continue to monitor culture (2) Sepsis Assessment & Plan: less likely , blood culture so far is negative, continue vancomycin and levaquin empirically for now to cover for pneumonia for 7-10 days (3) Altered mental status Assessment & Plan: improved , due to the above, continue neuro check , monitor in ICU (4) CHF (congestive heart failure) Assessment & Plan: with exacerbation , on HD, renal is following , monitor CXR (5) Abdominal pain Assessment & Plan: due to bowel obstruction , had NGT by GI , US of the abdomen didn't show any acute pathology but nonobstructing stones, surgery is following (6) Hypotension Assessment & Plan: not responding to pressors , rule out adrenal insufficiency , will order serum cortisol level , cardiology is following Subjective Constitutional: Reports: no symptoms HEENT: Reports: no symptoms Respiratory: Reports: no symptoms Breasts: Reports: no symptoms Cardiovascular: Reports: no symptoms Gastrointestinal/Abdominal: Reports: bloating Genitourinary: Reports: no symptoms Neurologic: Reports: no symptoms Psychiatric: Reports: no symptoms Skin: Reports: no symptoms Endocrine: Reports: no symptoms Hematologic: Reports: no symptoms Allergies: Coded Allergies: ASPIRIN (Unverified Allergy, Unknown, 10/03/17) PENICILLINS (Unverified Allergy, Unknown, 10/03/17) Subjective she was more awake and alert, complained of abdominal discomfort, still on pressor Objective Vital Signs Last 24 Hour Vital Signs Date Time Temp Pulse Resp B/P (MAP) Pulse Ox O2 Delivery O2 Flow Rate FiO2 10/11/17 21:00 98/50 10/11/17 21:00 118 20 98/50 97 Nasal Cannula 3.0 10/11/17 20:30 117 21 98/54 100 Nasal Cannula 3.0 10/11/17 20:00 120 18 97/57 98 Nasal Cannula 3.0 10/11/17 20:00 97/57 10/11/17 20:00 120 10/11/17 19:30 97.6 121 21 104/51 98 Nasal Cannula 3.0 10/11/17 19:30 98 Nasal Cannula 2.0 28 12/17/17 19:30 Nasal Cannula 2.0 28 10/11/17 19:00 121 23 99/57 93 Nasal Cannula 3.0 10/11/17 19:00 99/57 17 18:30 123 25 104/64 93 Nasal Cannula 3.0 10/11/17 18:00 124 21 92/48 86 Nasal Cannula 3.0 10/11/17 18:00 92/48 17 17:30 119 22 95/58 78 Nasal Cannula 3.0 10/11/17 17:00 109 22 85/49 97 Nasal Cannula 3.0 10/11/17 16:51 84/46 10/11/17 16:30 97.8 111 23 84/46 89 Nasal Cannula 3.0 10/11/17 16:00 109 23 84/52 89 Nasal Cannula 3.0 10/11/17 16:00 97 10/11/17 16:00 84/46 10/11/17 15:30 110 21 86/48 95 Nasal Cannula 3.0 10/11/17 15:00 83/45 10/11/17 15:00 106 21 83/45 98 Nasal Cannula 3.0 10/11/17 14:30 110 21 83/45 98 Nasal Cannula 3.0 10/11/17 14:00 86/50 10/11/17 14:00 110 21 87/49 98 Nasal Cannula 3.0 10/11/17 13:32 88/46 10/11/17 13:30 109 21 86/50 98 Nasal Cannula 3.0 10/11/17 13:00 109 21 88/46 98 Nasal Cannula 3.0 10/11/17 13:00 88/46 10/11/17 12:30 111 21 86/41 98 Nasal Cannula 3.0 10/11/17 12:00 106 10/11/17 12:00 89/51 10/11/17 12:00 97.7 111 21 84/52 98 Nasal Cannula 3.0 10/11/17 11:30 110 19 89/51 98 Nasal Cannula 3.0 10/11/17 11:00 89/54 10/11/17 11:00 110 18 95/62 98 Nasal Cannula 3.0 10/11/17 10:30 110 19 90/55 98 Nasal Cannula 3.0 10/11/17 10:00 95/62 10/11/17 10:00 110 19 90/55 100 Nasal Cannula 3.0 10/11/17 09:30 108 21 83/42 100 Nasal Cannula 3.0 10/11/17 09:00 83/42 10/11/17 09:00 108 21 83/42 100 Nasal Cannula 3.0 10/11/17 08:30 105 20 70/42 100 Nasal Cannula 3.0 10/11/17 08:00 97.9 104 19 64/41 100 Nasal Cannula 3.0 10/11/17 08:00 116 10/11/17 08:00 67/41 10/11/17 07:30 106 21 84/49 99 Nasal Cannula 3.0 10/11/17 07:00 106 21 87/57 100 Nasal Cannula 3.0 10/11/17 07:00 Nasal Cannula 2.0 28 10/11/17 07:00 87/57 10/11/17 07:00 100 Nasal Cannula 2.0 28 10/11/17 06:30 100 20 94/50 100 Nasal Cannula 3.0 10/11/17 06:07 94/49 10/11/17 06:00 102 20 92/49 100 Nasal Cannula 3.0 10/11/17 06:00 94/49 10/11/17 05:30 105 21 94/49 100 Nasal Cannula 3.0 10/11/17 05:00 86/51 10/11/17 05:00 103 20 86/51 100 Nasal Cannula 3.0 10/11/17 04:30 102 21 87/47 100 Nasal Cannula 3.0 10/11/17 04:00 100 10/11/17 04:00 97.6 102 18 87/47 100 Nasal Cannula 3.0 10/11/17 04:00 87/47 10/11/17 03:30 102 21 84/45 100 Nasal Cannula 3.0 10/11/17 03:00 87/49 10/11/17 03:00 101 21 87/49 100 Nasal Cannula 3.0 10/11/17 02:30 100 20 84/46 100 Nasal Cannula 3.0 10/11/17 02:00 86/50 10/11/17 02:00 100 18 85/46 100 Nasal Cannula 3.0 10/11/17 01:30 101 18 83/46 100 Nasal Cannula 3.0 10/11/17 01:19 8610/11/17 01:00 10/11/17 01:00 100 18 / 100 Nasal Cannula 3.0 10/11/17 00:30 100 21 85/50 100 Nasal Cannula 3.0 10/11/17 00:00 [id number] 10/11/17 00:00 97.8 99 17 55 100 Nasal Cannula 3.0 10/10/17 23:30 99 16 100 Nasal Cannula 3.0 Height (Feet): 5 Height (Inches): 5.00 Weight (Pounds): 130 General Appearance: WD/WN, no acute distress HEENT: normocephalic, atraumatic, anicteric, mucous membranes moist, PERRL Respiratory/Chest: chest wall non-tender, lungs clear, normal breath sounds, no respiratory distress, no accessory muscle use, decreased breath sounds, crackles/rales Cardiovascular: normal peripheral pulses, normal rate, regular rhythm, no gallop/murmur, no JVD Abdomen: soft, non tender, no organomegaly, no mass, no scars, hypoactive bowel sounds, distended, tender Genitourinary: normal external genitalia Extremities: no cyanosis, no clubbing Skin: no rash, no lesions, no ulcers Neurologic/Psychiatric: alert, responsive Laboratory Tests Test 10/11/17 04:00 White Blood Count 9.4 K/UL (4.8-10.8) Red Blood Count 3.16 M/UL (4.20-5.40) L Hemoglobin 9.9 G/DL (12.0-16.0) L Hematocrit 30.9 % (37.0-47.0) L Mean Corpuscular Volume 98 FL (80-99) Mean Corpuscular Hemoglobin 31.4 PG (27.0-31.0) H Mean Corpuscular Hemoglobin Concent 32.1 G/DL (32.0-36.0) Red Cell Distribution Width 18.4 % (11.6-14.8) H Platelet Count 39 K/UL (150-450) L Mean Platelet Volume 10.9 FL (6.5-10.1) H Neutrophils (%) (Auto) % (45.0-75.0) Lymphocytes (%) (Auto) % (20.0-45.0) Monocytes (%) (Auto) % (1.0-10.0) Eosinophils (%) (Auto) % (0.0-3.0) Basophils (%) (Auto) % (0.0-2.0) Differential Total Cells Counted 100 Neutrophils % (Manual) 89 % (45-75) H Lymphocytes % (Manual) 7 % (20-45) L Monocytes % (Manual) 3 % (1-10) Eosinophils % (Manual) 1 % (0-3) Basophils % (Manual) 0 % (0-2) Band Neutrophils 0 % (0-8) Platelet Estimate Decreased L Platelet Morphology Giant Platelets Occasional Hypochromasia 1+ Anisocytosis 1+ Sodium Level 140 MMOL/L (136-145) Potassium Level 3.3 MMOL/L (3.5-5.1) L Chloride Level 101 MMOL/L (98-107) Carbon Dioxide Level 31 MMOL/L (21-32) Anion Gap 8 mmol/L (5-15) Blood Urea Nitrogen 26 mg/dL (7-18) H Creatinine 3.3 MG/DL (0.55-1.30) H Estimat Glomerular Filtration Rate mL/min (>60) Glucose Level 182 MG/DL (74-106) H Lactic Acid Level 1.70 mmol/L (0.66-2.22) Calcium Level 7.5 MG/DL (8.5-10.1) L Current Medications Medications (Trade) Dose Ordered Sig/Tamanna Route PRN Reason Start Time Stop Time Status Last Admin Dose Admin Amiodarone HCl 900 mg/Dextrose 500 ml @ 0 mls/hr Q24H IV 10/11/17 23:00 10/12/17 22:59 Chlorhexidine Gluconate (Rhianna-Hex 2%) 1 applic Q24H TOPIC 10/03/17 20:00 11/02/17 19:59 10/11/17 20:04 Dextrose (Dextrose 50%) STAT PRN IV Hypoglycemia 10/03/17 13:45 11/02/17 13:44 Dextrose/Sodium Chloride 1,000 ml @ 60 mls/hr [id number] IV 10/09/17 18:15 11/08/17 18:14 10/11/17 20:05 Hydromorphone HCl (Dilaudid) 1 mg Q4H PRN IVP PAIN 4-10 10/09/17 15:30 10/16/17 15:29 Insulin Aspart (NovoLOG) Q4HR SUBQ 10/03/17 17:00 11/02/17 16:59 10/11/17 20:58 Levofloxacin 100 ml @ 100 mls/hr Q48H IVPB 10/05/17 06:00 10/12/17 05:59 10/11/17 06:07 Midodrine (Pro-Amatine) 10 mg THREE TIMES A DAY ORAL 10/03/17 18:00 11/02/17 17:59 10/11/17 17:06 Norepinephrine Bitartrate 16 mg/ Dextrose 550 ml @ 0 mls/hr Q24H IV 10/11/17 17:00 11/10/17 16:59 10/11/17 16:51 Ondansetron HCl (Zofran) 4 mg Q4H PRN IVP Nausea & Vomiting 10/09/17 15:30 11/08/17 15:29 Pantoprazole (Protonix) 40 mg DAILY IVP 10/06/17 09:00 11/05/17 08:59 10/11/17 10:11 Vancomycin HCl (Vanco rx to dose) 1 ea DAILY PRN MISC Per rx protocol 10/03/17 13:45 11/02/17 13:44 Dina Bazan M.D. Oct 11, 2017 23:27
[2017-10-12] VITALS (69 sets, daily range): BP systolic 52–93; BP diastolic 29–81
[2017-10-12] MEDS: NovoLOG Insulin Flexpen SUBQ SCH ×6 (00:49→21:01)
--- NOTE | 2017-10-12 08:30 | Consultation ---
DATE OF CONSULTATION: 10/09/2017 HEMATOLOGY/ONCOLOGY CONSULTATION CONSULTING PHYSICIAN: Neri Rosenbaum M.D. REQUESTING PHYSICIAN: David Fay M.D. REASON FOR CONSULTATION: Evaluation of thrombocytopenia. IDENTIFICATION DATA: Dear Dr. Fay: The patient is a pleasant 72-year-old female with a past medical history significant for multiple comorbidities, at this time presents to [facility] with altered mental status, has been in the ICU for several days. At this point, noted to have abdominal distention, history of dilated bowel, consistent with possible ESBL. CT ordered to further evaluate. The patient is having mid abdominal pain. Surgical Service has evaluated the patient. The patient is currently on IV fluids with strict NPO, currently attempting nonsurgical intervention. It was noted that the patient's platelet count has decreased over the past several days. The patient has healthcare-associated pneumonia as well as sepsis and altered mental status, being monitored in ICU. The patient with CHF, getting hemodialysis. She is on antibiotics as well as pressors. Cardiology Service is following, Dr. Pederson. The patient with cardiomyopathy as well and continues to be on Levophed as well as milrinone. Hematology Service consulted for anemia and thrombocytopenia. PAST MEDICAL HISTORY: History of hyperkalemia, CHF, hyperglycemia, , altered mental status, CKD, abdominal pain, hypertension, . PAST SURGICAL HISTORY: None noted. MEDICATIONS: Reviewed. She is on pantoprazole as well as Levophed. She, in the past, actually has been getting heparin subcutaneous and currently being held at this time. ALLERGIES: Aspirin and penicillin. SOCIAL HISTORY: No alcohol, tobacco, or illicit drug use. FAMILY HISTORY: Noncontributory. REVIEW OF SYSTEMS: CONSTITUTIONAL: No fevers, chills, or night sweats. SKIN: No rashes, bumps, or itching. HEENT: No headache, hearing or vision changes. BREASTS: No lumps, pain, or discharge. PULMONARY: No cough, sputum, or shortness of breath. GASTROINTESTINAL: No nausea, vomiting, or diarrhea, but does have abdominal pain as well as constipation. GENITOURINARY: No dysuria, frequency, or urgency. MUSCULOSKELETAL: No joint swelling, muscle pain, or trauma. PHYSICAL EXAMINATION: GENERAL: No acute distress. VITAL SIGNS: Reviewed. PULMONARY: Decreased breath sounds. CARDIOVASCULAR: Regular rate. No S3 or S4. ABDOMEN: Soft, nontender, and nondistended. EXTREMITIES: There is 1+ edema. LABORATORY AND DIAGNOSTIC DATA: Currently, WBC of 8.8, hemoglobin 10.5, hematocrit 33, and platelet count 61,000. INR 1.3, PTT of 35. BUN of 54 and creatinine . B12 of 1800, folic acid 24. TSH 10.4. Imaging reviewed. CT scan of abdomen and pelvis shows small bowel obstruction, cardiomegaly, diverticulosis, and G-tube. Abdominal ultrasound shows bilateral echogenic kidneys. ascites. ASSESSMENT AND RECOMMENDATIONS: 1. Thrombocytopenia, rule out heparin-induced thrombocytopenia syndrome. Heparin should be held at this time and duplex of lower extremities to be ordered to rule out heparin-induced thrombocytopenia, likely trauma secondary to septic shock as it is likely consumption related. 2. Anemia secondary to chronic disease that is related to the patient's history of multiple comorbid conditions. The patient's ferritin was 119, percent sat of 48. 3. Anemia secondary to kidney disease, on dialysis. 4. Coagulopathy. Manage with vitamin K as needed as well as sent for hepatitis and human immunodeficiency virus. 5. Septic shock with pneumonia. She is on antibiotics. Continue broad-spectrum antibiotics. 6. Altered mental status, currently improving. 7. abdominal pain due to small bowel obstruction. I appreciate the consultation. Neri Rosenbaum M.D. DR: Daniel JOB#: [id number] CC:
[2017-10-12] MEDS: Midodrine 10mg tab ORAL SCH ×3 (09:21→17:58)
[2017-10-12] MEDS: Pantoprazole Inj IVP SCH (09:21)
[2017-10-12] MEDS: D5W IV SCH ×2 (09:39→19:29)
[2017-10-12] MEDS: NOREPINEPHRINE BITARTRATE IV SCH ×2 (09:39→19:29)
[2017-10-12] MEDS ORDERED: ALBUMIN HUMAN 5% IV ONE (11:00)
[2017-10-12 11:05] LABS: MEAN CORPUSCULAR HEMOGLOBIN 30.8 PG (27.0-31.0); MEAN CORPUSCULAR VOLUME 99 FL (80-99); MEAN PLATELET VOLUME 10.5 FL (6.5-10.1); PLATELET COUNT 44 K/UL (150-450); RED BLOOD COUNT 3.16 M/UL (4.20-5.40); WHITE BLOOD COUNT 9.4 K/UL (4.8-10.8)
[2017-10-12 11:24] LABS: ANISOCYTOSIS 1+; BAND NEUTROPHILS % (MANUAL) 1 % (0-8); BASOPHILS % (MANUAL) 0 % (0-2); EOSINOPHILS % (MANUAL) 0 % (0-3); HYPOCHROMASIA 1+; LYMPHOCYTES % (MANUAL) 11 % (20-45); NEUTROPHILS % (MANUAL) 83 % (45-75); PLATELET ESTIMATE DECREASED; PLATELET MORPHOLOGY NORMAL; TOTAL CELLS COUNTED 100
[2017-10-12 11:38] LABS: REFLEX LACTIC ACID YES OR NO YES
--- NOTE | 2017-10-12 11:38 | GI Progress Note ---
Assessment/Plan Problems: (1) Small bowel obstruction ICD Codes: K56.609 - Unspecified intestinal obstruction, unspecified as to partial versus complete obstruction SNOMED: 793750475 (2) Abdominal pain ICD Codes: R10.9 - Unspecified abdominal pain SNOMED: 21369219 (3) Poor appetite ICD Codes: R63.0 - Anorexia SNOMED: 09771595 (4) Altered mental status ICD Codes: R41.82 - Altered mental status, unspecified SNOMED: 057863103 Qualifiers: Qualified Codes: R41.82 - Altered mental status, unspecified Status: unchanged Status Narrative Discussed with Dr. Renteria. Assessment/Plan CT AP reviewed >> Findings consistent with small bowel obstruction, with dilated proximal small bowel,collapsed distal small bowel, and transition point in the anterior right lower quad anterior. abdominal US noted. anemia work up reviewed >> low FT4, high TSH suggestive of hypothyroidism, refer to PCP for tx fu surgical recs strict NPO + IVFs, okay for meds bowel decompression >> NGT to LIS serial imaging prn monitor H&H, prn transfusions ppi DM mgmt fu labs The patient was seen and examined at bedside and all new and available data was reviewed in the patients chart. I agree with the above findings, impression and plan. (Patient seen earlier today. Signature stamp does not reflect patient encounter time.). - Nakul Renteria MD Subjective Subjective limited Objective Last 24 Hour Vital Signs Date Time Temp Pulse Resp B/P (MAP) Pulse Ox O2 Delivery O2 Flow Rate FiO2 10/12/17 11:30 99 20 87/48 100 Nasal Cannula 3.0 10/12/17 11:15 97 20 89/50 100 Nasal Cannula 3.0 10/12/17 11:00 97 20 91/51 96 Nasal Cannula 3.0 10/12/17 10:45 96 20 91/50 96 Nasal Cannula 3.0 10/12/17 10:30 96 20 87/40 96 Nasal Cannula 3.0 10/12/17 10:15 95 20 87/48 96 Nasal Cannula 3.0 10/12/17 10:00 95 20 86/49 96 Nasal Cannula 3.0 10/12/17 09:45 94 20 86/51 96 Nasal Cannula 3.0 10/12/17 09:39 52/97 10/12/17 09:30 91 20 52/29 96 Nasal Cannula 3.0 10/12/17 09:15 92 20 57/33 96 Nasal Cannula 3.0 10/12/17 09:00 96 20 87/43 96 Nasal Cannula 3.0 10/12/17 08:45 97 20 83/49 96 Nasal Cannula 3.0 10/12/17 08:30 97 20 86/53 96 Nasal Cannula 3.0 10/12/17 08:15 96 20 84/50 96 Nasal Cannula 3.0 10/12/17 08:00 98 10/12/17 08:00 96.6 96 20 82/50 96 Nasal Cannula 3.0 10/12/17 07:45 96 20 83/50 96 Nasal Cannula 3.0 10/12/17 07:15 94 20 87/49 96 Nasal Cannula 3.0 10/12/17 07:00 94 20 82/48 96 Nasal Cannula 3.0 10/12/17 06:40 Nasal Cannula 2.0 28 10/12/17 06:40 98 Nasal Cannula 2.0 28 10/12/17 06:30 97 20 82/48 96 Nasal Cannula 3.0 10/12/17 06:00 97 16 72/52 97 Nasal Cannula 3.0 10/12/17 06:00 72/52 10/12/17 05:30 96.5 97 20 84/42 97 Nasal Cannula 3.0 10/12/17 05:00 76/45 10/12/17 05:00 97 22 76/45 97 Nasal Cannula 3.0 10/12/17 04:30 100 25 77/51 92 Nasal Cannula 3.0 10/12/17 04:00 100 21 82/52 92 Nasal Cannula 3.0 10/12/17 04:00 100 17 04:00 82/52 10/12/17 03:30 101 16 85/54 92 Nasal Cannula 3.0 10/12/17 03:00 87/56 10/12/17 03:00 101 16 87/56 91 Nasal Cannula 3.0 10/12/17 02:30 102 16 85/50 91 Nasal Cannula 3.0 10/12/17 02:00 102 16 85/49 91 Nasal Cannula 3.0 10/12/17 02:00 85/46 10/12/17 01:30 97.8 103 16 80/50 91 Nasal Cannula 3.0 10/12/17 01:00 104 16 81/46 91 Nasal Cannula 3.0 10/12/17 01:00 81/46 10/12/17 00:30 102 14 67/42 91 Nasal Cannula 3.0 10/12/17 00:00 70/41 17 00:00 101 10/12/17 00:00 104 24 70/41 93 Nasal Cannula 3.0 10/11/17 23:50 92/47 10/11/17 23:30 108 16 92/74 93 Nasal Cannula 3.0 10/11/17 23:00 102 22 88/49 95 Nasal Cannula 3.0 10/11/17 23:00 88/49 10/11/17 22:30 127 20 90/51 95 Nasal Cannula 3.0 10/11/17 22:21 170 10/11/17 22:00 95/53 10/11/17 22:00 118 17 95/53 97 Nasal Cannula 3.0 10/11/17 21:30 114 21 99/44 97 Nasal Cannula 3.0 10/11/17 21:00 98/50 10/11/17 21:00 118 20 98/50 97 Nasal Cannula 3.0 10/11/17 20:30 117 21 98/54 100 Nasal Cannula 3.0 10/11/17 20:00 120 18 97/57 98 Nasal Cannula 3.0 10/11/17 20:00 97/57 10/11/17 20:00 120 10/11/17 19:30 97.6 121 21 104/51 98 Nasal Cannula 3.0 10/11/17 19:30 98 Nasal Cannula 2.0 28 10/11/17 19:30 Nasal Cannula 2.0 28 10/11/17 19:00 121 23 99/57 93 Nasal Cannula 3.0 10/11/17 19:00 99/57 10/11/17 18:30 123 25 104/64 93 Nasal Cannula 3.0 10/11/17 18:00 124 21 92/48 86 Nasal Cannula 3.0 10/11/17 18:00 92/48 10/11/17 17:30 119 22 95/58 78 Nasal Cannula 3.0 10/11/17 17:00 109 22 85/49 97 Nasal Cannula 3.0 10/11/17 16:51 84/46 10/11/17 16:30 97.8 111 23 84/46 89 Nasal Cannula 3.0 10/11/17 16:00 109 23 84/52 89 Nasal Cannula 3.0 10/11/17 16:00 97 10/11/17 16:00 84/46 10/11/17 15:30 110 21 86/48 95 Nasal Cannula 3.0 10/11/17 15:00 83/45 10/11/17 15:00 106 21 83/45 98 Nasal Cannula 3.0 10/11/17 14:30 110 21 83/45 98 Nasal Cannula 3.0 10/11/17 14:00 86/50 10/11/17 14:00 110 21 87/49 98 Nasal Cannula 3.0 10/11/17 13:32 88/46 10/11/17 13:30 109 21 86/50 98 Nasal Cannula 3.0 10/11/17 13:00 109 21 88/46 98 Nasal Cannula 3.0 10/11/17 13:00 88/46 10/11/17 12:30 111 21 86/41 98 Nasal Cannula 3.0 10/11/17 12:00 106 10/11/17 12:00 89/51 10/11/17 12:00 97.7 111 21 84/52 98 Nasal Cannula 3.0 Intake and Output 10/12/17 10/13/17 19:00 07:00 Intake Total 50 ml Output Total 0 ml Balance 50 ml Free Water 50 ml Output Urine Total 0 ml Laboratory Tests Test 10/12/17 06:50 10/12/17 10:25 Random Vancomycin Level 16.9 ug/mL White Blood Count 9.4 K/UL (4.8-10.8) Red Blood Count 3.16 M/UL (4.20-5.40) L Hemoglobin 9.7 G/DL (12.0-16.0) L Hematocrit 31.5 % (37.0-47.0) L Mean Corpuscular Volume 99 FL (80-99) Mean Corpuscular Hemoglobin 30.8 PG (27.0-31.0) Mean Corpuscular Hemoglobin Concent 31.0 G/DL (32.0-36.0) L Red Cell Distribution Width 19.0 % (11.6-14.8) H Platelet Count 44 K/UL (150-450) L Mean Platelet Volume 10.5 FL (6.5-10.1) H Neutrophils (%) (Auto) % (45.0-75.0) Lymphocytes (%) (Auto) % (20.0-45.0) Monocytes (%) (Auto) % (1.0-10.0) Eosinophils (%) (Auto) % (0.0-3.0) Basophils (%) (Auto) % (0.0-2.0) Differential Total Cells Counted 100 Neutrophils % (Manual) 83 % (45-75) H Lymphocytes % (Manual) 11 % (20-45) L Monocytes % (Manual) 5 % (1-10) Eosinophils % (Manual) 0 % (0-3) Basophils % (Manual) 0 % (0-2) Band Neutrophils 1 % (0-8) Platelet Estimate Decreased L Platelet Morphology Normal Hypochromasia 1+ Anisocytosis 1+ Sodium Level Pending Potassium Level Pending Chloride Level Pending Carbon Dioxide Level Pending Blood Urea Nitrogen Pending Creatinine Pending Estimat Glomerular Filtration Rate Pending Glucose Level Pending Lactic Acid Level Pending Calcium Level Pending Magnesium Level Pending Total Bilirubin Pending Aspartate Amino Transf (AST/SGOT) Pending Alanine Aminotransferase (ALT/SGPT) Pending Alkaline Phosphatase Pending Total Protein Pending Albumin Pending Globulin Pending Height (Feet): 5 Height (Inches): 5.00 Weight (Pounds): 139 General Appearance: no apparent distress, alert Cardiovascular: normal rate Respiratory/Chest: normal breath sounds, no respiratory distress, other - NC Abdominal Exam: distended - less distended, other - NGT TO Lucia Feldman NConstance Oct 12, 2017 11:38 AMANDA RENTERIA Oct 13, 2017 08:33
[2017-10-12 11:45] LABS: ALANINE AMINOTRANSFERASE 13 U/L (12-78); ALBUMIN/GLOBULIN RATIO 0.6 (1.0-2.7); ANION GAP 10 mmol/L (5-15); ASPARTATE AMINO TRANSFERASE 19 U/L (15-37); CALCIUM 7.3 MG/DL (8.5-10.1); CARBON DIOXIDE 28 MMOL/L (21-32); CHLORIDE 97 MMOL/L (98-107); CREATININE 3.6 MG/DL (0.55-1.30); MAGNESIUM 1.5 MG/DL (1.8-2.4); POTASSIUM 3.3 MMOL/L (3.5-5.1); SODIUM 134 MMOL/L (136-145); TOTAL PROTEIN 5.1 G/DL (6.4-8.2)
[2017-10-12] MEDS ORDERED: Vancomycin 1gm in D5W 275ml IVPB ONE (12:00)
[2017-10-12 12:08] LABS: BILIRUBIN,DIRECT 0.8 MG/DL (0.0-0.3)
[2017-10-12] MEDS: D5NS 1,000 ML IV SCH (13:07)
--- NOTE | 2017-10-12 13:42 | General Surgery Progress Note ---
General Surgery-Progress Note Subjective Symptoms: worse Additional Comments increased requirement for pressors. hypotensive. lactate elevated. still with abdominal distention. Objective Last 24 Hour Vital Signs Date Time Temp Pulse Resp B/P (MAP) Pulse Ox O2 Delivery O2 Flow Rate FiO2 10/12/17 12:15 97 20 85/51 100 Nasal Cannula 3.0 10/12/17 12:00 96.8 96 20 85/51 100 Nasal Cannula 3.0 10/12/17 11:58 96 10/12/17 11:45 96 20 84/49 100 Nasal Cannula 3.0 10/12/17 11:30 99 20 87/48 100 Nasal Cannula 3.0 10/12/17 11:15 97 20 89/50 100 Nasal Cannula 3.0 10/12/17 11:00 97 20 91/51 96 Nasal Cannula 3.0 10/12/17 10:45 96 20 91/50 96 Nasal Cannula 3.0 10/12/17 10:30 96 20 87/40 96 Nasal Cannula 3.0 10/12/17 10:15 95 20 87/48 96 Nasal Cannula 3.0 10/12/17 10:00 95 20 86/49 96 Nasal Cannula 3.0 10/12/17 09:45 94 20 86/51 96 Nasal Cannula 3.0 10/12/17 09:39 52/97 10/12/17 09:30 91 20 52/29 96 Nasal Cannula 3.0 10/12/17 09:15 92 20 57/33 96 Nasal Cannula 3.0 10/12/17 09:00 96 20 87/43 96 Nasal Cannula 3.0 10/12/17 08:45 97 20 83/49 96 Nasal Cannula 3.0 10/12/17 08:30 97 20 86/53 96 Nasal Cannula 3.0 10/12/17 08:15 96 20 84/50 96 Nasal Cannula 3.0 10/12/17 08:00 98 10/12/17 08:00 96.6 96 20 82/50 96 Nasal Cannula 3.0 10/12/17 07:45 96 20 83/50 96 Nasal Cannula 3.0 10/12/17 07:15 94 20 87/49 96 Nasal Cannula 3.0 10/12/17 07:00 94 20 82/48 96 Nasal Cannula 3.0 10/12/17 06:40 Nasal Cannula 2.0 28 10/12/17 06:40 98 Nasal Cannula 2.0 28 10/12/17 06:30 97 20 82/48 96 Nasal Cannula 3.0 10/12/17 06:00 97 16 72/52 97 Nasal Cannula 3.0 10/12/17 06:00 72/52 10/12/17 05:30 96.5 97 20 84/42 97 Nasal Cannula 3.0 10/12/17 05:00 76/45 10/12/17 05:00 97 22 76/45 97 Nasal Cannula 3.0 10/12/17 04:30 100 25 77/51 92 Nasal Cannula 3.0 10/12/17 04:00 100 21 82/52 92 Nasal Cannula 3.0 10/12/17 04:00 100 10/12/17 04:00 82/52 10/12/17 03:30 101 16 85/54 92 Nasal Cannula 3.0 10/12/17 03:00 87/56 10/12/17 03:00 101 16 87/56 91 Nasal Cannula 3.0 10/12/17 02:30 102 16 85/50 91 Nasal Cannula 3.0 10/12/17 02:00 102 16 85/49 91 Nasal Cannula 3.0 10/12/17 02:00 85/46 10/12/17 01:30 97.8 103 16 80/50 91 Nasal Cannula 3.0 10/12/17 01:00 104 16 81/46 91 Nasal Cannula 3.0 10/12/17 01:00 81/46 10/12/17 00:30 102 14 67/42 91 Nasal Cannula 3.0 10/12/17 00:00 70/41 10/12/17 00:00 101 10/12/17 00:00 104 24 70/41 93 Nasal Cannula 3.0 10/11/17 23:50 92/47 10/11/17 23:30 108 16 92/74 93 Nasal Cannula 3.0 10/11/17 23:00 102 22 88/49 95 Nasal Cannula 3.0 10/11/17 23:00 88/49 10/11/17 22:30 127 20 90/51 95 Nasal Cannula 3.0 10/11/17 22:21 170 10/11/17 22:00 95/53 10/11/17 22:00 118 17 95/53 97 Nasal Cannula 3.0 10/11/17 21:30 114 21 99/44 97 Nasal Cannula 3.0 10/11/17 21:00 98/50 10/11/17 21:00 118 20 98/50 97 Nasal Cannula 3.0 10/11/17 20:30 117 21 98/54 100 Nasal Cannula 3.0 10/11/17 20:00 120 18 97/57 98 Nasal Cannula 3.0 10/11/17 20:00 97/57 10/11/17 20:00 120 10/11/17 19:30 97.6 121 21 104/51 98 Nasal Cannula 3.0 10/11/17 19:30 98 Nasal Cannula 2.0 28 10/11/17 19:30 Nasal Cannula 2.0 28 10/11/17 19:00 121 23 99/57 93 Nasal Cannula 3.0 10/11/17 19:00 99/57 10/11/17 18:30 123 25 104/64 93 Nasal Cannula 3.0 10/11/17 18:00 124 21 92/48 86 Nasal Cannula 3.0 10/11/17 18:00 92/48 10/11/17 17:30 119 22 95/58 78 Nasal Cannula 3.0 10/11/17 17:00 109 22 85/49 97 Nasal Cannula 3.0 10/11/17 16:51 84/46 10/11/17 16:30 97.8 111 23 84/46 89 Nasal Cannula 3.0 10/11/17 16:00 109 23 84/52 89 Nasal Cannula 3.0 10/11/17 16:00 97 10/11/17 16:00 84/46 10/11/17 15:30 110 21 86/48 95 Nasal Cannula 3.0 10/11/17 15:00 83/45 10/11/17 15:00 106 21 83/45 98 Nasal Cannula 3.0 10/11/17 14:30 110 21 83/45 98 Nasal Cannula 3.0 10/11/17 14:00 86/50 10/11/17 14:00 110 21 87/49 98 Nasal Cannula 3.0 I&O Intake and Output 10/12/17 10/13/17 19:00 07:00 Intake Total 50 ml Output Total 0 ml Balance 50 ml Free Water 50 ml Output Urine Total 0 ml Abdomen: soft, distended, tenderness, absent bowel sounds Laboratory Tests Test 10/12/17 06:50 10/12/17 10:25 Random Vancomycin Level 16.9 ug/mL White Blood Count 9.4 K/UL (4.8-10.8) Red Blood Count 3.16 M/UL (4.20-5.40) L Hemoglobin 9.7 G/DL (12.0-16.0) L Hematocrit 31.5 % (37.0-47.0) L Mean Corpuscular Volume 99 FL (80-99) Mean Corpuscular Hemoglobin 30.8 PG (27.0-31.0) Mean Corpuscular Hemoglobin Concent 31.0 G/DL (32.0-36.0) L Red Cell Distribution Width 19.0 % (11.6-14.8) H Platelet Count 44 K/UL (150-450) L Mean Platelet Volume 10.5 FL (6.5-10.1) H Neutrophils (%) (Auto) % (45.0-75.0) Lymphocytes (%) (Auto) % (20.0-45.0) Monocytes (%) (Auto) % (1.0-10.0) Eosinophils (%) (Auto) % (0.0-3.0) Basophils (%) (Auto) % (0.0-2.0) Differential Total Cells Counted 100 Neutrophils % (Manual) 83 % (45-75) H Lymphocytes % (Manual) 11 % (20-45) L Monocytes % (Manual) 5 % (1-10) Eosinophils % (Manual) 0 % (0-3) Basophils % (Manual) 0 % (0-2) Band Neutrophils 1 % (0-8) Platelet Estimate Decreased L Platelet Morphology Normal Hypochromasia 1+ Anisocytosis 1+ Sodium Level 134 MMOL/L (136-145) L Potassium Level 3.3 MMOL/L (3.5-5.1) L Chloride Level 97 MMOL/L (98-107) L Carbon Dioxide Level 28 MMOL/L (21-32) Anion Gap 10 mmol/L (5-15) Blood Urea Nitrogen 30 mg/dL (7-18) H Creatinine 3.6 MG/DL (0.55-1.30) H Estimat Glomerular Filtration Rate mL/min (>60) Glucose Level 248 MG/DL (74-106) H Lactic Acid Level 2.70 mmol/L (0.66-2.22) H Calcium Level 7.3 MG/DL (8.5-10.1) L Magnesium Level 1.5 MG/DL (1.8-2.4) L Total Bilirubin 1.6 MG/DL (0.2-1.0) H Direct Bilirubin 0.8 MG/DL (0.0-0.3) H Aspartate Amino Transf (AST/SGOT) 19 U/L (15-37) Alanine Aminotransferase (ALT/SGPT) 13 U/L (12-78) Alkaline Phosphatase 75 U/L (46-116) Total Protein 5.1 G/DL (6.4-8.2) L Albumin 2.0 G/DL (3.4-5.0) L Globulin 3.1 g/dL Albumin/Globulin Ratio 0.6 (1.0-2.7) L Plan Problems: (1) Small bowel obstruction Assessment & Plan: 72 year old female with small bowel obstruction. CT reviewed and very limited given lack of contrast and image quality. can identify dilated bowel loops and transition point. etiology unclear at this time. patient and family deny prior abdominal surgery. On exam can see a faint prior lower midline scare that is well healed. No improvement. stable but likely SBO and will need surgery since not resolving with non operative management KUB unchanged and still very distended. labs okay. At this point I would recommend surgery and exploratory laparotomy to evaluate etiology of obstruction. Patient not consentable for surgery. Patient has a POA Lesley Hammond and Daughter Brittny Magallanes. I spoke to them yesterday to discuss surgery and expressed urgency of discussion. they stated they will not make any decisions until they come in which was planned for today at 1 pm. I advised against waiting so long but they would not come in sooner. It is currently 13:30 and staff have contacted POA who states she might be here by 3pm today. As condition worsens I am afraid this are only getting worse and delaying surgery is not advisable but unfortunately POA still unavailable. will be available for discussion with POA and family when they are available. Strict NPO IV fluids NG Tube to suction (intermittent or continuous okay). Please ensure tube functional throughout day flush NG tube q4hrs and prn Vimal Montague Oct 12, 2017 13:42
--- NOTE | 2017-10-12 14:25 | Infectious Diseases Prog Note ---
Assessment/Plan Problems: (1) HCAP (healthcare-associated pneumonia) Assessment & Plan: continue vancomycin and levaquin empiric coverage for 7-10 days , sputum culture grew tejas albicans which is most likely colonization and not real infection. monitor CXR . (2) Sepsis Assessment & Plan: less likely , blood culture so far is negative, continue vancomycin and levaquin empirically for now to cover for pneumonia for 7-10 days (3) Altered mental status Assessment & Plan: improved , due to the above, continue neuro check , monitor in ICU (4) CHF (congestive heart failure) Assessment & Plan: with exacerbation , on HD, renal is following , monitor CXR (5) Abdominal pain Assessment & Plan: due to bowel obstruction , had NGT by GI , US of the abdomen didn't show any acute pathology but nonobstructing stones, surgery is following (6) Hypotension Assessment & Plan: not responding to pressors , rule out adrenal insufficiency , will order serum cortisol level , cardiology is following Subjective Constitutional: Reports: no symptoms HEENT: Reports: no symptoms Respiratory: Reports: no symptoms Breasts: Reports: no symptoms Gastrointestinal/Abdominal: Reports: bloating, other - pain Genitourinary: Reports: no symptoms Neurologic: Reports: no symptoms Psychiatric: Reports: no symptoms Skin: Reports: no symptoms Endocrine: Reports: no symptoms Hematologic: Reports: no symptoms Musculoskeletal: Reports: no symptoms Allergies: Coded Allergies: ASPIRIN (Unverified Allergy, Unknown, 10/03/17) PENICILLINS (Unverified Allergy, Unknown, 10/03/17) Subjective she was more awake and alert, complained of abdominal discomfort, still on pressor Objective Vital Signs Last 24 Hour Vital Signs Date Time Temp Pulse Resp B/P (MAP) Pulse Ox O2 Delivery O2 Flow Rate FiO2 10/12/17 12:15 97 20 85/51 100 Nasal Cannula 3.0 10/12/17 12:00 96.8 96 20 85/51 100 Nasal Cannula 3.0 10/12/17 11:58 96 10/12/17 11:45 96 20 84/49 100 Nasal Cannula 3.0 10/12/17 11:30 99 20 87/48 100 Nasal Cannula 3.0 10/12/17 11:15 97 20 89/50 100 Nasal Cannula 3.0 10/12/17 11:00 97 20 91/51 96 Nasal Cannula 3.0 10/12/17 10:45 96 20 91/50 96 Nasal Cannula 3.0 10/12/17 10:30 96 20 87/40 96 Nasal Cannula 3.0 10/12/17 10:15 95 20 87/48 96 Nasal Cannula 3.0 10/12/17 10:00 95 20 86/49 96 Nasal Cannula 3.0 10/12/17 09:45 94 20 86/51 96 Nasal Cannula 3.0 10/12/17 09:39 52/97 10/12/17 09:30 91 20 52/29 96 Nasal Cannula 3.0 10/12/17 09:15 92 20 57/33 96 Nasal Cannula 3.0 10/12/17 09:00 96 20 87/43 96 Nasal Cannula 3.0 10/12/17 08:45 97 20 83/49 96 Nasal Cannula 3.0 10/12/17 08:30 97 20 86/53 96 Nasal Cannula 3.0 10/12/17 08:15 96 20 84/50 96 Nasal Cannula 3.0 10/12/17 08:00 98 10/12/17 08:00 96.6 96 20 82/50 96 Nasal Cannula 3.0 10/12/17 07:45 96 20 83/50 96 Nasal Cannula 3.0 10/12/17 07:15 94 20 87/49 96 Nasal Cannula 3.0 10/12/17 07:00 94 20 82/48 96 Nasal Cannula 3.0 10/12/17 06:40 Nasal Cannula 2.0 28 10/12/17 06:40 98 Nasal Cannula 2.0 28 10/12/17 06:30 97 20 82/48 96 Nasal Cannula 3.0 10/12/17 06:00 97 16 72/52 97 Nasal Cannula 3.0 10/12/17 06:00 72/52 10/12/17 05:30 96.5 97 20 84/42 97 Nasal Cannula 3.0 10/12/17 05:00 76/45 10/12/17 05:00 97 22 76/45 97 Nasal Cannula 3.0 10/12/17 04:30 100 25 77/51 92 Nasal Cannula 3.0 10/12/17 04:00 100 21 82/52 92 Nasal Cannula 3.0 10/12/17 04:00 100 10/12/17 04:00 82/52 10/12/17 03:30 101 16 85/54 92 Nasal Cannula 3.0 10/12/17 03:00 87/56 10/12/17 03:00 101 16 87/56 91 Nasal Cannula 3.0 10/12/17 02:30 102 16 85/50 91 Nasal Cannula 3.0 10/12/17 02:00 102 16 85/49 91 Nasal Cannula 3.0 10/12/17 02:00 85/46 10/12/17 01:30 97.8 103 16 80/50 91 Nasal Cannula 3.0 10/12/17 01:00 104 16 81/46 91 Nasal Cannula 3.0 10/12/17 01:00 81/46 10/12/17 00:30 102 14 67/42 91 Nasal Cannula 3.0 10/12/17 00:00 70/41 10/12/17 00:00 101 10/12/17 00:00 104 24 70/41 93 Nasal Cannula 3.0 10/11/17 23:50 92/47 10/11/17 23:30 108 16 92/74 93 Nasal Cannula 3.0 10/11/17 23:00 102 22 88/49 95 Nasal Cannula 3.0 10/11/17 23:00 88/49 10/11/17 22:30 127 20 90/51 95 Nasal Cannula 3.0 10/11/17 22:21 170 10/11/17 22:00 95/53 10/11/17 22:00 118 17 95/53 97 Nasal Cannula 3.0 10/11/17 21:30 114 21 99/44 97 Nasal Cannula 3.0 10/11/17 21:00 98/50 10/11/17 21:00 118 20 98/50 97 Nasal Cannula 3.0 10/11/17 20:30 117 21 98/54 100 Nasal Cannula 3.0 10/11/17 20:00 120 18 97/57 98 Nasal Cannula 3.0 10/11/17 20:00 97/57 10/11/17 20:00 120 10/11/17 19:30 97.6 121 21 104/51 98 Nasal Cannula 3.0 10/11/17 19:30 98 Nasal Cannula 2.0 28 10/11/17 19:30 Nasal Cannula 2.0 28 10/11/17 19:00 121 23 99/57 93 Nasal Cannula 3.0 10/11/17 19:00 99/57 10/11/17 18:30 123 25 104/64 93 Nasal Cannula 3.0 10/11/17 18:00 124 21 92/48 86 Nasal Cannula 3.0 10/11/17 18:00 92/48 10/11/17 17:30 119 22 95/58 78 Nasal Cannula 3.0 10/11/17 17:00 109 22 85/49 97 Nasal Cannula 3.0 10/11/17 16:51 84/46 10/11/17 16:30 97.8 111 23 84/46 89 Nasal Cannula 3.0 10/11/17 16:00 109 23 84/52 89 Nasal Cannula 3.0 10/11/17 16:00 97 10/11/17 16:00 84/46 10/11/17 15:30 110 21 86/48 95 Nasal Cannula 3.0 10/11/17 15:00 83/45 10/11/17 15:00 106 21 83/45 98 Nasal Cannula 3.0 10/11/17 14:30 110 21 83/45 98 Nasal Cannula 3.0 Height (Feet): 5 Height (Inches): 5.00 Weight (Pounds): 139 General Appearance: WD/WN, no acute distress HEENT: normocephalic, atraumatic, anicteric, mucous membranes moist, PERRL Respiratory/Chest: chest wall non-tender, normal breath sounds, no respiratory distress, no accessory muscle use, decreased breath sounds, crackles/rales Cardiovascular: normal peripheral pulses, normal rate, regular rhythm, no gallop/murmur, no JVD Abdomen: normal bowel sounds, soft, non tender, no organomegaly, non distended , no mass, no scars Extremities: no cyanosis, no clubbing Skin: no rash, no lesions, no ulcers Lymphatic: no neck adenopathy, no groin adenopathy Laboratory Tests Test 10/12/17 06:50 10/12/17 10:25 Random Vancomycin Level 16.9 ug/mL White Blood Count 9.4 K/UL (4.8-10.8) Red Blood Count 3.16 M/UL (4.20-5.40) L Hemoglobin 9.7 G/DL (12.0-16.0) L Hematocrit 31.5 % (37.0-47.0) L Mean Corpuscular Volume 99 FL (80-99) Mean Corpuscular Hemoglobin 30.8 PG (27.0-31.0) Mean Corpuscular Hemoglobin Concent 31.0 G/DL (32.0-36.0) L Red Cell Distribution Width 19.0 % (11.6-14.8) H Platelet Count 44 K/UL (150-450) L Mean Platelet Volume 10.5 FL (6.5-10.1) H Neutrophils (%) (Auto) % (45.0-75.0) Lymphocytes (%) (Auto) % (20.0-45.0) Monocytes (%) (Auto) % (1.0-10.0) Eosinophils (%) (Auto) % (0.0-3.0) Basophils (%) (Auto) % (0.0-2.0) Differential Total Cells Counted 100 Neutrophils % (Manual) 83 % (45-75) H Lymphocytes % (Manual) 11 % (20-45) L Monocytes % (Manual) 5 % (1-10) Eosinophils % (Manual) 0 % (0-3) Basophils % (Manual) 0 % (0-2) Band Neutrophils 1 % (0-8) Platelet Estimate Decreased L Platelet Morphology Normal Hypochromasia 1+ Anisocytosis 1+ Sodium Level 134 MMOL/L (136-145) L Potassium Level 3.3 MMOL/L (3.5-5.1) L Chloride Level 97 MMOL/L (98-107) L Carbon Dioxide Level 28 MMOL/L (21-32) Anion Gap 10 mmol/L (5-15) Blood Urea Nitrogen 30 mg/dL (7-18) H Creatinine 3.6 MG/DL (0.55-1.30) H Estimat Glomerular Filtration Rate mL/min (>60) Glucose Level 248 MG/DL (74-106) H Lactic Acid Level 2.70 mmol/L (0.66-2.22) H Calcium Level 7.3 MG/DL (8.5-10.1) L Magnesium Level 1.5 MG/DL (1.8-2.4) L Total Bilirubin 1.6 MG/DL (0.2-1.0) H Direct Bilirubin 0.8 MG/DL (0.0-0.3) H Aspartate Amino Transf (AST/SGOT) 19 U/L (15-37) Alanine Aminotransferase (ALT/SGPT) 13 U/L (12-78) Alkaline Phosphatase 75 U/L (46-116) Total Protein 5.1 G/DL (6.4-8.2) L Albumin 2.0 G/DL (3.4-5.0) L Globulin 3.1 g/dL Albumin/Globulin Ratio 0.6 (1.0-2.7) L Current Medications Medications (Trade) Dose Ordered Sig/Tamanna Route PRN Reason Start Time Stop Time Status Last Admin Dose Admin Amiodarone HCl 900 mg/Dextrose 500 ml @ 0 mls/hr Q24H IV 10/11/17 23:00 10/12/17 22:59 10/11/17 23:49 Chlorhexidine Gluconate (Rhianna-Hex 2%) 1 applic Q24H TOPIC 10/03/17 20:00 11/02/17 19:59 10/11/17 20:04 Dextrose (Dextrose 50%) STAT PRN IV Hypoglycemia 10/03/17 13:45 11/02/17 13:44 Dextrose/Sodium Chloride 1,000 ml @ 60 mls/hr [id number] IV 10/09/17 18:15 11/08/17 18:14 10/12/17 13:07 Hydromorphone HCl (Dilaudid) 1 mg Q4H PRN IVP PAIN 4-10 10/09/17 15:30 10/16/17 15:29 Insulin Aspart (NovoLOG) Q4HR SUBQ 10/03/17 17:00 11/02/17 16:59 10/12/17 13:21 Magnesium Sulfate 100 ml @ 100 mls/hr Q1H IVPB 10/12/17 14:00 10/12/17 15:59 Midodrine (Pro-Amatine) 10 mg THREE TIMES A DAY ORAL 10/03/17 18:00 11/02/17 17:59 10/12/17 13:08 Norepinephrine Bitartrate 16 mg/ Dextrose 550 ml @ 0 mls/hr Q24H IV 10/11/17 17:00 11/10/17 16:59 10/12/17 09:39 Ondansetron HCl (Zofran) 4 mg Q4H PRN IVP Nausea & Vomiting 10/09/17 15:30 11/08/17 15:29 Pantoprazole (Protonix) 40 mg DAILY IVP 10/06/17 09:00 11/05/17 08:59 10/12/17 09:21 Potassium Chloride (K-Dur) 40 meq ONCE ONCE NGT 10/12/17 14:30 10/12/17 14:31 Vancomycin HCl (Vanco rx to dose) 1 ea DAILY PRN MISC Per rx protocol 10/03/17 13:45 11/02/17 13:44 Dina Bazan M.D. Oct 12, 2017 14:25
--- NOTE | 2017-10-12 15:32 | General Progress Note ---
Assessment/Plan Assessment/Plan ASSESSMENT AND RECOMMENDATIONS: 1. Thrombocytopenia, rule out heparin-induced thrombocytopenia syndrome. --> No acute DVT --> likely due to sepsis 2. Anemia secondary to chronic disease that is related to the patient's history of multiple comorbid conditions. --> The patient's ferritin was 119, percent sat of 48. 3. Anemia secondary to kidney disease, on dialysis. 4. Coagulopathy. Manage with vitamin K as needed. 5. Septic shock with pneumonia. She is on antibiotics. Continue broad- spectrum antibiotics. 6. Small bowel obstruction, appreciate surgery recs Subjective Allergies: Coded Allergies: ASPIRIN (Unverified Allergy, Unknown, 10/03/17) PENICILLINS (Unverified Allergy, Unknown, 10/03/17) Objective Last 24 Hour Vital Signs Date Time Temp Pulse Resp B/P (MAP) Pulse Ox O2 Delivery O2 Flow Rate FiO2 10/12/17 14:45 84 20 82/48 100 Nasal Cannula 3.0 10/12/17 14:30 86 20 82/45 100 Nasal Cannula 3.0 10/12/17 14:15 88 20 83/46 100 Nasal Cannula 3.0 10/12/17 14:00 94 20 87/81 100 Nasal Cannula 3.0 10/12/17 13:45 94 20 86/47 100 Nasal Cannula 3.0 10/12/17 13:30 96 20 79/49 100 Nasal Cannula 3.0 10/12/17 13:15 96 20 80/48 100 Nasal Cannula 3.0 10/12/17 13:00 96 20 80/47 100 Nasal Cannula 3.0 10/12/17 12:45 96 20 88/52 100 Nasal Cannula 3.0 10/12/17 12:30 96 20 88/52 100 Nasal Cannula 3.0 10/12/17 12:15 97 20 85/51 100 Nasal Cannula 3.0 10/12/17 12:00 96.8 96 20 85/51 100 Nasal Cannula 3.0 10/12/17 11:58 96 10/12/17 11:45 96 20 84/49 100 Nasal Cannula 3.0 10/12/17 11:30 99 20 87/48 100 Nasal Cannula 3.0 10/12/17 11:15 97 20 89/50 100 Nasal Cannula 3.0 10/12/17 11:00 97 20 91/51 96 Nasal Cannula 3.0 10/12/17 10:45 96 20 91/50 96 Nasal Cannula 3.0 10/12/17 10:30 96 20 87/40 96 Nasal Cannula 3.0 10/12/17 10:15 95 20 87/48 96 Nasal Cannula 3.0 10/12/17 10:00 95 20 86/49 96 Nasal Cannula 3.0 10/12/17 09:45 94 20 86/51 96 Nasal Cannula 3.0 10/12/17 09:39 52/97 10/12/17 09:30 91 20 52/29 96 Nasal Cannula 3.0 10/12/17 09:15 92 20 57/33 96 Nasal Cannula 3.0 10/12/17 09:00 96 20 87/43 96 Nasal Cannula 3.0 10/12/17 08:45 97 20 83/49 96 Nasal Cannula 3.0 10/12/17 08:30 97 20 86/53 96 Nasal Cannula 3.0 10/12/17 08:15 96 20 84/50 96 Nasal Cannula 3.0 10/12/17 08:00 98 10/12/17 08:00 96.6 96 20 82/50 96 Nasal Cannula 3.0 10/12/17 07:45 96 20 83/50 96 Nasal Cannula 3.0 10/12/17 07:15 94 20 87/49 96 Nasal Cannula 3.0 10/12/17 07:00 94 20 82/48 96 Nasal Cannula 3.0 10/12/17 06:40 Nasal Cannula 2.0 28 10/12/17 06:40 98 Nasal Cannula 2.0 28 10/12/17 06:30 97 20 82/48 96 Nasal Cannula 3.0 10/12/17 06:00 97 16 72/52 97 Nasal Cannula 3.0 10/12/17 06:00 72/52 10/12/17 05:30 96.5 97 20 84/42 97 Nasal Cannula 3.0 10/12/17 05:00 76/45 10/12/17 05:00 97 22 76/45 97 Nasal Cannula 3.0 10/12/17 04:30 100 25 77/51 92 Nasal Cannula 3.0 10/12/17 04:00 100 21 82/52 92 Nasal Cannula 3.0 10/12/17 04:00 100 10/12/17 04:00 82/52 10/12/17 03:30 101 16 85/54 92 Nasal Cannula 3.0 10/12/17 03:00 87/56 10/12/17 03:00 101 16 87/56 91 Nasal Cannula 3.0 10/12/17 02:30 102 16 85/50 91 Nasal Cannula 3.0 10/12/17 02:00 102 16 85/49 91 Nasal Cannula 3.0 10/12/17 02:00 85/46 10/12/17 01:30 97.8 103 16 80/50 91 Nasal Cannula 3.0 10/12/17 01:00 104 16 81/46 91 Nasal Cannula 3.0 10/12/17 01:00 81/46 10/12/17 00:30 102 14 67/42 91 Nasal Cannula 3.0 10/12/17 00:00 70/41 10/12/17 00:00 101 10/12/17 00:00 104 24 70/41 93 Nasal Cannula 3.0 10/11/17 23:50 92/47 10/11/17 23:30 108 16 92/74 93 Nasal Cannula 3.0 10/11/17 23:00 102 22 88/49 95 Nasal Cannula 3.0 10/11/17 23:00 88/49 10/11/17 22:30 127 20 90/51 95 Nasal Cannula 3.0 10/11/17 22:21 170 10/11/17 22:00 95/53 10/11/17 22:00 118 17 95/53 97 Nasal Cannula 3.0 10/11/17 21:30 114 21 99/44 97 Nasal Cannula 3.0 10/11/17 21:00 98/50 10/11/17 21:00 118 20 98/50 97 Nasal Cannula 3.0 10/11/17 20:30 117 21 98/54 100 Nasal Cannula 3.0 10/11/17 20:00 120 18 97/57 98 Nasal Cannula 3.0 10/11/17 20:00 97/57 10/11/17 20:00 120 10/11/17 19:30 97.6 121 21 104/51 98 Nasal Cannula 3.0 10/11/17 19:30 98 Nasal Cannula 2.0 28 10/11/17 19:30 Nasal Cannula 2.0 28 10/11/17 19:00 121 23 99/57 93 Nasal Cannula 3.0 10/11/17 19:00 99/57 10/11/17 18:30 123 25 104/64 93 Nasal Cannula 3.0 10/11/17 18:00 124 21 92/48 86 Nasal Cannula 3.0 10/11/17 18:00 92/48 10/11/17 17:30 119 22 95/58 78 Nasal Cannula 3.0 10/11/17 17:00 109 22 85/49 97 Nasal Cannula 3.0 10/11/17 16:51 84/46 10/11/17 16:30 97.8 111 23 84/46 89 Nasal Cannula 3.0 10/11/17 16:00 109 23 84/52 89 Nasal Cannula 3.0 10/11/17 16:00 97 10/11/17 16:00 84/46 Intake and Output 10/12/17 10/13/17 19:00 07:00 Intake Total 50 ml Output Total 0 ml Balance 50 ml Free Water 50 ml Output Urine Total 0 ml Laboratory Tests 10/12/17 06:50: Random Vancomycin Level 16.9 10/12/17 10:25: White Blood Count 9.4, Red Blood Count 3.16L, Hemoglobin 9.7L, Hematocrit 31.5L , Mean Corpuscular Volume 99, Mean Corpuscular Hemoglobin 30.8, Mean Corpuscular Hemoglobin Concent 31.0L, Red Cell Distribution Width 19.0H, Platelet Count 44L, Mean Platelet Volume 10.5H, Neutrophils (%) (Auto) , Lymphocytes (%) (Auto) , Monocytes (%) (Auto) , Eosinophils (%) (Auto) , Basophils (%) (Auto) , Differential Total Cells Counted 100, Neutrophils % ( Manual) 83H, Lymphocytes % (Manual) 11L, Monocytes % (Manual) 5, Eosinophils % ( Manual) 0, Basophils % (Manual) 0, Band Neutrophils 1, Platelet Estimate DecreasedL, Platelet Morphology Normal, Hypochromasia 1+, Anisocytosis 1+, Sodium Level 134L, Potassium Level 3.3L, Chloride Level 97L, Carbon Dioxide Level 28, Anion Gap 10, Blood Urea Nitrogen 30H, Creatinine 3.6H, Estimat Glomerular Filtration Rate , Glucose Level 248H, Lactic Acid Level 2.70H, Calcium Level 7.3L, Magnesium Level 1.5L, Total Bilirubin 1.6H, Direct Bilirubin 0.8H, Aspartate Amino Transf (AST/SGOT) 19, Alanine Aminotransferase ( ALT/SGPT) 13, Alkaline Phosphatase 75, Total Protein 5.1L, Albumin 2.0L, Globulin 3.1, Albumin/Globulin Ratio 0.6L Height (Feet): 5 Height (Inches): 5.00 Weight (Pounds): 139 General Appearance: WD/WN, no apparent distress EENT: PERRL/EOMI Neck: non-tender, normal alignment Neurologic: sensory deficit, disoriented Skin: normal pigmentation Neri Rosenbaum Oct 12, 2017 15:32
--- NOTE | 2017-10-12 19:15 | History and Physical Report ---
DATE OF ADMISSION: 10/03/2017 HISTORY OF PRESENT ILLNESS: The patient is a 72-year-old female, who was living at home came to the emergency room for CHF, hypoxia, altered mental status and septic shock. The patient is still hypotensive, opening her eyes, comfortable, in no distress. Her lactic acid is still high. PAST MEDICAL HISTORY: Significant for CHF, hypotension, abdominal pain, poor appetite and small bowel obstruction. ALLERGIES: NKA. MEDICATIONS: See the list. PHYSICAL EXAMINATION: GENERAL: This is an elderly cachectic female, who looks critically sick. VITAL SIGNS: Blood pressure is 82/48, pulse 84, respirations 20, and temperature is no fever. Saturation 100%. SKIN: Good skin turgor. HEENT: NAD. CHEST: Bilateral decreased breath sounds. CARDIOVASCULAR: Regular rhythm. No gallop. No murmur. ABDOMEN: Soft. EXTREMITIES: No swelling. GENITOURINARY: Deferred. LABORATORY DATA: White count 9.4, hemoglobin 9.7, hematocrit 31 and platelets are 44. Chemistry panel; lactic acid 2.5, bilirubin 1.6, sodium 134, potassium 3.3, BUN 30 and creatinine 3.6. ASSESSMENT: 1. Small bowel obstruction. 2. Hypokalemia. 3. Acute renal failure. 4. Sepsis. PLAN: We will currently continue current treatment. The patient is currently on potassium replacement, magnesium and vancomycin. Continue amiodarone. Cardiology and Pulmonary and Nephrology on case. Gastrointestinal surgery is also on case. Continue NG tube to low to intermittent suction. Jesse Campa M.D. DR: MATT JOB#: [id number] CC:
--- NOTE | 2017-10-12 19:41 | Cardiology Progress Note ---
Assessment/Plan Assessment/Plan LATE ENTRY PROGRESS NOTE DATE OF SERVICE: 10/10/17 PATIENT SEEN: 20:14 1. Septic shock, continue Levophed gtt, continue midodrine. 2. Anterior ischemia on 12-lead EKG. The patient denies any chest pain. 3. Severe cardiomyopathy with EF 20-25%. Ischemia evaluation once off pressors. 4. End-stage renal disease, on hemodialysis. Subjective Subjective Sinus rhythm at 88. NGT in place. On levophed gtt. Objective Last 24 Hour Vital Signs Date Time Temp Pulse Resp B/P (MAP) Pulse Ox O2 Delivery O2 Flow Rate FiO2 10/12/17 19:29 61/34 10/12/17 19:00 79 20 61/34 100 Nasal Cannula 3.0 10/12/17 18:45 88 20 82/62 100 Nasal Cannula 3.0 10/12/17 18:30 88 20 89/39 100 Nasal Cannula 3.0 10/12/17 18:15 88 20 82/62 100 Nasal Cannula 3.0 10/12/17 18:00 86 20 85/48 100 Nasal Cannula 3.0 10/12/17 17:45 88 20 93/48 100 Nasal Cannula 3.0 10/12/17 17:30 88 20 82/62 100 Nasal Cannula 3.0 10/12/17 17:15 88 20 89/39 100 Nasal Cannula 3.0 10/12/17 17:00 88 20 93/51 100 Nasal Cannula 3.0 10/12/17 16:45 88 20 88/59 100 Nasal Cannula 3.0 10/12/17 16:30 87 20 92/52 100 Nasal Cannula 3.0 10/12/17 16:00 97.8 84 20 87/51 100 Nasal Cannula 3.0 10/12/17 16:00 78 10/12/17 15:30 86 20 86/51 100 Nasal Cannula 3.0 10/12/17 15:15 85 20 83/50 100 Nasal Cannula 3.0 10/12/17 15:00 84 20 87/48 100 Nasal Cannula 3.0 10/12/17 14:45 84 20 82/48 100 Nasal Cannula 3.0 10/12/17 14:30 86 20 82/45 100 Nasal Cannula 3.0 10/12/17 14:15 88 20 83/46 100 Nasal Cannula 3.0 10/12/17 14:00 94 20 87/81 100 Nasal Cannula 3.0 10/12/17 13:45 94 20 86/47 100 Nasal Cannula 3.0 10/12/17 13:30 96 20 79/49 100 Nasal Cannula 3.0 10/12/17 13:15 96 20 80/48 100 Nasal Cannula 3.0 10/12/17 13:00 96 20 80/47 100 Nasal Cannula 3.0 10/12/17 12:45 96 20 88/52 100 Nasal Cannula 3.0 10/12/17 12:30 96 20 88/52 100 Nasal Cannula 3.0 10/12/17 12:15 97 20 85/51 100 Nasal Cannula 3.0 10/12/17 12:00 96.8 96 20 85/51 100 Nasal Cannula 3.0 10/12/17 11:58 96 10/12/17 11:45 96 20 84/49 100 Nasal Cannula 3.0 10/12/17 11:30 99 20 87/48 100 Nasal Cannula 3.0 10/12/17 11:15 97 20 89/50 100 Nasal Cannula 3.0 10/12/17 11:00 97 20 91/51 96 Nasal Cannula 3.0 10/12/17 10:45 96 20 91/50 96 Nasal Cannula 3.0 10/12/17 10:30 96 20 87/40 96 Nasal Cannula 3.0 10/12/17 10:15 95 20 87/48 96 Nasal Cannula 3.0 10/12/17 10:00 95 20 86/49 96 Nasal Cannula 3.0 10/12/17 09:45 94 20 86/51 96 Nasal Cannula 3.0 10/12/17 09:39 52/97 10/12/17 09:30 91 20 52/29 96 Nasal Cannula 3.0 10/12/17 09:15 92 20 57/33 96 Nasal Cannula 3.0 10/12/17 09:00 96 20 87/43 96 Nasal Cannula 3.0 10/12/17 08:45 97 20 83/49 96 Nasal Cannula 3.0 10/12/17 08:30 97 20 86/53 96 Nasal Cannula 3.0 10/12/17 08:15 96 20 84/50 96 Nasal Cannula 3.0 10/12/17 08:00 98 10/12/17 08:00 96.6 96 20 82/50 96 Nasal Cannula 3.0 10/12/17 07:45 96 20 83/50 96 Nasal Cannula 3.0 10/12/17 07:15 94 20 87/49 96 Nasal Cannula 3.0 10/12/17 07:00 94 20 82/48 96 Nasal Cannula 3.0 10/12/17 06:40 Nasal Cannula 2.0 28 10/12/17 06:40 98 Nasal Cannula 2.0 28 10/12/17 06:30 97 20 82/48 96 Nasal Cannula 3.0 10/12/17 06:00 97 16 72/52 97 Nasal Cannula 3.0 10/12/17 06:00 72/52 10/12/17 05:30 96.5 97 20 84/42 97 Nasal Cannula 3.0 10/12/17 05:00 76/45 10/12/17 05:00 97 22 76/45 97 Nasal Cannula 3.0 10/12/17 04:30 100 25 77/51 92 Nasal Cannula 3.0 10/12/17 04:00 100 21 82/52 92 Nasal Cannula 3.0 10/12/17 04:00 100 10/12/17 04:00 82/52 10/12/17 03:30 101 16 85/54 92 Nasal Cannula 3.0 10/12/17 03:00 87/56 10/12/17 03:00 101 16 87/56 91 Nasal Cannula 3.0 10/12/17 02:30 102 16 85/50 91 Nasal Cannula 3.0 10/12/17 02:00 102 16 85/49 91 Nasal Cannula 3.0 10/12/17 02:00 85/46 10/12/17 01:30 97.8 103 16 80/50 91 Nasal Cannula 3.0 10/12/17 01:00 104 16 81/46 91 Nasal Cannula 3.0 10/12/17 01:00 81/46 10/12/17 00:30 102 14 67/42 91 Nasal Cannula 3.0 10/12/17 00:00 70/41 10/12/17 00:00 101 10/12/17 00:00 104 24 70/41 93 Nasal Cannula 3.0 10/11/17 23:50 92/47 10/11/17 23:30 108 16 92/74 93 Nasal Cannula 3.0 10/11/17 23:00 102 22 88/49 95 Nasal Cannula 3.0 10/11/17 23:00 88/49 10/11/17 22:30 127 20 90/51 95 Nasal Cannula 3.0 10/11/17 22:21 170 10/11/17 22:00 95/53 10/11/17 22:00 118 17 95/53 97 Nasal Cannula 3.0 10/11/17 21:30 114 21 99/44 97 Nasal Cannula 3.0 10/11/17 21:00 98/50 10/11/17 21:00 118 20 98/50 97 Nasal Cannula 3.0 10/11/17 20:30 117 21 98/54 100 Nasal Cannula 3.0 10/11/17 20:00 120 18 97/57 98 Nasal Cannula 3.0 10/11/17 20:00 97/57 10/11/17 20:00 120 Intake and Output 10/12/17 10/13/17 19:00 07:00 Intake Total 1146.83 ml Output Total 0 ml Balance 1146.83 ml Free Water 50 ml IV Total 1096.83 ml Output Urine Total 0 ml 2D Echo: LVEF 15%, Grade III LVDD, Sev MR, RVSP 136 mmHg Laboratory Tests Test 10/12/17 06:50 10/12/17 10:25 Random Vancomycin Level 16.9 ug/mL White Blood Count 9.4 K/UL (4.8-10.8) Red Blood Count 3.16 M/UL (4.20-5.40) L Hemoglobin 9.7 G/DL (12.0-16.0) L Hematocrit 31.5 % (37.0-47.0) L Mean Corpuscular Volume 99 FL (80-99) Mean Corpuscular Hemoglobin 30.8 PG (27.0-31.0) Mean Corpuscular Hemoglobin Concent 31.0 G/DL (32.0-36.0) L Red Cell Distribution Width 19.0 % (11.6-14.8) H Platelet Count 44 K/UL (150-450) L Mean Platelet Volume 10.5 FL (6.5-10.1) H Neutrophils (%) (Auto) % (45.0-75.0) Lymphocytes (%) (Auto) % (20.0-45.0) Monocytes (%) (Auto) % (1.0-10.0) Eosinophils (%) (Auto) % (0.0-3.0) Basophils (%) (Auto) % (0.0-2.0) Differential Total Cells Counted 100 Neutrophils % (Manual) 83 % (45-75) H Lymphocytes % (Manual) 11 % (20-45) L Monocytes % (Manual) 5 % (1-10) Eosinophils % (Manual) 0 % (0-3) Basophils % (Manual) 0 % (0-2) Band Neutrophils 1 % (0-8) Platelet Estimate Decreased L Platelet Morphology Normal Hypochromasia 1+ Anisocytosis 1+ Sodium Level 134 MMOL/L (136-145) L Potassium Level 3.3 MMOL/L (3.5-5.1) L Chloride Level 97 MMOL/L (98-107) L Carbon Dioxide Level 28 MMOL/L (21-32) Anion Gap 10 mmol/L (5-15) Blood Urea Nitrogen 30 mg/dL (7-18) H Creatinine 3.6 MG/DL (0.55-1.30) H Estimat Glomerular Filtration Rate mL/min (>60) Glucose Level 248 MG/DL (74-106) H Lactic Acid Level 2.70 mmol/L (0.66-2.22) H Calcium Level 7.3 MG/DL (8.5-10.1) L Magnesium Level 1.5 MG/DL (1.8-2.4) L Total Bilirubin 1.6 MG/DL (0.2-1.0) H Direct Bilirubin 0.8 MG/DL (0.0-0.3) H Aspartate Amino Transf (AST/SGOT) 19 U/L (15-37) Alanine Aminotransferase (ALT/SGPT) 13 U/L (12-78) Alkaline Phosphatase 75 U/L (46-116) Total Protein 5.1 G/DL (6.4-8.2) L Albumin 2.0 G/DL (3.4-5.0) L Globulin 3.1 g/dL Albumin/Globulin Ratio 0.6 (1.0-2.7) L Objective HEAD AND NECK: No JVD. LUNGS: Decreased breath sounds. CARDIOVASCULAR: Regular S1 and S2 with no gallop or murmur. ABDOMEN: Soft, NT/ND, + BS. EXTREMITIES: No pitting edema. Her dialysis shunt is in the right arm. MATIAS MCGUIRE Oct 12, 2017 19:41
[2017-10-12] MEDS: Dyna-Hex 2% Top Sol 2oz TOPIC SCH (20:29)
--- NOTE | 2017-10-12 22:06 | Nephrology Progress Note ---
Assessment/Plan Problem List: (1) HCAP (healthcare-associated pneumonia) (2) Septic shock (3) CKD (chronic kidney disease) requiring chronic dialysis (4) Altered mental status (5) Sepsis (6) Abdominal pain (7) Hypotension (8) Hypoglycemia (9) Poor appetite Plan abx per ID. cardio following. cont pressor prn. monitor closely. Subjective Subjective remains in ICU. on pressors. Objective Objective Last 24 Hour Vital Signs Date Time Temp Pulse Resp B/P (MAP) Pulse Ox O2 Delivery O2 Flow Rate FiO2 10/12/17 19:29 61/34 10/12/17 19:00 79 20 61/34 100 Nasal Cannula 3.0 10/12/17 18:45 88 20 82/62 100 Nasal Cannula 3.0 10/12/17 18:30 88 20 89/39 100 Nasal Cannula 3.0 10/12/17 18:15 88 20 82/62 100 Nasal Cannula 3.0 10/12/17 18:00 86 20 85/48 100 Nasal Cannula 3.0 10/12/17 17:45 88 20 93/48 100 Nasal Cannula 3.0 10/12/17 17:30 88 20 82/62 100 Nasal Cannula 3.0 10/12/17 17:15 88 20 89/39 100 Nasal Cannula 3.0 10/12/17 17:00 88 20 93/51 100 Nasal Cannula 3.0 10/12/17 16:45 88 20 88/59 100 Nasal Cannula 3.0 10/12/17 16:30 87 20 92/52 100 Nasal Cannula 3.0 10/12/17 16:00 97.8 84 20 87/51 100 Nasal Cannula 3.0 10/12/17 16:00 78 10/12/17 15:30 86 20 86/51 100 Nasal Cannula 3.0 10/12/17 15:15 85 20 83/50 100 Nasal Cannula 3.0 10/12/17 15:00 84 20 87/48 100 Nasal Cannula 3.0 10/12/17 14:45 84 20 82/48 100 Nasal Cannula 3.0 10/12/17 14:30 86 20 82/45 100 Nasal Cannula 3.0 10/12/17 14:15 88 20 83/46 100 Nasal Cannula 3.0 10/12/17 14:00 94 20 87/81 100 Nasal Cannula 3.0 10/12/17 13:45 94 20 86/47 100 Nasal Cannula 3.0 10/12/17 13:30 96 20 79/49 100 Nasal Cannula 3.0 10/12/17 13:15 96 20 80/48 100 Nasal Cannula 3.0 10/12/17 13:00 96 20 80/47 100 Nasal Cannula 3.0 10/12/17 12:45 96 20 88/52 100 Nasal Cannula 3.0 10/12/17 12:30 96 20 88/52 100 Nasal Cannula 3.0 10/12/17 12:15 97 20 85/51 100 Nasal Cannula 3.0 10/12/17 12:00 96.8 96 20 85/51 100 Nasal Cannula 3.0 10/12/17 11:58 96 10/12/17 11:45 96 20 84/49 100 Nasal Cannula 3.0 10/12/17 11:30 99 20 87/48 100 Nasal Cannula 3.0 10/12/17 11:15 97 20 89/50 100 Nasal Cannula 3.0 10/12/17 11:00 97 20 91/51 96 Nasal Cannula 3.0 10/12/17 10:45 96 20 91/50 96 Nasal Cannula 3.0 10/12/17 10:30 96 20 87/40 96 Nasal Cannula 3.0 10/12/17 10:15 95 20 87/48 96 Nasal Cannula 3.0 10/12/17 10:00 95 20 86/49 96 Nasal Cannula 3.0 10/12/17 09:45 94 20 86/51 96 Nasal Cannula 3.0 10/12/17 09:39 52/97 10/12/17 09:30 91 20 52/29 96 Nasal Cannula 3.0 10/12/17 09:15 92 20 57/33 96 Nasal Cannula 3.0 10/12/17 09:00 96 20 87/43 96 Nasal Cannula 3.0 10/12/17 08:45 97 20 83/49 96 Nasal Cannula 3.0 10/12/17 08:30 97 20 86/53 96 Nasal Cannula 3.0 10/12/17 08:15 96 20 84/50 96 Nasal Cannula 3.0 10/12/17 08:00 98 10/12/17 08:00 96.6 96 20 82/50 96 Nasal Cannula 3.0 10/12/17 07:45 96 20 83/50 96 Nasal Cannula 3.0 10/12/17 07:15 94 20 87/49 96 Nasal Cannula 3.0 10/12/17 07:00 94 20 82/48 96 Nasal Cannula 3.0 10/12/17 06:40 Nasal Cannula 2.0 28 10/12/17 06:40 98 Nasal Cannula 2.0 28 10/12/17 06:30 97 20 82/48 96 Nasal Cannula 3.0 10/12/17 06:00 97 16 72/52 97 Nasal Cannula 3.0 10/12/17 06:00 72/52 10/12/17 05:30 96.5 97 20 84/42 97 Nasal Cannula 3.0 10/12/17 05:00 76/45 10/12/17 05:00 97 22 76/45 97 Nasal Cannula 3.0 10/12/17 04:30 100 25 77/51 92 Nasal Cannula 3.0 10/12/17 04:00 100 21 82/52 92 Nasal Cannula 3.0 10/12/17 04:00 100 10/12/17 04:00 82/52 10/12/17 03:30 101 16 85/54 92 Nasal Cannula 3.0 10/12/17 03:00 87/56 10/12/17 03:00 101 16 87/56 91 Nasal Cannula 3.0 10/12/17 02:30 102 16 85/50 91 Nasal Cannula 3.0 10/12/17 02:00 102 16 85/49 91 Nasal Cannula 3.0 10/12/17 02:00 85/46 10/12/17 01:30 97.8 103 16 80/50 91 Nasal Cannula 3.0 10/12/17 01:00 104 16 81/46 91 Nasal Cannula 3.0 10/12/17 01:00 81/46 10/12/17 00:30 102 14 67/42 91 Nasal Cannula 3.0 10/12/17 00:00 70/41 10/12/17 00:00 101 10/12/17 00:00 104 24 70/41 93 Nasal Cannula 3.0 10/11/17 23:50 92/47 10/11/17 23:30 108 16 92/74 93 Nasal Cannula 3.0 10/11/17 23:00 102 22 88/49 95 Nasal Cannula 3.0 10/11/17 23:00 88/49 10/11/17 22:30 127 20 90/51 95 Nasal Cannula 3.0 10/11/17 22:21 170 Intake and Output 10/12/17 10/13/17 19:00 07:00 Intake Total 1450.57 ml Output Total 0 ml Balance 1450.57 ml Free Water 50 ml IV Total 1400.57 ml Output Urine Total 0 ml Laboratory Tests 10/12/17 06:50: Random Vancomycin Level 16.9 10/12/17 10:25: White Blood Count 9.4, Red Blood Count 3.16L, Hemoglobin 9.7L, Hematocrit 31.5L , Mean Corpuscular Volume 99, Mean Corpuscular Hemoglobin 30.8, Mean Corpuscular Hemoglobin Concent 31.0L, Red Cell Distribution Width 19.0H, Platelet Count 44L, Mean Platelet Volume 10.5H, Neutrophils (%) (Auto) , Lymphocytes (%) (Auto) , Monocytes (%) (Auto) , Eosinophils (%) (Auto) , Basophils (%) (Auto) , Differential Total Cells Counted 100, Neutrophils % ( Manual) 83H, Lymphocytes % (Manual) 11L, Monocytes % (Manual) 5, Eosinophils % ( Manual) 0, Basophils % (Manual) 0, Band Neutrophils 1, Platelet Estimate DecreasedL, Platelet Morphology Normal, Hypochromasia 1+, Anisocytosis 1+, Sodium Level 134L, Potassium Level 3.3L, Chloride Level 97L, Carbon Dioxide Level 28, Anion Gap 10, Blood Urea Nitrogen 30H, Creatinine 3.6H, Estimat Glomerular Filtration Rate , Glucose Level 248H, Lactic Acid Level 2.70H, Calcium Level 7.3L, Magnesium Level 1.5L, Total Bilirubin 1.6H, Direct Bilirubin 0.8H, Aspartate Amino Transf (AST/SGOT) 19, Alanine Aminotransferase ( ALT/SGPT) 13, Alkaline Phosphatase 75, Total Protein 5.1L, Albumin 2.0L, Globulin 3.1, Albumin/Globulin Ratio 0.6L Height (Feet): 5 Height (Inches): 5.00 Weight (Pounds): 139 BONNIEASHISH MARIE Oct 12, 2017 22:06
[2017-10-13] VITALS (47 sets, daily range): BP systolic 67–156; BP diastolic 34–84
[2017-10-13] MEDS: NovoLOG Insulin Flexpen SUBQ SCH ×6 (01:03→21:00)
[2017-10-13] MEDS: D5W IV SCH ×3 (04:47→23:10)
[2017-10-13] MEDS: NOREPINEPHRINE BITARTRATE IV SCH ×3 (04:47→23:10)
[2017-10-13] MEDS: D5NS 1,000 ML IV SCH ×2 (05:35→23:09)
[2017-10-13 05:51] LABS: MEAN CORPUSCULAR HEMOGLOBIN 31.5 PG (27.0-31.0); MEAN CORPUSCULAR HGB CONC 31.7 G/DL (32.0-36.0); MEAN CORPUSCULAR VOLUME 99 FL (80-99); MEAN PLATELET VOLUME 14.4 FL (6.5-10.1); PLATELET COUNT 37 K/UL (150-450); RED BLOOD COUNT 2.91 M/UL (4.20-5.40); RED CELL DISTRIBUTION WIDTH 18.9 % (11.6-14.8); WHITE BLOOD COUNT 8.8 K/UL (4.8-10.8)
[2017-10-13 06:18] LABS: REFLEX LACTIC ACID YES OR NO YES
[2017-10-13 06:31] LABS: ALANINE AMINOTRANSFERASE 15 U/L (12-78); ALBUMIN/GLOBULIN RATIO 0.6 (1.0-2.7); ANION GAP 12 mmol/L (5-15); ASPARTATE AMINO TRANSFERASE 18 U/L (15-37); CALCIUM 7.3 MG/DL (8.5-10.1); CARBON DIOXIDE 24 MMOL/L (21-32); CHLORIDE 97 MMOL/L (98-107); CREATININE 3.8 MG/DL (0.55-1.30); POTASSIUM 3.5 MMOL/L (3.5-5.1); SODIUM 133 MMOL/L (136-145); TOTAL PROTEIN 5.2 G/DL (6.4-8.2)
[2017-10-13 06:37] LABS: BILIRUBIN,DIRECT 0.8 MG/DL (0.0-0.3)
[2017-10-13] MEDS ORDERED: Amiodarone 200mg tab ORAL SCH (09:00)
[2017-10-13] MEDS: Midodrine 10mg tab ORAL SCH ×3 (09:00→18:00)
[2017-10-13 09:08] LABS: BAND NEUTROPHILS % (MANUAL) 11 % (0-8); BASOPHILS % (MANUAL) 0 % (0-2); EOSINOPHILS % (MANUAL) 0 % (0-3); LYMPHOCYTES % (MANUAL) 5 % (20-45); NEUTROPHILS % (MANUAL) 81 % (45-75); PLATELET ESTIMATE DECREASED; TOTAL CELLS COUNTED 100
[2017-10-13] MEDS: Pantoprazole Inj IVP SCH (09:08)
[2017-10-13 09:09] LABS: HYPOCHROMASIA 1+; PLATELET MORPHOLOGY NORMAL
[2017-10-13 09:10] LABS: ANISOCYTOSIS 1+
[2017-10-13 13:21] LABS: ABG ALLEN TEST POSITIVE; ABG BASE EXCESS -5.8; ABG PCO2 39.4 mmHg (35.0-45.0)
--- NOTE | 2017-10-13 13:36 | GI Progress Note ---
Assessment/Plan Problems: (1) Small bowel obstruction ICD Codes: K56.609 - Unspecified intestinal obstruction, unspecified as to partial versus complete obstruction SNOMED: 766507216 (2) Abdominal pain ICD Codes: R10.9 - Unspecified abdominal pain SNOMED: 31837678 (3) Poor appetite ICD Codes: R63.0 - Anorexia SNOMED: 30984231 (4) Altered mental status ICD Codes: R41.82 - Altered mental status, unspecified SNOMED: 171228229 Qualifiers: Qualified Codes: R41.82 - Altered mental status, unspecified Status: unchanged Status Narrative Discussed with Dr. Renteria. Assessment/Plan CT AP reviewed >> Findings consistent with small bowel obstruction, with dilated proximal small bowel,collapsed distal small bowel, and transition point in the anterior right lower quad anterior. abdominal US noted. anemia work up reviewed >> low FT4, high TSH suggestive of hypothyroidism, refer to PCP for tx fu surgical recs strict NPO + IVFs, okay for meds bowel decompression >> NGT to LIS serial imaging prn monitor H&H, prn transfusions ppi DM mgmt fu labs Subjective Subjective refusing surgery Objective Last 24 Hour Vital Signs Date Time Temp Pulse Resp B/P (MAP) Pulse Ox O2 Delivery O2 Flow Rate FiO2 10/13/17 12:31 88 95/48 Nasal Cannula 3.0 10/13/17 12:00 97.4 94 29 85/53 Nasal Cannula 3.0 10/13/17 12:00 92 10/13/17 12:00 94 Nasal Cannula 3.0 10/13/17 11:30 90 28 98/50 Nasal Cannula 3.0 10/13/17 11:00 93 27 98/49 Nasal Cannula 3.0 10/13/17 10:29 90 26 99/46 Nasal Cannula 3.0 10/13/17 10:00 90 23 93/52 Nasal Cannula 3.0 10/13/17 09:29 88 22 95/50 Nasal Cannula 3.0 10/13/17 09:00 87/55 10/13/17 09:00 88 21 86/50 Nasal Cannula 3.0 10/13/17 08:30 85 22 89/50 Nasal Cannula 3.0 10/13/17 08:00 92/51 10/13/17 08:00 94.3 60 22 92/51 Nasal Cannula 3.0 10/13/17 08:00 86 10/13/17 07:30 87 22 94/51 Nasal Cannula 3.0 10/13/17 07:15 Nasal Cannula 2.0 28 10/13/17 07:15 98 Nasal Cannula 2.0 28 10/13/17 07:00 87 18 87/58 94 Nasal Cannula 3.0 10/13/17 07:00 87/58 10/13/17 06:30 80 18 85/45 94 Nasal Cannula 3.0 10/13/17 06:00 82/53 10/13/17 06:00 84 21 90/45 94 Nasal Cannula 3.0 10/13/17 05:30 85 21 83/45 94 Nasal Cannula 3.0 10/13/17 05:00 86 22 75/57 94 Nasal Cannula 3.0 10/13/17 05:00 75/87 10/13/17 04:47 73/42 10/13/17 04:30 80 22 75/47 96 Nasal Cannula 3.0 10/13/17 04:00 92 10/13/17 04:00 97.8 92 20 78/50 94 Nasal Cannula 3.0 10/13/17 04:00 78/45 10/13/17 03:30 96 20 90/56 94 Nasal Cannula 3.0 10/13/17 03:00 97 24 75/34 95 Nasal Cannula 3.0 10/13/17 03:00 78/34 10/13/17 02:30 97 20 87/46 95 Nasal Cannula 3.0 10/13/17 02:00 87/44 10/13/17 02:00 89 20 87/44 95 Nasal Cannula 3.0 10/13/17 01:30 89 18 87/40 93 Nasal Cannula 3.0 10/13/17 01:00 89/45 10/13/17 01:00 89 18 89/45 98 Nasal Cannula 3.0 10/13/17 00:30 89 18 89/45 98 Nasal Cannula 3.0 10/13/17 00:00 98.0 89 14 87/46 100 Nasal Cannula 3.0 10/13/17 00:00 89 10/13/17 00:00 87/46 10/12/17 23:30 89 14 84/44 98 Nasal Cannula 3.0 10/12/17 23:00 82/44 10/12/17 23:00 89 16 82/44 98 Nasal Cannula 3.0 10/12/17 22:30 89 16 87/44 98 Nasal Cannula 3.0 10/12/17 22:00 88 18 87/47 99 Nasal Cannula 3.0 10/12/17 22:00 87/47 10/12/17 21:30 86 20 81/35 92 Nasal Cannula 3.0 10/12/17 21:00 86 19 82/53 100 Nasal Cannula 3.0 10/12/17 21:00 85/53 10/12/17 21:00 87 20 85/53 92 Nasal Cannula 3.0 10/12/17 20:30 87 21 86/55 95 Nasal Cannula 3.0 10/12/17 20:00 80 10/12/17 20:00 82/53 10/12/17 20:00 97.8 86 19 82/53 100 Nasal Cannula 3.0 10/12/17 19:30 84 20 76/54 100 Nasal Cannula 3.0 10/12/17 19:29 61/34 10/12/17 19:10 Nasal Cannula 2.0 28 10/12/17 19:10 98 Nasal Cannula 2.0 28 10/12/17 19:00 79 20 61/34 100 Nasal Cannula 3.0 10/12/17 18:45 88 20 82/62 100 Nasal Cannula 3.0 10/12/17 18:30 88 20 89/39 100 Nasal Cannula 3.0 17 18:15 88 20 82/62 100 Nasal Cannula 3.0 10/12/17 18:00 86 20 85/48 100 Nasal Cannula 3.0 17 17:45 88 20 93/48 100 Nasal Cannula 3.0 17 17:30 88 20 82/62 100 Nasal Cannula 3.0 17 17:15 88 20 89/39 100 Nasal Cannula 3.0 10/12/17 17:00 88 20 93/51 100 Nasal Cannula 3.0 17 16:45 88 20 88/59 100 Nasal Cannula 3.0 17 16:30 87 20 92/52 100 Nasal Cannula 3.0 10/12/17 16:00 97.8 84 20 87/51 100 Nasal Cannula 3.0 17 16:00 78 17 15:30 86 20 86/51 100 Nasal Cannula 3.0 10/12/17 15:15 85 20 83/50 100 Nasal Cannula 3.0 10/12/17 15:00 84 20 87/48 100 Nasal Cannula 3.0 10/12/17 14:45 84 20 82/48 100 Nasal Cannula 3.0 10/12/17 14:30 86 20 82/45 100 Nasal Cannula 3.0 10/12/17 14:15 88 20 83/46 100 Nasal Cannula 3.0 10/12/17 14:00 94 20 87/81 100 Nasal Cannula 3.0 10/12/17 13:45 94 20 86/47 100 Nasal Cannula 3.0 Intake and Output 10/13/17 10/14/17 19:00 07:00 Intake Total 232.50 ml Output Total 0 ml Balance 232.50 ml IV Total 232.50 ml Output Urine Total 0 ml Laboratory Tests Test 10/13/17 04:00 10/13/17 05:00 10/13/17 09:35 10/13/17 13:10 Lactic Acid Level 6.70 mmol/L (0.66-2.22) H 4.20 mmol/L (0.66-2.22) H White Blood Count 8.8 K/UL (4.8-10.8) Red Blood Count 2.91 M/UL (4.20-5.40) L Hemoglobin 9.2 G/DL (12.0-16.0) L Hematocrit 28.9 % (37.0-47.0) L Mean Corpuscular Volume 99 FL (80-99) Mean Corpuscular Hemoglobin 31.5 PG (27.0-31.0) H Mean Corpuscular Hemoglobin Concent 31.7 G/DL (32.0-36.0) L Red Cell Distribution Width 18.9 % (11.6-14.8) H Platelet Count 37 K/UL (150-450) L Mean Platelet Volume 14.4 FL (6.5-10.1) H Neutrophils (%) (Auto) % (45.0-75.0) Lymphocytes (%) (Auto) % (20.0-45.0) Monocytes (%) (Auto) % (1.0-10.0) Eosinophils (%) (Auto) % (0.0-3.0) Basophils (%) (Auto) % (0.0-2.0) Differential Total Cells Counted 100 Neutrophils % (Manual) 81 % (45-75) H Lymphocytes % (Manual) 5 % (20-45) L Monocytes % (Manual) 3 % (1-10) Eosinophils % (Manual) 0 % (0-3) Basophils % (Manual) 0 % (0-2) Band Neutrophils 11 % (0-8) H Platelet Estimate Decreased L Platelet Morphology Normal Hypochromasia 1+ Anisocytosis 1+ Sodium Level 133 MMOL/L (136-145) L Potassium Level 3.5 MMOL/L (3.5-5.1) Chloride Level 97 MMOL/L (98-107) L Carbon Dioxide Level 24 MMOL/L (21-32) Anion Gap 12 mmol/L (5-15) Blood Urea Nitrogen 31 mg/dL (7-18) H Creatinine 3.8 MG/DL (0.55-1.30) H Estimat Glomerular Filtration Rate mL/min (>60) Glucose Level 172 MG/DL (74-106) H Calcium Level 7.3 MG/DL (8.5-10.1) L Total Bilirubin 1.6 MG/DL (0.2-1.0) H Direct Bilirubin 0.8 MG/DL (0.0-0.3) H Aspartate Amino Transf (AST/SGOT) 18 U/L (15-37) Alanine Aminotransferase (ALT/SGPT) 15 U/L (12-78) Alkaline Phosphatase 74 U/L (46-116) Pro-B-Type Natriuretic Peptide 23489 pg/mL (0-125) H Total Protein 5.2 G/DL (6.4-8.2) L Albumin 2.0 G/DL (3.4-5.0) L Globulin 3.2 g/dL Albumin/Globulin Ratio 0.6 (1.0-2.7) L Arterial Blood pH 7.319 (7.350-7.450) Arterial Blood Partial Pressure CO2 39.4 mmHg (35.0-45.0) Arterial Blood Partial Pressure O2 114.8 mmHg (75.0-100.0) H Arterial Blood HCO3 19.8 mmol/L (22.0-26.0) L Arterial Blood Oxygen Saturation 97.3 % (92.0-98.0) Arterial Blood Base Excess -5.8 Colin Test Positive Height (Feet): 5 Height (Inches): 5.00 Weight (Pounds): 138 General Appearance: WD/WN, no apparent distress, alert Cardiovascular: normal rate Respiratory/Chest: normal breath sounds, no respiratory distress, other - facial Abdominal Exam: normal bowel sounds, non tender, soft Extremities: non-tender Lucia Thomas N.P. Oct 13, 2017 13:36
--- NOTE | 2017-10-13 15:00 | Infectious Diseases Prog Note ---
Assessment/Plan Problems: (1) HCAP (healthcare-associated pneumonia) Assessment & Plan: will stop vancomycin and levaquin empiric coverage , repeat CXR , sputum culture grew tejas albicans which is most likely colonization and not real infection. (2) Sepsis Assessment & Plan: less likely , blood culture so far is negative, continue vancomycin and levaquin empirically for now to cover for pneumonia for 7-10 days (3) Altered mental status Assessment & Plan: improved , due to the above, continue neuro check , monitor in ICU (4) CHF (congestive heart failure) Assessment & Plan: with exacerbation , on HD, renal is following , monitor CXR (5) Abdominal pain Assessment & Plan: due to bowel obstruction , had NGT by GI , US of the abdomen didn't show any acute pathology but nonobstructing stones, surgery is following (6) Hypotension Assessment & Plan: doubt sepsis, most likely cardiogenic , not responding to pressors , rule out adrenal insufficiency , cardiology is following (7) CKD (chronic kidney disease) requiring chronic dialysis Assessment & Plan: renal service is following Subjective Constitutional: Reports: no symptoms HEENT: Reports: no symptoms Respiratory: Reports: shortness of breath, dry cough Breasts: Reports: no symptoms Cardiovascular: Reports: no symptoms Gastrointestinal/Abdominal: Reports: nausea, bloating Genitourinary: Reports: no symptoms Neurologic: Reports: no symptoms Psychiatric: Reports: no symptoms Skin: Reports: no symptoms Endocrine: Reports: no symptoms Hematologic: Reports: no symptoms Musculoskeletal: Reports: no symptoms Allergies: Coded Allergies: ASPIRIN (Unverified Allergy, Unknown, 10/03/17) PENICILLINS (Unverified Allergy, Unknown, 10/03/17) Subjective she was more awake and alert, complained of abdominal discomfort, still on pressor Objective Vital Signs Last 24 Hour Vital Signs Date Time Temp Pulse Resp B/P (MAP) Pulse Ox O2 Delivery O2 Flow Rate FiO2 10/13/17 14:35 81/51 10/13/17 14:30 87 26 94/50 Simple Mask 10.0 10/13/17 14:00 91 30 94/50 Simple Mask 10.0 10/13/17 13:30 90 92/53 Simple Mask 10.0 10/13/17 13:00 99 109/69 Simple Mask 10.0 10/13/17 12:31 88 25 95/48 Nasal Cannula 3.0 10/13/17 12:00 97.4 94 29 85/53 Nasal Cannula 3.0 10/13/17 12:00 92 10/13/17 12:00 26 94 Nasal Cannula 3.0 10/13/17 11:30 90 28 98/50 Nasal Cannula 3.0 10/13/17 11:00 93 27 98/49 Nasal Cannula 3.0 10/13/17 10:29 90 26 99/46 Nasal Cannula 3.0 10/13/17 10:00 90 23 93/52 Nasal Cannula 3.0 10/13/17 09:29 88 22 95/50 Nasal Cannula 3.0 10/13/17 09:00 87/55 10/13/17 09:00 88 21 86/50 Nasal Cannula 3.0 10/13/17 08:30 85 22 89/50 Nasal Cannula 3.0 10/13/17 08:00 92/51 10/13/17 08:00 94.3 60 22 92/51 Nasal Cannula 3.0 10/13/17 08:00 86 10/13/17 07:30 87 22 94/51 Nasal Cannula 3.0 10/13/17 07:15 Nasal Cannula 2.0 28 10/13/17 07:15 98 Nasal Cannula 2.0 28 10/13/17 07:00 87 18 87/58 94 Nasal Cannula 3.0 10/13/17 07:00 87/58 10/13/17 06:30 80 18 85/45 94 Nasal Cannula 3.0 10/13/17 06:00 82/53 10/13/17 06:00 84 21 90/45 94 Nasal Cannula 3.0 10/13/17 05:30 85 21 83/45 94 Nasal Cannula 3.0 10/13/17 05:00 86 22 75/57 94 Nasal Cannula 3.0 10/13/17 05:00 75/87 10/13/17 04:47 73/42 10/13/17 04:30 80 22 75/47 96 Nasal Cannula 3.0 10/13/17 04:00 92 10/13/17 04:00 97.8 92 20 78/50 94 Nasal Cannula 3.0 10/13/17 04:00 78/45 10/13/17 03:30 96 20 90/56 94 Nasal Cannula 3.0 10/13/17 03:00 97 24 75/34 95 Nasal Cannula 3.0 10/13/17 03:00 78/34 10/13/17 02:30 97 20 87/46 95 Nasal Cannula 3.0 10/13/17 02:00 87/44 10/13/17 02:00 89 20 87/44 95 Nasal Cannula 3.0 10/13/17 01:30 89 18 87/40 93 Nasal Cannula 3.0 10/13/17 01:00 89/45 10/13/17 01:00 89 18 89/45 98 Nasal Cannula 3.0 10/13/17 00:30 89 18 89/45 98 Nasal Cannula 3.0 10/13/17 00:00 98.0 89 14 87/46 100 Nasal Cannula 3.0 10/13/17 00:00 89 10/13/17 00:00 87/46 10/12/17 23:30 89 14 84/44 98 Nasal Cannula 3.0 10/12/17 23:00 82/44 10/12/17 23:00 89 16 82/44 98 Nasal Cannula 3.0 10/12/17 22:30 89 16 87/44 98 Nasal Cannula 3.0 10/12/17 22:00 88 18 87/47 99 Nasal Cannula 3.0 10/12/17 22:00 87/47 10/12/17 21:30 86 20 81/35 92 Nasal Cannula 3.0 10/12/17 21:00 86 19 82/53 100 Nasal Cannula 3.0 10/12/17 21:00 85/53 10/12/17 21:00 87 20 85/53 92 Nasal Cannula 3.0 10/12/17 20:30 87 21 86/55 95 Nasal Cannula 3.0 10/12/17 20:00 80 17 20:00 82/53 17 20:00 97.8 86 19 82/53 100 Nasal Cannula 3.0 10/12/17 19:30 84 20 76/54 100 Nasal Cannula 3.0 10/12/17 19:29 61/34 10/12/17 19:10 Nasal Cannula 2.0 28 10/12/17 19:10 98 Nasal Cannula 2.0 28 10/12/17 19:00 79 20 61/34 100 Nasal Cannula 3.0 10/12/17 18:45 88 20 82/62 100 Nasal Cannula 3.0 10/12/17 18:30 88 20 89/39 100 Nasal Cannula 3.0 10/12/17 18:15 88 20 82/62 100 Nasal Cannula 3.0 10/12/17 18:00 86 20 85/48 100 Nasal Cannula 3.0 10/12/17 17:45 88 20 93/48 100 Nasal Cannula 3.0 10/12/17 17:30 88 20 82/62 100 Nasal Cannula 3.0 10/12/17 17:15 88 20 89/39 100 Nasal Cannula 3.0 10/12/17 17:00 88 20 93/51 100 Nasal Cannula 3.0 10/12/17 16:45 88 20 88/59 100 Nasal Cannula 3.0 10/12/17 16:30 87 20 92/52 100 Nasal Cannula 3.0 10/12/17 16:00 97.8 84 20 87/51 100 Nasal Cannula 3.0 10/12/17 16:00 78 17 15:30 86 20 86/51 100 Nasal Cannula 3.0 10/12/17 15:15 85 20 83/50 100 Nasal Cannula 3.0 10/12/17 15:00 84 20 87/48 100 Nasal Cannula 3.0 Height (Feet): 5 Height (Inches): 5.00 Weight (Pounds): 138 General Appearance: WD/WN, no acute distress HEENT: normocephalic, atraumatic, anicteric, mucous membranes moist Respiratory/Chest: chest wall non-tender, lungs clear, normal breath sounds, no respiratory distress, no accessory muscle use, decreased breath sounds, accessory muscle use Cardiovascular: normal peripheral pulses, normal rate, regular rhythm, no gallop/murmur Abdomen: normal bowel sounds, soft, non tender, no organomegaly, non distended , no mass, no scars Extremities: no cyanosis, no clubbing Skin: no rash, no lesions, no ulcers Neurologic/Psychiatric: alert, oriented x 3 Laboratory Tests Test 10/13/17 04:00 10/13/17 05:00 10/13/17 09:35 10/13/17 13:10 Lactic Acid Level 6.70 mmol/L (0.66-2.22) H 4.20 mmol/L (0.66-2.22) H White Blood Count 8.8 K/UL (4.8-10.8) Red Blood Count 2.91 M/UL (4.20-5.40) L Hemoglobin 9.2 G/DL (12.0-16.0) L Hematocrit 28.9 % (37.0-47.0) L Mean Corpuscular Volume 99 FL (80-99) Mean Corpuscular Hemoglobin 31.5 PG (27.0-31.0) H Mean Corpuscular Hemoglobin Concent 31.7 G/DL (32.0-36.0) L Red Cell Distribution Width 18.9 % (11.6-14.8) H Platelet Count 37 K/UL (150-450) L Mean Platelet Volume 14.4 FL (6.5-10.1) H Neutrophils (%) (Auto) % (45.0-75.0) Lymphocytes (%) (Auto) % (20.0-45.0) Monocytes (%) (Auto) % (1.0-10.0) Eosinophils (%) (Auto) % (0.0-3.0) Basophils (%) (Auto) % (0.0-2.0) Differential Total Cells Counted 100 Neutrophils % (Manual) 81 % (45-75) H Lymphocytes % (Manual) 5 % (20-45) L Monocytes % (Manual) 3 % (1-10) Eosinophils % (Manual) 0 % (0-3) Basophils % (Manual) 0 % (0-2) Band Neutrophils 11 % (0-8) H Platelet Estimate Decreased L Platelet Morphology Normal Hypochromasia 1+ Anisocytosis 1+ Sodium Level 133 MMOL/L (136-145) L Potassium Level 3.5 MMOL/L (3.5-5.1) Chloride Level 97 MMOL/L (98-107) L Carbon Dioxide Level 24 MMOL/L (21-32) Anion Gap 12 mmol/L (5-15) Blood Urea Nitrogen 31 mg/dL (7-18) H Creatinine 3.8 MG/DL (0.55-1.30) H Estimat Glomerular Filtration Rate mL/min (>60) Glucose Level 172 MG/DL (74-106) H Calcium Level 7.3 MG/DL (8.5-10.1) L Total Bilirubin 1.6 MG/DL (0.2-1.0) H Direct Bilirubin 0.8 MG/DL (0.0-0.3) H Aspartate Amino Transf (AST/SGOT) 18 U/L (15-37) Alanine Aminotransferase (ALT/SGPT) 15 U/L (12-78) Alkaline Phosphatase 74 U/L (46-116) Pro-B-Type Natriuretic Peptide 86595 pg/mL (0-125) H Total Protein 5.2 G/DL (6.4-8.2) L Albumin 2.0 G/DL (3.4-5.0) L Globulin 3.2 g/dL Albumin/Globulin Ratio 0.6 (1.0-2.7) L Arterial Blood pH 7.319 (7.350-7.450) Arterial Blood Partial Pressure CO2 39.4 mmHg (35.0-45.0) Arterial Blood Partial Pressure O2 114.8 mmHg (75.0-100.0) H Arterial Blood HCO3 19.8 mmol/L (22.0-26.0) L Arterial Blood Oxygen Saturation 97.3 % (92.0-98.0) Arterial Blood Base Excess -5.8 Colin Test Positive Current Medications Medications (Trade) Dose Ordered Sig/Tamanna Route PRN Reason Start Time Stop Time Status Last Admin Dose Admin Chlorhexidine Gluconate (Rhianna-Hex 2%) 1 applic Q24H TOPIC 10/03/17 20:00 11/02/17 19:59 10/12/17 20:29 Dextrose (Dextrose 50%) STAT PRN IV Hypoglycemia 10/03/17 13:45 11/02/17 13:44 Dextrose/Sodium Chloride 1,000 ml @ 60 mls/hr [id number] IV 10/09/17 18:15 11/08/17 18:14 10/13/17 05:35 Hydromorphone HCl (Dilaudid) 1 mg Q4H PRN IVP PAIN 4-10 10/09/17 15:30 10/16/17 15:29 Insulin Aspart (NovoLOG) Q4HR SUBQ 10/03/17 17:00 11/02/17 16:59 10/13/17 05:13 Midodrine (Pro-Amatine) 10 mg THREE TIMES A DAY ORAL 10/03/17 18:00 11/02/17 17:59 10/12/17 17:58 Norepinephrine Bitartrate 16 mg/ Dextrose 550 ml @ 0 mls/hr Q24H IV 12/17/17 17:00 11/10/17 16:59 10/13/17 14:35 Ondansetron HCl (Zofran) 4 mg Q4H PRN IVP Nausea & Vomiting 10/09/17 15:30 11/08/17 15:29 Pantoprazole (Protonix) 40 mg DAILY IVP 10/06/17 09:00 11/05/17 08:59 10/13/17 09:08 Dina Bazna M.D. Oct 13, 2017 15:00
--- NOTE | 2017-10-13 17:20 | General Surgery Progress Note ---
General Surgery-Progress Note Subjective Reason for Consult I was asked by Dr Fay to see this lady because of ischemic appearance of toes and absent doppler signals both feet. At present her blood pressure is 70/ 40 on Levophed and dialysis is being attempted intermittently. A Troponin was drawn 03 October and was within normal limits. I have ordered a repeat stat. Her extensive past history is well-outlined by others so I will not review it here. A diagnosis of SBO has been made, but she is not candidate for general anesthesia at this time. In addition, the conservator is thinking about comfort care only. On PE she is responsive and somewhat oriented to name and place. Carotid pulses are felt and there are no carotid bruits. Cardiac sounds are distant She is in sinus rhythm with occas PVC Abdomen is not distended and BS are hypo- active. No pulses are felt in either LE and doppler signals are absent over DP' s, Toes are discolored but still viable. I suspect that her feet will be adequately perfused if normal blood pressure is restored and pressors ar discontinued. Nothing can be done at this time. Bakari for asking me to see this pt in vascular consultation. [email or web address] Objective Last 24 Hour Vital Signs Date Time Temp Pulse Resp B/P (MAP) Pulse Ox O2 Delivery O2 Flow Rate FiO2 10/13/17 16:00 97.4 100 27 79/47 Simple Mask 10.0 10/13/17 16:00 98 10/13/17 15:30 94 14 90/49 Simple Mask 10.0 10/13/17 15:00 94 25 75/42 Simple Mask 10.0 10/13/17 15:00 75/42 10/13/17 14:35 81/51 10/13/17 14:30 87 26 94/50 Simple Mask 10.0 10/13/17 14:00 91 30 94/50 Simple Mask 10.0 10/13/17 14:00 94/50 10/13/17 13:30 Simple Mask 10.0 10/13/17 13:30 90 92/53 Simple Mask 10.0 10/13/17 13:30 97.4 88 32 94/50 Simple Mask 10.0 10/13/17 13:00 99 109/69 Simple Mask 10.0 10/13/17 13:00 109/69 10/13/17 12:31 88 25 95/48 Nasal Cannula 3.0 10/13/17 12:00 97.4 94 29 85/53 Nasal Cannula 3.0 10/13/17 12:00 92 10/13/17 12:00 78/56 10/13/17 12:00 26 94 Nasal Cannula 3.0 10/13/17 11:30 90 28 98/50 Nasal Cannula 3.0 10/13/17 11:00 98/49 10/13/17 11:00 93 27 98/49 Nasal Cannula 3.0 10/13/17 10:29 90 26 99/46 Nasal Cannula 3.0 10/13/17 10:00 90 23 93/52 Nasal Cannula 3.0 10/13/17 10:00 93/52 10/13/17 09:29 88 22 95/50 Nasal Cannula 3.0 10/13/17 09:00 87/55 10/13/17 09:00 88 21 86/50 Nasal Cannula 3.0 10/13/17 08:30 85 22 89/50 Nasal Cannula 3.0 10/13/17 08:00 92/51 10/13/17 08:00 94.3 60 22 92/51 Nasal Cannula 3.0 10/13/17 08:00 86 10/13/17 07:30 87 22 94/51 Nasal Cannula 3.0 10/13/17 07:15 Nasal Cannula 2.0 28 10/13/17 07:15 98 Nasal Cannula 2.0 28 10/13/17 07:00 87 18 87/58 94 Nasal Cannula 3.0 10/13/17 07:00 87/58 10/13/17 06:30 80 18 85/45 94 Nasal Cannula 3.0 10/13/17 06:00 82/53 10/13/17 06:00 84 21 90/45 94 Nasal Cannula 3.0 10/13/17 05:30 85 21 83/45 94 Nasal Cannula 3.0 10/13/17 05:00 86 22 75/57 94 Nasal Cannula 3.0 10/13/17 05:00 75/87 10/13/17 04:47 73/42 10/13/17 04:30 80 22 75/47 96 Nasal Cannula 3.0 10/13/17 04:00 92 10/13/17 04:00 97.8 92 20 78/50 94 Nasal Cannula 3.0 10/13/17 04:00 78/45 10/13/17 03:30 96 20 90/56 94 Nasal Cannula 3.0 10/13/17 03:00 97 24 75/34 95 Nasal Cannula 3.0 10/13/17 03:00 78/34 10/13/17 02:30 97 20 87/46 95 Nasal Cannula 3.0 10/13/17 02:00 87/44 10/13/17 02:00 89 20 87/44 95 Nasal Cannula 3.0 10/13/17 01:30 89 18 87/40 93 Nasal Cannula 3.0 10/13/17 01:00 89/45 10/13/17 01:00 89 18 89/45 98 Nasal Cannula 3.0 10/13/17 00:30 89 18 89/45 98 Nasal Cannula 3.0 10/13/17 00:00 98.0 89 14 87/46 100 Nasal Cannula 3.0 10/13/17 00:00 89 10/13/17 00:00 87/46 10/12/17 23:30 89 14 84/44 98 Nasal Cannula 3.0 10/12/17 23:00 82/44 10/12/17 23:00 89 16 82/44 98 Nasal Cannula 3.0 10/12/17 22:30 89 16 87/44 98 Nasal Cannula 3.0 10/12/17 22:00 88 18 87/47 99 Nasal Cannula 3.0 10/12/17 22:00 87/47 10/12/17 21:30 86 20 81/35 92 Nasal Cannula 3.0 10/12/17 21:00 86 19 82/53 100 Nasal Cannula 3.0 10/12/17 21:00 85/53 10/12/17 21:00 87 20 85/53 92 Nasal Cannula 3.0 10/12/17 20:30 87 21 86/55 95 Nasal Cannula 3.0 10/12/17 20:00 80 10/12/17 20:00 82/53 10/12/17 20:00 97.8 86 19 82/53 100 Nasal Cannula 3.0 10/12/17 19:30 84 20 76/54 100 Nasal Cannula 3.0 10/12/17 19:29 61/34 10/12/17 19:10 Nasal Cannula 2.0 28 10/12/17 19:10 98 Nasal Cannula 2.0 28 10/12/17 19:00 79 20 61/34 100 Nasal Cannula 3.0 10/12/17 18:45 88 20 82/62 100 Nasal Cannula 3.0 10/12/17 18:30 88 20 89/39 100 Nasal Cannula 3.0 17 18:15 88 20 82/62 100 Nasal Cannula 3.0 10/12/17 18:00 86 20 85/48 100 Nasal Cannula 3.0 10/12/17 17:45 88 20 93/48 100 Nasal Cannula 3.0 10/12/17 17:30 88 20 82/62 100 Nasal Cannula 3.0 10/12/17 17:15 88 20 89/39 100 Nasal Cannula 3.0 I&O Intake and Output 10/13/17 10/14/17 19:00 07:00 Intake Total 974.96 ml Output Total 0 ml Balance 974.96 ml IV Total 974.96 ml Output Urine Total 0 ml Laboratory Tests Test 10/13/17 04:00 10/13/17 05:00 10/13/17 09:35 10/13/17 13:10 Lactic Acid Level 6.70 mmol/L (0.66-2.22) H 4.20 mmol/L (0.66-2.22) H White Blood Count 8.8 K/UL (4.8-10.8) Red Blood Count 2.91 M/UL (4.20-5.40) L Hemoglobin 9.2 G/DL (12.0-16.0) L Hematocrit 28.9 % (37.0-47.0) L Mean Corpuscular Volume 99 FL (80-99) Mean Corpuscular Hemoglobin 31.5 PG (27.0-31.0) H Mean Corpuscular Hemoglobin Concent 31.7 G/DL (32.0-36.0) L Red Cell Distribution Width 18.9 % (11.6-14.8) H Platelet Count 37 K/UL (150-450) L Mean Platelet Volume 14.4 FL (6.5-10.1) H Neutrophils (%) (Auto) % (45.0-75.0) Lymphocytes (%) (Auto) % (20.0-45.0) Monocytes (%) (Auto) % (1.0-10.0) Eosinophils (%) (Auto) % (0.0-3.0) Basophils (%) (Auto) % (0.0-2.0) Differential Total Cells Counted 100 Neutrophils % (Manual) 81 % (45-75) H Lymphocytes % (Manual) 5 % (20-45) L Monocytes % (Manual) 3 % (1-10) Eosinophils % (Manual) 0 % (0-3) Basophils % (Manual) 0 % (0-2) Band Neutrophils 11 % (0-8) H Platelet Estimate Decreased L Platelet Morphology Normal Hypochromasia 1+ Anisocytosis 1+ Sodium Level 133 MMOL/L (136-145) L Potassium Level 3.5 MMOL/L (3.5-5.1) Chloride Level 97 MMOL/L (98-107) L Carbon Dioxide Level 24 MMOL/L (21-32) Anion Gap 12 mmol/L (5-15) Blood Urea Nitrogen 31 mg/dL (7-18) H Creatinine 3.8 MG/DL (0.55-1.30) H Estimat Glomerular Filtration Rate mL/min (>60) Glucose Level 172 MG/DL (74-106) H Calcium Level 7.3 MG/DL (8.5-10.1) L Total Bilirubin 1.6 MG/DL (0.2-1.0) H Direct Bilirubin 0.8 MG/DL (0.0-0.3) H Aspartate Amino Transf (AST/SGOT) 18 U/L (15-37) Alanine Aminotransferase (ALT/SGPT) 15 U/L (12-78) Alkaline Phosphatase 74 U/L (46-116) Pro-B-Type Natriuretic Peptide 85645 pg/mL (0-125) H Total Protein 5.2 G/DL (6.4-8.2) L Albumin 2.0 G/DL (3.4-5.0) L Globulin 3.2 g/dL Albumin/Globulin Ratio 0.6 (1.0-2.7) L Arterial Blood pH 7.319 (7.350-7.450) Arterial Blood Partial Pressure CO2 39.4 mmHg (35.0-45.0) Arterial Blood Partial Pressure O2 114.8 mmHg (75.0-100.0) H Arterial Blood HCO3 19.8 mmol/L (22.0-26.0) L Arterial Blood Oxygen Saturation 97.3 % (92.0-98.0) Arterial Blood Base Excess -5.8 Colin Test Positive TAMARA JORDAN Oct 13, 2017 17:20
[2017-10-13] MEDS: Dyna-Hex 2% Top Sol 2oz TOPIC SCH (20:25)
--- NOTE | 2017-10-13 20:41 | General Progress Note ---
Assessment/Plan Assessment/Plan ASSESSMENT AND RECOMMENDATIONS: 1. Thrombocytopenia, rule out heparin-induced thrombocytopenia syndrome. HIT pending --> No acute DVT --> likely due to sepsis --> plt goal above 20k 2. Anemia secondary to chronic disease that is related to the patient's history of multiple comorbid conditions. --> The patient's ferritin was 119, percent sat of 48. 3. Anemia secondary to kidney disease, on dialysis. 4. Coagulopathy. Manage with vitamin K as needed. 5. Septic shock with pneumonia. She is on antibiotics. Continue broad- spectrum antibiotics. 6. Small bowel obstruction, appreciate surgery recs Subjective Allergies: Coded Allergies: ASPIRIN (Unverified Allergy, Unknown, 10/03/17) PENICILLINS (Unverified Allergy, Unknown, 10/03/17) All Systems: reviewed and negative except above Subjective seen by surgery Objective Last 24 Hour Vital Signs Date Time Temp Pulse Resp B/P (MAP) Pulse Ox O2 Delivery O2 Flow Rate FiO2 10/13/17 19:00 93 22 82/45 100 Simple Mask 10.0 10/13/17 18:31 95 23 85/48 100 Simple Mask 10.0 10/13/17 18:00 95 22 85/51 100 Simple Mask 10.0 10/13/17 18:00 85/51 10/13/17 17:30 93 23 90/49 97 Simple Mask 10.0 10/13/17 17:00 90 28 88/44 Simple Mask 10.0 10/13/17 17:00 23 83/46 Simple Mask 10.0 10/13/17 17:00 83/46 10/13/17 17:00 Simple Mask 10.0 10/13/17 16:30 22 88/53 Simple Mask 10.0 10/13/17 16:00 97.4 100 27 79/47 95 Simple Mask 10.0 10/13/17 16:00 98 10/13/17 16:00 79/47 10/13/17 15:30 94 14 90/49 Simple Mask 10.0 10/13/17 15:00 94 25 75/42 Simple Mask 10.0 10/13/17 15:00 75/42 10/13/17 14:35 81/51 10/13/17 14:30 87 26 94/50 Simple Mask 10.0 10/13/17 14:00 91 30 94/50 Simple Mask 10.0 10/13/17 14:00 94/50 10/13/17 13:30 Simple Mask 10.0 10/13/17 13:30 90 92/53 Simple Mask 10.0 10/13/17 13:30 97.4 88 32 94/50 Simple Mask 10.0 10/13/17 13:00 99 109/69 Simple Mask 10.0 10/13/17 13:00 109/69 10/13/17 12:31 88 25 95/48 Nasal Cannula 3.0 10/13/17 12:00 97.4 94 29 85/53 Nasal Cannula 3.0 10/13/17 12:00 92 10/13/17 12:00 78/56 10/13/17 12:00 26 94 Nasal Cannula 3.0 10/13/17 11:30 90 28 98/50 Nasal Cannula 3.0 10/13/17 11:00 98/49 10/13/17 11:00 93 27 98/49 Nasal Cannula 3.0 10/13/17 10:29 90 26 99/46 Nasal Cannula 3.0 10/13/17 10:00 90 23 93/52 Nasal Cannula 3.0 10/13/17 10:00 93/52 10/13/17 09:29 88 22 95/50 Nasal Cannula 3.0 10/13/17 09:00 87/55 10/13/17 09:00 88 21 86/50 Nasal Cannula 3.0 10/13/17 08:30 85 22 89/50 Nasal Cannula 3.0 10/13/17 08:00 92/51 10/13/17 08:00 94.3 60 22 92/51 Nasal Cannula 3.0 10/13/17 08:00 86 10/13/17 07:30 87 22 94/51 Nasal Cannula 3.0 10/13/17 07:15 Nasal Cannula 2.0 28 10/13/17 07:15 98 Nasal Cannula 2.0 28 10/13/17 07:00 87 18 87/58 94 Nasal Cannula 3.0 10/13/17 07:00 87/58 10/13/17 06:30 80 18 85/45 94 Nasal Cannula 3.0 10/13/17 06:00 82/53 10/13/17 06:00 84 21 90/45 94 Nasal Cannula 3.0 10/13/17 05:30 85 21 83/45 94 Nasal Cannula 3.0 10/13/17 05:00 86 22 75/57 94 Nasal Cannula 3.0 10/13/17 05:00 75/87 10/13/17 04:47 73/42 10/13/17 04:30 80 22 75/47 96 Nasal Cannula 3.0 10/13/17 04:00 92 10/13/17 04:00 97.8 92 20 78/50 94 Nasal Cannula 3.0 10/13/17 04:00 78/45 10/13/17 03:30 96 20 90/56 94 Nasal Cannula 3.0 10/13/17 03:00 97 24 75/34 95 Nasal Cannula 3.0 10/13/17 03:00 78/34 10/13/17 02:30 97 20 87/46 95 Nasal Cannula 3.0 10/13/17 02:00 87/44 10/13/17 02:00 89 20 87/44 95 Nasal Cannula 3.0 10/13/17 01:30 89 18 87/40 93 Nasal Cannula 3.0 10/13/17 01:00 89/45 10/13/17 01:00 89 18 89/45 98 Nasal Cannula 3.0 10/13/17 00:30 89 18 89/45 98 Nasal Cannula 3.0 10/13/17 00:00 98.0 89 14 87/46 100 Nasal Cannula 3.0 10/13/17 00:00 89 10/13/17 00:00 87/46 10/12/17 23:30 89 14 84/44 98 Nasal Cannula 3.0 10/12/17 23:00 82/44 10/12/17 23:00 89 16 82/44 98 Nasal Cannula 3.0 10/12/17 22:30 89 16 87/44 98 Nasal Cannula 3.0 10/12/17 22:00 88 18 87/47 99 Nasal Cannula 3.0 10/12/17 22:00 87/47 10/12/17 21:30 86 20 81/35 92 Nasal Cannula 3.0 10/12/17 21:00 86 19 82/53 100 Nasal Cannula 3.0 10/12/17 21:00 85/53 10/12/17 21:00 87 20 85/53 92 Nasal Cannula 3.0 Intake and Output 10/13/17 10/14/17 19:00 07:00 Intake Total 1340.57 ml Output Total 2760 ml Balance -1419.43 ml IV Total 1340.57 ml Output Urine Total 0 ml Hemodialysis UF 2760 ml Laboratory Tests 10/13/17 04:00: Lactic Acid Level 6.70H 10/13/17 05:00: White Blood Count 8.8, Red Blood Count 2.91L, Hemoglobin 9.2L, Hematocrit 28.9L , Mean Corpuscular Volume 99, Mean Corpuscular Hemoglobin 31.5H, Mean Corpuscular Hemoglobin Concent 31.7L, Red Cell Distribution Width 18.9H, Platelet Count 37L, Mean Platelet Volume 14.4H, Neutrophils (%) (Auto) , Lymphocytes (%) (Auto) , Monocytes (%) (Auto) , Eosinophils (%) (Auto) , Basophils (%) (Auto) , Differential Total Cells Counted 100, Neutrophils % ( Manual) 81H, Lymphocytes % (Manual) 5L, Monocytes % (Manual) 3, Eosinophils % ( Manual) 0, Basophils % (Manual) 0, Band Neutrophils 11H, Platelet Estimate DecreasedL, Platelet Morphology Normal, Hypochromasia 1+, Anisocytosis 1+, Sodium Level 133L, Potassium Level 3.5, Chloride Level 97L, Carbon Dioxide Level 24, Anion Gap 12, Blood Urea Nitrogen 31H, Creatinine 3.8H, Estimat Glomerular Filtration Rate , Glucose Level 172H, Calcium Level 7.3L, Total Bilirubin 1.6H, Direct Bilirubin 0.8H, Aspartate Amino Transf (AST/SGOT) 18, Alanine Aminotransferase (ALT/SGPT) 15, Alkaline Phosphatase 74, Troponin I 0.137H, Pro-B-Type Natriuretic Peptide 16461F, Total Protein 5.2L, Albumin 2.0L , Globulin 3.2, Albumin/Globulin Ratio 0.6L 10/13/17 09:35: Lactic Acid Level 4.20H 10/13/17 13:10: Arterial Blood pH 7.319L, Arterial Blood Partial Pressure CO2 39.4, Arterial Blood Partial Pressure O2 114.8H, Arterial Blood HCO3 19.8L, Arterial Blood Oxygen Saturation 97.3, Arterial Blood Base Excess -5.8, Colin Test Positive Height (Feet): 5 Height (Inches): 5.00 Weight (Pounds): 138 General Appearance: no apparent distress EENT: normal ENT inspection Neck: normal alignment Cardiovascular: normal peripheral pulses Abdomen: normal bowel sounds, non tender Neurologic: bingo floater II-XII grossly normal Skin: warm/dry Neri Rosenbaum Oct 13, 2017 20:41
--- NOTE | 2017-10-13 20:46 | General Surgery Progress Note ---
General Surgery-Progress Note Subjective Symptoms: worse Additional Comments patient seen and examined at bedside. continues to require significant vasopressor support and is till hypotensive at times. lactic acid significantly elevated today and has bands. plt very low. patient is remarkably still awake and responsive. today does not have complaints. Objective Last 24 Hour Vital Signs Date Time Temp Pulse Resp B/P (MAP) Pulse Ox O2 Delivery O2 Flow Rate FiO2 10/13/17 19:00 93 22 82/45 100 Simple Mask 10.0 10/13/17 18:31 95 23 85/48 100 Simple Mask 10.0 10/13/17 18:00 95 22 85/51 100 Simple Mask 10.0 10/13/17 18:00 85/51 10/13/17 17:30 93 23 90/49 97 Simple Mask 10.0 10/13/17 17:00 90 28 88/44 Simple Mask 10.0 10/13/17 17:00 23 83/46 Simple Mask 10.0 10/13/17 17:00 83/46 10/13/17 17:00 Simple Mask 10.0 10/13/17 16:30 22 88/53 Simple Mask 10.0 10/13/17 16:00 97.4 100 27 79/47 95 Simple Mask 10.0 10/13/17 16:00 98 10/13/17 16:00 79/47 10/13/17 15:30 94 14 90/49 Simple Mask 10.0 10/13/17 15:00 94 25 75/42 Simple Mask 10.0 10/13/17 15:00 75/42 10/13/17 14:35 81/51 10/13/17 14:30 87 26 94/50 Simple Mask 10.0 10/13/17 14:00 91 30 94/50 Simple Mask 10.0 10/13/17 14:00 94/50 10/13/17 13:30 Simple Mask 10.0 10/13/17 13:30 90 92/53 Simple Mask 10.0 10/13/17 13:30 97.4 88 32 94/50 Simple Mask 10.0 10/13/17 13:00 99 109/69 Simple Mask 10.0 10/13/17 13:00 109/69 10/13/17 12:31 88 25 95/48 Nasal Cannula 3.0 10/13/17 12:00 97.4 94 29 85/53 Nasal Cannula 3.0 10/13/17 12:00 92 10/13/17 12:00 78/56 10/13/17 12:00 26 94 Nasal Cannula 3.0 10/13/17 11:30 90 28 98/50 Nasal Cannula 3.0 10/13/17 11:00 98/49 10/13/17 11:00 93 27 98/49 Nasal Cannula 3.0 10/13/17 10:29 90 26 99/46 Nasal Cannula 3.0 10/13/17 10:00 90 23 93/52 Nasal Cannula 3.0 10/13/17 10:00 93/52 10/13/17 09:29 88 22 95/50 Nasal Cannula 3.0 10/13/17 09:00 87/55 10/13/17 09:00 88 21 86/50 Nasal Cannula 3.0 10/13/17 08:30 85 22 89/50 Nasal Cannula 3.0 10/13/17 08:00 92/51 10/13/17 08:00 94.3 60 22 92/51 Nasal Cannula 3.0 10/13/17 08:00 86 10/13/17 07:30 87 22 94/51 Nasal Cannula 3.0 10/13/17 07:15 Nasal Cannula 2.0 28 10/13/17 07:15 98 Nasal Cannula 2.0 28 10/13/17 07:00 87 18 87/58 94 Nasal Cannula 3.0 10/13/17 07:00 87/58 10/13/17 06:30 80 18 85/45 94 Nasal Cannula 3.0 10/13/17 06:00 82/53 10/13/17 06:00 84 21 90/45 94 Nasal Cannula 3.0 10/13/17 05:30 85 21 83/45 94 Nasal Cannula 3.0 10/13/17 05:00 86 22 75/57 94 Nasal Cannula 3.0 10/13/17 05:00 75/87 10/13/17 04:47 73/42 10/13/17 04:30 80 22 75/47 96 Nasal Cannula 3.0 10/13/17 04:00 92 10/13/17 04:00 97.8 92 20 78/50 94 Nasal Cannula 3.0 10/13/17 04:00 78/45 10/13/17 03:30 96 20 90/56 94 Nasal Cannula 3.0 10/13/17 03:00 97 24 75/34 95 Nasal Cannula 3.0 10/13/17 03:00 78/34 10/13/17 02:30 97 20 87/46 95 Nasal Cannula 3.0 10/13/17 02:00 87/44 10/13/17 02:00 89 20 87/44 95 Nasal Cannula 3.0 10/13/17 01:30 89 18 87/40 93 Nasal Cannula 3.0 10/13/17 01:00 89/45 10/13/17 01:00 89 18 89/45 98 Nasal Cannula 3.0 10/13/17 00:30 89 18 89/45 98 Nasal Cannula 3.0 10/13/17 00:00 98.0 89 14 87/46 100 Nasal Cannula 3.0 10/13/17 00:00 89 10/13/17 00:00 87/46 10/12/17 23:30 89 14 84/44 98 Nasal Cannula 3.0 10/12/17 23:00 82/44 10/12/17 23:00 89 16 82/44 98 Nasal Cannula 3.0 10/12/17 22:30 89 16 87/44 98 Nasal Cannula 3.0 10/12/17 22:00 88 18 87/47 99 Nasal Cannula 3.0 10/12/17 22:00 87/47 10/12/17 21:30 86 20 81/35 92 Nasal Cannula 3.0 10/12/17 21:00 86 19 82/53 100 Nasal Cannula 3.0 10/12/17 21:00 85/53 10/12/17 21:00 87 20 85/53 92 Nasal Cannula 3.0 I&O Intake and Output 10/13/17 10/14/17 19:00 07:00 Intake Total 1340.57 ml Output Total 2760 ml Balance -1419.43 ml IV Total 1340.57 ml Output Urine Total 0 ml Hemodialysis UF 2760 ml Cardiovascular: other - hypotensive. weak peripheral pulses. Respiratory: decreased breath sounds Abdomen: soft, distended, tenderness, absent bowel sounds, other - tympanic. tender mainly in RUQ. Extremities: edema, no tenderness, other - deminished peripheral pulses. Laboratory Tests Test 10/13/17 04:00 10/13/17 05:00 10/13/17 09:35 10/13/17 13:10 Lactic Acid Level 6.70 mmol/L (0.66-2.22) H 4.20 mmol/L (0.66-2.22) H White Blood Count 8.8 K/UL (4.8-10.8) Red Blood Count 2.91 M/UL (4.20-5.40) L Hemoglobin 9.2 G/DL (12.0-16.0) L Hematocrit 28.9 % (37.0-47.0) L Mean Corpuscular Volume 99 FL (80-99) Mean Corpuscular Hemoglobin 31.5 PG (27.0-31.0) H Mean Corpuscular Hemoglobin Concent 31.7 G/DL (32.0-36.0) L Red Cell Distribution Width 18.9 % (11.6-14.8) H Platelet Count 37 K/UL (150-450) L Mean Platelet Volume 14.4 FL (6.5-10.1) H Neutrophils (%) (Auto) % (45.0-75.0) Lymphocytes (%) (Auto) % (20.0-45.0) Monocytes (%) (Auto) % (1.0-10.0) Eosinophils (%) (Auto) % (0.0-3.0) Basophils (%) (Auto) % (0.0-2.0) Differential Total Cells Counted 100 Neutrophils % (Manual) 81 % (45-75) H Lymphocytes % (Manual) 5 % (20-45) L Monocytes % (Manual) 3 % (1-10) Eosinophils % (Manual) 0 % (0-3) Basophils % (Manual) 0 % (0-2) Band Neutrophils 11 % (0-8) H Platelet Estimate Decreased L Platelet Morphology Normal Hypochromasia 1+ Anisocytosis 1+ Sodium Level 133 MMOL/L (136-145) L Potassium Level 3.5 MMOL/L (3.5-5.1) Chloride Level 97 MMOL/L (98-107) L Carbon Dioxide Level 24 MMOL/L (21-32) Anion Gap 12 mmol/L (5-15) Blood Urea Nitrogen 31 mg/dL (7-18) H Creatinine 3.8 MG/DL (0.55-1.30) H Estimat Glomerular Filtration Rate mL/min (>60) Glucose Level 172 MG/DL (74-106) H Calcium Level 7.3 MG/DL (8.5-10.1) L Total Bilirubin 1.6 MG/DL (0.2-1.0) H Direct Bilirubin 0.8 MG/DL (0.0-0.3) H Aspartate Amino Transf (AST/SGOT) 18 U/L (15-37) Alanine Aminotransferase (ALT/SGPT) 15 U/L (12-78) Alkaline Phosphatase 74 U/L (46-116) Troponin I 0.137 ng/mL (0.000-0.056) Pro-B-Type Natriuretic Peptide 50792 pg/mL (0-125) H Total Protein 5.2 G/DL (6.4-8.2) L Albumin 2.0 G/DL (3.4-5.0) L Globulin 3.2 g/dL Albumin/Globulin Ratio 0.6 (1.0-2.7) L Arterial Blood pH 7.319 (7.350-7.450) Arterial Blood Partial Pressure CO2 39.4 mmHg (35.0-45.0) Arterial Blood Partial Pressure O2 114.8 mmHg (75.0-100.0) H Arterial Blood HCO3 19.8 mmol/L (22.0-26.0) L Arterial Blood Oxygen Saturation 97.3 % (92.0-98.0) Arterial Blood Base Excess -5.8 Colin Test Positive Plan Problems: (1) Small bowel obstruction Assessment & Plan: 72 year old female with small bowel obstruction. CT reviewed and very limited given lack of contrast and image quality. can identify dilated bowel loops and transition point. etiology unclear at this time. patient and family deny prior abdominal surgery but on exam can see a prior lower midline scar. No improvement. and continues to deteriorate. have been recommending surgery and exploratory laparotomy to evaluate etiology of obstruction for 2-3 days now. Patient not consentable for surgery. Patient has a POA Lesley Hammond and Daughter Brittny Magallanes. I have contacted POA multiple times. she would not consent to surgery even with urgent/emergent nature of disease. she stated that she needs to come in to hospital and see patient prior to making decision. she was not sure of comfort care vs invasive heroic surgery. we had planned on meeting for the past two days and she did not come. was very difficult to reach by phone and multiple voicemail left. ANGELA was at bedside today and I was called. Came to bedside immediately to discuss condition with her. she stated that she had a in the family. I explained to her that over the past two days she we have recommended surgery and the urgent/emergent need for surgery she has continued to deteriorate without surgery. We discussed how her pressor requirement has increased significantly and how she requires more support now. I explained to her how the labs have worsened and my concerns for bowel viability. POParker initially unsure of decision for surgery or not. I left beside and later in the day she had nursing staff contact me so she could tell me she would be willing to sign consent for surgery now. I explained to her that unfortunately she is very unstable now. she is HD unstable with max levophed requirement, EF of 20%, and worsening labs. She is too unstable for anesthesia and would likely go into cardiac arrest with induction. I spoke with anesthesiologist who agreed that she is too unstable for surgery. She was scheduled for HD which is was recommended this afternoon. she tolerated HD but is still very unstable. I called and spoke with ANGELA again as patient was receiving HD. We discussed plans and agreed that if should could potentially make some improvement with medical management and became more stable we would readdress surgery. Strict NPO IV fluids NG Tube to suction HD prn order platelets. Vimal Montague Oct 13, 2017 20:46
--- NOTE | 2017-10-13 21:13 | Cardiology Progress Note ---
Assessment/Plan Assessment/Plan 1. Septic shock, continue Levophed gtt, continue midodrine. 2. Anterior ischemia on 12-lead EKG. The patient denies any chest pain. 3. Severe cardiomyopathy with EF 20-25%. Ischemia evaluation once off pressors. 4. End-stage renal disease, on hemodialysis. Subjective Subjective Sinus rhythm at 95. On levophed gtt. Objective Last 24 Hour Vital Signs Date Time Temp Pulse Resp B/P (MAP) Pulse Ox O2 Delivery O2 Flow Rate FiO2 10/13/17 19:00 93 22 82/45 100 Simple Mask 10.0 10/13/17 18:31 95 23 85/48 100 Simple Mask 10.0 10/13/17 18:00 95 22 85/51 100 Simple Mask 10.0 10/13/17 18:00 85/51 10/13/17 17:30 93 23 90/49 97 Simple Mask 10.0 10/13/17 17:00 90 28 88/44 Simple Mask 10.0 10/13/17 17:00 23 83/46 Simple Mask 10.0 10/13/17 17:00 83/46 10/13/17 17:00 Simple Mask 10.0 10/13/17 16:30 22 88/53 Simple Mask 10.0 10/13/17 16:00 97.4 100 27 79/47 95 Simple Mask 10.0 10/13/17 16:00 98 10/13/17 16:00 79/47 10/13/17 15:30 94 14 90/49 Simple Mask 10.0 10/13/17 15:00 94 25 75/42 Simple Mask 10.0 10/13/17 15:00 75/42 10/13/17 14:35 81/51 10/13/17 14:30 87 26 94/50 Simple Mask 10.0 10/13/17 14:00 91 30 94/50 Simple Mask 10.0 10/13/17 14:00 94/50 10/13/17 13:30 Simple Mask 10.0 10/13/17 13:30 90 92/53 Simple Mask 10.0 10/13/17 13:30 97.4 88 32 94/50 Simple Mask 10.0 10/13/17 13:00 99 109/69 Simple Mask 10.0 10/13/17 13:00 109/69 10/13/17 12:31 88 25 95/48 Nasal Cannula 3.0 10/13/17 12:00 97.4 94 29 85/53 Nasal Cannula 3.0 10/13/17 12:00 92 10/13/17 12:00 78/56 10/13/17 12:00 26 94 Nasal Cannula 3.0 10/13/17 11:30 90 28 98/50 Nasal Cannula 3.0 10/13/17 11:00 98/49 10/13/17 11:00 93 27 98/49 Nasal Cannula 3.0 10/13/17 10:29 90 26 99/46 Nasal Cannula 3.0 10/13/17 10:00 90 23 93/52 Nasal Cannula 3.0 10/13/17 10:00 93/52 10/13/17 09:29 88 22 95/50 Nasal Cannula 3.0 10/13/17 09:00 87/55 10/13/17 09:00 88 21 86/50 Nasal Cannula 3.0 10/13/17 08:30 85 22 89/50 Nasal Cannula 3.0 10/13/17 08:00 92/51 10/13/17 08:00 94.3 60 22 92/51 Nasal Cannula 3.0 10/13/17 08:00 86 10/13/17 07:30 87 22 94/51 Nasal Cannula 3.0 10/13/17 07:15 Nasal Cannula 2.0 28 10/13/17 07:15 98 Nasal Cannula 2.0 28 10/13/17 07:00 87 18 87/58 94 Nasal Cannula 3.0 10/13/17 07:00 87/58 10/13/17 06:30 80 18 85/45 94 Nasal Cannula 3.0 10/13/17 06:00 82/53 10/13/17 06:00 84 21 90/45 94 Nasal Cannula 3.0 10/13/17 05:30 85 21 83/45 94 Nasal Cannula 3.0 10/13/17 05:00 86 22 75/57 94 Nasal Cannula 3.0 10/13/17 05:00 75/87 10/13/17 04:47 73/42 10/13/17 04:30 80 22 75/47 96 Nasal Cannula 3.0 10/13/17 04:00 92 10/13/17 04:00 97.8 92 20 78/50 94 Nasal Cannula 3.0 10/13/17 04:00 78/45 10/13/17 03:30 96 20 90/56 94 Nasal Cannula 3.0 10/13/17 03:00 97 24 75/34 95 Nasal Cannula 3.0 10/13/17 03:00 78/34 10/13/17 02:30 97 20 87/46 95 Nasal Cannula 3.0 10/13/17 02:00 87/44 10/13/17 02:00 89 20 87/44 95 Nasal Cannula 3.0 10/13/17 01:30 89 18 87/40 93 Nasal Cannula 3.0 10/13/17 01:00 89/45 10/13/17 01:00 89 18 89/45 98 Nasal Cannula 3.0 10/13/17 00:30 89 18 89/45 98 Nasal Cannula 3.0 10/13/17 00:00 98.0 89 14 87/46 100 Nasal Cannula 3.0 10/13/17 00:00 89 10/13/17 00:00 87/46 10/12/17 23:30 89 14 84/44 98 Nasal Cannula 3.0 10/12/17 23:00 82/44 10/12/17 23:00 89 16 82/44 98 Nasal Cannula 3.0 10/12/17 22:30 89 16 87/44 98 Nasal Cannula 3.0 10/12/17 22:00 88 18 87/47 99 Nasal Cannula 3.0 10/12/17 22:00 87/47 10/12/17 21:30 86 20 81/35 92 Nasal Cannula 3.0 Intake and Output 10/13/17 10/14/17 19:00 07:00 Intake Total 1340.57 ml Output Total 2760 ml Balance -1419.43 ml IV Total 1340.57 ml Output Urine Total 0 ml Hemodialysis UF 2760 ml 2D Echo: LVEF 15%, Grade III LVDD, Sev MR, RVSP 136 mmHg Laboratory Tests Test 10/13/17 04:00 10/13/17 05:00 10/13/17 09:35 10/13/17 13:10 Lactic Acid Level 6.70 mmol/L (0.66-2.22) H 4.20 mmol/L (0.66-2.22) H White Blood Count 8.8 K/UL (4.8-10.8) Red Blood Count 2.91 M/UL (4.20-5.40) L Hemoglobin 9.2 G/DL (12.0-16.0) L Hematocrit 28.9 % (37.0-47.0) L Mean Corpuscular Volume 99 FL (80-99) Mean Corpuscular Hemoglobin 31.5 PG (27.0-31.0) H Mean Corpuscular Hemoglobin Concent 31.7 G/DL (32.0-36.0) L Red Cell Distribution Width 18.9 % (11.6-14.8) H Platelet Count 37 K/UL (150-450) L Mean Platelet Volume 14.4 FL (6.5-10.1) H Neutrophils (%) (Auto) % (45.0-75.0) Lymphocytes (%) (Auto) % (20.0-45.0) Monocytes (%) (Auto) % (1.0-10.0) Eosinophils (%) (Auto) % (0.0-3.0) Basophils (%) (Auto) % (0.0-2.0) Differential Total Cells Counted 100 Neutrophils % (Manual) 81 % (45-75) H Lymphocytes % (Manual) 5 % (20-45) L Monocytes % (Manual) 3 % (1-10) Eosinophils % (Manual) 0 % (0-3) Basophils % (Manual) 0 % (0-2) Band Neutrophils 11 % (0-8) H Platelet Estimate Decreased L Platelet Morphology Normal Hypochromasia 1+ Anisocytosis 1+ Sodium Level 133 MMOL/L (136-145) L Potassium Level 3.5 MMOL/L (3.5-5.1) Chloride Level 97 MMOL/L (98-107) L Carbon Dioxide Level 24 MMOL/L (21-32) Anion Gap 12 mmol/L (5-15) Blood Urea Nitrogen 31 mg/dL (7-18) H Creatinine 3.8 MG/DL (0.55-1.30) H Estimat Glomerular Filtration Rate mL/min (>60) Glucose Level 172 MG/DL (74-106) H Calcium Level 7.3 MG/DL (8.5-10.1) L Total Bilirubin 1.6 MG/DL (0.2-1.0) H Direct Bilirubin 0.8 MG/DL (0.0-0.3) H Aspartate Amino Transf (AST/SGOT) 18 U/L (15-37) Alanine Aminotransferase (ALT/SGPT) 15 U/L (12-78) Alkaline Phosphatase 74 U/L (46-116) Troponin I 0.137 ng/mL (0.000-0.056) Pro-B-Type Natriuretic Peptide 87654 pg/mL (0-125) H Total Protein 5.2 G/DL (6.4-8.2) L Albumin 2.0 G/DL (3.4-5.0) L Globulin 3.2 g/dL Albumin/Globulin Ratio 0.6 (1.0-2.7) L Arterial Blood pH 7.319 (7.350-7.450) Arterial Blood Partial Pressure CO2 39.4 mmHg (35.0-45.0) Arterial Blood Partial Pressure O2 114.8 mmHg (75.0-100.0) H Arterial Blood HCO3 19.8 mmol/L (22.0-26.0) L Arterial Blood Oxygen Saturation 97.3 % (92.0-98.0) Arterial Blood Base Excess -5.8 Colin Test Positive Objective HEAD AND NECK: No JVD, PERRLA, EOMI. LUNGS: Decreased breath sounds. CARDIOVASCULAR: Regular S1 and S2 with no gallop or murmur. ABDOMEN: Soft, NT/ND, + BS. EXTREMITIES: No pitting edema. Her dialysis shunt is in the right arm. MATIAS MCGUIRE Oct 13, 2017 21:13
[2017-10-13] MEDS ORDERED: Sodium Chloride 500ML 500 ML IV ONE (21:15)
[2017-10-13] MEDS: Phenylephrine 50 MG in D5W 245 ML IV SCH (23:08)
--- NOTE | 2017-10-13 23:38 | Nephrology Progress Note ---
Assessment/Plan Problem List: (1) HCAP (healthcare-associated pneumonia) (2) Septic shock (3) CKD (chronic kidney disease) requiring chronic dialysis (4) Altered mental status (5) Sepsis (6) Abdominal pain (7) Hypotension (8) Hypoglycemia (9) Poor appetite Plan abx per ID. cardio following. cont pressor prn. monitor closely. Subjective Subjective remains in ICU. on pressors. Objective Objective Last 24 Hour Vital Signs Date Time Temp Pulse Resp B/P (MAP) Pulse Ox O2 Delivery O2 Flow Rate FiO2 10/13/17 23:10 83/37 10/13/17 23:08 92 83/37 10/13/17 22:23 Room Air 10/13/17 22:10 98.2 105 20 156/84 Room Air 105 10/13/17 21:00 94 27 77/39 93 Nasal Cannula 2.0 99 10/13/17 20:30 93 26 88/43 93 Nasal Cannula 2.0 99 10/13/17 20:00 99 20 79/54 93 Nasal Cannula 2.0 99 10/13/17 19:30 98.2 105 20 67/45 93 Nasal Cannula 2.0 99 10/13/17 19:00 93 22 82/45 100 Simple Mask 10.0 10/13/17 18:31 95 23 85/48 100 Simple Mask 10.0 10/13/17 18:00 95 22 85/51 100 Simple Mask 10.0 10/13/17 18:00 85/51 10/13/17 17:30 93 23 90/49 97 Simple Mask 10.0 10/13/17 17:00 90 28 88/44 Simple Mask 10.0 10/13/17 17:00 23 83/46 Simple Mask 10.0 10/13/17 17:00 83/46 10/13/17 17:00 Simple Mask 10.0 10/13/17 16:30 22 88/53 Simple Mask 10.0 10/13/17 16:00 97.4 100 27 79/47 95 Simple Mask 10.0 10/13/17 16:00 98 10/13/17 16:00 79/47 10/13/17 15:30 94 14 90/49 Simple Mask 10.0 10/13/17 15:00 94 25 75/42 Simple Mask 10.0 10/13/17 15:00 75/42 10/13/17 14:35 81/51 10/13/17 14:30 87 26 94/50 Simple Mask 10.0 10/13/17 14:00 91 30 94/50 Simple Mask 10.0 10/13/17 14:00 94/50 10/13/17 13:30 Simple Mask 10.0 10/13/17 13:30 90 92/53 Simple Mask 10.0 10/13/17 13:30 97.4 88 32 94/50 Simple Mask 10.0 10/13/17 13:00 99 109/69 Simple Mask 10.0 10/13/17 13:00 109/69 10/13/17 12:31 88 25 95/48 Nasal Cannula 3.0 10/13/17 12:00 97.4 94 29 85/53 Nasal Cannula 3.0 10/13/17 12:00 92 10/13/17 12:00 78/56 10/13/17 12:00 26 94 Nasal Cannula 3.0 10/13/17 11:30 90 28 98/50 Nasal Cannula 3.0 10/13/17 11:00 98/49 10/13/17 11:00 93 27 98/49 Nasal Cannula 3.0 10/13/17 10:29 90 26 99/46 Nasal Cannula 3.0 10/13/17 10:00 90 23 93/52 Nasal Cannula 3.0 10/13/17 10:00 93/52 10/13/17 09:29 88 22 95/50 Nasal Cannula 3.0 10/13/17 09:00 87/55 10/13/17 09:00 88 21 86/50 Nasal Cannula 3.0 10/13/17 08:30 85 22 89/50 Nasal Cannula 3.0 10/13/17 08:00 92/51 10/13/17 08:00 94.3 60 22 92/51 Nasal Cannula 3.0 10/13/17 08:00 86 10/13/17 07:30 87 22 94/51 Nasal Cannula 3.0 10/13/17 07:15 Nasal Cannula 2.0 28 10/13/17 07:15 98 Nasal Cannula 2.0 28 10/13/17 07:00 87 18 87/58 94 Nasal Cannula 3.0 10/13/17 07:00 87/58 10/13/17 06:30 80 18 85/45 94 Nasal Cannula 3.0 10/13/17 06:00 82/53 10/13/17 06:00 84 21 90/45 94 Nasal Cannula 3.0 10/13/17 05:30 85 21 83/45 94 Nasal Cannula 3.0 10/13/17 05:00 86 22 75/57 94 Nasal Cannula 3.0 10/13/17 05:00 75/87 10/13/17 04:47 73/42 10/13/17 04:30 80 22 75/47 96 Nasal Cannula 3.0 10/13/17 04:00 92 10/13/17 04:00 97.8 92 20 78/50 94 Nasal Cannula 3.0 10/13/17 04:00 78/45 10/13/17 03:30 96 20 90/56 94 Nasal Cannula 3.0 10/13/17 03:00 97 24 75/34 95 Nasal Cannula 3.0 10/13/17 03:00 78/34 10/13/17 02:30 97 20 87/46 95 Nasal Cannula 3.0 10/13/17 02:00 87/44 10/13/17 02:00 89 20 87/44 95 Nasal Cannula 3.0 10/13/17 01:30 89 18 87/40 93 Nasal Cannula 3.0 10/13/17 01:00 89/45 10/13/17 01:00 89 18 89/45 98 Nasal Cannula 3.0 10/13/17 00:30 89 18 89/45 98 Nasal Cannula 3.0 10/13/17 00:00 98.0 89 14 87/46 100 Nasal Cannula 3.0 10/13/17 00:00 89 10/13/17 00:00 87/46 Intake and Output 10/13/17 10/14/17 19:00 07:00 Intake Total 1340.57 ml 488.98 ml Output Total 2760 ml 500 ml Balance -1419.43 ml -11.02 ml IV Total 1340.57 ml 488.98 ml Output Urine Total 0 ml Hemodialysis UF 2760 ml 500 ml Laboratory Tests 10/13/17 04:00: Lactic Acid Level 6.70H 10/13/17 05:00: White Blood Count 8.8, Red Blood Count 2.91L, Hemoglobin 9.2L, Hematocrit 28.9L , Mean Corpuscular Volume 99, Mean Corpuscular Hemoglobin 31.5H, Mean Corpuscular Hemoglobin Concent 31.7L, Red Cell Distribution Width 18.9H, Platelet Count 37L, Mean Platelet Volume 14.4H, Neutrophils (%) (Auto) , Lymphocytes (%) (Auto) , Monocytes (%) (Auto) , Eosinophils (%) (Auto) , Basophils (%) (Auto) , Differential Total Cells Counted 100, Neutrophils % ( Manual) 81H, Lymphocytes % (Manual) 5L, Monocytes % (Manual) 3, Eosinophils % ( Manual) 0, Basophils % (Manual) 0, Band Neutrophils 11H, Platelet Estimate DecreasedL, Platelet Morphology Normal, Hypochromasia 1+, Anisocytosis 1+, Sodium Level 133L, Potassium Level 3.5, Chloride Level 97L, Carbon Dioxide Level 24, Anion Gap 12, Blood Urea Nitrogen 31H, Creatinine 3.8H, Estimat Glomerular Filtration Rate , Glucose Level 172H, Calcium Level 7.3L, Total Bilirubin 1.6H, Direct Bilirubin 0.8H, Aspartate Amino Transf (AST/SGOT) 18, Alanine Aminotransferase (ALT/SGPT) 15, Alkaline Phosphatase 74, Troponin I 0.137H, Pro-B-Type Natriuretic Peptide 94043T, Total Protein 5.2L, Albumin 2.0L , Globulin 3.2, Albumin/Globulin Ratio 0.6L 10/13/17 09:35: Lactic Acid Level 4.20H 10/13/17 13:10: Arterial Blood pH 7.319L, Arterial Blood Partial Pressure CO2 39.4, Arterial Blood Partial Pressure O2 114.8H, Arterial Blood HCO3 19.8L, Arterial Blood Oxygen Saturation 97.3, Arterial Blood Base Excess -5.8, Colin Test Positive Height (Feet): 5 Height (Inches): 5.00 Weight (Pounds): 138 BONNIEASHISH MARIE Oct 13, 2017 23:38
[2017-10-14] VITALS (32 sets, daily range): BP systolic 0–92; BP diastolic 0–72
[2017-10-14] MEDS: NovoLOG Insulin Flexpen SUBQ SCH ×4 (01:00→12:40)
--- NOTE | 2017-10-14 01:47 | Progress Note ---
DATE: 10/13/2017 SUBJECTIVE: This is a 72-year-old female, was earlier short of breath and lethargic, was having a dialysis. Her shortness of breath has improved. OBJECTIVE: GENERAL: The patient is more awake and blood pressure is still low at 90s, symptomatic. CHEST: Bilateral few crackles. CARDIOVASCULAR: Regular rhythm. No gallop. No murmur. ABDOMEN: Soft. EXTREMITIES: CCE. NEUROLOGIC: Generalized weakness. ASSESSMENT AND PLAN: 1. Sepsis. 2. Hypotension. 3. Acute renal failure. 4. Diabetes. PLAN: We will currently continue current treatment. Monitor blood pressure. Continue hemodialysis. Discussed with Dr. Fay and Dr. Gutierrez for a small bowel obstruction. The patient is clinically slowly improving. Jesse Campa M.D. DR: Aura JOB#: [id number] CC:
[2017-10-14 03:16] LABS: ABG ALLEN TEST POSITIVE; ABG BASE EXCESS -10.2; ABG PCO2 29.3 mmHg (35.0-45.0)
[2017-10-14 04:45] LABS: MEAN CORPUSCULAR HEMOGLOBIN 31.3 PG (27.0-31.0); MEAN CORPUSCULAR HGB CONC 30.7 G/DL (32.0-36.0); MEAN CORPUSCULAR VOLUME 102 FL (80-99); MEAN PLATELET VOLUME 13.5 FL (6.5-10.1); PLATELET COUNT 42 K/UL (150-450); RED BLOOD COUNT 2.68 M/UL (4.20-5.40); WHITE BLOOD COUNT 7.6 K/UL (4.8-10.8)
--- NOTE | 2017-10-14 04:45 | Emergency Room Report ---
History of Present Illness General Chief Complaint: Abnormal Labs Source: Medical Record Present Illness HPI This is a 72-year-old female with multiple medical problem. She is admitted to the ICU for sepsis, septic shock, renal failure and has bout obstruction. I responded to a CODE BLUE. Per nursing staff, she went bradycardic and asystolic. CPR was in progress on my arrival. Patient just received 1 mg of epinephrine. It was no pulse. I proceeded to intubate the patient. After the third round of epinephrine, she had a spontaneous return of pulse. Patient was placed on a ventilator. Please see code sheet for full set of medication use. Allergies: Coded Allergies: ASPIRIN (Unverified Allergy, Unknown, 10/03/17) PENICILLINS (Unverified Allergy, Unknown, 10/03/17) Patient History Past Medical History: see triage record, old chart reviewed Now: No Nursing Documentation-PMH Past Medical History: No History, Except For Hx Cardiac Problems: Yes - Cardiogenic shock, Anemia, Hyperparathyroidism Hx Hypertension: Yes - Nonrheumatic Mitral valve insufficiency Hx Asthma: No - Acute pulmanory edema Hx Diabetes: Yes - Type 2 Hx Cancer: No Hx Gastrointestinal Problems: Yes - Generalized muscle weakness Hx Dialysis: Yes - ESRD Hx Neurological Problems: Yes - Metabolic Encephalopathy Review of Systems All Other Systems: limited - Secondary to patient's condition. Physical Exam Vital Signs Date Time Temp Pulse Resp B/P (MAP) Pulse Ox O2 Delivery O2 Flow Rate FiO2 10/03/17 04:41 96.4 90 16 106/70 92 Simple Mask 10/03/17 05:00 6.0 10/03/17 05:42 50 no pulse without CPR. Oxygenation is [id number]. Sp02 EP Interpretation: abnormal General Appearance: severe distress Head: normocephalic, atraumatic Eyes: bilateral eye PERRL ENT: other - Assisted breathing Neck: full range of motion, supple, no meningismus Respiratory: rhonchi, other - Rhonchi with [id number] Cardiovascular #1: other - No pulse without CPR Gastrointestinal: normal bowel sounds, non tender, no mass, no organomegaly, no bruit, non-distended Neurologic: other - No response Skin: warm/dry Procedures Critical Care Time Critical Care Time Critical care is mandated in this patient who presented with cardiac arrest. Patient require my urgent intervention to attenuate the risks of metabolic collapse which may lead to cardiovascular collapse and . Critical care time is 35 minutes excluding any reportable procedure. Critical care time included evaluation, multiple reevaluation, looking at old charts, interpreting laboratory and diagnostic data, discussing case with patient and family and consultants, and charting. Intubation Intubation : Consent: Emergent Intubation Method: orotracheal Tube Size (cm): 7.5 Breath Sounds after Intubation: equal Intubation Complications: no complications Post Intubation Xray: Yes Progress/Xray Impression: Endotracheal tube in good position. no ptx. Medical Decision Making Diagnostic Impression: Primary Impression: Hypoglycemia Additional Impressions: Septic shock CHF (congestive heart failure) Qualified Codes: I50.9 - Heart failure, unspecified Hypothermia Qualified Codes: T68.XXXA - Hypothermia, initial encounter Sepsis Qualified Codes: A41.9 - Sepsis, unspecified organism Altered mental status Qualified Codes: R41.82 - Altered mental status, unspecified CKD (chronic kidney disease) requiring chronic dialysis Hypokalemia Cardiac arrest ER Course Patient presents with septic shock in and a CODE BLUE to the ICU. Patient intubated. Spontaneous return of rhythm after 3 rounds of epinephrine. Patient intubated. Chest X-Ray Diagnostic Results Chest X-Ray Diagnostic Results : Chest X-Ray Ordered: Yes # of Views/Limited/Complete: 1 View Indication: Shortness of Breath EP Interpretation: Yes Interpretation: no effusion, no pneumothorax, other - b/l infiltrate. ETT in good position Last Vital Signs Date Time Temp Pulse Resp B/P (MAP) Pulse Ox O2 Delivery O2 Flow Rate FiO2 10/14/17 03:30 80 21 100 10/14/17 01:13 Mechanical Ventilator 10/13/17 23:10 83/37 10/13/17 22:10 98.2 10/13/17 21:00 93 2.0 Disposition: ADMITTED INPATIENT Condition: Critical Referrals: ELAINE CHAKRABORTY (PCP) RODERICK SWARTZ M.D. Oct 14, 2017 04:45
[2017-10-14 05:03] LABS: ALANINE AMINOTRANSFERASE 25 U/L (12-78); ALBUMIN/GLOBULIN RATIO 0.6 (1.0-2.7); ANION GAP 18 mmol/L (5-15); ASPARTATE AMINO TRANSFERASE 76 U/L (15-37); CALCIUM 7.5 MG/DL (8.5-10.1); CARBON DIOXIDE 20 MMOL/L (21-32); CHLORIDE 98 MMOL/L (98-107); CREATININE 3.3 MG/DL (0.55-1.30); POTASSIUM 3.9 MMOL/L (3.5-5.1); SODIUM 136 MMOL/L (136-145); TOTAL PROTEIN 5.1 G/DL (6.4-8.2)
[2017-10-14 05:05] LABS: BILIRUBIN,DIRECT 1.1 MG/DL (0.0-0.3); REFLEX LACTIC ACID YES OR NO YES
[2017-10-14 07:19] LABS: ANISOCYTOSIS 1+; BAND NEUTROPHILS % (MANUAL) 19 % (0-8); BASOPHILS % (MANUAL) 0 % (0-2); EOSINOPHILS % (MANUAL) 0 % (0-3); LYMPHOCYTES % (MANUAL) 5 % (20-45); NEUTROPHILS % (MANUAL) 72 % (45-75); PLATELET ESTIMATE DECREASED; PLATELET MORPHOLOGY NORMAL; TOTAL CELLS COUNTED 100
[2017-10-14 07:20] LABS: HYPOCHROMASIA 1+
[2017-10-14 07:22] LABS: BURR CELLS OCCASIONAL; MACROCYTES 1+
[2017-10-14] MEDS: Midodrine 10mg tab ORAL SCH ×2 (08:34→12:40)
[2017-10-14] MEDS: NOREPINEPHRINE BITARTRATE IV SCH (08:35)
[2017-10-14] MEDS: D5W IV SCH (08:35)
[2017-10-14] MEDS: Pantoprazole Inj IVP SCH (08:41)
--- NOTE | 2017-10-14 10:40 | General Progress Note ---
Assessment/Plan Assessment/Plan ASSESSMENT AND RECOMMENDATIONS: 1. Thrombocytopenia, rule out heparin-induced thrombocytopenia syndrome. HIT pending --> No acute DVT --> likely due to sepsis --> plt goal above 20k --> platelet transfusion today 2. Anemia secondary to chronic disease that is related to the patient's history of multiple comorbid conditions. --> The patient's ferritin was 119, percent sat of 48. 3. Anemia secondary to kidney disease, on dialysis. 4. Coagulopathy. Manage with vitamin K as needed. 5. Septic shock with pneumonia. She is on antibiotics. Continue broad- spectrum antibiotics. 6. Small bowel obstruction, appreciate surgery recs Subjective Allergies: Coded Allergies: ASPIRIN (Unverified Allergy, Unknown, 10/03/17) PENICILLINS (Unverified Allergy, Unknown, 10/03/17) All Systems: reviewed and negative except above Subjective platelets still low. to start plt transfusion Objective Last 24 Hour Vital Signs Date Time Temp Pulse Resp B/P (MAP) Pulse Ox O2 Delivery O2 Flow Rate FiO2 10/14/17 10:00 90 19 83/51 95 Mechanical Ventilator 70 10/14/17 09:30 89 19 85/50 95 Mechanical Ventilator 70 10/14/17 09:00 88 19 79/41 95 Mechanical Ventilator 70 10/14/17 08:49 87 33 70 10/14/17 08:35 80/58 10/14/17 08:30 90 19 80/58 95 Mechanical Ventilator 70 10/14/17 08:00 97.4 94 20 92/58 95 Mechanical Ventilator 70 10/14/17 08:00 91 10/14/17 07:30 91 19 91/72 95 Mechanical Ventilator 70 10/14/17 07:11 85 32 70 10/14/17 07:00 92 20 84/57 95 Mechanical Ventilator 70 10/14/17 06:30 91 20 80/45 95 Mechanical Ventilator 70 88 10/14/17 06:00 90 20 76/45 95 Mechanical Ventilator 70 88 10/14/17 05:30 78 29 70 10/14/17 05:30 88 20 84/45 95 Mechanical Ventilator 70 88 10/14/17 05:00 57 20 79/46 95 Mechanical Ventilator 70 85 10/14/17 04:30 71 20 79/42 95 Mechanical Ventilator 70 85 10/14/17 04:00 96.8 71 20 71/41 95 Mechanical Ventilator 70 85 10/14/17 04:00 85 10/14/17 04:00 70 10/14/17 03:30 80 21 100 10/14/17 03:30 71 20 79/45 95 Mechanical Ventilator 100 85 10/14/17 03:00 87 20 80/45 95 Mechanical Ventilator 70 85 10/14/17 02:30 86 20 77/45 95 Mechanical Ventilator 100 85 10/14/17 02:00 85 20 83/44 95 Mechanical Ventilator 100 85 10/14/17 01:30 83 20 88/70 92 Mechanical Ventilator 100 83 10/14/17 01:15 83 24 100 10/14/17 01:13 84 23 Mechanical Ventilator 10/14/17 01:00 83 20 81/43 92 Mechanical Ventilator 100 83 10/14/17 01:00 100 10/14/17 00:56 0 20 0/0 Ambu-Bag 0 10/14/17 00:45 0 20 0/0 Ambu-Bag 0 10/14/17 00:44 35 20 0/0 Ambu-Bag 35 10/14/17 00:30 96.8 88 29 70/46 Nasal Cannula 2.0 88 10/14/17 00:00 96.8 88 29 70/46 Nasal Cannula 2.0 88 10/14/17 00:00 60 10/13/17 23:30 88 29 70/46 Nasal Cannula 2.0 93 10/13/17 23:10 83/37 10/13/17 23:08 92 83/37 10/13/17 23:00 92 29 79/50 Nasal Cannula 2.0 93 10/13/17 22:30 105 29 82/47 Room Air 93 10/13/17 22:23 Room Air 10/13/17 22:10 98.2 105 20 156/84 Room Air 105 10/13/17 21:00 94 27 77/39 93 Nasal Cannula 2.0 99 10/13/17 20:30 93 26 88/43 93 Nasal Cannula 2.0 99 10/13/17 20:00 99 20 79/54 93 Nasal Cannula 2.0 99 10/13/17 19:30 94 Nasal Cannula 2.0 28 10/13/17 19:30 98.2 105 20 67/45 93 Nasal Cannula 2.0 99 10/13/17 19:30 Nasal Cannula 2.0 28 10/13/17 19:00 93 22 82/45 100 Simple Mask 10.0 10/13/17 18:31 95 23 85/48 100 Simple Mask 10.0 10/13/17 18:00 95 22 85/51 100 Simple Mask 10.0 10/13/17 18:00 85/51 10/13/17 17:30 93 23 90/49 97 Simple Mask 10.0 10/13/17 17:00 90 28 88/44 Simple Mask 10.0 10/13/17 17:00 23 83/46 Simple Mask 10.0 10/13/17 17:00 83/46 10/13/17 17:00 Simple Mask 10.0 10/13/17 16:30 22 88/53 Simple Mask 10.0 10/13/17 16:00 97.4 100 27 79/47 95 Simple Mask 10.0 10/13/17 16:00 98 10/13/17 16:00 79/47 10/13/17 15:30 94 14 90/49 Simple Mask 10.0 10/13/17 15:00 94 25 75/42 Simple Mask 10.0 10/13/17 15:00 75/42 10/13/17 14:35 81/51 10/13/17 14:30 87 26 94/50 Simple Mask 10.0 10/13/17 14:00 91 30 94/50 Simple Mask 10.0 10/13/17 14:00 94/50 10/13/17 13:30 Simple Mask 10.0 10/13/17 13:30 90 92/53 Simple Mask 10.0 10/13/17 13:30 97.4 88 32 94/50 Simple Mask 10.0 10/13/17 13:00 99 109/69 Simple Mask 10.0 10/13/17 13:00 109/69 10/13/17 12:31 88 25 95/48 Nasal Cannula 3.0 10/13/17 12:00 97.4 94 29 85/53 Nasal Cannula 3.0 10/13/17 12:00 92 10/13/17 12:00 78/56 10/13/17 12:00 26 94 Nasal Cannula 3.0 10/13/17 11:30 90 28 98/50 Nasal Cannula 3.0 10/13/17 11:00 98/49 10/13/17 11:00 93 27 98/49 Nasal Cannula 3.0 Intake and Output 10/14/17 10/15/17 19:00 07:00 Intake Total 413.61 ml Output Total 0 ml Balance 413.61 ml IV Total 413.61 ml Hemodialysis UF 0 ml Laboratory Tests 10/13/17 13:10: Arterial Blood pH 7.319L, Arterial Blood Partial Pressure CO2 39.4, Arterial Blood Partial Pressure O2 114.8H, Arterial Blood HCO3 19.8L, Arterial Blood Oxygen Saturation 97.3, Arterial Blood Base Excess -5.8, Colin Test Positive 10/14/17 02:30: Arterial Blood pH 7.320L, Arterial Blood Partial Pressure CO2 29.3L, Arterial Blood Partial Pressure O2 114.9H, Arterial Blood HCO3 14.8L, Arterial Blood Oxygen Saturation 97.0, Arterial Blood Base Excess -10.2, Colin Test Positive 10/14/17 03:30: White Blood Count 7.6, Red Blood Count 2.68L, Hemoglobin 8.4L, Hematocrit 27.4L , Mean Corpuscular Volume 102H, Mean Corpuscular Hemoglobin 31.3H, Mean Corpuscular Hemoglobin Concent 30.7L, Red Cell Distribution Width 19.0H, Platelet Count 42L, Mean Platelet Volume 13.5H, Neutrophils (%) (Auto) , Lymphocytes (%) (Auto) , Monocytes (%) (Auto) , Eosinophils (%) (Auto) , Basophils (%) (Auto) , Differential Total Cells Counted 100, Neutrophils % ( Manual) 72, Lymphocytes % (Manual) 5L, Monocytes % (Manual) 4, Eosinophils % ( Manual) 0, Basophils % (Manual) 0, Band Neutrophils 19H, Platelet Estimate DecreasedL, Platelet Morphology Normal, Giant Platelets Occasional, Hypochromasia 1+, Anisocytosis 1+, Macrocytosis 1+, [place] Cells Occasional, Sodium Level 136, Potassium Level 3.9, Chloride Level 98, Carbon Dioxide Level 20L, Anion Gap 18H, Blood Urea Nitrogen 24H, Creatinine 3.3H, Estimat Glomerular Filtration Rate , Glucose Level 176H, Lactic Acid Level 12.10H, Calcium Level 7.5L, Total Bilirubin 2.6H, Direct Bilirubin 1.1H, Aspartate Amino Transf (AST/SGOT) 76H, Alanine Aminotransferase (ALT/SGPT) 25, Alkaline Phosphatase 86, Total Protein 5.1L, Albumin 2.0L, Globulin 3.1, Albumin/ Globulin Ratio 0.6L 10/14/17 09:00: Lactic Acid Level 11.50H Height (Feet): 5 Height (Inches): 5.00 Weight (Pounds): 141 General Appearance: no apparent distress EENT: normal ENT inspection Neck: normal alignment Cardiovascular: normal peripheral pulses Abdomen: non tender Skin: normal pigmentation Neri Rosenbaum Oct 14, 2017 10:40
[2017-10-14] MEDS: Phenylephrine 50 MG in D5W 245 ML IV SCH (12:41)
[2017-10-14] MEDS ORDERED: Sodium Bicarbonate 50ml Carp IV ONE (13:05)
--- NOTE | 2017-10-14 13:34 | GI Progress Note ---
Assessment/Plan Problems: (1) Small bowel obstruction ICD Codes: K56.609 - Unspecified intestinal obstruction, unspecified as to partial versus complete obstruction SNOMED: 771023154 (2) Abdominal pain ICD Codes: R10.9 - Unspecified abdominal pain SNOMED: 98925895 (3) Poor appetite ICD Codes: R63.0 - Anorexia SNOMED: 91145012 (4) Altered mental status ICD Codes: R41.82 - Altered mental status, unspecified SNOMED: 226765310 Qualifiers: Qualified Codes: R41.82 - Altered mental status, unspecified Status: not improved, unchanged, deteriorating Status Narrative Discussed with Dr. Renteria. Assessment/Plan CT AP reviewed >> Findings consistent with small bowel obstruction, with dilated proximal small bowel,collapsed distal small bowel, and transition point in the anterior right lower quad anterior. abdominal US noted. anemia work up reviewed >> low FT4, high TSH suggestive of hypothyroidism, refer to PCP for tx fu surgical recs strict NPO + IVFs, okay for meds bowel decompression >> NGT to LIS serial imaging prn monitor H&H, prn transfusions ppi DM mgmt fu labs Subjective Subjective limited Objective Last 24 Hour Vital Signs Date Time Temp Pulse Resp B/P (MAP) Pulse Ox O2 Delivery O2 Flow Rate FiO2 10/14/17 13:14 71 23 70 10/14/17 13:00 75 19 77/43 92 Mechanical Ventilator 70 10/14/17 12:41 73 57/42 10/14/17 12:30 81 19 63/38 95 Mechanical Ventilator 70 10/14/17 12:00 79 10/14/17 12:00 98.1 94 20 63/48 95 Mechanical Ventilator 70 10/14/17 11:30 81 19 73/54 95 Mechanical Ventilator 70 10/14/17 11:25 82 28 70 10/14/17 11:00 87 19 81/48 95 Mechanical Ventilator 70 10/14/17 10:30 90 19 83/48 95 Mechanical Ventilator 70 10/14/17 10:00 90 19 83/51 95 Mechanical Ventilator 70 10/14/17 09:30 89 19 85/50 95 Mechanical Ventilator 70 10/14/17 09:00 88 19 79/41 95 Mechanical Ventilator 70 10/14/17 08:49 87 33 70 10/14/17 08:35 80/58 10/14/17 08:30 90 19 80/58 95 Mechanical Ventilator 70 10/14/17 08:00 97.4 94 20 92/58 95 Mechanical Ventilator 70 10/14/17 08:00 70 10/14/17 08:00 91 10/14/17 07:30 91 19 91/72 95 Mechanical Ventilator 70 10/14/17 07:11 85 32 70 10/14/17 07:00 92 20 84/57 95 Mechanical Ventilator 70 10/14/17 06:30 91 20 80/45 95 Mechanical Ventilator 70 88 10/14/17 06:00 90 20 76/45 95 Mechanical Ventilator 70 88 10/14/17 05:30 78 29 70 10/14/17 05:30 88 20 84/45 95 Mechanical Ventilator 70 88 10/14/17 05:00 57 20 79/46 95 Mechanical Ventilator 70 85 10/14/17 04:30 71 20 79/42 95 Mechanical Ventilator 70 85 10/14/17 04:00 96.8 71 20 71/41 95 Mechanical Ventilator 70 85 10/14/17 04:00 85 10/14/17 04:00 70 10/14/17 03:30 80 21 100 10/14/17 03:30 71 20 79/45 95 Mechanical Ventilator 100 85 10/14/17 03:00 87 20 80/45 95 Mechanical Ventilator 70 85 10/14/17 02:30 86 20 77/45 95 Mechanical Ventilator 100 85 10/14/17 02:00 85 20 83/44 95 Mechanical Ventilator 100 85 10/14/17 01:30 83 20 88/70 92 Mechanical Ventilator 100 83 10/14/17 01:15 83 24 100 10/14/17 01:13 84 23 Mechanical Ventilator 10/14/17 01:00 83 20 81/43 92 Mechanical Ventilator 100 83 10/14/17 01:00 100 10/14/17 00:56 0 20 0/0 Ambu-Bag 0 10/14/17 00:45 0 20 0/0 Ambu-Bag 0 10/14/17 00:44 35 20 0/0 Ambu-Bag 35 10/14/17 00:30 96.8 88 29 70/46 Nasal Cannula 2.0 88 10/14/17 00:00 96.8 88 29 70/46 Nasal Cannula 2.0 88 10/14/17 00:00 60 10/13/17 23:30 88 29 70/46 Nasal Cannula 2.0 93 10/13/17 23:10 83/37 10/13/17 23:08 92 83/37 10/13/17 23:00 92 29 79/50 Nasal Cannula 2.0 93 10/13/17 22:30 105 29 82/47 Room Air 93 10/13/17 22:23 Room Air 10/13/17 22:10 98.2 105 20 156/84 Room Air 105 10/13/17 21:00 94 27 77/39 93 Nasal Cannula 2.0 99 10/13/17 20:30 93 26 88/43 93 Nasal Cannula 2.0 99 10/13/17 20:00 99 20 79/54 93 Nasal Cannula 2.0 99 10/13/17 19:30 94 Nasal Cannula 2.0 28 10/13/17 19:30 98.2 105 20 67/45 93 Nasal Cannula 2.0 99 10/13/17 19:30 Nasal Cannula 2.0 28 10/13/17 19:00 93 22 82/45 100 Simple Mask 10.0 10/13/17 18:31 95 23 85/48 100 Simple Mask 10.0 10/13/17 18:00 95 22 85/51 100 Simple Mask 10.0 10/13/17 18:00 85/51 10/13/17 17:30 93 23 90/49 97 Simple Mask 10.0 10/13/17 17:00 90 28 88/44 Simple Mask 10.0 10/13/17 17:00 23 83/46 Simple Mask 10.0 10/13/17 17:00 83/46 10/13/17 17:00 Simple Mask 10.0 10/13/17 16:30 22 88/53 Simple Mask 10.0 10/13/17 16:00 97.4 100 27 79/47 95 Simple Mask 10.0 10/13/17 16:00 98 10/13/17 16:00 79/47 10/13/17 15:30 94 14 90/49 Simple Mask 10.0 10/13/17 15:00 94 25 75/42 Simple Mask 10.0 10/13/17 15:00 75/42 10/13/17 14:35 81/51 10/13/17 14:30 87 26 94/50 Simple Mask 10.0 10/13/17 14:00 91 30 94/50 Simple Mask 10.0 10/13/17 14:00 94/50 Intake and Output 10/13/17 10/14/17 19:00 07:00 Intake Total 1340.57 ml 1493.94 ml Output Total 2760 ml 550 ml Balance -1419.43 ml 943.94 ml IV Total 1340.57 ml 1493.94 ml Output Urine Total 0 ml Gastric Drainage Total 50 ml Hemodialysis UF 2760 ml 500 ml Laboratory Tests Test 10/14/17 02:30 10/14/17 03:30 10/14/17 09:00 Arterial Blood pH 7.320 (7.350-7.450) Arterial Blood Partial Pressure CO2 29.3 mmHg (35.0-45.0) L Arterial Blood Partial Pressure O2 114.9 mmHg (75.0-100.0) H Arterial Blood HCO3 14.8 mmol/L (22.0-26.0) L Arterial Blood Oxygen Saturation 97.0 % (92.0-98.0) Arterial Blood Base Excess -10.2 Colin Test Positive White Blood Count 7.6 K/UL (4.8-10.8) Red Blood Count 2.68 M/UL (4.20-5.40) L Hemoglobin 8.4 G/DL (12.0-16.0) L Hematocrit 27.4 % (37.0-47.0) L Mean Corpuscular Volume 102 FL (80-99) H Mean Corpuscular Hemoglobin 31.3 PG (27.0-31.0) H Mean Corpuscular Hemoglobin Concent 30.7 G/DL (32.0-36.0) L Red Cell Distribution Width 19.0 % (11.6-14.8) H Platelet Count 42 K/UL (150-450) L Mean Platelet Volume 13.5 FL (6.5-10.1) H Neutrophils (%) (Auto) % (45.0-75.0) Lymphocytes (%) (Auto) % (20.0-45.0) Monocytes (%) (Auto) % (1.0-10.0) Eosinophils (%) (Auto) % (0.0-3.0) Basophils (%) (Auto) % (0.0-2.0) Differential Total Cells Counted 100 Neutrophils % (Manual) 72 % (45-75) Lymphocytes % (Manual) 5 % (20-45) L Monocytes % (Manual) 4 % (1-10) Eosinophils % (Manual) 0 % (0-3) Basophils % (Manual) 0 % (0-2) Band Neutrophils 19 % (0-8) H Platelet Estimate Decreased L Platelet Morphology Normal Giant Platelets Occasional Hypochromasia 1+ Anisocytosis 1+ Macrocytosis 1+ Lowell Cells Occasional Sodium Level 136 MMOL/L (136-145) Potassium Level 3.9 MMOL/L (3.5-5.1) Chloride Level 98 MMOL/L (98-107) Carbon Dioxide Level 20 MMOL/L (21-32) L Anion Gap 18 mmol/L (5-15) H Blood Urea Nitrogen 24 mg/dL (7-18) H Creatinine 3.3 MG/DL (0.55-1.30) H Estimat Glomerular Filtration Rate mL/min (>60) Glucose Level 176 MG/DL (74-106) H Lactic Acid Level 12.10 mmol/L (0.66-2.22) H 11.50 mmol/L (0.66-2.22) H Calcium Level 7.5 MG/DL (8.5-10.1) L Total Bilirubin 2.6 MG/DL (0.2-1.0) H Direct Bilirubin 1.1 MG/DL (0.0-0.3) H Aspartate Amino Transf (AST/SGOT) 76 U/L (15-37) H Alanine Aminotransferase (ALT/SGPT) 25 U/L (12-78) Alkaline Phosphatase 86 U/L (46-116) Total Protein 5.1 G/DL (6.4-8.2) L Albumin 2.0 G/DL (3.4-5.0) L Globulin 3.1 g/dL Albumin/Globulin Ratio 0.6 (1.0-2.7) L Height (Feet): 5 Height (Inches): 5.00 Weight (Pounds): 141 General Appearance: mild distress Cardiovascular: normal rate Respiratory/Chest: other - mech vent Abdominal Exam: soft Lucia Thomas N.PHebert Oct 14, 2017 13:34
--- NOTE | 2017-10-14 14:13 | Nephrology Progress Note ---
Assessment/Plan Problem List: (1) HCAP (healthcare-associated pneumonia) (2) Septic shock (3) CHF (congestive heart failure) (4) Altered mental status (5) CKD (chronic kidney disease) requiring chronic dialysis Plan Cardiopulmonary resuscitation unsuccessful - 1420 Subjective Subjective Cardiopulmonary resuscitation ongoing at this time . Objective Objective Last 24 Hour Vital Signs Date Time Temp Pulse Resp B/P (MAP) Pulse Ox O2 Delivery O2 Flow Rate FiO2 10/14/17 13:14 71 23 70 10/14/17 13:00 75 19 77/43 92 Mechanical Ventilator 70 10/14/17 12:41 73 57/42 10/14/17 12:30 81 19 63/38 95 Mechanical Ventilator 70 10/14/17 12:00 79 10/14/17 12:00 98.1 94 20 63/48 95 Mechanical Ventilator 70 10/14/17 11:30 81 19 73/54 95 Mechanical Ventilator 70 10/14/17 11:25 82 28 70 10/14/17 11:00 87 19 81/48 95 Mechanical Ventilator 70 10/14/17 10:30 90 19 83/48 95 Mechanical Ventilator 70 10/14/17 10:00 90 19 83/51 95 Mechanical Ventilator 70 10/14/17 09:30 89 19 85/50 95 Mechanical Ventilator 70 10/14/17 09:00 88 19 79/41 95 Mechanical Ventilator 70 10/14/17 08:49 87 33 70 10/14/17 08:35 80/58 10/14/17 08:30 90 19 80/58 95 Mechanical Ventilator 70 10/14/17 08:00 97.4 94 20 92/58 95 Mechanical Ventilator 70 10/14/17 08:00 70 10/14/17 08:00 91 10/14/17 07:30 91 19 91/72 95 Mechanical Ventilator 70 10/14/17 07:11 85 32 70 10/14/17 07:00 92 20 84/57 95 Mechanical Ventilator 70 10/14/17 06:30 91 20 80/45 95 Mechanical Ventilator 70 88 10/14/17 06:00 90 20 76/45 95 Mechanical Ventilator 70 88 10/14/17 05:30 78 29 70 10/14/17 05:30 88 20 84/45 95 Mechanical Ventilator 70 88 10/14/17 05:00 57 20 79/46 95 Mechanical Ventilator 70 85 10/14/17 04:30 71 20 79/42 95 Mechanical Ventilator 70 85 10/14/17 04:00 96.8 71 20 71/41 95 Mechanical Ventilator 70 85 10/14/17 04:00 85 10/14/17 04:00 70 10/14/17 03:30 80 21 100 10/14/17 03:30 71 20 79/45 95 Mechanical Ventilator 100 85 10/14/17 03:00 87 20 80/45 95 Mechanical Ventilator 70 85 10/14/17 02:30 86 20 77/45 95 Mechanical Ventilator 100 85 10/14/17 02:00 85 20 83/44 95 Mechanical Ventilator 100 85 10/14/17 01:30 83 20 88/70 92 Mechanical Ventilator 100 83 10/14/17 01:15 83 24 100 10/14/17 01:13 84 23 Mechanical Ventilator 10/14/17 01:00 83 20 81/43 92 Mechanical Ventilator 100 83 10/14/17 01:00 100 10/14/17 00:56 0 20 0/0 Ambu-Bag 0 10/14/17 00:45 0 20 0/0 Ambu-Bag 0 10/14/17 00:44 35 20 0/0 Ambu-Bag 35 10/14/17 00:30 96.8 88 29 70/46 Nasal Cannula 2.0 88 10/14/17 00:00 96.8 88 29 70/46 Nasal Cannula 2.0 88 10/14/17 00:00 60 10/13/17 23:30 88 29 70/46 Nasal Cannula 2.0 93 10/13/17 23:10 83/37 10/13/17 23:08 92 83/37 10/13/17 23:00 92 29 79/50 Nasal Cannula 2.0 93 10/13/17 22:30 105 29 82/47 Room Air 93 10/13/17 22:23 Room Air 10/13/17 22:10 98.2 105 20 156/84 Room Air 105 10/13/17 21:00 94 27 77/39 93 Nasal Cannula 2.0 99 10/13/17 20:30 93 26 88/43 93 Nasal Cannula 2.0 99 10/13/17 20:00 99 20 79/54 93 Nasal Cannula 2.0 99 10/13/17 19:30 94 Nasal Cannula 2.0 28 10/13/17 19:30 98.2 105 20 67/45 93 Nasal Cannula 2.0 99 10/13/17 19:30 Nasal Cannula 2.0 28 10/13/17 19:00 93 22 82/45 100 Simple Mask 10.0 10/13/17 18:31 95 23 85/48 100 Simple Mask 10.0 10/13/17 18:00 95 22 85/51 100 Simple Mask 10.0 10/13/17 18:00 85/51 10/13/17 17:30 93 23 90/49 97 Simple Mask 10.0 10/13/17 17:00 90 28 88/44 Simple Mask 10.0 10/13/17 17:00 23 83/46 Simple Mask 10.0 10/13/17 17:00 83/46 10/13/17 17:00 Simple Mask 10.0 10/13/17 16:30 22 88/53 Simple Mask 10.0 10/13/17 16:00 97.4 100 27 79/47 95 Simple Mask 10.0 10/13/17 16:00 98 10/13/17 16:00 79/47 10/13/17 15:30 94 14 90/49 Simple Mask 10.0 10/13/17 15:00 94 25 75/42 Simple Mask 10.0 10/13/17 15:00 75/42 10/13/17 14:35 81/51 10/13/17 14:30 87 26 94/50 Simple Mask 10.0 Intake and Output 10/13/17 10/14/17 19:00 07:00 Intake Total 1340.57 ml 1493.94 ml Output Total 2760 ml 550 ml Balance -1419.43 ml 943.94 ml IV Total 1340.57 ml 1493.94 ml Output Urine Total 0 ml Gastric Drainage Total 50 ml Hemodialysis UF 2760 ml 500 ml Laboratory Tests 10/14/17 02:30: Arterial Blood pH 7.320L, Arterial Blood Partial Pressure CO2 29.3L, Arterial Blood Partial Pressure O2 114.9H, Arterial Blood HCO3 14.8L, Arterial Blood Oxygen Saturation 97.0, Arterial Blood Base Excess -10.2, Colin Test Positive 10/14/17 03:30: White Blood Count 7.6, Red Blood Count 2.68L, Hemoglobin 8.4L, Hematocrit 27.4L , Mean Corpuscular Volume 102H, Mean Corpuscular Hemoglobin 31.3H, Mean Corpuscular Hemoglobin Concent 30.7L, Red Cell Distribution Width 19.0H, Platelet Count 42L, Mean Platelet Volume 13.5H, Neutrophils (%) (Auto) , Lymphocytes (%) (Auto) , Monocytes (%) (Auto) , Eosinophils (%) (Auto) , Basophils (%) (Auto) , Differential Total Cells Counted 100, Neutrophils % ( Manual) 72, Lymphocytes % (Manual) 5L, Monocytes % (Manual) 4, Eosinophils % ( Manual) 0, Basophils % (Manual) 0, Band Neutrophils 19H, Platelet Estimate DecreasedL, Platelet Morphology Normal, Giant Platelets Occasional, Hypochromasia 1+, Anisocytosis 1+, Macrocytosis 1+, Lowell Cells Occasional, Sodium Level 136, Potassium Level 3.9, Chloride Level 98, Carbon Dioxide Level 20L, Anion Gap 18H, Blood Urea Nitrogen 24H, Creatinine 3.3H, Estimat Glomerular Filtration Rate , Glucose Level 176H, Lactic Acid Level 12.10H, Calcium Level 7.5L, Total Bilirubin 2.6H, Direct Bilirubin 1.1H, Aspartate Amino Transf (AST/SGOT) 76H, Alanine Aminotransferase (ALT/SGPT) 25, Alkaline Phosphatase 86, Total Protein 5.1L, Albumin 2.0L, Globulin 3.1, Albumin/ Globulin Ratio 0.6L 10/14/17 09:00: Lactic Acid Level 11.50H Height (Feet): 5 Height (Inches): 5.00 Weight (Pounds): 141 Celine Conley N.P. Oct 14, 2017 14:13
[2017-10-14] MEDS ORDERED: D5NS 1000ml IV ONE ×2 (14:17)
[2017-10-14] MEDS ORDERED: NS 500ML ONE (14:17)
[2017-10-14] MEDS ORDERED: D5W 550ml IV ONE (14:17)
[2017-10-14] MEDS ORDERED: Tubing IV Secondary IV ONE ×2 (14:17)
--- NOTE | 2017-10-14 14:38 | Diagnostic Imaging Report ---
Indication: Post intubation Technique: One view of the chest Comparison: 10/03/2017 Findings: There are bilateral diffuse interstitial and airspace opacities. Again demonstrated is bilateral pleural fluid, left greater than right. Interim endotracheal intubation, endotracheal tube tip in good position approximately 4 cm above the nain. Interim nasogastric intubation, nasogastric tube coiled within the gastric fundus, in good position. Overlying defibrillator paddles are noted. The heart is enlarged. The aorta is tortuous and calcified Impression: Satisfactory endotracheal and nasogastric intubation Diffuse bilateral patchy interstitial and alveolar parenchymal infiltrates versus edema Bilateral left greater than right pleural effusions Cardiomegaly
--- NOTE | 2017-10-14 14:55 | Diagnostic Imaging Report ---
Indication: Abdominal distention and pain Technique: Supine view of the abdomen Comparison: 10/11/2017 Findings: Diffusely distended gas-filled small bowel loops are equivocally slightly greater in caliber than on the prior exam. Nasogastric tube, right femoral central venous catheter, pelvic surgical clips are again noted Impression: Gaseous distention of small bowel, consistent with previously reported small bowel obstruction, stable or slightly increased over 3 days
--- NOTE | 2017-10-14 16:03 | General Progress Note ---
Progress Note Progress Note Surgery: Patient . Continue to be unstable after with minimal improvement. in evening noted bradycardic then asystole which lead to cardiac arrest. ATLS initiated and vitals regained. Continued to be unstable this morning. In afternoon had episode of bradycardia and asystole again. ATLS unsuccessful and patient . Family at bedside after. Spoke with family after. Poor cardiac function with ongoing comorbidities with very poor prognosis. POA expressed understanding and stated that she knew her heart was weak. She asked about surgery in hindsight and given comorbidities, current events, and instability she would have been very very high risk with significant morbidity and mortality risks. POA and family who I spoke to expressed understanding and were consoled that she did not suffer in her last moments. expressed thankfulness and appreciated care. I told them to call me with any questions or concerns. Vimal Montague Oct 14, 2017 16:03
--- NOTE | 2017-10-14 23:47 | Emergency Room Report ---
History of Present Illness General Chief Complaint: Abnormal Labs Source: Medical Record Present Illness Allergies: Coded Allergies: ASPIRIN (Unverified Allergy, Unknown, 10/03/17) PENICILLINS (Unverified Allergy, Unknown, 10/03/17) Patient History Now: No Nursing Documentation-[facility] Past Medical History: No History, Except For Hx Cardiac Problems: Yes - Cardiogenic shock, Anemia, Hyperparathyroidism Hx Hypertension: Yes - Nonrheumatic Mitral valve insufficiency Hx Asthma: No - Acute pulmanory edema Hx Diabetes: Yes - Type 2 Hx Cancer: No Hx Gastrointestinal Problems: Yes - Generalized muscle weakness Hx Dialysis: Yes - ESRD Hx Neurological Problems: Yes - Metabolic Encephalopathy Physical Exam Vital Signs Date Time Temp Pulse Resp B/P (MAP) Pulse Ox O2 Delivery O2 Flow Rate FiO2 10/03/17 04:41 96.4 90 16 106/70 92 Simple Mask 10/03/17 05:00 6.0 10/03/17 05:42 50 Procedures Critical Care Time Critical Care Time i. I feel this is a highly complex case requiring extensive working including EKG/Rhythm strip, Xray/CT/US, Blood/urine lab work, repeat exams while in ED, and administration of strong opiates/narcotics for pain control, admission to hospital or close patient follow up. Total time: 30 min bedside evaluation and treatment excludes procedures (EKG). Reason for critical care: Cardiac arrest Possible complications: hypotension, hypertension, OK, shock, arrhythmias, metabolic acidosis, end organ damage, respiratory failure. Interventions: ACLS, calcium, bicarbonate, epinephrine, chest compressions, defibrillation Course: Patient in cardiac arrest. Patient currently on max pressors x2. Coded last night. Intubated. Patient given calcium and bicarbonate. Given multiple doses of epinephrine. Chest compressions continued. Patient of one episode of ventricular fibrillation and was shocked. Patient remained in PEA. Prognosis is poor. Resuscitative efforts were terminated. Patient expires Consultations: nursing staff, EMS, family Performed by: Dr Otero Tolerated well condition = expires j. because of unstable vital signs this patient had a condition that could potentially threaten life or limb. I feel this is a critical patient who required my full attention while patient was considered critical. Total Critical Care Time excluding procedures was greater than 35 minutes Cardioversion Cardioversion: Consent: Emergent Indication: Other - vfib Type: Desynchonis Response: Other - pea Attempts: One Patient Tolerated: Poor Complications: None CPR/Code Blue CPR/Code Blue Narrative see code blue narrative Medical Decision Making Diagnostic Impression: Primary Impression: Hypoglycemia Additional Impressions: Cardiac arrest Septic shock CHF (congestive heart failure) Hypothermia Sepsis Altered mental status CKD (chronic kidney disease) requiring chronic dialysis Hypokalemia ER Course Patient presenting with cardiac arrest the ICU Patient currently on two pressors on maximum dose. Patient coded last night and was subsequently intubated. Patient given calcium and bicarbonate. Given multiple doses of epinephrine. Chest compressions continued Patient and one round of ventricular fibrillation and was subsequently shocked. Resulting rhythm continues in PEA. Despite resuscitative efforts patient remains without pulse. Prognosis is poor. Patient is on 2 pressors on maximum dose. Resuscitative efforts are terminated. Patient expires Last Vital Signs Date Time Temp Pulse Resp B/P (MAP) Pulse Ox O2 Delivery O2 Flow Rate FiO2 10/14/17 13:59 0 0 0/0 Mechanical Ventilator 70 10/14/17 13:30 92 10/14/17 12:00 98.1 10/14/17 00:30 2.0 Status: worsened Disposition: Condition: Referrals: ELAINE CHAKRABORTY (PCP) MODESTO OTERO M.D. Oct 14, 2017 23:47
--- NOTE | 2017-10-15 18:35 | Discharge Summary ---
Discharge Summary Hospital Course Date of Admission Oct 03, 2017 at 05:15 Date of Discharge Oct 14, 2017 at 14:18 Admitting Diagnosis hypoglycemia/hypotension HPI Zahraa Magallanes is a 72 year old female who was admitted on Oct 03, 2017 at 05:15 for Hypoglycemia/HYPOTENSION Hospital Course [id number] Discharge Discharge Disposition Patient Discharge Diagnoses: Barbie Weinstein NP Oct 15, 2017 18:35
--- NOTE | 2017-10-16 03:02 | Discharge Summary 2 SIG ---
DATE OF ADMISSION: 10/03/2017 DATE OF DISCHARGE: 10/14/2017 BRIEF SUMMARY: The patient is an unfortunate 72-year-old female, who was taken by EMS for low blood sugar and hypotension. She came in altered. History was limited. She was given glucagon and D10 by EMS without any improvement in low blood sugar. On evaluation at ED, she was given D50. She was hypothermic and was started on a Danielle Hugger. Pulse oximetry was 94. Rectal temperature was 94 degrees. Chest x-ray done showed combination of bilateral pulmonary congestion and possible right-sided pneumonia. She was given Lasix and potassium was repleted. Given there was hypothermia, hypotension, and right-sided pneumonia, she was admitted to ICU for possible sepsis. She was followed by Infectious Disease specialist and was started on IV vancomycin and Levaquin empirically. The patient has hypotension secondary to septic shock and was given midodrine. Initially, however, continued to be hypotensive and was started on Levophed. Echocardiogram done showed severe cardiomyopathy with EF 20% to 25%. She was taken off BRANDY inhibitor and Coreg secondary to hypotension. She underwent inpatient hemodialysis. Levophed was tapered, however, blood pressure again dropped to 70s systolic. She was restarted on IV pressors. The patient has poor p.o. intake and per nurses, has not been eating. There was no swallowing deficit noted. Abdominal ultrasound showed bilateral pleural effusion and trace ascites. Sputum culture showed growth of Maya, which is most likely colonization, not real infection. Blood culture was negative. CT of the abdomen and pelvis done showed findings consistent with small bowel obstruction with dilated proximal small bowel loops and collapsed distal small bowel. NG tube was inserted and connected to low intermittent suction. Surgical evaluation was done and the patient was monitored closely. The patient was treated with conservative management with NG tube suction and had serial KUBs. Abdomen was distended and tympanitic. The patient with persistent hypotension, not responding to IV pressors. She was noted to have thrombocytopenia. HIT workup pending. There was no acute DVT. Thrombocytopenia most likely due to sepsis. Anemia workup also showed anemia secondary to chronic disease related to the patient's history of multiple comorbid conditions. Ferritin was 119. Percent saturation was 48. Lactate level elevated and continued with abdominal distention. She underwent evaluation by Dr. Gutierrez. The patient had ischemic appearance of toes and absent Doppler signals in both feet. Blood pressure continued to be low. Toes were discolored, but viable, suspect due to inadequate perfusion. She continued to decline. Lactic acid rising and blood work has bands. On 10/14/2017, Antoinette Thornton was called and the patient was orally intubated. She had spontaneous return of pulse and was hooked on ventilator. However, coded second time. The patient was in ventricular fibrillation and continued to be in PEA. The patient eventually . FINAL DIAGNOSES: 1. Septic shock. 2. Healthcare-associated pneumonia. 3. End-stage renal disease, on hemodialysis. 4. Small bowel obstruction. 5. Altered mental status/encephalopathy. 6. Thrombocytopenia. 7. Anemia secondary to chronic disease. 8. Anemia secondary to kidney disease. 9. Severe cardiomyopathy. 10. End-stage renal disease, on hemodialysis. 11. Cardiorespiratory arrest. David Fay M.D. I have been assigned to dictate discharge summary on this account and I was not involved in the patient's management. Barbie Weinstein N.P. DR: Sly JOB#: [id number] CC: MINOR
--- NOTE | 2017-10-22 00:04 | Diagnostic Imaging Report ---
APPROVED REPORT CPT Code: 10562 Symptoms PAD Comments: Dialysis pt. Lt groin AV graft. TECHNICALLY DIFFICULT STUDY DUE TO PT MOTION AND DISCOMFORT. RIGHT LEG: Common femoral artery waveform analysis is within normal limits at rest. Color flow duplex sonography reveals heavily calcified common femoral, superficial femoral and popliteal arteries throughout. There is a stenosis (50%) at the proximal popliteal artery. There is no evidence of occlusion within these segments. The tibioperoneal trunk was not visualized. The posterior tibial, anterior tibial and dorsalis pedis arteries are also heavily calcified. Color and spectral Doppler was not obtained in the posterior tibial and dorsalis pedis arteries, compatible with critical ischemia. Doppler waveform analysis at the anterior tibial and peroneal arteries is compatible with severe ischemia. LEFT LEG: Common femoral artery waveform analysis is abnormal, suggestive of iliac arterial occlusive disease. Color flow duplex sonography reveals heavily calcified common femoral, superficial femoral and popliteal arteries throughout. A severe stenosis (99%) is seen at the common femoral artery, reconstituting at a common femoral artery hemodialysis graft. The arterial portion of the graft is patent. The sapheno-femoral vein portion of the graft is also patent. The hemodialysis access point at the upper thigh was not accessible due to dressings. Moderate stenoses (70%) are seen at the level of the proximal, mid and distal superficial femoral artery. There is no evidence of occlusion within these segments. A severe stenosis (99%) is seen at the popliteal artery. The tibioperoneal trunk was not visualized. The distal posterior tibial, anterior tibial and dorsalis pedis arteries are also heavily calcified. Color and spectral Doppler was not obtained in the posterior tibial, dorsalis pedis, anterior tibial and peroneal arteries, compatible with critical ischemia. AUBREY Sen was informed of abnormal results at 19:10 hrs.
--- NOTE | 2017-10-22 00:10 | Diagnostic Imaging Report ---
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 The remainder of the deep venous system is within normal limits. There is no evidence of thrombus in the common femoral, popliteal or calf veins. The greater saphenous vein is also within normal limits. Doppler indicates normal spontaneous flow within these segments. LEFT LEG: Venous imaging reveals a patent deep venous system. There is no evidence of thrombus within the femoral, popliteal or tibial segments. The greater saphenous vein is also within normal limits. Doppler indicates normal spontaneous flow within these segments. There is no evidence of acute deep vein thrombosis.
== END 2017-10-14 14:18 | disposition expired | DRG 871 ==
LOC: EDBD 04:46 → EMR 05:06 → ICU 05:15 → EDBEDREQ 05:48
PROC: 06HM33Z Insertion of Infusion Device into Right Femoral Vein, Percutaneous Approach (ICD-10-PCS; principal; 2017-10-03)
PROC: 5A1D70Z Performance of Urinary Filtration, Intermittent, Less than 6 Hours Per Day (ICD-10-PCS; 2017-10-05)
PROC: 0BH17EZ Insertion of Endotracheal Airway into Trachea, Via Natural or Artificial Opening (ICD-10-PCS; 2017-10-14)
PROC: 5A1935Z Respiratory Ventilation, Less than 24 Consecutive Hours (ICD-10-PCS; 2017-10-14)
DX: A41.9 Sepsis, unspecified organism (principal); R65.21 Severe sepsis with septic shock; J96.01 Acute respiratory failure with hypoxia; I13.2 Hypertensive heart and chronic kidney disease with heart failure and with stage 5 chronic kidney disease, or end stage renal disease; J18.9 Pneumonia, unspecified organism; K56.609 Unspecified intestinal obstruction, unspecified as to partial versus complete obstruction; N17.9 Acute kidney failure, unspecified; D68.9 Coagulation defect, unspecified; N18.6 End stage renal disease; I42.9 Cardiomyopathy, unspecified; I50.9 Heart failure, unspecified; Z99.2 Dependence on renal dialysis; R41.82 Altered mental status, unspecified; I25.6 Silent myocardial ischemia; E11.22 Type 2 diabetes mellitus with diabetic chronic kidney disease; E87.6 Hypokalemia; E11.649 Type 2 diabetes mellitus with hypoglycemia without coma; E21.3 Hyperparathyroidism, unspecified; I49.01 Ventricular fibrillation; D75.82 Heparin induced thrombocytopenia (HIT); D63.1 Anemia in chronic kidney disease
CPT/HCPCS: 36415; 36600; 71010; 74000; 74176; 76700; 80048; 80053; 80202; 82248; 82378; 82607; 82728; 82746; 82803; 82962; 83540; 83550; 83605; 83735; 83880; 84439; 84443; 84484; 85007; 85025; 85044; 85610; 85730; 86703; 86705; 86709; 86803; 86850; 86900; 86901; 87040; 87070; 87081; 87205; 87340; 92950; 93005; 93306; 93925; 93970; 94002; 94003; 94660; 94664; 94760; 99285; J0171; J0282; J1815; J2370; J8499